=== PATIENT | female | born 1955 | race Caucasian/White ===

== ENCOUNTER → 2016-06-20 | Outpatient (CLI) | payer BC ==
--- NOTE | 2016-06-22 08:36 | MM ---
Reason for exam: screening (asymptomatic). Last mammogram was performed 1 year ago. History: Patient is postmenopausal. Family history of breast cancer in cousin at age 30. Took estrogen for 2 years. Took progesterone for 2 years. Physical Findings: A clinical breast exam by your physician is recommended on an annual basis and results should be correlated with mammographic findings. MG Screening Mammo w CAD Bilateral CC and MLO view(s) were taken. Prior study comparison: June 15, 2015, bilateral MG screening mammo w CAD. June 13, 2014, bilateral MG screening mammo w CAD. April 25, 2013, bilateral digital screening mammo w/CAD. The breast tissue is heterogeneously dense. This may lower the sensitivity of mammography. Nodularity on the right CC view appear more defined from priors. ASSESSMENT: Incomplete: need additional imaging evaluation, BI-RAD 0 RECOMMENDATION: Special view mammogram of the right breast. If lesion persists on supplemental views, image directed ultrasound is recommended. [facility] will attempt to contact patient to return for supplemental views and ultrasound if indicated.
== END | disposition home or self-care (01) ==
LOC: RADMAMWWP 14:25
PROVIDERS: ATTEND Family Medicine
DX: Z12.31 Encounter for screening mammogram for malignant neoplasm of breast (principal); R92.2 Inconclusive mammogram

== ENCOUNTER → 2016-06-23 | Outpatient (CLI) | payer BC ==
--- NOTE | 2016-06-23 14:45 | MM ---
Reason for exam: additional evaluation requested from abnormal screening. Last mammogram was performed less than 1 month ago. History: Patient is postmenopausal. Family history of breast cancer in cousin at age 30. Took estrogen for 2 years. Took progesterone for 2 years. Physical Findings: Nurse did not find any significant physical abnormalities on exam. MG Work Up Mamm w CAD RT LM and spot compression CC view(s) were taken of the right breast. Prior study comparison: June 20, 2016, bilateral MG screening mammo w CAD. June 15, 2015, bilateral MG screening mammo w CAD. Nodular areas appear improved. A 6 months follow up recommended. These results were verbally communicated with the patient and result sheet given to the patient on 06/23/16. ASSESSMENT: Probably benign, BI-RAD 3 RECOMMENDATION: Follow-up diagnostic mammogram of the right breast in 6 months.
== END ==
LOC: RADMAMWWP 13:35
PROVIDERS: ATTEND Family Medicine
DX: R92.8 Other abnormal and inconclusive findings on diagnostic imaging of breast (principal)

== ENCOUNTER → 2016-11-01 | Outpatient (CLI) | payer BC ==
[2016-11-01 08:12] LABS: INR 1.1 (<1.1); Partial Thromboplastin Time 25.8 sec (22.0-30.0); Prothrombin Time 11.5 sec (9.0-12.0)
[2016-11-01 08:23] LABS: ALT 399 U/L (9-52); AST 289 U/L (14-36); Alkaline Phosphatase 83 U/L (38-126); Amylase 58 U/L (30-110); GGT 252 U/L (12-43)
== END | disposition home or self-care (01) ==
LOC: LABWHC1 07:23
PROVIDERS: ATTEND Family Medicine
DX: R74.0 Nonspecific elevation of levels of transaminase and lactic acid dehydrogenase [LDH] (principal)
CPT/HCPCS: 36415; 82103; 82150; 82390; 82525; 82977; 83516; 83690; 84075; 84450; 84460; 85610; 85730

== ENCOUNTER → 2016-11-22 | Outpatient (CLI) | payer BC ==
[2016-11-22 08:11] LABS: Total Bilirubin 1.2 mg/dL (0.2-1.3)
== END | disposition home or self-care (01) ==
LOC: LABWHC1 07:25
PROVIDERS: ATTEND Physician Assistant Medical
DX: R79.89 Other specified abnormal findings of blood chemistry (principal)
CPT/HCPCS: 36415; 82150; 82247; 82977; 83690; 84075; 84450; 84460

== ENCOUNTER → 2016-12-28 | Outpatient (CLI) | payer BC ==
--- NOTE | 2016-12-28 08:01 | MM ---
Reason for exam: follow-up at short interval from prior study. Last mammogram was performed 6 months ago. History: Patient is postmenopausal. Family history of breast cancer in cousin at age 30. Took estrogen for 2 years. Took progesterone for 2 years. Physical Findings: Nurse did not find any significant physical abnormalities on exam. MG Diagnostic Mammo RT w CAD CC and MLO view(s) were taken of the right breast. Prior study comparison: June 23, 2016, right breast MG work up mamm w CAD RT. June 20, 2016, bilateral MG screening mammo w CAD. The breast tissue is heterogeneously dense. This may lower the sensitivity of mammography. No significant new findings when compared with previous films. These results were verbally communicated with the patient and result sheet given to the patient on 12/28/16. ASSESSMENT: Benign, BI-RAD 2 RECOMMENDATION: Return to routine screening mammogram schedule for both breasts. Back on schedule.
== END | disposition home or self-care (01) ==
LOC: RADMAMWWP 07:19
PROVIDERS: ATTEND Family Medicine
DX: R92.8 Other abnormal and inconclusive findings on diagnostic imaging of breast (principal)

== ENCOUNTER 2017-02-28 20:09 | Inpatient (IN) | payer BC ==
[2017-02-28] MEDS ORDERED: FAMOTIDINE 20 MG/2 ML VIAL IV STA (20:25)
[2017-02-28] MEDS ORDERED: diphenhydrAMINE 50 MG/ML 1 ML VIAL IVP STA ×2 (20:25→21:14)
[2017-02-28] MEDS ORDERED: SODIUM CHLORIDE 0.9% 1,000 ML IV STA ×2 (20:27)
[2017-02-28] MEDS ORDERED: SODIUM CHLORIDE 0.9% 500 ML IV STA ×2 (20:27→21:55)
--- NOTE | 2017-02-28 20:29 | ED ---
Arrhythmia/Palpitations HPI - General Chief Complaint: Arrhythmia/Palpitations Stated Complaint: Racing Heartbeat Time Seen by Provider: 02/28/17 20:18 Source: patient, RN notes reviewed Mode of arrival: wheelchair Limitations: no limitations - History of Present Illness Initial Comments: This is a 60-year-old female who came in for evaluation because of an elevated heart rate. She felt like her heart was racing she feels anxious lightheaded he states this started this morning. She also had a CAT scan of her abdomen and liver this morning. She is being worked up for some apparent liver disease. She denies any fevers chills nausea vomiting she does states she is itchy rash on her chest and abdomen. This occurred after the IV contrast. She has no other complaints she denies any drugs or alcohol. MD Complaint: rapid heart beat, "heart racing" - Related Data Home Medications Medication Instructions Recorded Confirmed Cyanocobalamin [Vitamin B-12] 500 mcg PO DAILY 02/28/17 02/28/17 Ergocalciferol [Vitamin D2] 50,000 unit PO Q14D 02/28/17 02/28/17 Escitalopram Oxalate [Lexapro] 15 mg PO DAILY 02/28/17 02/28/17 Levothyroxine Sodium [Synthroid] 100 mcg PO DAILY 02/28/17 02/28/17 amLODIPine BESYLATE [Norvasc] 5 mg PO DAILY 02/28/17 02/28/17 Allergies Allergy/AdvReac Type Severity Reaction Status Date / Time No Known Allergies Allergy Verified 02/28/17 20:53 Review of Systems ROS Statement: Those systems with pertinent positive or pertinent negative responses have been documented in the HPI. ROS Other: All systems not noted in ROS Statement are negative. Past Medical History Past Medical History: Hypertension, Thyroid Disorder History of Any Multi-Drug Resistant Organisms: None Reported Past Surgical History: No Surgical Hx Reported Past Psychological History: Anxiety, Depression Smoking Status: Never smoker Past Alcohol Use History: Occasional Past Drug Use History: None Reported General Exam - General Exam Comments Initial Comments: This is a well-developed well-nourished awake alert oriented 3 female she does appear anxious and does seem to be the smell of alcohol conjoiners on her breath Limitations: no limitations General appearance: alert, anxious Head exam: Present: atraumatic, normocephalic, normal inspection Eye exam: Present: normal appearance, PERRL, EOMI. Absent: scleral icterus, conjunctival injection, periorbital swelling ENT exam: Present: mucous membranes dry Neck exam: Present: normal inspection. Absent: tenderness, meningismus, lymphadenopathy Respiratory exam: Present: normal lung sounds bilaterally. Absent: respiratory distress, wheezes, rales, rhonchi, stridor Cardiovascular Exam: Present: normal rhythm, tachycardia, normal heart sounds. Absent: systolic murmur, diastolic murmur, rubs, gallop, clicks GI/Abdominal exam: Present: soft, normal bowel sounds. Absent: distended, tenderness, guarding, rebound, rigid Extremities exam: Present: normal inspection, full ROM, normal capillary refill. Absent: tenderness, pedal edema, joint swelling, calf tenderness Back exam: Present: normal inspection Neurological exam: Present: alert, oriented X3, CN II-XII intact Psychiatric exam: Present: normal affect, normal mood Skin exam: Present: warm, dry, intact, normal color. Absent: rash Course Vital Signs 02/28/17 02/28/17 02/28/17 20:14 20:38 21:10 Temperature 100 F H Pulse Rate 132 H 120 H 114 H Respiratory 20 18 Rate Blood Pressure 170/100 163/92 O2 Sat by Pulse 97 98 99 Oximetry 02/28/17 02/28/17 22:03 22:42 Temperature 99.5 F 99.5 F Pulse Rate 118 H 136 H Respiratory 18 18 Rate Blood Pressure 150/84 155/86 O2 Sat by Pulse 98 96 Oximetry - Reevaluation(s) Reevaluation #1: 02/28/17 23:14 Patient did get some relief from her itching and rash after the medication was given she still felt very anxious and jittery. EKG Findings - EKG Results: EKG: interpreted by ERMD, sinus rhythm EKG shows: tachycardia (Sinus tachycardia rate 132 ND interval 146 QRS duration 72 daily since QTC at 280/426 right atrial enlargement no acute ST-T wave changes) Medical Decision Making - Medical Decision Making I did reevaluate patient several occasions with female nursing staff present. Patient still feels very anxious she still is tachycardic. She did have alcohol level of 59 mg/dL on board she's denies drinking though she does admit to using mouthwash earlier she denies ingesting at however patient does demonstrate elevation of pancreatic enzymes as well as lipase level. Patient will be admitted I did discuss case Dr. Liang. GI will be consulted. Alcohol withdrawal cannot be ruled out - Lab Data Result diagrams: 02/28/17 20:26 02/28/17 20:26 Lab Results 02/28/17 02/28/17 02/28/17 Range/Units 20:26 20:26 20:26 WBC 5.7 (3.8-10.6) k/uL RBC 5.05 (3.80-5.40) m/uL Hgb 16.0 (11.4-16.0) gm/dL Hct 48.8 H (34.0-46.0) % MCV 96.6 (80.0-100.0) fL MCH 31.8 (25.0-35.0) pg MCHC 32.9 (31.0-37.0) g/dL RDW 14.5 (11.5-15.5) % Plt Count 141 L (150-450) k/uL Neutrophils % 57 % Lymphocytes % 31 % Monocytes % 7 % Eosinophils % 1 % Basophils % 1 % Neutrophils # 3.3 (1.3-7.7) k/uL Lymphocytes # 1.8 (1.0-4.8) k/uL Monocytes # 0.4 (0-1.0) k/uL Eosinophils # 0.1 (0-0.7) k/uL Basophils # 0.0 (0-0.2) k/uL PT (9.0-12.0) sec INR (<1.2) APTT (22.0-30.0) sec Sodium 145 (137-145) mmol/L Potassium 3.9 (3.5-5.1) mmol/L Chloride 110 H (98-107) mmol/L Carbon Dioxide 23 (22-30) mmol/L Anion Gap 12 mmol/L BUN 11 (7-17) mg/dL Creatinine 0.50 L (0.52-1.04) mg/dL Est GFR (MDRD) Af Amer >60 (>60 ml/min/1.73 sqM) Est GFR (MDRD) Non-Af >60 (>60 ml/min/1.73 sqM) Glucose 168 H (74-99) mg/dL Calcium 9.2 (8.4-10.2) mg/dL Magnesium 1.7 (1.6-2.3) mg/dL Total Bilirubin 1.1 (0.2-1.3) mg/dL AST 407 H (14-36) U/L ALT 267 H (9-52) U/L Alkaline Phosphatase 138 H (38-126) U/L Total Creatine Kinase 59 (30-135) U/L CK-MB (CK-2) 0.4 (0.0-2.4) ng/mL CK-MB (CK-2) Rel Index 0.7 Troponin I <0.012 (0.000-0.034) ng/mL Total Protein 6.8 (6.3-8.2) g/dL Albumin 3.7 (3.5-5.0) g/dL Amylase (30-110) U/L Lipase (23-300) U/L TSH 0.016 L (0.465-4.680) mIU/L Free T4 1.61 (0.78-2.19) ng/dL Serum Alcohol 59 mg/dL 02/28/17 02/28/17 Range/Units 20:26 20:26 WBC (3.8-10.6) k/uL RBC (3.80-5.40) m/uL Hgb (11.4-16.0) gm/dL Hct (34.0-46.0) % MCV (80.0-100.0) fL MCH (25.0-35.0) pg MCHC (31.0-37.0) g/dL RDW (11.5-15.5) % Plt Count (150-450) k/uL Neutrophils % % Lymphocytes % % Monocytes % % Eosinophils % % Basophils % % Neutrophils # (1.3-7.7) k/uL Lymphocytes # (1.0-4.8) k/uL Monocytes # (0-1.0) k/uL Eosinophils # (0-0.7) k/uL Basophils # (0-0.2) k/uL PT 13.1 H (9.0-12.0) sec INR 1.3 H (<1.2) APTT 26.9 (22.0-30.0) sec Sodium (137-145) mmol/L Potassium (3.5-5.1) mmol/L Chloride (98-107) mmol/L Carbon Dioxide (22-30) mmol/L Anion Gap mmol/L BUN (7-17) mg/dL Creatinine (0.52-1.04) mg/dL Est GFR (MDRD) Af Amer (>60 ml/min/1.73 sqM) Est GFR (MDRD) Non-Af (>60 ml/min/1.73 sqM) Glucose (74-99) mg/dL Calcium (8.4-10.2) mg/dL Magnesium (1.6-2.3) mg/dL Total Bilirubin (0.2-1.3) mg/dL AST (14-36) U/L ALT (9-52) U/L Alkaline Phosphatase (38-126) U/L Total Creatine Kinase (30-135) U/L CK-MB (CK-2) (0.0-2.4) ng/mL CK-MB (CK-2) Rel Index Troponin I (0.000-0.034) ng/mL Total Protein (6.3-8.2) g/dL Albumin (3.5-5.0) g/dL Amylase 99 (30-110) U/L Lipase 443 H (23-300) U/L TSH (0.465-4.680) mIU/L Free T4 (0.78-2.19) ng/dL Serum Alcohol mg/dL - Radiology Data Radiology results: report reviewed (I did review the CAT scan imaging and reports there is evidence of possible liver lesions which was recommended the patient get further evaluation of using MRI.), image reviewed Disposition Clinical Impression: Pancreatitis, Hepatitis, Tachycardia, Alcohol use, Acute anxiety Disposition: ADMITTED IP TO THIS [facility] Condition: Stable Referrals: Verena Syed DO [Primary Care Provider] - 1-2 days
[2017-02-28 20:40] LABS: Basophils % (A) 1 %; CH 31.3; CHCM 32.6; Eosinophils # (A) 0.1 k/uL (0-0.7); Eosinophils % (A) 1 %; HCT 48.8 % (34.0-46.0); HDW 2.36; Luc # (Auto) 0.19; Luc % (Auto) 3; Lymphocytes # (A) 1.8 k/uL (1.0-4.8); Lymphocytes % (A) 31 %; MCH 31.8 pg (25.0-35.0); MCHC 32.9 g/dL (31.0-37.0); MCV 96.6 fL (80.0-100.0); Mean Platelet Volume 7.7; Monocytes # (A) 0.4 k/uL (0-1.0); Monocytes % (A) 7 %; Neutrophils # (A) 3.3 k/uL (1.3-7.7); Neutrophils % (A) 57 %; RBC 5.05 m/uL (3.80-5.40); RDW 14.5 % (11.5-15.5); WBC 5.7 k/uL (3.8-10.6)
[2017-02-28 20:49] LABS: INR 1.3 (<1.2); Partial Thromboplastin Time 26.9 sec (22.0-30.0); Prothrombin Time 13.1 sec (9.0-12.0)
[2017-02-28 20:51] LABS: ALT 267 U/L (9-52); AST 407 U/L (14-36); Alcohol 59 mg/dL; Alkaline Phosphatase 138 U/L (38-126); Anion Gap 12 mmol/L; Blood Urea Nitrogen 11 mg/dL (7-17); Calcium 9.2 mg/dL (8.4-10.2); Carbon Dioxide 23 mmol/L (22-30); Chloride 110 mmol/L (98-107); Glucose 168 mg/dL (74-99); Magnesium 1.7 mg/dL (1.6-2.3); Non-African American GFR(MDRD) >60 (>60 ml/min/1.73 sqM); Potassium 3.9 mmol/L (3.5-5.1); Sodium 145 mmol/L (137-145); Total Bilirubin 1.1 mg/dL (0.2-1.3); Total Protein 6.8 g/dL (6.3-8.2)
[2017-02-28 20:52] LABS: Creatine Kinase 59 U/L (30-135)
--- NOTE | 2017-02-28 20:59 | XR ---
EXAMINATION TYPE: XR chest 2V DATE OF EXAM: 02/28/2017 COMPARISON: NONE HISTORY: Shortness of breath TECHNIQUE: Frontal and lateral views of the chest are obtained. FINDINGS: Scattered senescent parenchymal changes noted. Hyperinflation compatible with COPD. No evidence for infiltrate. No evidence for atelectasis. Heart size is stable. Mediastinal structures are stable and grossly unremarkable. No evidence for hilar prominence. Degenerative changes dorsal spine. IMPRESSION: 1. No evidence for acute pulmonary disease.
[2017-02-28 21:06] LABS: Creatine Kinase MB 0.4 ng/mL (0.0-2.4); Troponin I <0.012 ng/mL (0.000-0.034)
[2017-02-28 22:05] LABS: Amylase 99 U/L (30-110)
[2017-02-28] MEDS ORDERED: NALOXONE 0.4 MG/ML 1 ML VIAL IV PRN (23:18)
[2017-02-28] MEDS ORDERED: LORazepam 2 MG/ML INJ IV PRN ×3 (23:21)
[2017-02-28] MEDS ORDERED: THIAMINE 100 MG/ML 2 ML VIAL IM STA (23:21)
[2017-02-28] MEDS ORDERED: LORazepam 2 MG/ML INJ IV STA (23:30)
[2017-02-28] MEDS: THIAMINE 100 MG TAB PO SCH (23:37)
[2017-03-01 00:39] LABS: Glucose,Whole Blood 108 mg/dL (75-99)
[2017-03-01] MEDS ORDERED: HYDROmorphone 0.5 MG/0.5 ML SYRINGE IVP PRN (02:30)
[2017-03-01] MEDS ORDERED: HYDROmorphone 1 MG/ML 1 ML SYRINGE IVP PRN (03:15)
[2017-03-01 04:54] LABS: Basophils % (A) 0 %; CH 31.1; CHCM 32.1; Eosinophils # (A) 0.1 k/uL (0-0.7); Eosinophils % (A) 1 %; HCT 42.8 % (34.0-46.0); HDW 2.33; Luc # (Auto) 0.12; Luc % (Auto) 3; Lymphocytes # (A) 1.1 k/uL (1.0-4.8); Lymphocytes % (A) 27 %; MCH 31.9 pg (25.0-35.0); MCHC 32.7 g/dL (31.0-37.0); MCV 97.4 fL (80.0-100.0); Mean Platelet Volume 8.1; Monocytes # (A) 0.3 k/uL (0-1.0); Monocytes % (A) 6 %; Neutrophils # (A) 2.6 k/uL (1.3-7.7); Neutrophils % (A) 62 %; RBC 4.39 m/uL (3.80-5.40); RDW 14.3 % (11.5-15.5); WBC 4.1 k/uL (3.8-10.6)
[2017-03-01 05:06] LABS: Anion Gap 4 mmol/L; Blood Urea Nitrogen 6 mg/dL (7-17); Calcium 8.3 mg/dL (8.4-10.2); Carbon Dioxide 25 mmol/L (22-30); Chloride 112 mmol/L (98-107); Glucose 97 mg/dL (74-99); Non-African American GFR(MDRD) >60 (>60 ml/min/1.73 sqM); Potassium 3.7 mmol/L (3.5-5.1); Sodium 141 mmol/L (137-145)
[2017-03-01] MEDS: ESCITALOPRAM 10 MG TAB PO SCH (09:41)
[2017-03-01] MEDS: LEVOTHYROXINE 100 MCG TAB PO SCH (09:42)
[2017-03-01] MEDS: CYANOCOBALAMIN 500 MCG TAB PO SCH (09:42)
[2017-03-01] MEDS ORDERED: ONDANSETRON 4 MG/2 ML VIAL IVP PRN (09:47)
--- NOTE | 2017-03-01 09:51 | P.CONS ---
History of Present Illness - Reason for Consult Consult date: 03/01/17 pancreatitis Requesting physician: Whitney Liang - History of Present Illness 61 y/o history of anxiety, depression, hypertension and ETOH usage last 4 years admitted with heart palpitations and elevated heart rate. Consult requested for pancreatitis. Lipase 443. Amylase 99. Total bilirubin 1.1 AST 407. ALT 267. AP 138. Previous liver enzymes in November total bilirubin 1.2. AST 140. ALT 377. AP 422. GGT 140. Recently evaluated in the outpatient setting by cyber transport systems specialist Dr. Bauer ( [place], [place]) for possible chronic liver disease; serologic workup so far unremarkable. LFTs have been elevated since August of this year. Outpatient MRI was discusssed in GI office but not performed yet. CT abd 02/24/17 reported extensive heterogeneous enhancement along the anterior aspect of both the right and left hepatic lobes. Suggestion of some rounded areas as well measuring up to 2.8 cm. Possibility of heterogeneous enhancement from hepatitis. Correlate for hepatoma and cholangiocarcinoma. Or any known underlying primary neoplasm. Exact etiology is unclear at this time. Nonspecific borderline to mildly enlarged upper abdominal and left para-aortic lymph nodes measuring up to 1.1 cm. 7 mm cystic lesion in the anterior pancreatic neck can also be further assessed with MRI. She has been drinking alcohol mostly wine for the last 4 years more so since the passing of her . She had a beer on Monday at dinner with her family. No alcohol over the weekend. Most reporting nausea and abdominal discomfort generalized malaise. Denies hematemesis hematochezia melena fever or chills. No precipitous weight loss. Drinks alcohol. serum alcohol 59. Hemoglobin 16. WBC 5.7. INR 1.3. MCV 96. No history of pancreatitis. Additionally patient reports a rash on her hand and wonders if her symptomology of heart racing had anything to do with a reaction from the CAT scan she received on Monday with IV contrast. No known history of shellfish or iodine ALLERGY. Review of Systems Constitutional: Denies fever, chills, sweats, weight gain, or loss. HEENT: Negative for migraines, blurred vision or loss, earaches, drainage, tinnitus, oral mucosal lesions, dysphagia, or odynophagia. CARDIAC: Hypertension. Admitted with palpitations "heart racing". RESPIRATORY: Negative for shortness of breath, hemoptysis, cough, or sputum production. GI: See HPI for pertinent findings. : Negative for hematuria, urgency, frequency, polyuria, or dysuria. GYNc: Denies possibility of . Negative vaginal discharge. MUSCULOSKELETAL: Negative for muscle aches, swelling, arthritis, and arthralgias. NEUROLOGIC: Negative for stroke or TIA. ENDOCRINE: Hypothyroidism. SKIN: Negative for rash or itching. PSYCHIATRIC: Negative history for depression and anxiety All systems: negative (See HPI) Past Medical History Past Medical History: Hypertension, Thyroid Disorder History of Any Multi-Drug Resistant Organisms: None Reported Past Surgical History: No Surgical Hx Reported Past Psychological History: Anxiety, Depression Smoking Status: Never smoker Past Alcohol Use History: Occasional Past Drug Use History: None Reported - Past Family History Mother Family Medical History: No Reported History Additional Family Medical History / Comment(s): Mother is healthy and is 75yrs old. Father Family Medical History: Cancer Additional Family Medical History / Comment(s): Father is from colon cancer. He at the age of 59 or 60yrs. Medications and Allergies Home Medications Medication Instructions Recorded Confirmed Type Cyanocobalamin [Vitamin B-12] 500 mcg PO DAILY 02/28/17 02/28/17 History Ergocalciferol [Vitamin D2 50,000 unit PO Q14D 02/28/17 02/28/17 History (SHARON)] Escitalopram Oxalate [Lexapro] 15 mg PO DAILY 02/28/17 02/28/17 History Levothyroxine Sodium [Synthroid] 100 mcg PO DAILY 02/28/17 02/28/17 History amLODIPine BESYLATE [Norvasc] 5 mg PO DAILY 02/28/17 02/28/17 History Folic Acid 1 mg PO DAILY #30 tablet 03/02/17 Rx Metoprolol Tartrate [Lopressor] 12.5 mg PO BID #60 tab 03/02/17 Rx Multivitamins, Thera [Multivitamin 1 tab PO DAILY #30 tablet 03/02/17 Rx (formulary)] Thiamine [Vitamin B-1] 100 mg PO DAILY #30 tab 03/02/17 Rx Allergies Allergy/AdvReac Type Severity Reaction Status Date / Time No Known Allergies Allergy Verified 02/28/17 20:53 Physical Exam Vitals: Vital Signs Temp Pulse Resp BP Pulse Ox 03/01/17 04:00 98.7 F 104 H 14 150/78 96 03/01/17 00:40 98.7 F 114 H 16 150/87 96 02/28/17 23:37 119 H 18 153/80 97 02/28/17 22:42 99.5 F 136 H 18 155/86 96 02/28/17 22:03 99.5 F 118 H 18 150/84 98 02/28/17 21:10 114 H 18 163/92 99 02/28/17 20:38 120 H 98 02/28/17 20:14 100 F H 132 H 20 170/100 97 Intake and Output 02/28/17 02/28/17 03/01/17 14:59 22:59 06:59 Other: Weight 58.967 kg Patient Weight 03/01/17 06:59 Weight 58.967 kg - Constitutional General appearance: no acute distress - EENT Eyes: normal appearance Ears: bilateral: normal - Neck Neck: normal ROM Thyroid: bilateral: normal size - Respiratory Respiratory: bilateral: CTA - Cardiovascular Rhythm: regular Heart sounds: normal: S1, S2 - Gastrointestinal Mildly bloated. Mild midepigastric tenderness. General gastrointestinal: soft - Integumentary Integumentary: normal turgor - Neurologic Neurologic: CNII-XII intact - Psychiatric Psychiatric: A&O x's 3, appropriate affect Results CBC & Chem 7: 03/01/17 04:27 03/01/17 04:27 Labs: Abnormal Lab Results - Last 24 Hours (Table) 02/28/17 02/28/17 02/28/17 Range/Units 20:26 20:26 20:26 Hct 48.8 H (34.0-46.0) % Plt Count 141 L (150-450) k/uL PT 13.1 H (9.0-12.0) sec INR 1.3 H (<1.2) Chloride 110 H (98-107) mmol/L BUN (7-17) mg/dL Creatinine 0.50 L (0.52-1.04) mg/dL Glucose 168 H (74-99) mg/dL POC Glucose (mg/dL) (75-99) mg/dL Calcium (8.4-10.2) mg/dL AST 407 H (14-36) U/L ALT 267 H (9-52) U/L Alkaline Phosphatase 138 H (38-126) U/L Lipase (23-300) U/L TSH 0.016 L (0.465-4.680) mIU/L 02/28/17 03/01/17 03/01/17 Range/Units 20:26 00:37 04:27 Hct (34.0-46.0) % Plt Count 104 L (150-450) k/uL PT (9.0-12.0) sec INR (<1.2) Chloride (98-107) mmol/L BUN (7-17) mg/dL Creatinine (0.52-1.04) mg/dL Glucose (74-99) mg/dL POC Glucose (mg/dL) 108 H (75-99) mg/dL Calcium (8.4-10.2) mg/dL AST (14-36) U/L ALT (9-52) U/L Alkaline Phosphatase (38-126) U/L Lipase 443 H (23-300) U/L TSH (0.465-4.680) mIU/L 03/01/17 Range/Units 04:27 Hct (34.0-46.0) % Plt Count (150-450) k/uL PT (9.0-12.0) sec INR (<1.2) Chloride 112 H (98-107) mmol/L BUN 6 L (7-17) mg/dL Creatinine 0.40 L (0.52-1.04) mg/dL Glucose (74-99) mg/dL POC Glucose (mg/dL) (75-99) mg/dL Calcium 8.3 L (8.4-10.2) mg/dL AST (14-36) U/L ALT (9-52) U/L Alkaline Phosphatase (38-126) U/L Lipase (23-300) U/L TSH (0.465-4.680) mIU/L CT scan - abdomen: report reviewed (02/[address] Chaudhari) Assessment and Plan Assessment: Impression: 1. Elevated heart rate with palpitations and nonspecific elevation of lipase with normal amylase and history of ETOH usage possible early pancreatitis. 2. Elevated liver enzymes possible alcohol hepatitis possible alcohol liver disease possible steatohepatitis. Serologic workup for chronic liver disease so far unremarkable. 3. Pancreatic neck cystic lesion. CT abdomen reported extensive heterogeneous enhancement of both right and left hepatic lobes with rounded areas up to 2.8 cm possible hepatitis possible hepatoma neoplasm cannot be excluded. 4. Mild coagulopathy. Plan: 1. Protonix 40 mg IV daily. MRI liver/MRCP. Will provide premed for possible iodine reaction. 2. IV hydration. 3. Reevaluate pancreatic enzymes. 4. US abdomen pending. 5. Hepatitis screen. AFP. CEA. CA-19-9. Supportive measures. Thank you for this kind referral and the opportunity to participate in the care of your patient. This consultation was discussed with Dr. Chaudhari. The impression and plan of care have been directed as dictated.
[2017-03-01] MEDS: PANTOPRAZOLE 40 MG/10 ML VIAL IVP SCH (09:57)
[2017-03-01] MEDS: amLODIPine 5 MG TAB PO SCH (09:58)
--- NOTE | 2017-03-01 10:27 | P.HPIM ---
History of Present Illness H&P Date: 03/01/17 Chief Complaint: Dictation and generalized malaise Elaine Collins is a 61-year-old female patient of Dr. Verena Syed who presented to [facility] with a chief complaint of heart palpitations generalized malaise skin itching and feeling weak. Patient states that 2 days prior to admission she had a computed tomography scan of the abdomen with contrast, to evaluate elevated liver enzymes, subsequently she started not feeling well and having weakness and feeling sick she started having palpitation of her heart and she decided to come to emergency room. Patient has a known history of excessive alcohol use however she states that she quit couple of months ago. She was evaluated in the emergency room, she had elevated liver enzymes with AST at 407 and a LT at 276, elevated alkaline phosphatase at 138, elevated lipase at 443, and elevated serum alcohol level at 59. Patient was admitted to telemetry floor repeat labs were ordered abdomen ultrasound was ordered and a gastroenterology consultation was requested. Past Medical History Past Medical History: Hypertension, Thyroid Disorder Additional Past Medical History / Comment(s): Pt is currently being worked up for liver disease, hypothyroid. History of Any Multi-Drug Resistant Organisms: None Reported Past Surgical History: No Surgical Hx Reported Additional Past Surgical History / Comment(s): colonoscopy Past Anesthesia/Blood Transfusion Reactions: No Reported Reaction Past Psychological History: Anxiety, Depression Smoking Status: Never smoker Past Alcohol Use History: Occasional Past Drug Use History: None Reported - Past Family History Mother Family Medical History: No Reported History Additional Family Medical History / Comment(s): Mother is healthy and is 75yrs old. Father Family Medical History: Cancer Additional Family Medical History / Comment(s): Father is from colon cancer. He at the age of 59 or 60yrs. Medications and Allergies Home Medications Medication Instructions Recorded Confirmed Type Cyanocobalamin [Vitamin B-12] 500 mcg PO DAILY 02/28/17 02/28/17 History Ergocalciferol [Vitamin D2] 50,000 unit PO Q14D 02/28/17 02/28/17 History Escitalopram Oxalate [Lexapro] 15 mg PO DAILY 02/28/17 02/28/17 History Levothyroxine Sodium [Synthroid] 100 mcg PO DAILY 02/28/17 02/28/17 History amLODIPine BESYLATE [Norvasc] 5 mg PO DAILY 02/28/17 02/28/17 History Allergies Allergy/AdvReac Type Severity Reaction Status Date / Time No Known Allergies Allergy Verified 02/28/17 20:53 Physical Exam Vitals: Vital Signs Temp Pulse Resp BP Pulse Ox 03/01/17 09:00 107 H 163/89 03/01/17 08:00 112 H 161/79 03/01/17 07:51 95 03/01/17 07:00 113 H 161/79 03/01/17 06:00 102 H 146/81 03/01/17 04:00 98.7 F 104 H 14 150/78 96 03/01/17 00:40 98.7 F 114 H 14 150/87 96 02/28/17 23:37 119 H 18 153/80 97 02/28/17 22:42 99.5 F 136 H 18 155/86 96 02/28/17 22:03 99.5 F 118 H 18 150/84 98 02/28/17 21:10 114 H 18 163/92 99 02/28/17 20:38 120 H 98 02/28/17 20:14 100 F H 132 H 20 170/100 97 Intake and Output 02/28/17 03/01/17 03/01/17 22:59 06:59 14:59 Output Total 800 400 Balance -800 -400 Output: Urine 800 400 Other: Voiding Method Toilet Toilet Weight 58.967 kg 66.3 kg In general patient is alert and oriented 3 in no apparent distress HEENT head normocephalic and atraumatic Neck is supple no JVD no goiter no lymphadenopathy Chest exam reveals a clear respiratory sounds no crackles no wheezing Cardiac exam reveals regular heart sounds S1 and S2 no gallops no murmurs Abdomen is soft with mild tenderness in the epigastric area no organomegaly no rigidity or rebound no palpable masses, normal bowel sounds Extremity exam reveals no edema no cyanosis or clubbing Neurological examination reveals no gross deficit Results CBC & Chem 7: 03/01/17 04:27 03/01/17 04:27 Labs: Abnormal Lab Results - Last 24 Hours (Table) 02/28/17 02/28/17 02/28/17 Range/Units 20:26 20:26 20:26 Hct 48.8 H (34.0-46.0) % Plt Count 141 L (150-450) k/uL PT 13.1 H (9.0-12.0) sec INR 1.3 H (<1.2) Chloride 110 H (98-107) mmol/L BUN (7-17) mg/dL Creatinine 0.50 L (0.52-1.04) mg/dL Glucose 168 H (74-99) mg/dL POC Glucose (mg/dL) (75-99) mg/dL Calcium (8.4-10.2) mg/dL AST 407 H (14-36) U/L ALT 267 H (9-52) U/L Alkaline Phosphatase 138 H (38-126) U/L Lipase (23-300) U/L TSH 0.016 L (0.465-4.680) mIU/L 02/28/17 03/01/17 03/01/17 Range/Units 20:26 00:37 04:27 Hct (34.0-46.0) % Plt Count 104 L (150-450) k/uL PT (9.0-12.0) sec INR (<1.2) Chloride (98-107) mmol/L BUN (7-17) mg/dL Creatinine (0.52-1.04) mg/dL Glucose (74-99) mg/dL POC Glucose (mg/dL) 108 H (75-99) mg/dL Calcium (8.4-10.2) mg/dL AST (14-36) U/L ALT (9-52) U/L Alkaline Phosphatase (38-126) U/L Lipase 443 H (23-300) U/L TSH (0.465-4.680) mIU/L 03/01/17 Range/Units 04:27 Hct (34.0-46.0) % Plt Count (150-450) k/uL PT (9.0-12.0) sec INR (<1.2) Chloride 112 H (98-107) mmol/L BUN 6 L (7-17) mg/dL Creatinine 0.40 L (0.52-1.04) mg/dL Glucose (74-99) mg/dL POC Glucose (mg/dL) (75-99) mg/dL Calcium 8.3 L (8.4-10.2) mg/dL AST (14-36) U/L ALT (9-52) U/L Alkaline Phosphatase (38-126) U/L Lipase (23-300) U/L TSH (0.465-4.680) mIU/L Thrombosis Risk Factor Assmnt - Choose All That Apply Any of the Below Risk Factors Present?: Yes Each Factor Represents 1 point: Age 41-60 years Other Risk Factors: No Other congenital or acquired thrombophilia - If yes, enter type in comment: No Thrombosis Risk Factor Assessment Total Risk Factor Score: 1 Thrombosis Risk Factor Assessment Level: Low Risk Assessment and Plan Plan: #1 palpitation with sinus tachycardia on presentation #2 elevated liver enzymes, possible acute hepatitis on top point chronic alcoholic liver disease #3 elevated lipase possible acute pancreatitis #4 abnormal computed tomography scan of the abdomen done 2 days prior to admission revealing extensive heterogeneous enhancement of both hepatic lobes with rounded area of 2.8 cm representing possible hepatoma, versus malignancy. And abnormal enhancement of the pancreas #5 at this time continue was IV hydration and IV Protonix, elevated alcohol level on presentation reveals ongoing alcohol use, patient will be counseled extensively during this admission, will place on CIMT protocol. Gastroenterology consult was requested, For DVT prophylaxis, we will use SCD stockings will avoid anticoagulation due to elevated liver enzymes and an underlying coagulopathy on presentation
[2017-03-01 10:34] LABS: ALT 220 U/L (9-52); AST 287 U/L (14-36); Alkaline Phosphatase 108 U/L (38-126); Total Bilirubin 1.5 mg/dL (0.2-1.3)
[2017-03-01] MEDS ORDERED: diphenhydrAMINE 50 MG/ML 1 ML VIAL IVP ONE (11:30)
[2017-03-01] MEDS ORDERED: methylPREDNISolone SOD SUCCI 125 MG/2 ML VIAL IV ONE (11:30)
[2017-03-01] MEDS ORDERED: FAMOTIDINE 20 MG/2 ML VIAL IV ONE (11:30)
[2017-03-01] MEDS: THIAMINE 100 MG TAB PO SCH ×2 (13:34→17:52)
[2017-03-01] MEDS ORDERED: LORazepam 2 MG/ML INJ IV STA (14:30)
--- NOTE | 2017-03-01 16:50 | MR ---
EXAMINATION TYPE: MR liver wo/w con and MRCP DATE OF EXAM: 03/01/2017 COMPARISON: CT 02/24/2017 HISTORY: 61-year-old female with abnormal CT, Hepatitis Technique: Multiplanar, multisequence images of the abdomen were obtained before and after administra tion of 7 mL intravenous Gadavist gadolinium contrast. Additional highly T2 weighted images of the b iliary system were acquired for MRCP. 3-D reconstructions [facility] FINDINGS: The heart is upper limits of normal in size without pericardial effusion. No pleural effusion. Scattered small cysts are present within the liver measuring up to 8 mm. However, more significantly, there is extensive heterogeneous T2-weighted signal abnormality that shows corresponding low T1 weig hted signal. All of this shows extensive postcontrast enhancement that progressively increases on the later postcontrast sequences. The extensive heterogeneity makes it difficult to assess for discrete underlying masses, for example, series 1101 image 371 measuring 2.8 cm. On later postcontrast series, the portal venous system appears to be grossly patent. Biliary ductal dilatation is not a predominant finding in this case. MRCP images are degraded by patient motion. Despite this limitation, the bile duct is normal caliber at 3.8 mm. Tiny T2 hyperintense lesions within the pancreas measuring approximately 3 mm anterior pancreatic bod y and anterior pancreatic tail with a dominant nonenhancing T2 hyperintense lesion anterior pancreati c neck measuring 7 mm. This may be communicating with the main pancreatic duct. No suspicious nodular or masslike enhancement is seen. Anterior splenule. Subcentimeter focus of nonenhancement lateral left kidney suggestive of a cyst. Gallbladder and adrenal glands show no gross abnormality. There is a mildly enlarged 1 cm portal hepatic lymph node. No ascites fluid or gross bowel abnormality. IMPRESSION: 1. Extensive heterogeneous signal intensity of the liver showing postcontrast enhancement with progre ssive enhancement on later phases. This could be from inflammatory hyperemia secondary to hepatitis o r from scar tissue secondary to confluent hepatic fibrosis. As cholangiocarcinoma also shows progress jeff delayed enhancement, correlate with CA-19-9 levels. The lack of biliary ductal dilatation makes t his a less likely possibility. Liver biopsy may be of value in this case. 2. The hepatic vasculature appears grossly patent. 3. A few cystic lesions in the pancreas, largest measuring 7 mm in the pancreatic neck may communicat e with the pancreatic duct. Dilated side branch radical, sequela of prior pancreatitis, and sidebranc h IPMN are in the differential. This can be reassessed at a one-year follow-up MRI.
[2017-03-01] MEDS: METOPROLOL TARTRATE 12.5 MG TAB PO SCH (21:58)
[2017-03-01 23:42] VITALS: RESP 17
[2017-03-02 04:04] VITALS: TEMP 98.1
[2017-03-02] MEDS: PANTOPRAZOLE 40 MG/10 ML VIAL IVP SCH (09:21)
[2017-03-02] MEDS: METOPROLOL TARTRATE 12.5 MG TAB PO SCH (09:22)
[2017-03-02] MEDS: amLODIPine 5 MG TAB PO SCH (09:22)
[2017-03-02] MEDS: THIAMINE 100 MG TAB PO SCH (09:22)
[2017-03-02] MEDS: ESCITALOPRAM 10 MG TAB PO SCH (09:22)
[2017-03-02] MEDS: LEVOTHYROXINE 100 MCG TAB PO SCH (09:23)
[2017-03-02] MEDS: CYANOCOBALAMIN 500 MCG TAB PO SCH (09:23)
--- NOTE | 2017-03-02 09:40 | P.PN ---
Subjective Progress Note Date: 03/02/17 Principal diagnosis: Hepatitis pancreatitis 61-year-old female with a history of alcohol abuse with elevated liver enzymes greater than 6 months presents to the hospital with abdominal discomfort elevated liver enzymes and heart palpitations. Liver MRI/MRCP performed yesterday as part of follow-up from abnormalities seen on CT 02/24/2017 reported extensive heterogeneous signal intensity liver showing postcontrast enhancement possible inflammatory hyperemia secondary to hepatitis or from scar tissue secondary to confluent hepatic fibrosis. Few cystic lesions in the pancreas largest measuring 7 mm in the neck make mutate with the pancreatic duct. Side branch IPMN are in the differential. She feels well. No palpitations. Total bilirubin 1.5. AST 287. ALT 220. Alkaline phosphatase 108. CA-19-9 36. AFP 9.9. CEA 1.4. Objective - Vital Signs Vital signs: Vital Signs Temp 98.1 F 03/02/17 04:00 Pulse 71 03/02/17 04:00 Resp 17 03/02/17 04:00 BP 125/86 03/02/17 04:00 Pulse Ox 97 03/02/17 04:00 Intake & Output 03/01/17 03/02/17 03/02/17 18:59 06:59 18:59 Intake Total 0 550 480 Output Total 400 400 Balance -400 150 480 Weight 58.8 kg Intake: Intake, IV Titration 0 Amount Sodium Chloride 0.9% 500 0 ml @ 999 mls/hr IV .Q31M STA Rx#:[id number] Oral 550 480 Output: Urine 400 400 Other: Voiding Method Toilet Toilet # Voids 1 - Exam General appearance: The patient is alert, oriented, in no acute distress. HET: Head is normocephalic and atraumatic. Pupils are equal and reactive. Oropharynx is clear without lesions. Neck: Supple without lymphadenopathy. Trachea midline. Heart: S1 S2. Regular rate and rhythm. Lungs: No crackles or wheezes are heard. Abdomen: Soft, nontender, nondistended with bowel sounds. No peritoneal signs. No palpable organomegaly or masses. Extremities: Normal skin color and turgor. No cyanosis, rash, ulceration, clubbing, or edema. Radial and pedal pulses are 2/4 bilaterally. Neurological: No focal deficits. Strength and sensation are grossly intact. - Labs CBC & Chem 7: 03/01/17 04:27 03/01/17 04:27 Labs: Abnormal Lab Results - Last 24 Hours (Table) 03/01/17 03/01/17 Range/Units 04:27 04:27 Chloride 112 H (98-107) mmol/L BUN 6 L (7-17) mg/dL Creatinine 0.40 L (0.52-1.04) mg/dL Calcium 8.3 L (8.4-10.2) mg/dL Total Bilirubin 1.5 H (0.2-1.3) mg/dL AST 287 H (14-36) U/L ALT 220 H (9-52) U/L Total Protein 6.0 L (6.3-8.2) g/dL Albumin 3.0 L (3.5-5.0) g/dL Tumor Marker AFP 9.9 H (0.0-7.9) ng/mL CA 19-9 Antigen 36.0 H (0.0-34.9) U/mL Assessment and Plan Assessment: Impression: 1. Elevated heart rate with palpitations and nonspecific elevation of lipase with normal amylase and history of ETOH usage possible early pancreatitis. 2. Elevated liver enzymes possible alcohol hepatitis possible alcohol liver disease. Serologic workup for chronic liver disease so far unremarkable. 3. Pancreatic neck cystic lesion. CT abdomen reported extensive heterogeneous enhancement of both right and left hepatic lobes with rounded areas up to 2.8 cm possible hepatitis possible hepatoma neoplasm cannot be excluded. Follow-up MRI MRCP redemonstrated pancreatic cysts possible side branch IPM and possible scar tissue secondary to hepatic fibrosis, hepatitis. 4. Mild coagulopathy. Plan: 1. Recommend liver biopsy this can be pursued as an outpatient. Patient is agreeable with this plan a care. We'll assist with scheduling of this procedure. Follow up in GI office after liver biopsies performed for further evaluation. Discharge per medicine. Alcohol abstinence strongly advised. Assessment and plan a care discussed with Dr. Chaudhari
--- NOTE | 2017-03-02 10:34 | P.DS ---
Providers Date of admission: 02/28/17 23:17 Expected date of discharge: 03/02/17 Attending physician: Whitney Liang Consults: 02/28/17 23:20 Consult Physician Routine Consulting Provider: Celina Castañeda Consult Reason/Comments: Pancreatitis, hepatitis Do you want consulting provider notified?: Yes, Notify in am Primary care physician: Verena Syed [facility] Course: Discharge diagnosis 1. Sinus tachycardia with palpitations: Patient started on metoprolol 12.5 mg twice a day. Symptoms resolved. Heart rate has normalized. 2. Possible early pancreatitis with known alcohol usage. Lipase elevated on admission. Now normalized. Abdominal discomfort resolved. 3. Possible alcoholic hepatitis with elevated liver enzymes. Serologic workup for chronic liver disease unremarkable per GI service and acute hepatitis panel negative 4. Pancreatic neck cystic lesion. CT abdomen reported extensive heterogeneous enhancement of both right and left hepatic lobes with rounded areas up to 2.8 cm possible hepatitis possible hepatoma neoplasm cannot be excluded. Follow-up MRI MRCP redemonstrated pancreatic cysts possible side branch IPM and possible scar tissue secondary to hepatic fibrosis, hepatitis. Patient evaluated by GI service. They are recommending liver biopsy outpatient and she'll follow-up with Dr. Zuniga outpatient after biopsies 5. Mild coagulopathy secondary to liver disease 6. Alcohol dependence: Patient educated to abstain from alcohol use. She will be given thiamine, folic acid and multivitamin for discharge Hospital course Elaine Collins is a 61-year-old female patient of Dr. Verena Syed who presented to [facility] with a chief complaint of heart palpitations generalized malaise skin itching and feeling weak. Patient states that 2 days prior to admission she had a computed tomography scan of the abdomen with contrast, to evaluate elevated liver enzymes, subsequently she started not feeling well and having weakness and feeling sick she started having palpitation of her heart and she decided to come to emergency room. Patient has a known history of excessive alcohol use however she states that she quit couple of months ago. She was evaluated in the emergency room, she had elevated liver enzymes with AST at 407 and a LT at 276, elevated alkaline phosphatase at 138, elevated lipase at 443, and elevated serum alcohol level at 59. Patient was admitted to telemetry floor and GI service consulted Patient underwent a liver MRI results as stated above. GI service has cleared her for discharge. They're recommending a liver biopsy and patient follow-up with GI service after liver biopsy. Patient is agreeable to this. Heart rate has also improved with the addition of the metoprolol. Patient is medically stable for discharge. Please refer to chart for any further details. I performed an examination of the patient and discussed their management with the physician Drosophere Operator. I have reviewed the Physician Drosophere Operator's notes and agree with the documented findings and plan of care Patient Condition at Discharge: Stable Plan - Discharge Summary Discharge Rx Participant: No New Discharge Prescriptions: New Folic Acid 1 mg PO DAILY #30 tablet Metoprolol Tartrate [Lopressor] 12.5 mg PO BID #60 tab Thiamine [Vitamin B-1] 100 mg PO DAILY #30 tab Continue amLODIPine BESYLATE [Norvasc] 5 mg PO DAILY Levothyroxine Sodium [Synthroid] 100 mcg PO DAILY Escitalopram Oxalate [Lexapro] 15 mg PO DAILY Ergocalciferol [Vitamin D2 (DRISDOL)] 50,000 unit PO Q14D Cyanocobalamin [Vitamin B-12] 500 mcg PO DAILY Discharge Medication List Cyanocobalamin [Vitamin B-12] 500 mcg PO DAILY 02/28/17 [History] Ergocalciferol [Vitamin D2 (DRISDOL)] 50,000 unit PO Q14D 02/28/17 [History] Escitalopram Oxalate [Lexapro] 15 mg PO DAILY 02/28/17 [History] Levothyroxine Sodium [Synthroid] 100 mcg PO DAILY 02/28/17 [History] amLODIPine BESYLATE [Norvasc] 5 mg PO DAILY 02/28/17 [History] Folic Acid 1 mg PO DAILY #30 tablet 03/02/17 [Rx] Metoprolol Tartrate [Lopressor] 12.5 mg PO BID #60 tab 03/02/17 [Rx] Thiamine [Vitamin B-1] 100 mg PO DAILY #30 tab 03/02/17 [Rx] Follow up Appointment(s)/Referral(s): Noah Chaudhari MD [STAFF PHYSICIAN] - 1 Week Verena Syed DO [Primary Care Provider] - 1 Week Activity/Diet/Wound Care/Special Instructions: Diet: cardiac Activity: as tolerated NO ETOH Discharge Disposition: HOME SELF-CARE
[2017-03-02 10:59] VITALS: BP 127/61; PULSE 86
[2017-03-05] MEDS ORDERED: ERGOCALCIFEROL 50,000 UNIT CAP PO SCH (09:00)
== END 2017-03-02 11:25 | disposition home or self-care (01) | DRG 432 ==
LOC: EC 20:09 → 6ICU 23:17 → 6SEL 03-01 21:12
PROVIDERS: ADMIT Internal Medicine; ATTEND Internal Medicine
DX: K70.10 Alcoholic hepatitis without ascites (principal); K85.90 Acute pancreatitis without necrosis or infection, unspecified; K86.2 Cyst of pancreas; D68.4 Acquired coagulation factor deficiency; K75.9 Inflammatory liver disease, unspecified; R00.0 Tachycardia, unspecified; R21 Rash and other nonspecific skin eruption; F32.9 Major depressive disorder, single episode, unspecified; F41.9 Anxiety disorder, unspecified; I10 Essential (primary) hypertension; E07.9 Disorder of thyroid, unspecified; F10.20 Alcohol dependence, uncomplicated; Z79.899 Other long term (current) drug therapy; Y90.2 Blood alcohol level of 40-59 mg/100 ml
CPT/HCPCS: 36415; 71020; 74183; 80053; 80074; 80320; 82105; 82150; 82378; 82550; 82553; 83690; 83735; 84439; 84443; 84484; 85025; 85610; 85730; 86301; 93005; 96361; 96372; 96374; 96375; 96376; 99285

== ENCOUNTER → 2017-03-15 | Outpatient (CLI) | payer BC ==
[2017-03-15 08:09] LABS: INR 1.3 (<1.2); Prothrombin Time 12.5 sec (9.0-12.0)
[2017-03-15 08:15] LABS: Bilirubin, Delta 0.3 mg/dL (0.0-0.2); Total Bilirubin 0.9 mg/dL (0.2-1.3)
== END | disposition home or self-care (01) ==
LOC: LABWHC1 07:38
PROVIDERS: ATTEND Internal Medicine Gastroenterology
DX: R79.89 Other specified abnormal findings of blood chemistry (principal)
CPT/HCPCS: 36415; 82248; 84075; 84450; 84460; 85610

== ENCOUNTER 2017-05-25 08:39 | Day surgery (SDC) | payer BC ==
[~2017-05-25 08:39] MED LIST: ALPRAZolam 0.5 MG TAB PO ONE; HYDROmorphone 4 MG/ML 1 ML SYRINGE IVP PRN
[2017-05-25 08:51] VITALS: TEMP 98.3
[2017-05-25 09:09] LABS: Mean Platelet Volume 7.1; Platelet Count 174 k/uL (150-450)
[2017-05-25 09:19] LABS: INR 1.2 (<1.2)
[2017-05-25 09:20] LABS: Partial Thromboplastin Time 25.2 sec (22.0-30.0); Prothrombin Time 11.2 sec (9.0-12.0)
[2017-05-25] MEDS ORDERED: HYDROmorphone 2 MG/ML 1 ML SYRINGE IM PRN (10:21)
[2017-05-25] MEDS ORDERED: HYDROmorphone 2 MG/ML 1 ML SYRINGE IV PRN (11:10)
--- NOTE | 2017-05-25 12:15 | US ---
EXAMINATION TYPE: US biopsy liver DATE OF EXAM: 05/25/2017 HISTORY: Elevated liver function tests. PROCEDURE: Maximal barrier technique was utilized. After informed consent, the skin overlying a suit able path to the left lobe of liver was localized using ultrasound, the skin was prepped and draped. Ultrasound was utilized with sterile technique. Lidocaine was used for local anesthesia. A skin carmela k made with a scalpel. Under direct ultrasound guidance, an 18-gauge needle was advanced into the le ft lobe of the liver and core biopsy obtained. Hemostasis was achieved. There was no immediate comp lication and patient remained in stable condition. Specimen submitted in formalin to Pathology. IMPRESSION: STATUS POST ULTRASOUND GUIDED CORE BIOPSY OF THE LEFT LOBE OF THE LIVER, PATHOLOGY NATHAN Moore PERFORMED BY THE UNDERSIGNED.
[2017-05-25 13:39] VITALS: PULSE 64
[2017-05-25 13:40] VITALS: BP 101/55; RESP 16
== END 2017-05-25 13:47 | disposition home or self-care (01) ==
LOC: RADPROMAIN 08:39
DX: K74.0 Hepatic fibrosis (principal)
CPT/HCPCS: 85049; 85610; 85730; 88313; 88307; 96375; 36415; 47000; 76942; J1170

== ENCOUNTER 2017-07-11 10:28 | Day surgery (SDC) | payer BC ==
[2017-07-05 15:53] VITALS: BMI 21.6
[~2017-07-11 10:28] MED LIST changes: -ALPRAZolam 0.5 MG TAB PO ONE; -HYDROmorphone 4 MG/ML 1 ML SYRINGE IVP PRN; +LIDOCAINE 1% 20 ML VIAL (10MG/ML) FOR IV START INTRADERMA PRN; +ONDANSETRON 4 MG/2 ML VIAL IVP ONE
[2017-07-11] MEDS: PHENYLEPHRINE 10% OPHTH DROPS 5 ML BTL OP ONE ×3 (12:19→12:25)
[2017-07-11 12:24] VITALS: RESP 16; TEMP 98.9
[2017-07-11] MEDS: CYCLOPENTOLATE 1% OPHTH SOLN 2 ML BTL OP ONE ×3 (12:28→12:34)
[2017-07-11] MEDS: FLURBIPROFEN 0.03% OPHTH DROPS 2.5 ML BTL OP ONE ×3 (12:37→12:43)
[2017-07-11] MEDS: LACTATED RINGERS 1,000 ML IV SCH ×2 (12:43→13:11)
[2017-07-11] MEDS ORDERED: PROPOFOL 10 MG/ML 20 ML VIAL IV ONE (13:10)
[2017-07-11] MEDS ORDERED: BALANCED SALT IRRIG SOLN COMB2 15 ML IRRIG.SOLN INTRAOCULA ONE (13:27)
[2017-07-11] MEDS ORDERED: HYALURONATE SODIUM INTRAOCULAR 1 EACH SYRINGE (10MG/ML) INTRAOCULA ONE (13:28)
[2017-07-11] MEDS ORDERED: EPINEPHrine (PF) 0.5 ML in BALANCED SALT IRRIG SOLN COMB2 500 ML IRRIGATION ONE (13:31)
--- NOTE | 2017-07-11 13:35 | P.OP ---
Date of Procedure: 07/11/17 Procedure(s) Performed: PREOPERATIVE DIAGNOSIS: Cataract, right eye. POSTOPERATIVE DIAGNOSIS: Cataract, right eye. OPERATION: Phacoemulsification cataract, right eye. DESCRIPTION OF PROCEDURE: The patient was taken to the preoperative holding area. Intravenous Propofol was given so as to bring about adequate sedation. The following mixture was given for local anesthesia: 5 mL of 2% lidocaine, 5 mL of 0.75% Marcaine, and 1 mL of Wydase. Approximately 4 mL was injected in the retrobulbar space of the surgical eye. Additional 1 mL was then directed to the temporal area of the surgical eye. This was performed to allow adequate neurological block of the facial muscles. The patient was revived and then taken into the operative room. The patient was prepped and draped in the usual sterile manner for the operative eye. A lid speculum was put into position. The conjunctiva was resected back from the limbus in the 12 o'clock position. Bleeding was controlled with electrocautery. A #69 blade was then used and a half-thickness scleral incision approximately 1-mm posterior to the limbus was made on bare sclera. This was shelved in the clear cornea using a crescent knife. Next a 15-degree blade was used to make a stab incision at the 3 o' clock position at the corneolimbal interface. Keratome blade was then used and the superior wound was extended into the anterior chamber. Viscoelastic was injected into the anterior chamber and to maintain its form. Next, a cystotome was used and a continuous anterior capsulotomy was made without difficulty. Hydrodissection using a blunt cannula and BSS was performed. Phaco probe was then employed and a groove extending from 12 to 6 o'clock in the lens was created. A Manpreet wand was used through the stab incision so as to perform a divide and conquer technique. Next an irrigation aspiration probe was utilized and any residual cortex was removed from the eye. Again, viscoelastic was injected into the anterior chamber. An Jasbir posterior chamber lens implant was placed in the cartridge and injected into the anterior chamber without difficulty. The SinYo-Fi Wellnessey hook was utilized to spin the lens into position and this was again performed without any difficulty. The irrigation and aspiration probe was again employed and any residual viscoelastic was removed from the eye. Then BSS was injected into the limbal stab incision and the anterior chamber re-inflated. The conjunctiva was reapproximated using electrocautery. One drop of 0.25% Timoptic was placed over the corneal along with TobraDex ophthalmic ointment. Two sterile patches and a Gilbert eye shield were taped into position. The patient was transported to the recovery room in stable condition. Pathology: none sent Condition: stable Disposition: same day
[2017-07-11 13:55] VITALS: BP 132/78; PULSE 64
[2017-07-11] MEDS ORDERED: BUPIVACAINE (PF) 0.75% 5 ML, HYALURONIDASE, HUMAN RECOMB 150 UNIT, LIDOCAINE 2% (PF) 10... MISCELLANE ONE ×3 (23:00)
[2017-07-11] MEDS ORDERED: GENTAMICIN/PREDNISOL AC OPHTH OINT 3.5GM OPHTHALMIC ONE (23:00)
[2017-07-11] MEDS ORDERED: TIMOLOL 0.5% OPHTH DROPS 5 ML BTL OP ONE (23:00)
== END 2017-07-11 14:12 | disposition home or self-care (01) ==
LOC: OR 10:28
PROVIDERS: ATTEND Ophthalmology
DX: H25.041 Posterior subcapsular polar age-related cataract, right eye (principal); I10 Essential (primary) hypertension; E07.9 Disorder of thyroid, unspecified; F41.9 Anxiety disorder, unspecified; F32.9 Major depressive disorder, single episode, unspecified; Z79.890 Hormone replacement therapy; Z79.899 Other long term (current) drug therapy; Z91.09 Other allergy status, other than to drugs and biological substances
CPT/HCPCS: 66984; V2632; J3470; J2001; J0171; J2704

== ENCOUNTER 2017-09-05 06:01 | Day surgery (SDC) | payer BC ==
[2017-08-31 14:21] VITALS: BMI 21.6
[~2017-09-05 06:01] MED LIST changes: +LACTATED RINGERS 1,000 ML IV SCH; -ONDANSETRON 4 MG/2 ML VIAL IVP ONE
[2017-09-05] MEDS: CYCLOPENTOLATE 1% OPHTH SOLN 2 ML BTL OP ONE ×3 (06:12→06:30)
[2017-09-05] MEDS: FLURBIPROFEN 0.03% OPHTH DROPS 2.5 ML BTL OP ONE ×3 (06:15→06:34)
[2017-09-05] MEDS: PHENYLEPHRINE 10% OPHTH DROPS 5 ML BTL OP ONE ×3 (06:18→06:39)
[2017-09-05 06:29] VITALS: RESP 16; TEMP 98.5
[2017-09-05] MEDS ORDERED: PROPOFOL 10 MG/ML 20 ML VIAL IV ONE (07:44)
[2017-09-05] MEDS ORDERED: EPINEPHrine (PF) 0.5 ML in BALANCED SALT IRRIG SOLN COMB2 500 ML IRRIGATION ONE (07:54)
[2017-09-05] MEDS ORDERED: BALANCED SALT IRRIG SOLN COMB2 15 ML IRRIG.SOLN INTRAOCULA ONE (07:56)
[2017-09-05] MEDS ORDERED: NEOMYCIN-POLYMYXIN-DEXAMETH OINT 3.5 GM TUBE LEFT EYE ONE (07:57)
[2017-09-05] MEDS ORDERED: HYALURONATE SODIUM INTRAOCULAR 1 EACH SYRINGE (10MG/ML) INTRAOCULA ONE (07:57)
[2017-09-05] MEDS ORDERED: TIMOLOL 0.5% OPHTH SOLN (PF) 0.2 ML DROPERETTE LEFT EYE ONE (07:58)
--- NOTE | 2017-09-05 08:14 | P.OP ---
Date of Procedure: 09/05/17 Procedure(s) Performed: PREOPERATIVE DIAGNOSIS: Cataract, left eye. POSTOPERATIVE DIAGNOSIS: Cataract, left eye. OPERATION: Phacoemulsification cataract, left eye. DESCRIPTION OF PROCEDURE: The patient was taken to the preoperative holding area. Intravenous Propofol was given so as to bring about adequate sedation. The following mixture was given for local anesthesia: 5 mL of 2% lidocaine, 5 mL of 0.75% Marcaine, and 1 mL of Wydase. Approximately 4 mL was injected in the retrobulbar space of the surgical eye. Additional 1 mL was then directed to the temporal area of the surgical eye. This was performed to allow adequate neurological block of the facial muscles. The patient was revived and then taken into the operative room. The patient was prepped and draped in the usual sterile manner for the operative eye. A lid speculum was put into position. The conjunctiva was resected back from the limbus in the 12 o'clock position. Bleeding was controlled with electrocautery. A #69 blade was then used and a half-thickness scleral incision approximately 1-mm posterior to the limbus was made on bare sclera. This was shelved in the clear cornea using a crescent knife. Next a 15-degree blade was used to make a stab incision at the 3 o' clock position at the corneolimbal interface. Keratome blade was then used and the superior wound was extended into the anterior chamber. Viscoelastic was injected into the anterior chamber and to maintain its form. Next, a cystotome was used and a continuous anterior capsulotomy was made without difficulty. Hydrodissection using a blunt cannula and BSS was performed. Phaco probe was then employed and a groove extending from 12 to 6 o'clock in the lens was created. A Manpreet wand was used through the stab incision so as to perform a divide and conquer technique. Next an irrigation aspiration probe was utilized and any residual cortex was removed from the eye. Again, viscoelastic was injected into the anterior chamber. An Jasbir posterior chamber lens implant was placed in the cartridge and injected into the anterior chamber without difficulty. The SinConcepta Diagnosticsey hook was utilized to spin the lens into position and this was again performed without any difficulty. The irrigation and aspiration probe was again employed and any residual viscoelastic was removed from the eye. Then BSS was injected into the limbal stab incision and the anterior chamber re-inflated. The conjunctiva was reapproximated using electrocautery. One drop of 0.25% Timoptic was placed over the corneal along with TobraDex ophthalmic ointment. Two sterile patches and a Gilbert eye shield were taped into position. The patient was transported to the recovery room in stable condition. Pathology: none sent Condition: stable Disposition: same day
[2017-09-05 08:29] VITALS: BP 142/83; PULSE 76
[2017-09-05] MEDS ORDERED: GENTAMICIN/PREDNISOL AC OPHTH OINT 3.5GM OPHTHALMIC ONE (23:00)
[2017-09-05] MEDS ORDERED: TIMOLOL 0.5% OPHTH DROPS 5 ML BTL OP ONE (23:00)
[2017-09-05] MEDS ORDERED: BUPIVACAINE (PF) 0.75% 5 ML, HYALURONIDASE, HUMAN RECOMB 150 UNIT, LIDOCAINE 2% (PF) 10... MISCELLANE ONE ×3 (23:00)
== END 2017-09-05 08:44 | disposition home or self-care (01) ==
LOC: OR 06:01
PROVIDERS: ATTEND Ophthalmology
DX: H25.12 Age-related nuclear cataract, left eye (principal); Z79.890 Hormone replacement therapy; Z79.899 Other long term (current) drug therapy; I10 Essential (primary) hypertension; E07.9 Disorder of thyroid, unspecified; Z91.041 Radiographic dye allergy status
CPT/HCPCS: 66984; V2632; J3470; J2001; J0171; J2704

== ENCOUNTER → 2018-10-05 | Outpatient (CLI) | payer BC ==
--- NOTE | 2018-10-05 16:57 | CT ---
EXAMINATION TYPE: CT brain w con DATE OF EXAM: 10/05/2018 COMPARISON: None HISTORY: 62-year-old female Left side facial numbness. TECHNIQUE: Contiguous axial scanning of the brain performed with IV Contrast, patient injected with 1 00ml mL of Isovue 300. Coronal/sagittal reconstructions performed. CT DLP: 1144 mGycm Automated exposure control for dose reduction was used. FINDINGS: There is no abnormal enhancing mass or midline shift identified. Dural venous sinuses are patent. Th e ventricles and sulci are within normal limits in size. The globes are intact and the visualized sinuses are clear. Mastoid air cells well pneumatized. IMPRESSION: NO ABNORMAL INTRACRANIAL ENHANCING LESIONS. NO MIDLINE SHIFT OR HYDROCEPHALUS.
== END | disposition home or self-care (01) ==
LOC: RADCTMAIN 14:37
PROVIDERS: ATTEND Physician Assistant Medical
DX: R20.2 Paresthesia of skin (principal)
CPT/HCPCS: 70460; Q9967

== ENCOUNTER → 2019-01-10 | Outpatient (CLI) | payer BC ==
--- NOTE | 2019-01-11 11:38 | MM ---
Reason for exam: screening (asymptomatic). Last mammogram was performed 2 years ago. History: Patient is postmenopausal. Family history of breast cancer in cousin at age 30. Took estrogen for 2 years. Took progesterone for 2 years. Physical Findings: A clinical breast exam by your physician is recommended on an annual basis and results should be correlated with mammographic findings. MG Screening Mammo w CAD Bilateral CC and MLO view(s) were taken. Prior study comparison: December 28, 2016, right breast MG diagnostic mammo RT w CAD. June 23, 2016, right breast MG work up mamm w CAD RT. The breast tissue is heterogeneously dense. This may lower the sensitivity of mammography. There is no discrete abnormality. No significant changes when compared with prior studies. ASSESSMENT: Negative, BI-RAD 1 RECOMMENDATION: Routine screening mammogram of both breasts in 1 year.
== END | disposition home or self-care (01) ==
LOC: RADMAMWWP 08:03
PROVIDERS: ATTEND Family Medicine
DX: Z12.31 Encounter for screening mammogram for malignant neoplasm of breast (principal); Z80.3 Family history of malignant neoplasm of breast
CPT/HCPCS: 77067

== ENCOUNTER 2019-05-10 08:11 | Day surgery (SDC) | payer BC ==
[2019-05-08 14:45] VITALS: BMI 23.3
[2019-05-10 09:13] VITALS: RESP 16; TEMP 98
[2019-05-10] MEDS ORDERED: ONDANSETRON 4 MG/2 ML VIAL IVP ONE (09:26)
[2019-05-10] MEDS ORDERED: DEXAMETHASONE SOD PHOSPHATE 10 MG/ML 1 ML VIAL IV ONE (09:26)
[2019-05-10] MEDS ORDERED: PROPOFOL 10 MG/ML 20 ML VIAL IV ONE (09:39)
--- NOTE | 2019-05-10 10:00 | P.PCN ---
Date of Procedure: 05/10/19 Procedure(s) Performed: BRIEF HISTORY: Patient is a 63-year-old pleasant female scheduled for an elective colonoscopy as a part of evaluation of prior history of colon polyps. Last endoscopy was done 5 years ago in [facility]. PROCEDURE PERFORMED: Colonoscopy with biopsy. PREOPERATIVE DIAGNOSIS: History of colon polyps. IV sedation per Anesthesia. PROCEDURE: After informed consent was obtained, the patient, was brought into the endoscopy unit. IV sedation was administered by Anesthesia under continuous monitoring. Digital rectal examination was normal. Initially the Olympus CF-160 flexible video colonoscope was then inserted in the rectum, gradually advanced into the cecum without any difficulty. Careful examination was performed as the scope was gradually being withdrawn. Ileocecal valve and the appendiceal orifice were visualized and appeared normal. Prep was excellent. Mucosa of the cecum, appeared normal. In the ascending colon there was a 3 mm sessile polyp removed by cold biopsy. Rest of the ascending colon, transverse colon, descending colon, sigmoid colon, and rectum appeared normal. Retroflexion was performed in the rectum and no lesions were seen. The patient tolerated the procedure well. IMPRESSION: 3 mm sessile ascending colon polyp status post removal by cold biopsy Rest of the colon appeared normal RECOMMENDATIONS: Findings of this examination were discussed with the patient as well as a family. She was advised to follow with the biopsy results. If the biopsy shows an adenoma she can have a repeat colonoscopy in 5 years.
[2019-05-10 10:20] VITALS: BP 142/84; PULSE 86
== END 2019-05-10 10:58 | disposition home or self-care (01) ==
LOC: ORWHC2ENDO 08:11
PROVIDERS: ATTEND Internal Medicine Gastroenterology
DX: Z12.11 Encounter for screening for malignant neoplasm of colon (principal); K63.5 Polyp of colon; I10 Essential (primary) hypertension; E07.9 Disorder of thyroid, unspecified; F32.9 Major depressive disorder, single episode, unspecified; F41.9 Anxiety disorder, unspecified; Z91.041 Radiographic dye allergy status; Z86.010 Personal history of colon polyps; Z79.890 Hormone replacement therapy; Z79.899 Other long term (current) drug therapy; Z98.41 Cataract extraction status, right eye; Z98.42 Cataract extraction status, left eye; Z87.891 Personal history of nicotine dependence
CPT/HCPCS: 88305; 45380; J1100; J2405; J2704

== ENCOUNTER 2019-08-05 04:10 | Emergency (ER) | payer BC ==
[2019-08-05] MEDS ORDERED: LORazepam 2 MG/ML INJ IV STA (04:37)
[2019-08-05] MEDS ORDERED: SODIUM CHLORIDE 0.9% 1,000 ML IV STA ×2 (04:37)
[2019-08-05] MEDS ORDERED: PANTOPRAZOLE 40 MG/10 ML VIAL IVP STA (04:38)
[2019-08-05] MEDS ORDERED: ONDANSETRON 4 MG/2 ML VIAL IVP STA (04:38)
--- NOTE | 2019-08-05 04:39 | ED ---
SOB HPI - General Source: patient, RN notes reviewed, old records reviewed Mode of arrival: ambulatory Limitations: no limitations - History of Present Illness MD Complaint: shortness of breath, cough, "asthma attack" -: days(s) Severity: moderate Severity scale (1-10): 5 Quality: aching Consistency: intermittent Improves With: nothing Worsens With: medication, coughing Context: recent URI, anxiety Associated Symptoms: fever, cough, nausea/vomiting <Patrick Luna - Last Filed: 08/05/19 05:27> <Alan Plaza - Last Filed: 08/05/19 07:28> - General Chief Complaint: Upper Respiratory Infection Stated Complaint: SOB,cough,headache Time Seen by Provider: 08/05/19 04:28 - Related Data Home Medications Medication Instructions Recorded Confirmed Ergocalciferol [Vitamin D2 50,000 unit PO Q14D 02/28/17 05/10/19 (DRISDOL)] Escitalopram Oxalate [Lexapro] 15 mg PO DAILY 02/28/17 05/10/19 Levothyroxine Sodium [Synthroid] 100 mcg PO DAILY 02/28/17 05/10/19 amLODIPine BESYLATE [Norvasc] 5 mg PO DAILY 02/28/17 05/10/19 Gabapentin [Neurontin] 100 mg PO DAILY 05/10/17 05/10/19 Previous Rx's Medication Instructions Recorded Folic Acid 1 mg PO DAILY #30 tablet 03/02/17 Metoprolol Tartrate [Lopressor] 12.5 mg PO BID #60 tab 03/02/17 Multivitamins, Thera [Multivitamin 1 tab PO DAILY #30 tablet 03/02/17 (formulary)] Allergies Allergy/AdvReac Type Severity Reaction Status Date / Time Iodinated Contrast Media Allergy Rash/Hives Verified 08/05/19 04:19 [Iodinated Contrast- Oral and IV Dye] Review of Systems ROS Other: All systems not noted in ROS Statement are negative. <Patrick Luna - Last Filed: 08/05/19 05:27> ROS Other: All systems not noted in ROS Statement are negative. <Alan Plaza - Last Filed: 08/05/19 07:28> ROS Statement: Those systems with pertinent positive or pertinent negative responses have been documented in the HPI. Past Medical History Past Medical History: Hypertension, Thyroid Disorder Additional Past Medical History / Comment(s): hypothyroid. BILAT CATARACTS History of Any Multi-Drug Resistant Organisms: None Reported Past Surgical History: No Surgical Hx Reported Additional Past Surgical History / Comment(s): colonoscopy. BILAT CATARACTS REMOVED Past Anesthesia/Blood Transfusion Reactions: No Reported Reaction Past Psychological History: Anxiety, Depression Smoking Status: Former smoker Past Alcohol Use History: Daily Past Drug Use History: None Reported - Past Family History Mother Family Medical History: No Reported History Additional Family Medical History / Comment(s): Mother is healthy and is 75yrs old. Father Family Medical History: Cancer Additional Family Medical History / Comment(s): Father is from colon cancer. He at the age of 59 or 60yrs. <Patrick Luna - Last Filed: 08/05/19 05:27> General Exam Limitations: no limitations General appearance: alert, in no apparent distress Head exam: Present: atraumatic, normocephalic, normal inspection Eye exam: Present: normal appearance, PERRL, EOMI. Absent: scleral icterus, conjunctival injection, periorbital swelling ENT exam: Present: normal exam, mucous membranes moist Neck exam: Present: normal inspection. Absent: tenderness, meningismus, lymphadenopathy Respiratory exam: Present: normal lung sounds bilaterally. Absent: respiratory distress, wheezes, rales, rhonchi, stridor Cardiovascular Exam: Present: normal rhythm, tachycardia, normal heart sounds. Absent: systolic murmur, diastolic murmur, rubs, gallop, clicks GI/Abdominal exam: Present: soft, normal bowel sounds. Absent: distended, tenderness, guarding, rebound, rigid Extremities exam: Present: normal inspection, full ROM, normal capillary refill. Absent: tenderness, pedal edema, joint swelling, calf tenderness Back exam: Present: normal inspection Neurological exam: Present: alert, oriented X3, CN II-XII intact Psychiatric exam: Present: normal affect, normal mood Skin exam: Present: warm, dry, intact, normal color. Absent: rash <Patrick Luna - Last Filed: 08/05/19 05:27> Course Vital Signs 08/05/19 08/05/19 04:14 06:47 Temperature 98.9 F 99 F Pulse Rate 112 H 79 Respiratory 20 16 Rate Blood Pressure 148/94 148/83 O2 Sat by Pulse 96 94 L Oximetry Medical Decision Making - Lab Data Result diagrams: 08/05/19 04:46 08/05/19 04:46 - EKG Data -: EKG Interpreted by Me (EKG shows sinus rhythm with 77, NE 134, QRS 74, QTc 493) <Patrick Luna - Last Filed: 08/05/19 05:27> - Lab Data Result diagrams: 08/05/19 04:46 08/05/19 04:46 <Alan Plaza - Last Filed: 08/05/19 07:28> - Medical Decision Making Patient care was signed out to me by previous shift physician Dr. Isaacs. Patient is a 63-year-old female came in for chief complaint of cough, nausea vomiting shortness of breath headache and sore throat. Laboratory evaluation was ordered by previous shift physician. Labs were reviewed by myself. Laboratory evaluation shows no significant processes. However there is a mild degree of hepatitis and macrocytic anemia. Laboratory evaluation consistent with alcoholism. Plan at sign out was to follow up with CT imaging of the abdomen and pelvis. Imaging CT is unremarkable. No acute processes identified. Patient reevaluated bedside with stable medical condition. Patient feels well and like to be discharged. She is advised follow-up with her primary care physician. She is notified that her liver enzymes are slightly elevated likely secondary to alcoholism. Patient admits to daily drinking. Return parameters discussed. Patient clear for discharge. (Alan Plaza) - Lab Data Lab Results 08/05/19 08/05/19 08/05/19 Range/Units 04:46 04:46 04:46 WBC 3.8 (3.8-10.6) k/uL RBC 4.71 (3.80-5.40) m/uL Hgb 15.9 (11.4-16.0) gm/dL Hct 47.3 H (34.0-46.0) % MCV 100.5 H (80.0-100.0) fL MCH 33.8 (25.0-35.0) pg MCHC 33.6 (31.0-37.0) g/dL RDW 12.5 (11.5-15.5) % Plt Count 98 L (150-450) k/uL Neutrophils % 76 % Lymphocytes % 15 % Monocytes % 7 % Eosinophils % 2 % Basophils % 0 % Neutrophils # 2.9 (1.3-7.7) k/uL Lymphocytes # 0.6 L (1.0-4.8) k/uL Monocytes # 0.3 (0-1.0) k/uL Eosinophils # 0.1 (0-0.7) k/uL Basophils # 0.0 (0-0.2) k/uL Manual Slide Review Performed PT 11.5 (9.0-12.0) sec INR 1.1 (<1.2) APTT 25.0 (22.0-30.0) sec Sodium 138 (137-145) mmol/L Potassium 3.5 (3.5-5.1) mmol/L Chloride 100 (98-107) mmol/L Carbon Dioxide 25 (22-30) mmol/L Anion Gap 13 mmol/L BUN 14 (7-17) mg/dL Creatinine 0.52 (0.52-1.04) mg/dL Est GFR (CKD-EPI)AfAm >90 (>60 ml/min/1.73 sqM) Est GFR (CKD-EPI)NonAf >90 (>60 ml/min/1.73 sqM) Glucose 152 H (74-99) mg/dL Calcium 10.1 (8.4-10.2) mg/dL Magnesium 2.0 (1.6-2.3) mg/dL Total Bilirubin 3.2 H (0.2-1.3) mg/dL AST 218 H (14-36) U/L ALT 99 H (4-34) U/L Alkaline Phosphatase 99 (38-126) U/L Creatine Kinase 114 (30-135) U/L CK-MB (CK-2) (0.0-2.4) ng/mL Troponin I (0.000-0.034) ng/mL NT-Pro-B Natriuret Pep pg/mL Total Protein 9.1 H (6.3-8.2) g/dL Albumin 5.7 H (3.5-5.0) g/dL Lipase (23-300) U/L Acetaminophen ug/mL 08/05/19 08/05/19 08/05/19 Range/Units 04:46 04:46 04:46 WBC (3.8-10.6) k/uL RBC (3.80-5.40) m/uL Hgb (11.4-16.0) gm/dL Hct (34.0-46.0) % MCV (80.0-100.0) fL MCH (25.0-35.0) pg MCHC (31.0-37.0) g/dL RDW (11.5-15.5) % Plt Count (150-450) k/uL Neutrophils % % Lymphocytes % % Monocytes % % Eosinophils % % Basophils % % Neutrophils # (1.3-7.7) k/uL Lymphocytes # (1.0-4.8) k/uL Monocytes # (0-1.0) k/uL Eosinophils # (0-0.7) k/uL Basophils # (0-0.2) k/uL Manual Slide Review PT (9.0-12.0) sec INR (<1.2) APTT (22.0-30.0) sec Sodium (137-145) mmol/L Potassium (3.5-5.1) mmol/L Chloride (98-107) mmol/L Carbon Dioxide (22-30) mmol/L Anion Gap mmol/L BUN (7-17) mg/dL Creatinine (0.52-1.04) mg/dL Est GFR (CKD-EPI)AfAm (>60 ml/min/1.73 sqM) Est GFR (CKD-EPI)NonAf (>60 ml/min/1.73 sqM) Glucose (74-99) mg/dL Calcium (8.4-10.2) mg/dL Magnesium (1.6-2.3) mg/dL Total Bilirubin (0.2-1.3) mg/dL AST (14-36) U/L ALT (4-34) U/L Alkaline Phosphatase (38-126) U/L Creatine Kinase (30-135) U/L CK-MB (CK-2) <0.2 (0.0-2.4) ng/mL Troponin I <0.012 (0.000-0.034) ng/mL NT-Pro-B Natriuret Pep 287 pg/mL Total Protein (6.3-8.2) g/dL Albumin (3.5-5.0) g/dL Lipase 305 H (23-300) U/L Acetaminophen <10.0 ug/mL Disposition <Patrick Luna - Last Filed: 08/05/19 05:27> Is patient prescribed a controlled substance at d/c from ED?: No Time of Disposition: 07:28 <Alan Plaza - Last Filed: 08/05/19 07:28> Clinical Impression: Cough Disposition: HOME SELF-CARE Condition: Good Instructions (If sedation given, give patient instructions): Upper Respiratory Infection (ED) Referrals: Verena Syed DO [Primary Care Provider] - 1-2 days
[2019-08-05 05:01] LABS: Basophils % (A) 0 %; Eosinophils # (A) 0.1 k/uL (0-0.7); Eosinophils % (A) 2 %; HCT 47.3 % (34.0-46.0); HGB 15.9 gm/dL (11.4-16.0); Lymphocytes # (A) 0.6 k/uL (1.0-4.8); Lymphocytes % (A) 15 %; MCH 33.8 pg (25.0-35.0); MCHC 33.6 g/dL (31.0-37.0); MCV 100.5 fL (80.0-100.0); Mean Platelet Volume 8.1; Monocytes # (A) 0.3 k/uL (0-1.0); Monocytes % (A) 7 %; Neutrophils # (A) 2.9 k/uL (1.3-7.7); Neutrophils % (A) 76 %; RBC 4.71 m/uL (3.80-5.40); RDW 12.5 % (11.5-15.5); WBC 3.8 k/uL (3.8-10.6)
[2019-08-05 05:11] LABS: INR 1.1 (<1.2); Prothrombin Time 11.5 sec (9.0-12.0)
[2019-08-05 05:16] LABS: Platelet Count 98 k/uL (150-450)
[2019-08-05 05:22] LABS: ALT 99 U/L (4-34); AST 218 U/L (14-36); African American GFR (CKD) >90 (>60 ml/min/1.73 sqM); Albumin 5.7 g/dL (3.5-5.0); Alkaline Phosphatase 99 U/L (38-126); Anion Gap 13 mmol/L; Blood Urea Nitrogen 14 mg/dL (7-17); Calcium 10.1 mg/dL (8.4-10.2); Carbon Dioxide 25 mmol/L (22-30); Chloride 100 mmol/L (98-107); Creatine Kinase 114 U/L (30-135); Glucose 152 mg/dL (74-99); Non-African American GFR(CKD) >90 (>60 ml/min/1.73 sqM); Potassium 3.5 mmol/L (3.5-5.1); Sodium 138 mmol/L (137-145); Total Bilirubin 3.2 mg/dL (0.2-1.3); Total Protein 9.1 g/dL (6.3-8.2)
--- NOTE | 2019-08-05 05:25 | XR ---
EXAMINATION TYPE: XR chest 1V portable DATE OF EXAM: 08/05/2019 COMPARISON: 02/28/2017 HISTORY: Short of breath TECHNIQUE: FINDINGS: Heart and mediastinum are normal. Lungs are clear of infiltrate. There is no pleural effusi on. There are chest leads. Bony thorax is intact. IMPRESSION: No active cardiopulmonary disease. No change.
[2019-08-05 05:34] LABS: Creatine Kinase MB <0.2 ng/mL (0.0-2.4); Troponin I <0.012 ng/mL (0.000-0.034)
[2019-08-05] MEDS ORDERED: diphenhydrAMINE 50 MG/ML 1 ML VIAL IVP STA (05:47)
[2019-08-05] MEDS ORDERED: methylPREDNISolone SOD SUCCI 125 MG/2 ML VIAL IV STA (05:47)
[2019-08-05] MEDS ORDERED: FAMOTIDINE 20 MG/2 ML VIAL IV STA (05:47)
[2019-08-05 05:51] LABS: Acetaminophen <10.0 ug/mL
[2019-08-05 06:50] VITALS: BP 148/83; PULSE 79; RESP 16; TEMP 99
--- NOTE | 2019-08-05 07:09 | CT ---
EXAMINATION TYPE: CT angio chest DATE OF EXAM: 08/05/2019 COMPARISON: None HISTORY: Pain CT DLP: 978.4 mGycm CONTRAST: CT chest with contrast and 3D reconstruction with MIP imaging is performed without and with IV Contra st, patient injected with 100 ml mL of Isovue 370. Contrast-enhanced CT of the chest was performed through the course of the pulmonary arteries with wilfredo g and mediastinal window settings submitted. 3D reconstruction with MIP imaging was also performed. PULMONARY ARTERIES: The pulmonary arteries and their major tributaries are patent. I do not see vasquez dence for sizable filling defect to suggest pulmonary embolic process. LUNGS: The lungs are clear and free of infiltrate. No evidence for atelectasis. No pulmonary nodule or mass is detected. No pleural effusion. MEDIASTINUM: Thoracic aorta is of normal caliber,however, evaluation is limited given timing of the contrast bolus. If there is concern for thoracic aortic pathology consider NERI. Correlate clinicall y . The heart is not enlarged. No evidence for mediastinal mass. No mediastinal lymph nodes greater than 1cm. HILAR STRUCTURES: No evidence for mass. No hilar lymph nodes greater than 1 cm. UPPER ABDOMEN: No significant abnormality is seen. IMPRESSION: 1. No evidence for Pulmonary embolism at this time.
--- NOTE | 2019-08-05 07:17 | CT ---
EXAMINATION TYPE: CT abdomen pelvis w con DATE OF EXAM: 08/05/2019 COMPARISON: 02/24/2017 HISTORY: Pain CT DLP: 978.4 mGycm CONTRAST: CT scan of the abdomen and pelvis is performed without Oral Contrast and with IV Contrast, patient in jected with 100 ml mL of Isovue 370. FINDINGS: LUNG BASES-: No visible nodule. No infiltrate. LIVER/GB: No calcified gallstones. No change in heterogenous enhancement throughout the liver with underlying hepatic steatosis. Chronic hepatitis difficult to exclude. Cystic lesion noted anterior se gment right hepatic lobe is unchanged. Overall appearance is stable from 2017. Biliary tree is of nor mal caliber. PANCREAS: No inflammation. 6.2 mm pancreatic neck cyst noted and is unchanged from prior study. No a dditional pancreatic lesions seen. SPLEEN: No splenic enlargement. No lesion seen. No perisplenic varices noted. ADRENALS: No nodule. No thickening. KIDNEYS/BLADDER: No hydronephrosis. No nephrolithiasis. No distinct renal mass. Urinary bladder g rossly unremarkable. BOWEL: Visualization of the appendix. Mild small bowel wall thickening may reflect enteritis. Large B owel is of normal caliber. GENITAL ORGANS: No gross abnormality. LYMPH NODES: No greater than 1cm abdominal or pelvic lymph nodes are appreciated. AORTA: No significant abnormality. OSSEOUS STRUCTURES: No significant abnormality is seen. OTHER: No significant additional abnormality is seen. IMPRESSION: 1. Mild small bowel wall thickening may reflect enteritis. 2. Stable heterogenous enhancement throughout the liver may reflect hepatitis superimposed hepatic st eatosis.
== END 2019-08-05 07:43 | disposition home or self-care (01) ==
LOC: EC 04:10
DX: R05 Cough (principal); R06.02 Shortness of breath; R50.9 Fever, unspecified; R51 Headache; K70.10 Alcoholic hepatitis without ascites; D53.9 Nutritional anemia, unspecified; I10 Essential (primary) hypertension; E03.9 Hypothyroidism, unspecified; F41.9 Anxiety disorder, unspecified; F32.9 Major depressive disorder, single episode, unspecified; Z87.891 Personal history of nicotine dependence; Z79.890 Hormone replacement therapy; Z79.899 Other long term (current) drug therapy; Z91.041 Radiographic dye allergy status
CPT/HCPCS: 36415; 93005; 83880; 80053; 82550; 82553; 83690; 83735; 84484; 85025; 85610; 85730; 80329; 71045; 71275; 74177; 99285; 96374; 96375 ×5; 96361 ×3; J2060; J1200; J2930; J2405; C9113; Q9967

== ENCOUNTER 2020-03-26 14:42 | Inpatient (IN) | payer BC ==
[2020-03-26] MEDS ORDERED: THIAMINE 100 MG/ML 2 ML VIAL IM STA (15:23)
[2020-03-26] MEDS ORDERED: LORazepam 2 MG/ML INJ IV PRN ×2 (15:23)
--- NOTE | 2020-03-26 15:26 | ED ---
General Adult HPI - General Chief complaint: Psychiatric Symptoms Stated complaint: Mental Health Time Seen by Provider: 03/26/20 15:14 Source: patient, family, RN notes reviewed, old records reviewed Mode of arrival: ambulatory Limitations: no limitations - History of Present Illness Initial comments: 64-year-old female presenting for evaluation of hallucination, alcohol withdrawal symptoms. Patient states her last drink was on Monday which was 5 days prior to arrival. She has been hallucinating, she has been shaking. She was seen at outside hospital and was discharged home. Apparently the patient had been seen by her primary care today and was sent to the emergency department for evaluation and concern of alcohol withdrawal. - Related Data Home Medications Medication Instructions Recorded Confirmed Escitalopram Oxalate [Lexapro] 15 mg PO DAILY 02/28/17 03/26/20 Levothyroxine Sodium [Synthroid] 100 mcg PO DAILY 02/28/17 03/26/20 amLODIPine BESYLATE [Norvasc] 5 mg PO DAILY 02/28/17 03/26/20 Famotidine 40 mg PO DAILY 03/26/20 03/26/20 Metoprolol Tartrate [Lopressor] 25 mg PO BID 03/26/20 03/26/20 QUEtiapine [SEROquel] 50 mg PO HS 03/26/20 03/26/20 Previous Rx's Medication Instructions Recorded Multivitamins, Thera [Multivitamin 1 tab PO DAILY #30 tablet 03/02/17 (formulary)] Allergies Allergy/AdvReac Type Severity Reaction Status Date / Time Iodinated Contrast Media Allergy Rash/Hives Verified 03/26/20 16:11 [Iodinated Contrast- Oral and IV Dye] Review of Systems ROS Statement: Those systems with pertinent positive or pertinent negative responses have been documented in the HPI. ROS Other: All systems not noted in ROS Statement are negative. Past Medical History Past Medical History: Hypertension, Thyroid Disorder Additional Past Medical History / Comment(s): hypothyroid. BILAT CATARACTS History of Any Multi-Drug Resistant Organisms: None Reported Past Surgical History: No Surgical Hx Reported Additional Past Surgical History / Comment(s): colonoscopy. BILAT CATARACTS REMOVED Past Anesthesia/Blood Transfusion Reactions: No Reported Reaction Past Psychological History: Anxiety, Depression Smoking Status: Former smoker Past Alcohol Use History: Abuse, Daily, Heavy Past Drug Use History: None Reported - Past Family History Mother Family Medical History: No Reported History Additional Family Medical History / Comment(s): Mother is healthy and is 75yrs old. Father Family Medical History: Cancer Additional Family Medical History / Comment(s): Father is from colon cancer. He at the age of 59 or 60yrs. General Exam Limitations: no limitations General appearance: alert, anxious Head exam: Present: atraumatic, normocephalic Eye exam: Present: normal appearance, PERRL Neck exam: Present: normal inspection. Absent: tenderness, meningismus Respiratory exam: Present: normal lung sounds bilaterally. Absent: respiratory distress, wheezes Cardiovascular Exam: Present: regular rate, normal rhythm GI/Abdominal exam: Absent: distended Neurological exam: Present: alert, oriented X3, CN II-XII intact. Absent: motor sensory deficit Psychiatric exam: Present: anxious Skin exam: Present: warm, dry, intact. Absent: cyanosis, diaphoretic Course Vital Signs 03/26/20 14:47 Temperature 98.1 F Pulse Rate 105 H Respiratory 18 Rate Blood Pressure 145/90 O2 Sat by Pulse 98 Oximetry Medical Decision Making - Medical Decision Making 64-year-old male presenting for alcohol withdrawal, hallucination. Patient is tremulous, tachycardic. She's having hallucinations. There is concern for impending DTs. She's given IV fluid, Ativan with improvement in symptoms. She has several lab abnormalities consistent with alcohol abuse. She is from cytopenia, she is hemoconcentration with elevated hemoglobin. She has a mild transaminitis and she is hypokalemic at 3.3. She will be admitted to internal medicine with psychiatry on consult at the patient's request. She is not suicidal. Initial CIWA is 15 - Lab Data Result diagrams: 03/26/20 15:29 03/26/20 15:29 Lab Results 03/26/20 03/26/20 Range/Units 15:29 15:29 WBC 5.6 (3.8-10.6) k/uL RBC 5.06 (3.80-5.40) m/uL Hgb 17.1 H (11.4-16.0) gm/dL Hct 49.4 H (34.0-46.0) % MCV 97.6 (80.0-100.0) fL MCH 33.7 (25.0-35.0) pg MCHC 34.6 (31.0-37.0) g/dL RDW 11.9 (11.5-15.5) % Plt Count 110 L (150-450) k/uL MPV 7.8 Neutrophils % 68 % Lymphocytes % 23 % Monocytes % 4 % Eosinophils % 2 % Basophils % 1 % Neutrophils # 3.8 (1.3-7.7) k/uL Lymphocytes # 1.3 (1.0-4.8) k/uL Monocytes # 0.3 (0-1.0) k/uL Eosinophils # 0.1 (0-0.7) k/uL Basophils # 0.0 (0-0.2) k/uL Sodium 136 L (137-145) mmol/L Potassium 3.3 L (3.5-5.1) mmol/L Chloride 99 (98-107) mmol/L Carbon Dioxide 26 (22-30) mmol/L Anion Gap 11 mmol/L BUN 15 (7-17) mg/dL Creatinine 0.78 (0.52-1.04) mg/dL Est GFR (CKD-EPI)AfAm >90 (>60 ml/min/1.73 sqM) Est GFR (CKD-EPI)NonAf 82 (>60 ml/min/1.73 sqM) Glucose 100 H (74-99) mg/dL Calcium 11.1 H (8.4-10.2) mg/dL Magnesium 1.7 (1.6-2.3) mg/dL AST 68 H (14-36) U/L ALT 40 H (4-34) U/L Serum Alcohol <10 mg/dL Disposition Clinical Impression: Alcohol abuse with withdrawal Disposition: ADMITTED IP TO THIS HOSP Condition: Stable Is patient prescribed a controlled substance at d/c from ED?: No Referrals: Verena Syed DO [Primary Care Provider] - 1-2 days Decision to Admit Reason: Admit from EC Decision Date: 03/26/20 Decision Time: 16:25
[2020-03-26 15:46] LABS: Basophils % (A) 1 %; Eosinophils # (A) 0.1 k/uL (0-0.7); Eosinophils % (A) 2 %; HCT 49.4 % (34.0-46.0); HGB 17.1 gm/dL (11.4-16.0); Lymphocytes # (A) 1.3 k/uL (1.0-4.8); Lymphocytes % (A) 23 %; MCH 33.7 pg (25.0-35.0); MCHC 34.6 g/dL (31.0-37.0); MCV 97.6 fL (80.0-100.0); Mean Platelet Volume 7.8; Monocytes # (A) 0.3 k/uL (0-1.0); Monocytes % (A) 4 %; Neutrophils # (A) 3.8 k/uL (1.3-7.7); Neutrophils % (A) 68 %; Platelet Count 110 k/uL (150-450); RBC 5.06 m/uL (3.80-5.40); RDW 11.9 % (11.5-15.5); WBC 5.6 k/uL (3.8-10.6)
[2020-03-26 15:56] LABS: ALT 40 U/L (4-34); AST 68 U/L (14-36); African American GFR (CKD) >90 (>60 ml/min/1.73 sqM); Alcohol <10 mg/dL; Anion Gap 11 mmol/L; Blood Urea Nitrogen 15 mg/dL (7-17); Calcium 11.1 mg/dL (8.4-10.2); Carbon Dioxide 26 mmol/L (22-30); Chloride 99 mmol/L (98-107); Glucose 100 mg/dL (74-99); Magnesium 1.7 mg/dL (1.6-2.3); Non-African American GFR(CKD) 82 (>60 ml/min/1.73 sqM); Potassium 3.3 mmol/L (3.5-5.1); Sodium 136 mmol/L (137-145)
[2020-03-26] MEDS ORDERED: NALOXONE 0.4 MG/ML 1 ML VIAL IV PRN (16:17)
[2020-03-26] MEDS: THIAMINE 100 MG TAB PO SCH (16:36)
[2020-03-26] MEDS: SODIUM CHLORIDE 0.9% 1,000 ML IV SCH (16:37)
[2020-03-26] MEDS: LORazepam 2 MG/ML INJ IV PRN (18:20)
[2020-03-26] MEDS: METOPROLOL TARTRATE 25 MG TAB PO SCH (21:12)
[2020-03-27] MEDS: LORazepam 2 MG/ML INJ IV PRN (03:06)
[2020-03-27] MEDS: LEVOTHYROXINE 100 MCG TAB PO SCH (06:10)
[2020-03-27] MEDS: THIAMINE 100 MG TAB PO SCH (06:10)
[2020-03-27] MEDS: SODIUM CHLORIDE 0.9% 1,000 ML IV SCH (06:13)
[2020-03-27] MEDS: METOPROLOL TARTRATE 25 MG TAB PO SCH ×2 (08:22→20:29)
[2020-03-27] MEDS: ESCITALOPRAM 5 MG TAB PO SCH (08:22)
[2020-03-27] MEDS: amLODIPine 5 MG TAB PO SCH (08:22)
[2020-03-27] MEDS: ACETAMINOPHEN TAB 325 MG TAB PO PRN ×2 (08:35→16:07)
--- NOTE | 2020-03-27 11:20 | P.CN ---
Psychiatric Consult - . Consult date: 03/27/20 Consult:: IDENTIFYING DATA: This patient is a , employed, 64-year-old female admitted for delirium tremens. HISTORY OF PRESENT ILLNESS: The patient presented to the hospital on 03/26/2022 after experiencing hallucinations and alcohol withdrawal symptoms. The patient reports that her last drink was either on Monday or Monday. She states that since then, she has been expressing significant withdrawal symptoms including tremors, nausea/vomiting, as well as visual hallucinations. The patient requested to see psychiatry so as to initiate treatment and be direct to the appropriate services to address her alcohol use disorder. The patient reports that she has been drinking approximately 4-5 glasses of wine per night, almost every night and on occasion she would also drink 1-1-1/2 bottles of wine a night on weekends. She reports that she has been drinking this heavily for the past 15 years. She states the longest she has ever been sober from alcohol was 3 days. In regards to mood symptoms, the patient does express elevated anxiety as well as low mood and depressive symptoms. She attributes this to the loss of her 7 years ago which she continues to grieve. She denies any suicidal or homicidal ideation, intention, and/or plan. She reports no prior attempts at suicide. She denies any significant history of manic symptoms. She denies any periods of excessive energy, grandiosity, or increased goal-directed behavior. Prior to experiencing these current visual hallucinations, the patient reports that she has been expressing some auditory hallucinations over the past 3 weeks. She reports that she would hear music when there is no music present. She is also currently endorsing some paranoia. She denies any psychotic symptoms prior to the last 3 weeks. The patient denies any significant history of trauma. She reports no prior history of physical or sexual abuse. Aside from her alcohol use, the patient denies any tobacco, marijuana, or illicit drug use. PAST PSYCHIATRIC HISTORY: Patient has a a history of depression and anxiety. She is currently prescribed Lexapro and Seroquel from her primary care provider. Patient denies any previous psychiatric hospitalizations. Patient denies any psychiatric or psychotherapeutic outpatient follow-up. Patient denies any history of suicide attempts in the past. PAST MEDICAL HISTORY: Hypertension, thyroid disorder, bilateral cataract rem oval. ALLERGIES: Iodinated contrast media CHEMICAL DEPENDENCY HISTORY: as per HPI. FAMILY PSYCHIATRIC/SUBSTANCE USE HISTORY: She reports significant family history of alcohol use disorder. She reports her sister and brother are alcoholics as well. SOCIAL HISTORY: Patient was born and raised in [place]. She is the sixth of 7 children. She lives in a home by herself. She has 3 children, 2 in [place], and one in [place]. Her 7 years ago, and they were for 40 years. 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 Highest level of education is graduating high school. She attended Alcoholics Anonymous one year ago but did not find it beneficial. She reports no legal or history. MENTAL STATUS EXAM: General Appearance: Patient appears to be stated age is alert, pleasant, and cooperative. Patient appears to have fair hygiene and grooming wearing hospital gown with fair eye contact. Patient is wearing a mask. Behavior: Patient is calmly lying in bed without any agitated behavior. Speech: Patient's speech is fluent and nonpressured. Mood/Affect: Patient reports their mood is "nervous", affect is congruent, anxious. Suicidality/Homicidality: Patient denies having any suicidal or homicidal ideation, intention, and/or plan. Perceptions: Patient is not currently endorsing any visual or auditory hallucinations. Though content/process: There is no evidence of any delusional thought content and thought process is linear and goal-directed. Memory and concentration: AOX3, grossly intact for the purposes of this session. Can spell "WORLD" backwards Judgment and insight: Fair IMPRESSIONS: Alcohol use disorder, severe Delirium tremens Major depressive disorder, with anxious features PLAN: -At this time patient DOES NOT meet criteria for inpatient psychiatric admission. -Continue medical management for Alcohol Withdrawal. -Social work consult to provide patient with appropriate outpatient therapy resources and numbers for alcohol rehabilitation. -Would recommend the following medication changes/additions: Discontinue Seroquel. We will start Risperdal 0.5 mg by mouth twice daily for psychosis as it is less offensive to the liver. Patient is requesting a medication to curb hallucinations and her paranoia from the hallucinations at this time. -Continue Lexapro 15 mg by mouth daily for depression/anxiety -Psychiatry will sign off at this point, please contact with any questions. 03/27/20 10:59 03/27/20 11:38
[2020-03-27] MEDS ORDERED: LORazepam 0.5 MG TAB PO PRN (16:04)
[2020-03-27 17:54] VITALS: RESP 16
[2020-03-27] MEDS: risperiDONE 0.5 MG TAB PO SCH (20:30)
--- NOTE | 2020-03-27 23:46 | P.HPIM ---
History of Present Illness H&P Date: 03/27/20 Chief Complaint: hallucinations Elaine Collins is a 64 yo F with PMH of major depression, alcohol abuse, HTN who presented to the ED complaining of worsening anxiety and alcohol abuse as well as new visual hallucinations. She states that she has been drinking regularly for years but over the past few months especially has increased her consumption to drinking at least 4-5 glasses of wine each night. She notes that she recently called police to her home concerned about an intruder but it turned out to be a hallucination and realized she needed to seek treatment. Pt does endorse depression and anxiety which she attributes to grieving her late . She currently denies an active hallucination but last experienced this a few days ago. She denies auditory hallucinations. On presentation her vitals were stable, labs significant for mild elevation of LFTs. Review of Systems All systems: negative Constitutional: Denies chills, Denies fever Eyes: denies blurred vision, denies pain Ears, nose, mouth and throat: Denies headache, Denies sore throat Cardiovascular: Denies chest pain, Denies shortness of breath Respiratory: Denies cough Gastrointestinal: Denies abdominal pain, Denies diarrhea, Denies nausea, Denies vomiting Genitourinary: Denies dysuria, Denies hematuria Musculoskeletal: Denies myalgias Integumentary: Denies pruritus, Denies rash Neurological: Denies numbness, Denies weakness Psychiatric: Reports as per HPI, Reports anxiety, Reports depression, Reports insomnia, Reports paranoia Endocrine: Denies fatigue, Denies weight change Past Medical History Past Medical History: Hypertension, Thyroid Disorder Additional Past Medical History / Comment(s): hypothyroid. BILAT CATARACTS History of Any Multi-Drug Resistant Organisms: None Reported Past Surgical History: No Surgical Hx Reported Additional Past Surgical History / Comment(s): colonoscopy. BILAT CATARACTS REM KEILA Past Anesthesia/Blood Transfusion Reactions: No Reported Reaction Past Psychological History: Anxiety, Depression Additional Psychological History / Comment(s): Pt states she is on a RX for depression and that it works well for her. She lives alone and is independent. Smoking Status: Former smoker Past Alcohol Use History: Abuse, Daily, Heavy Additional Past Alcohol Use History / Comment(s): Pt states she drinks 4 glasses of wine a day. last drink was monday. QUIT SMOKING 20 YEARS AGO Past Drug Use History: None Reported - Past Family History Mother Family Medical History: No Reported History Additional Family Medical History / Comment(s): Mother is healthy and is 75yrs old. Father Family Medical History: Cancer Additional Family Medical History / Comment(s): Father is from colon cancer. He at the age of 59 or 60yrs. Medications and Allergies Home Medications Medication Instructions Recorded Confirmed Type Escitalopram Oxalate [Lexapro] 15 mg PO DAILY 02/28/17 03/26/20 History Levothyroxine Sodium [Synthroid] 100 mcg PO DAILY 02/28/17 03/26/20 History amLODIPine BESYLATE [Norvasc] 5 mg PO DAILY 02/28/17 03/26/20 History Multivitamins, Thera [Multivitamin 1 tab PO DAILY #30 tablet 03/02/17 03/26/20 Rx (formulary)] Famotidine 40 mg PO DAILY 03/26/20 03/26/20 History Metoprolol Tartrate [Lopressor] 25 mg PO BID 03/26/20 03/26/20 History QUEtiapine [SEROquel] 50 mg PO HS 03/26/20 03/26/20 History Allergies Allergy/AdvReac Type Severity Reaction Status Date / Time Iodinated Contrast Media Allergy Rash/Hives Verified 03/26/20 16:11 [Iodinated Contrast- Oral and IV Dye] Physical Exam Vitals: Vital Signs Temp Pulse Pulse Resp BP BP Pulse Ox 03/27/20 16:00 99 F 72 16 131/83 94 L 03/27/20 14:00 18 03/27/20 11:58 74 18 124/75 95 03/27/20 11:07 99.4 F 68 18 123/77 95 03/27/20 08:20 97.8 F 79 16 126/83 95 03/27/20 03:25 97.9 F 75 19 127/88 96 Intake and Output 03/27/20 03/27/20 03/28/20 14:59 22:59 06:59 Intake Total 240 780 Balance 240 780 Intake: Oral 240 780 Other: # Voids 2 General: well nourished, well developed, NAD. Vitals reviewed Eyes: PERRL, EOMI, conjunctiva normal HENT: normocephalic, mucus membranes moist Neck: supple, no JVD Lungs: normal respiratory effort, no wheezes or rales CV: Regular rate and rhythm, no murmur. Peripheral pulses 2+ Abdomen: soft, nondistended, no organomegaly Lymph: no cervical or axillary LAD Skin: warm and dry. Neuro: A&Ox3, anxious mood and depressed affect. no tremor Results CBC & Chem 7: 03/26/20 15:29 03/26/20 15:29 Thrombosis Risk Factor Assmnt - Choose All That Apply Each Risk Factor Represents 2 Points: Age 61-74 years Thrombosis Risk Factor Assessment Total Risk Factor Score: 2 Thrombosis Risk Factor Assessment Level: Low Risk Assessment and Plan (1) Essential hypertension Current Visit: Yes Status: Acute Code(s): I10 - ESSENTIAL (PRIMARY) HYPERTENSION SNOMED Code(s): 03468155 (2) Visual hallucination Current Visit: Yes Status: Acute Code(s): R44.1 - VISUAL HALLUCINATIONS SNOMED Code(s): 66150138 (3) Major depression with psychotic features Current Visit: Yes Status: Acute Code(s): F32.3 - MAJOR DEPRESSV DISORD, SINGLE EPSD, SEVERE W PSYCH FEATURES SNOMED Code(s): 926088128 (4) Alcohol abuse with withdrawal Current Visit: Yes Status: Acute Code(s): F10.139 - ALCOHOL ABUSE WITH WITHDRAWAL, UNSPECIFIED SNOMED Code(s): 906204138 (5) Acute anxiety Current Visit: No Status: Acute Code(s): F41.9 - ANXIETY DISORDER, UNSPECIFIED SNOMED Code(s): 77387509 Plan: 1. Acute alcohol withdrawal. Admit with [place] protocol. Replete thiamine 2. Major depression with psychotic features. Psychiatry consulted. Continue lexapro and start risperdal per psych 3. Essential hypertension. Continue norvasc and metoprolol 4. Hypothyroidism. Continue synthroid
[2020-03-28] MEDS: SODIUM CHLORIDE 0.9% 1,000 ML IV SCH ×2 (02:39→08:40)
[2020-03-28] MEDS: LEVOTHYROXINE 100 MCG TAB PO SCH (06:23)
[2020-03-28 08:37] LABS: HCT 45.4 % (34.0-46.0); HGB 15.8 gm/dL (11.4-16.0); MCH 34.4 pg (25.0-35.0); MCHC 34.8 g/dL (31.0-37.0); MCV 98.7 fL (80.0-100.0); Mean Platelet Volume 9.2; Platelet Count 98 k/uL (150-450); WBC 4.1 k/uL (3.8-10.6)
[2020-03-28] MEDS: amLODIPine 5 MG TAB PO SCH (08:39)
[2020-03-28] MEDS: risperiDONE 0.5 MG TAB PO SCH (08:39)
[2020-03-28] MEDS: ESCITALOPRAM 5 MG TAB PO SCH (08:39)
[2020-03-28] MEDS: METOPROLOL TARTRATE 25 MG TAB PO SCH (08:39)
[2020-03-28 08:43] LABS: African American GFR (CKD) >90 (>60 ml/min/1.73 sqM); Anion Gap 6 mmol/L; Blood Urea Nitrogen 18 mg/dL (7-17); Calcium 9.5 mg/dL (8.4-10.2); Carbon Dioxide 29 mmol/L (22-30); Chloride 104 mmol/L (98-107); Glucose 183 mg/dL (74-99); Non-African American GFR(CKD) >90 (>60 ml/min/1.73 sqM); Potassium 3.4 mmol/L (3.5-5.1); Sodium 139 mmol/L (137-145)
[2020-03-28 14:00] VITALS: BP 116/69; PULSE 62; TEMP 98.3
--- NOTE | 2020-03-28 15:31 | P.DS ---
Providers Date of admission: 03/26/20 16:22 Expected date of discharge: 03/28/20 Attending physician: Jorge Alberto Syed MD Consults: 03/26/20 16:21 Consult Physician Routine Consulting Provider: Ozzy Gan Consult Reason/Comments: Alcohol withdrawal, hallucination Do you want consulting provider notified?: Already Contacted Primary care physician: [facility] Course: Ms. Collins is a 64-year-old female with a past medical history of hypertension, thyroid disorder, anxiety and depression and alcohol abuse coming in the hospital with a chief complaint of alcohol withdrawal symptoms and that she is experiencing hallucinations. Patient states that she has been drinking approximately 4-5 glasses of wine every night. She stopped drinking for the past 3 days and started to have symptoms of anxiety and also experiencing visual/auditory hallucinations. So the patient is self-referred for alcohol withdrawal. Patient was evaluated by psychiatric services, they recommended that she has to stop taking Seroquel and started her on risperidone during her hospital stay. Today the patient states that she does not have tremors, denies having any visual/auditory hallucinations. She states that she is back to normal and wants to go home. Patient did not require Ativan in the past 18 hours. Patient states that she would sign up for rehabilitation upon discharge. So the patient is being discharged home on thiamine and folic acid supplements. And also discussed with her that she has to stop taking Seroquel and started taking risperidone. Vital Signs - 8 hr 03/28/20 03/28/20 08:18 13:59 Temperature 98.2 F 98.3 F Pulse Rate [ 81 62 Pulse Oximetery ] Respiratory 16 16 Rate Blood Pressure 112/67 116/69 [Right Arm] O2 Sat by Pulse 95 96 Oximetry PHYSICAL EXAM General: well nourished, well developed, NAD. Eyes: PERRL, EOMI, conjunctiva normal HENT: normocephalic, mucus membranes moist Neck: supple, no JVD Lungs: normal respiratory effort, no wheezes or rales CV: Regular rate and rhythm, no murmur. Peripheral pulses 2+ Abdomen: soft, nondistended, no organomegaly Lymph: no cervical or axillary LAD Skin: warm and dry. Neuro: A&Ox3, anxious mood and depressed affect. no tremor DISCHARGE DIAGNOSIS Acute alcohol withdrawal Major depression with psychotic features Essential hypertension Hypothyroidism Acute anxiety FOLLOW-up: Patient is advised to follow up with her PCP in 2-3 days. Also discussed at length about signing into to rehabilitation. Patient stated that she wouldn't be drinking anymore. More than 35 minutes spent towards the discharge of the patient. Patient Condition at Discharge: Stable Plan - Discharge Summary Discharge Rx Participant: No New Discharge Prescriptions: New Folic Acid 1 mg PO DAILY 30 Days #30 tablet risperiDONE [RisperDAL] 0.5 mg PO BID 30 Days #60 tab Thiamine [Vitamin B-1] 100 mg PO DAILY 30 Days #30 tablet Continue amLODIPine BESYLATE [Norvasc] 5 mg PO DAILY Levothyroxine Sodium [Synthroid] 100 mcg PO DAILY Escitalopram Oxalate [Lexapro] 15 mg PO DAILY Multivitamins, Thera [Multivitamin (formulary)] 1 tab PO DAILY #30 tablet Metoprolol Tartrate [Lopressor] 25 mg PO BID Famotidine 40 mg PO DAILY Discontinued QUEtiapine [SEROquel] 50 mg PO HS Discharge Medication List Escitalopram Oxalate [Lexapro] 15 mg PO DAILY 02/28/17 [History] Levothyroxine Sodium [Synthroid] 100 mcg PO DAILY 02/28/17 [History] amLODIPine BESYLATE [Norvasc] 5 mg PO DAILY 02/28/17 [History] Multivitamins, Thera [Multivitamin (formulary)] 1 tab PO DAILY #30 tablet 03/02/17 [Rx] Famotidine 40 mg PO DAILY 03/26/20 [History] Metoprolol Tartrate [Lopressor] 25 mg PO BID 03/26/20 [History] Folic Acid 1 mg PO DAILY 30 Days #30 tablet 03/28/20 [Rx] Thiamine [Vitamin B-1] 100 mg PO DAILY 30 Days #30 tablet 03/28/20 [Rx] risperiDONE [RisperDAL] 0.5 mg PO BID 30 Days #60 tab 03/28/20 [Rx] Follow up Appointment(s)/Referral(s): Verena Syed DO [Primary Care Provider] - 1-2 days Discharge Disposition: HOME SELF-CARE
== END 2020-03-28 17:17 | disposition home or self-care (01) | DRG 897 ==
LOC: EC 14:42 → 3SCARD 16:22
PROVIDERS: ADMIT Family Medicine; ATTEND Family Medicine
DX: F10.230 Alcohol dependence with withdrawal, uncomplicated (principal); F32.3 Major depressive disorder, single episode, severe with psychotic features; D69.6 Thrombocytopenia, unspecified; I10 Essential (primary) hypertension; E03.9 Hypothyroidism, unspecified; F41.9 Anxiety disorder, unspecified; E87.6 Hypokalemia; R74.01 Elevation of levels of liver transaminase levels; Y90.0 Blood alcohol level of less than 20 mg/100 ml; Z79.899 Other long term (current) drug therapy; Z79.890 Hormone replacement therapy; Z98.42 Cataract extraction status, left eye; Z98.41 Cataract extraction status, right eye; Z87.891 Personal history of nicotine dependence; Z91.041 Radiographic dye allergy status; Z80.0 Family history of malignant neoplasm of digestive organs
CPT/HCPCS: 36415; 80048; 80320; 82075; 83735; 84450; 84460; 85025; 85027; 96361; 96374; 96376; 99285

== ENCOUNTER 2020-11-15 07:55 | Emergency (ER) | payer BC ==
[2020-11-15 07:59] VITALS: TEMP 98.6
[2020-11-15] MEDS ORDERED: ONDANSETRON ODT 4 MG TAB PO STA (08:11)
--- NOTE | 2020-11-15 08:43 | ED ---
General Adult HPI - General Chief complaint: Nausea/Vomiting/Diarrhea Stated complaint: Bloody nose, vomiting, nausea Time Seen by Provider: 11/15/20 08:11 Source: patient Mode of arrival: ambulatory Limitations: no limitations - History of Present Illness Initial comments: Patient is a 64-year-old female presenting to the emergency Department with comp laints of a bloody nose that started this morning. She states that when it started this morning she applied pressure and the entire head backwards. She states after it stopped, she did have some nausea and was coughing up some blood. She got concerned that she came in the ER for evaluation. She is not on blood thinners. She states she does have a mild headache but gets these occasionally, she took Tylenol which does help. She denies any abdominal pain, no further vomiting. She has no further complaints at this time. Upon arrival to the ER her vitals are stable. - Related Data Home Medications Medication Instructions Recorded Confirmed Escitalopram Oxalate [Lexapro] 15 mg PO DAILY 02/28/17 03/26/20 Levothyroxine Sodium [Synthroid] 100 mcg PO DAILY 02/28/17 03/26/20 amLODIPine BESYLATE [Norvasc] 5 mg PO DAILY 02/28/17 03/26/20 Famotidine 40 mg PO DAILY 03/26/20 03/26/20 Metoprolol Tartrate [Lopressor] 25 mg PO BID 03/26/20 03/26/20 Previous Rx's Medication Instructions Recorded Multivitamins, Thera [Multivitamin 1 tab PO DAILY #30 tablet 03/02/17 (formulary)] Folic Acid 1 mg PO DAILY 30 Days #30 tablet 03/28/20 Thiamine [Vitamin B-1] 100 mg PO DAILY 30 Days #30 tablet 03/28/20 risperiDONE [RisperDAL] 0.5 mg PO BID 30 Days #60 tab 03/28/20 Ondansetron Odt [Zofran Odt] 4 mg PO Q8HR PRN #10 tab 11/15/20 Allergies Allergy/AdvReac Type Severity Reaction Status Date / Time Iodinated Contrast Media Allergy Rash/Hives Verified 11/15/20 07:56 [Iodinated Contrast- Oral and IV Dye] Review of Systems ROS Statement: Those systems with pertinent positive or pertinent negative responses have been documented in the HPI. ROS Other: All systems not noted in ROS Statement are negative. Past Medical History Past Medical History: Hypertension, Thyroid Disorder Additional Past Medical History / Comment(s): hypothyroid. BILAT CATARACTS History of Any Multi-Drug Resistant Organisms: None Reported Past Surgical History: No Surgical Hx Reported Additional Past Surgical History / Comment(s): colonoscopy. BILAT CATARACTS REMOVED Past Anesthesia/Blood Transfusion Reactions: No Reported Reaction Past Psychological History: Anxiety, Depression Smoking Status: Former smoker Past Alcohol Use History: Occasional Past Drug Use History: None Reported - Past Family History Mother Family Medical History: No Reported History Additional Family Medical History / Comment(s): Mother is healthy and is 75yrs old. Father Family Medical History: Cancer Additional Family Medical History / Comment(s): Father is from colon cancer. He at the age of 59 or 60yrs. General Exam - General Exam Comments Initial Comments: GENERAL: Patient is well-developed and well-nourished. Patient is nontoxic and in no acute distress. HEAD: Atraumatic, normocephalic. EYES: Pupils equal round and reactive to light, extraocular movements intact, sclera anicteric, conjunctiva are normal. Eyelids were unremarkable. ENT: TMs normal, nares patent, oropharynx clear without exudates. Moist mucous membranes. No active bleeding at this time. NECK: Normal range of motion, supple without lymphadenopathy or JVD. LUNGS: Unlabored respirations. Breath sounds clear to auscultation bilaterally and equal. No wheezes rales or rhonchi. HEART: Regular rate and rhythm without murmurs, rubs or gallops. ABDOMEN: Soft, nontender, normoactive bowel sounds. No guarding, no rebound. No masses appreciated. : Deferred MUSCULOSKELETAL: Normal extremities with adequate strength and normal range of motion, no pitting or edema. No clubbing or cyanosis. NEUROLOGICAL: Patient is alert and oriented x 3. SKIN: Warm, Dry, normal turgor, no rashes or lesions noted. Limitations: no limitations Course Vital Signs 11/15/20 11/15/20 11/15/20 07:56 08:46 09:43 Temperature 98.6 F Pulse Rate 105 H 102 H 104 H Respiratory 16 18 18 Rate Blood Pressure 135/86 95/62 115/82 O2 Sat by Pulse 99 97 94 L Oximetry Medical Decision Making - Medical Decision Making Patient is a 64-year-old female here with complaints of a nosebleed as well as some nausea. Patient has no active bleeding at this time, she is not on blood thinners. There is no trauma or injury. Patient states that when she had a nosebleed this morning, she did lean her head backwards for it to stop. Shortly after she developed the nausea and had a few episodes of vomiting with blood in it. She has no further complaints at this time. Patient was given a tablet of Zofran. Upon waiting for a reevaluation, her nosebleed did restart, and she has a few episodes of hematemesis. I applied a nose clamp, we did checked basic labs which are within normal limits except for transaminitis which she is aware of. She was observed for another 30-40 minutes in the ER, there is no restart of her nosebleed. She continues to feel a little nauseous. She is stable for discharge at this time. Send her home with some Zofran as well as Afrin spray, and a nose clamp. He discussed the steps to stop a nosebleed if it restarts. She can follow-up with her primary care for any further investigation of these nosebleeds. She is agreeable to this plan of care and she is stable for discharge. Return parameters were discussed with her and she verbalized understanding. Case discussed with Dr. Preciado. - Lab Data Result diagrams: 11/15/20 09:03 11/15/20 09:03 Lab Results 11/15/20 11/15/20 11/15/20 Range/Units 09:03 09:03 09:03 WBC 5.3 (3.8-10.6) k/uL RBC 4.19 (3.80-5.40) m/uL Hgb 15.3 (11.4-16.0) gm/dL Hct 46.2 H (34.0-46.0) % MCV 110.3 H (80.0-100.0) fL MCH 36.6 H (25.0-35.0) pg MCHC 33.2 (31.0-37.0) g/dL RDW 14.0 (11.5-15.5) % Plt Count 142 L (150-450) k/uL MPV 7.5 Neutrophils % 73 % Lymphocytes % 17 % Monocytes % 5 % Eosinophils % 1 % Basophils % 1 % Neutrophils # 3.9 (1.3-7.7) k/uL Lymphocytes # 0.9 L (1.0-4.8) k/uL Monocytes # 0.3 (0-1.0) k/uL Eosinophils # 0.0 (0-0.7) k/uL Basophils # 0.1 (0-0.2) k/uL Manual Slide Review Performed Macrocytosis Marked A PT 11.2 (9.0-12.0) sec INR 1.1 (<1.2) APTT 23.7 (22.0-30.0) sec Sodium 142 (137-145) mmol/L Potassium 4.2 (3.5-5.1) mmol/L Chloride 105 (98-107) mmol/L Carbon Dioxide 18 L (22-30) mmol/L Anion Gap 19 mmol/L BUN 8 (7-17) mg/dL Creatinine 0.54 (0.52-1.04) mg/dL Est GFR (CKD-EPI)AfAm >90 (>60 ml/min/1.73 sqM) Est GFR (CKD-EPI)NonAf >90 (>60 ml/min/1.73 sqM) Glucose 163 H (74-99) mg/dL Calcium 9.9 (8.4-10.2) mg/dL Total Bilirubin 2.1 H (0.2-1.3) mg/dL AST 228 H (14-36) U/L ALT 124 H (4-34) U/L Alkaline Phosphatase 125 (38-126) U/L Total Protein 7.6 (6.3-8.2) g/dL Albumin 4.8 (3.5-5.0) g/dL Disposition Clinical Impression: Epistaxis, Nausea and vomiting Disposition: HOME SELF-CARE Condition: Stable Instructions (If sedation given, give patient instructions): Nosebleed (ED) Additional Instructions: Please return to the Emergency Department if symptoms worsen or any other concerns. If nose bleed restarts, repeat steps discussed the ER, nose clamp for 15-20 minutes, blow out the clots, trial of Afrin as well. May use Zofran for any additional nausea. Follow-up with your primary care physician. Prescriptions: Ondansetron Odt [Zofran Odt] 4 mg PO Q8HR PRN #10 tab PRN Reason: Nausea Is patient prescribed a controlled substance at d/c from ED?: No Referrals: Verena Syed DO [Primary Care Provider] - 1-2 days Time of Disposition: 10:07
[2020-11-15 08:49] VITALS: RESP 18
[2020-11-15 09:10] LABS: Basophils # (A) 0.1 k/uL (0-0.2); Basophils % (A) 1 %; Eosinophils % (A) 1 %; HCT 46.2 % (34.0-46.0); HGB 15.3 gm/dL (11.4-16.0); Lymphocytes # (A) 0.9 k/uL (1.0-4.8); Lymphocytes % (A) 17 %; MCH 36.6 pg (25.0-35.0); MCHC 33.2 g/dL (31.0-37.0); MCV 110.3 fL (80.0-100.0); Macrocytosis Marked; Mean Platelet Volume 7.5; Monocytes # (A) 0.3 k/uL (0-1.0); Monocytes % (A) 5 %; Neutrophils # (A) 3.9 k/uL (1.3-7.7); Neutrophils % (A) 73 %; Platelet Count 142 k/uL (150-450); RBC 4.19 m/uL (3.80-5.40); WBC 5.3 k/uL (3.8-10.6)
[2020-11-15 09:17] LABS: ALT 124 U/L (4-34); AST 228 U/L (14-36); African American GFR (CKD) >90 (>60 ml/min/1.73 sqM); Albumin 4.8 g/dL (3.5-5.0); Alkaline Phosphatase 125 U/L (38-126); Anion Gap 19 mmol/L; Blood Urea Nitrogen 8 mg/dL (7-17); Calcium 9.9 mg/dL (8.4-10.2); Carbon Dioxide 18 mmol/L (22-30); Chloride 105 mmol/L (98-107); Glucose 163 mg/dL (74-99); Non-African American GFR(CKD) >90 (>60 ml/min/1.73 sqM); Potassium 4.2 mmol/L (3.5-5.1); Sodium 142 mmol/L (137-145); Total Bilirubin 2.1 mg/dL (0.2-1.3); Total Protein 7.6 g/dL (6.3-8.2)
[2020-11-15 09:18] LABS: INR 1.1 (<1.2); Partial Thromboplastin Time 23.7 sec (22.0-30.0); Prothrombin Time 11.2 sec (9.0-12.0)
[2020-11-15] MEDS ORDERED: ONDANSETRON 4 MG/2 ML VIAL IVP STA (09:35)
[2020-11-15 09:44] VITALS: BP 115/82; PULSE 104
[2020-11-15] MEDS ORDERED: OXYMETAZOLINE 0.05% NASL SPRAY 1 SPRAY BOTTLE NASAL STA (10:07)
== END 2020-11-15 10:24 | disposition home or self-care (01) ==
LOC: EC 07:55
DX: R04.0 Epistaxis (principal); R11.2 Nausea with vomiting, unspecified; R19.7 Diarrhea, unspecified; R51.9 Headache, unspecified; E03.9 Hypothyroidism, unspecified; I10 Essential (primary) hypertension; Z87.891 Personal history of nicotine dependence; Z79.890 Hormone replacement therapy; Z79.899 Other long term (current) drug therapy; Z88.8 Allergy status to other drugs, medicaments and biological substances
CPT/HCPCS: 36415; 80053; 85025; 85610; 85730; 99284; 96374; J2405

== ENCOUNTER → 2021-07-08 | Outpatient (CLI) | payer BC ==
--- NOTE | 2021-07-13 12:47 | MM ---
Reason for exam: screening (asymptomatic). Last mammogram was performed 2 years and 6 months ago. History: Patient is postmenopausal. Family history of breast cancer in cousin at age 30. Took estrogen for 2 years. Took progesterone for 2 years. Physical Findings: A clinical breast exam by your physician is recommended on an annual basis and results should be correlated with mammographic findings. MG Screening Mammo w CAD Bilateral CC and MLO view(s) were taken. Prior study comparison: January 10, 2019, bilateral MG screening mammo w CAD. December 28, 2016, right breast MG diagnostic mammo RT w CAD. The breast tissue is heterogeneously dense. This may lower the sensitivity of mammography. There are benign appearing vascular calcifications bilaterally. There is no discrete abnormality. ASSESSMENT: Benign, BI-RAD 2 RECOMMENDATION: Routine screening mammogram of both breasts in 1 year.
== END | disposition home or self-care (01) ==
LOC: RADMAMWWP 10:50
PROVIDERS: ATTEND Family Medicine
DX: Z12.31 Encounter for screening mammogram for malignant neoplasm of breast (principal); Z80.3 Family history of malignant neoplasm of breast; Z78.0 Asymptomatic menopausal state
CPT/HCPCS: 77067

== ENCOUNTER → 2023-06-22 | Outpatient (CLI) | payer MEDICARE ==
--- NOTE | 2023-06-22 13:57 | FL ---
Exam Date: 06/22/2023 11:23 AM. Modified barium swallow for dysphagia. Consistencies administered: Various consistency of barium. Fluoro time: 47 seconds No images were sent to PACS. Please see speech pathology report. DAP: Not reported mGym2 Gycm2
== END | disposition home or self-care (01) ==
LOC: RADFLMAIN 10:58
PROVIDERS: ATTEND Otolaryngology
DX: R13.13 Dysphagia, pharyngeal phase (principal)
CPT/HCPCS: 74230

== ENCOUNTER → 2023-07-13 | Outpatient (CLI) | payer MEDICARE ==
--- NOTE | 2023-07-13 18:30 | US ---
EXAMINATION TYPE: US thyroid st tissue head/neck DATE OF EXAM: 07/13/2023 COMPARISON: NONE CLINICAL INDICATION: Female, 67 years old with history of E03.9 hypothyroidism; Hypothyroidism, Patie nt takes thyroid medication. GLAND SIZE: Thyroid gland is small, difficult to measure, borders are unclear. Right Lobe: 3.6 x 1.0 x 0.7 cm, limited Overall Parenchyma: heterogeneous Left Lobe: 3.4 x 0.7 x 0.8 cm, limited Overall Parenchyma: heterogeneous Isthmus Thickness: 0.14 cm NODULES RIGHT: # of nodules measured on right: 0 LEFT: # of nodules measured on left: 0 ISTHMUS: # of nodules measured in the isthmus: 0 Bilateral neck scanned, no evidence of lymphadenopathy. IMPRESSION: No thyroid nodules. Heterogenous thyroid gland correlate for thyroiditis.
== END | disposition home or self-care (01) ==
LOC: RADUSWWP 16:19
PROVIDERS: ATTEND Otolaryngology
DX: E03.9 Hypothyroidism, unspecified (principal)
CPT/HCPCS: 76536

== ENCOUNTER 2023-08-12 06:02 | Emergency (ER) | payer MEDICARE ==
[2023-08-12 06:24] VITALS: RESP 18
--- NOTE | 2023-08-12 06:26 | ED ---
Nausea/Vomiting/Diarrhea HPI - General Chief complaint: Nausea/Vomiting/Diarrhea Stated complaint: Vomiting Time Seen by Provider: 08/12/23 06:08 Source: patient, RN notes reviewed Mode of arrival: ambulatory Limitations: no limitations - History of Present Illness Initial comments: This is a 67-year-old female who presents to the emergency department for nausea and vomiting. Symptoms started 2 days ago. Denies any sick contacts. Also denies any fever/chills or diarrhea/constipation. She has not been able to keep down any fluids since the symptoms started. She has generalized abdominal burning and discomfort from all of the vomiting, but denies any localized pain. She does also note a cough and congestion for the last couple of days as well. Denies any chest pain or shortness of breath. MD complaint: nausea, vomiting - Related Data Home Medications Medication Instructions Recorded Confirmed Escitalopram Oxalate [Lexapro] 15 mg PO DAILY 02/28/17 03/26/20 Levothyroxine Sodium [Synthroid] 100 mcg PO DAILY 02/28/17 03/26/20 amLODIPine BESYLATE [Norvasc] 5 mg PO DAILY 02/28/17 03/26/20 Famotidine 40 mg PO DAILY 03/26/20 03/26/20 Metoprolol Tartrate [Lopressor] 25 mg PO BID 03/26/20 03/26/20 Previous Rx's Medication Instructions Recorded Multivitamins, Thera [Multivitamin 1 tab PO DAILY #30 tablet 03/02/17 (formulary)] Folic Acid 1 mg PO DAILY 30 Days #30 tablet 03/28/20 Thiamine [Vitamin B-1] 100 mg PO DAILY 30 Days #30 tablet 03/28/20 risperiDONE [RisperDAL] 0.5 mg PO BID 30 Days #60 tab 03/28/20 Ondansetron Odt [Zofran Odt] 4 mg PO Q8HR PRN #10 tab 11/15/20 Ondansetron Odt [Zofran Odt] 4 mg PO Q8HR PRN #10 tab 11/15/20 Mag Hydrox/Al Hydrox/Simeth 10 - 20 ml PO QID PRN #355 ml 08/12/23 [Maalox] Metoclopramide [Reglan] 10 mg PO Q6H PRN #30 tab 08/12/23 Ondansetron Odt [Zofran Odt] 4 mg PO Q8HR PRN #30 tab 08/12/23 cefUROXime axetiL [Ceftin] 500 mg PO BID 7 Days #14 tab 08/12/23 Allergies Allergy/AdvReac Type Severity Reaction Status Date / Time Iodinated Contrast Media Allergy Rash/Hives Verified 08/12/23 06:06 [Iodinated Contrast- Oral and IV Dye] Review of Systems ROS Statement: Those systems with pertinent positive or pertinent negative responses have been documented in the HPI. ROS Other: All systems not noted in ROS Statement are negative. Past Medical History Past Medical History: Hypertension, Thyroid Disorder Additional Past Medical History / Comment(s): hypothyroid. BILAT CATARACTS History of Any Multi-Drug Resistant Organisms: None Reported Past Surgical History: No Surgical Hx Reported Additional Past Surgical History / Comment(s): colonoscopy. BILAT CATARACTS REMOVED Past Anesthesia/Blood Transfusion Reactions: No Reported Reaction Past Psychological History: Anxiety, Depression Smoking Status: Former smoker Past Alcohol Use History: Occasional Past Drug Use History: None Reported - Past Family History Mother Family Medical History: No Reported History Additional Family Medical History / Comment(s): Mother is healthy and is 75yrs old. Father Family Medical History: Cancer Additional Family Medical History / Comment(s): Father is from colon cancer. He at the age of 59 or 60yrs. General Exam Limitations: no limitations General appearance: alert, in no apparent distress Head exam: Present: atraumatic, normocephalic, normal inspection Respiratory exam: Present: normal lung sounds bilaterally. Absent: respiratory distress, wheezes, rales, rhonchi, stridor Cardiovascular Exam: Present: regular rate, normal rhythm, normal heart sounds. Absent: systolic murmur, diastolic murmur, rubs, gallop, clicks GI/Abdominal exam: Present: soft, normal bowel sounds. Absent: distended, tenderness, guarding, rebound, rigid Neurological exam: Present: alert, oriented X3, CN II-XII intact Psychiatric exam: Present: normal affect, normal mood Skin exam: Present: warm, dry, intact, normal color. Absent: rash Course Vital Signs 08/12/23 08/12/23 08/12/23 06:04 07:41 08:28 Temperature 99.2 F Pulse Rate 85 86 80 Respiratory 18 18 18 Rate Blood Pressure 131/86 144/98 133/75 O2 Sat by Pulse 94 L 98 96 Oximetry 08/12/23 08/12/23 11:20 12:38 Temperature 97.8 F Pulse Rate 72 90 Respiratory 18 18 Rate Blood Pressure 109/57 106/69 O2 Sat by Pulse 97 Oximetry Medical Decision Making - Medical Decision Making This is a 67 year old female who presents to the emergency department for nausea and vomiting. Was pt. sent in by a medical professional or institution? @ -No Did you speak to anyone other than the patient for history? @ -No Did you review nursing and triage notes? @ -Yes, and I agree, it is accurate with regards to the patient's symptoms. Were old charts reviewed? @ -No Differential Diagnosis? @ -Differential Nausea and Vomiting: Gastroenteritis, cholecystitis, appendicitis, pancreatitis, migraine, benign positional vertigo, food borne illness, pyelonephritis, irritable bowel sy ndrome, influenza, Covid, GERD, incarcerated hernia, intestinal obstruction, this is not meant to be an all-inclusive list. EKG interpreted by me (3pts min.)? @ -EKG interpreted by me demonstrating the following: Sinus tachycardia. Ventricular rate 100 bpm, HI interval 185 ms, QRS duration 80 ms, QTc 397 ms. X-rays interpreted by me (1pt min.)? @ -Chest x-ray obtained. My interpretation identifies patchy bibasilar densities. KUB x-ray obtained. My interpretation identifies no dilation of the bowel loops. CT interpreted by me (1pt min.)? @ -Not obtained U/S interpreted by me (1pt. min.)? @ -Gallbladder ultrasound obtained. My interpretation identifies no evidence of cholelithiasis. What testing was considered but not performed? (CT, X-rays, U/S, labs)? Why? @ -None What meds were considered but not given? Why? @ -None Did you discuss the management of the patient with other professionals? @ -No Did you reconcile home meds? @ -No Was smoking cessation discussed for >3mins.? @ -No Was critical care preformed (if so, how long)? @ -No Were there social determinants of health that impacted care today? How? (Letha elessness, low income, unemployed, alcoholism, drug addiction, transportation, low edu. Level, literacy, decrease access to med. care, long-term, rehab)? @ -No Was there de-escalation of care discussed even if they declined? (Discuss DNR or withdrawal of care, Hospice)? @ -No What co-morbidities impacted this encounter? (DM, HTN, Smoking, COPD, CAD, C ancer, CVA, Hep., AIDS, mental health diagnosis, sleep apnea, morbid obesity)? @ -HTN Was patient admitted / discharged? @ -Lab work demonstrates mild hypokalemia with a potassium of 3.2. Lactic acid elevated at 4.8. Total bilirubin 5.8, AST 506, and ALT 188. She has a history of elevated liver enzymes, however the bilirubin and AST are higher than they pulliam ve been in the past. Fractionated bilirubin demonstrates a conjugated bilirubin of 0.9, unconjugated of 3.2, and delta bilirubin of 1.7. It is not clear if she has an acute elevation in her liver enzymes or if these have been trending upwards for quite some time given the history of elevated LFTs. COVID, influenza, and RSV testing were negative. Urinalysis consistent with infection and sent for culture. KUB x-ray demonstrates no acute process. Chest x-ray demonstrates mild increasing patchy bibasilar atelectasis versus early developing infiltrate. Given the elevated liver enzymes, gallbladder ultrasound obtained demonstrating mild hepatomegaly with a very heterogeneous appearance to the liver. They advised correlation for underlying hepatocellular disease. She has no gallstones or ductal dilation. She was initially treated with IV fluids, Zofran, and famotidine. She did have improvement in symptoms, but when she tried to drink water, started to feel nauseous again. She was subsequently given Reglan as well as Protonix. Nausea again improved, however she was still experiencing acid reflux. GI cocktail was subsequently administered. She had significant relief after the GI cocktail, and nausea was also well-controlled with the Reglan. She was tolerating oral intake without difficulty. Repeat lactic acid down to 2.1 after 2 L of IV fluids. We discussed admission given the elevated liver enzymes with the possible developing pneumonia and UTI, however we do not currently have GI available at our facility and the patient would need to be transferred out. States that she currently feels improved and symptoms are well-controlled, and she would rather go home. Acute hepatitis panel was ordered and followed up on the following day, which returned negative. Rx for Cefuroxime provided to cover for both the pneumonia and UTI and Zofran, Reglan, and Maalox were prescribed for the nausea/vomiting and reflux. 2g of Ceftriaxone and 500mg of Azithromycin were administered prior to discharge. Patient discharged home in stable condition with strict return parameters. Undiagnosed new problem with uncertain prognosis? @ -None Drug Therapy requiring intensive monitoring for toxicity (Heparin, Nitro, Insulin, Cardizem)? @ -None Were any procedures done? @ -None Diagnosis/symptom? @ -Nausea/vomiting, UTI, pneumonia, transaminitis Acute, or Chronic, or Acute on Chronic? @ -Acute Uncomplicated (without systemic symptoms) or Complicated (systemic symptoms)? @ -Complicated Side effects of treatment? @ -None Exacerbation, Progression, or Severe Exacerbation] @ -Not applicable Poses a threat to life or bodily function? @ -This will depend on how she progresses. Return precautions reviewed in depth, the patient is instructed to return to the emergency department with any new, worsening, or concerning symptoms. Patient verbalized understanding. This case was discussed in detail with the attending ED physician, Dr. Christiansen. Presentation, findings, and treatment plan discussed in detail as well. - Lab Data Result diagrams: 08/12/23 06:44 08/12/23 06:44 Lab Results 08/12/23 08/12/23 08/12/23 Range/Units 06:44 06:44 06:44 WBC 4.5 (3.8-10.6) k/uL RBC 4.45 (3.80-5.40) m/uL Hgb 16.1 H (11.4-16.0) gm/dL Hct 46.2 H (34.0-46.0) % MCV 103.9 H (80.0-100.0) fL MCH 36.2 H (25.0-35.0) pg MCHC 34.8 (31.0-37.0) g/dL RDW 16.4 H (11.5-15.5) % Plt Count 138 L (150-450) k/uL MPV 9.0 Neutrophils % 71 % Lymphocytes % 19 % Monocytes % 8 % Eosinophils % 0 % Basophils % 1 % Neutrophils # 3.2 (1.3-7.7) k/uL Lymphocytes # 0.9 L (1.0-4.8) k/uL Monocytes # 0.3 (0-1.0) k/uL Eosinophils # 0.0 (0-0.7) k/uL Basophils # 0.0 (0-0.2) k/uL Anisocytosis Slight Macrocytosis Moderate PT (10.0-12.5) sec INR (<1.2) APTT (22.0-30.0) sec Sodium 140 (137-145) mmol/L Potassium 3.2 L (3.5-5.1) mmol/L Chloride 98 (98-107) mmol/L Carbon Dioxide 19 L (22-30) mmol/L Anion Gap 23 mmol/L BUN 16 (7-17) mg/dL Creatinine 0.67 (0.52-1.04) mg/dL Est GFR (CKD-EPI)AfAm >90 (>60 ml/min/1.73 sqM) Est GFR (CKD-EPI)NonAf >90 (>60 ml/min/1.73 sqM) Glucose 144 H (74-99) mg/dL Lactic Ac Sepsis Rflx Plasma Lactic Acid [place] 4.8 H* (0.7-2.0) mmol/L Calcium 9.8 (8.4-10.2) mg/dL Magnesium 1.9 (1.6-2.3) mg/dL Total Bilirubin 5.8 H (0.2-1.3) mg/dL Conjugated Bilirubin 0.9 H (0.0-0.3) mg/dL Unconjugated Bilirubin 3.2 H (0.0-1.1) mg/dL Delta Bilirubin 1.7 H (0.0-0.2) mg/dL AST 506 H (14-36) U/L ALT 188 H (4-34) U/L Alkaline Phosphatase 112 (38-126) U/L Total Protein 8.2 (6.3-8.2) g/dL Albumin 5.2 H (3.5-5.0) g/dL Amylase 80 (30-110) U/L Lipase 247 (23-300) U/L Urine Color Urine Appearance (Clear) Urine pH (5.0-8.0) Ur Specific [place] (1.001-1.035) Urine Protein (Negative) Urine Glucose (UA) (Negative) Urine Ketones (Negative) Urine Blood (Negative) Urine Nitrite (Negative) Urine Bilirubin (Negative) Urine Urobilinogen (<2.0) mg/dL Ur Leukocyte Esterase (Negative) Urine RBC (0-5) /hpf Urine WBC (0-5) /hpf Urine WBC Clumps (None) /hpf Ur Squamous Epith Cells (0-4) /hpf Urine Bacteria (None) /hpf Urine Mucus (None) /hpf Hepatitis A IgM Ab (Nonreactive) Hep Bs Antigen (Nonreactive) Hep B Core IgM Ab (Nonreactive) Hep C IgG Ab (Nonreactive) Heterophile Antibody (Negative) Influenza Type A (PCR) (Not Detectd) Influenza Type B (PCR) (Not Detectd) RSV (PCR) (Not Detectd) SARS-CoV-2 (PCR) (Not Detectd) 08/12/23 08/12/23 08/12/23 Range/Units 06:44 07:39 07:41 WBC (3.8-10.6) k/uL RBC (3.80-5.40) m/uL Hgb (11.4-16.0) gm/dL Hct (34.0-46.0) % MCV (80.0-100.0) fL MCH (25.0-35.0) pg MCHC (31.0-37.0) g/dL RDW (11.5-15.5) % Plt Count (150-450) k/uL MPV Neutrophils % % Lymphocytes % % Monocytes % % Eosinophils % % Basophils % % Neutrophils # (1.3-7.7) k/uL Lymphocytes # (1.0-4.8) k/uL Monocytes # (0-1.0) k/uL Eosinophils # (0-0.7) k/uL Basophils # (0-0.2) k/uL Anisocytosis Macrocytosis PT (10.0-12.5) sec INR (<1.2) APTT (22.0-30.0) sec Sodium (137-145) mmol/L Potassium (3.5-5.1) mmol/L Chloride (98-107) mmol/L Carbon Dioxide (22-30) mmol/L Anion Gap mmol/L BUN (7-17) mg/dL Creatinine (0.52-1.04) mg/dL Est GFR (CKD-EPI)AfAm (>60 ml/min/1.73 sqM) Est GFR (CKD-EPI)NonAf (>60 ml/min/1.73 sqM) Glucose (74-99) mg/dL Lactic Ac Sepsis Rflx Y Plasma Lactic Acid [place] (0.7-2.0) mmol/L Calcium (8.4-10.2) mg/dL Magnesium (1.6-2.3) mg/dL Total Bilirubin (0.2-1.3) mg/dL Conjugated Bilirubin (0.0-0.3) mg/dL Unconjugated Bilirubin (0.0-1.1) mg/dL Delta Bilirubin (0.0-0.2) mg/dL AST (14-36) U/L ALT (4-34) U/L Alkaline Phosphatase (38-126) U/L Total Protein (6.3-8.2) g/dL Albumin (3.5-5.0) g/dL Amylase (30-110) U/L Lipase (23-300) U/L Urine Color Light Brown Urine Appearance Turbid H (Clear) Urine pH 7.0 (5.0-8.0) Ur Specific [place] 1.023 (1.001-1.035) Urine Protein 2+ H (Negative) Urine Glucose (UA) Negative (Negative) Urine Ketones 2+ H (Negative) Urine Blood Small H (Negative) Urine Nitrite Negative (Negative) Urine Bilirubin 1+ H (Negative) Urine Urobilinogen >12.0 (<2.0) mg/dL Ur Leukocyte Esterase Large H (Negative) Urine RBC 9 H (0-5) /hpf Urine WBC >182 H (0-5) /hpf Urine WBC Clumps Occasional H (None) /hpf Ur Squamous Epith Cells 10 H (0-4) /hpf Urine Bacteria Many H (None) /hpf Urine Mucus Many H (None) /hpf Hepatitis A IgM Ab (Nonreactive) Hep Bs Antigen (Nonreactive) Hep B Core IgM Ab (Nonreactive) Hep C IgG Ab (Nonreactive) Heterophile Antibody (Negative) Influenza Type A (PCR) Not Detected (Not Detectd) Influenza Type B (PCR) Not Detected (Not Detectd) RSV (PCR) Not Detected (Not Detectd) SARS-CoV-2 (PCR) Not Detected (Not Detectd) 08/12/23 08/12/23 08/12/23 Range/Units 10:06 10:06 10:06 WBC (3.8-10.6) k/uL RBC (3.80-5.40) m/uL Hgb (11.4-16.0) gm/dL Hct (34.0-46.0) % MCV (80.0-100.0) fL MCH (25.0-35.0) pg MCHC (31.0-37.0) g/dL RDW (11.5-15.5) % Plt Count (150-450) k/uL MPV Neutrophils % % Lymphocytes % % Monocytes % % Eosinophils % % Basophils % % Neutrophils # (1.3-7.7) k/uL Lymphocytes # (1.0-4.8) k/uL Monocytes # (0-1.0) k/uL Eosinophils # (0-0.7) k/uL Basophils # (0-0.2) k/uL Anisocytosis Macrocytosis PT (10.0-12.5) sec INR (<1.2) APTT (22.0-30.0) sec Sodium (137-145) mmol/L Potassium (3.5-5.1) mmol/L Chloride (98-107) mmol/L Carbon Dioxide (22-30) mmol/L Anion Gap mmol/L BUN (7-17) mg/dL Creatinine (0.52-1.04) mg/dL Est GFR (CKD-EPI)AfAm (>60 ml/min/1.73 sqM) Est GFR (CKD-EPI)NonAf (>60 ml/min/1.73 sqM) Glucose (74-99) mg/dL Lactic Ac Sepsis Rflx Plasma Lactic Acid [place] 2.1 H* (0.7-2.0) mmol/L Calcium (8.4-10.2) mg/dL Magnesium (1.6-2.3) mg/dL Total Bilirubin (0.2-1.3) mg/dL Conjugated Bilirubin (0.0-0.3) mg/dL Unconjugated Bilirubin (0.0-1.1) mg/dL Delta Bilirubin (0.0-0.2) mg/dL AST (14-36) U/L ALT (4-34) U/L Alkaline Phosphatase (38-126) U/L Total Protein (6.3-8.2) g/dL Albumin (3.5-5.0) g/dL Amylase (30-110) U/L Lipase (23-300) U/L Urine Color Urine Appearance (Clear) Urine pH (5.0-8.0) Ur Specific [place] (1.001-1.035) Urine Protein (Negative) Urine Glucose (UA) (Negative) Urine Ketones (Negative) Urine Blood (Negative) Urine Nitrite (Negative) Urine Bilirubin (Negative) Urine Urobilinogen (<2.0) mg/dL Ur Leukocyte Esterase (Negative) Urine RBC (0-5) /hpf Urine WBC (0-5) /hpf Urine WBC Clumps (None) /hpf Ur Squamous Epith Cells (0-4) /hpf Urine Bacteria (None) /hpf Urine Mucus (None) /hpf Hepatitis A IgM Ab Nonreactive (Nonreactive) Hep Bs Antigen Nonreactive (Nonreactive) Hep B Core IgM Ab Nonreactive (Nonreactive) Hep C IgG Ab Nonreactive (Nonreactive) Heterophile Antibody Negative (Negative) Influenza Type A (PCR) (Not Detectd) Influenza Type B (PCR) (Not Detectd) RSV (PCR) (Not Detectd) SARS-CoV-2 (PCR) (Not Detectd) 08/12/23 08/12/23 Range/Units 10:35 11:14 WBC (3.8-10.6) k/uL RBC (3.80-5.40) m/uL Hgb (11.4-16.0) gm/dL Hct (34.0-46.0) % MCV (80.0-100.0) fL MCH (25.0-35.0) pg MCHC (31.0-37.0) g/dL RDW (11.5-15.5) % Plt Count (150-450) k/uL MPV Neutrophils % % Lymphocytes % % Monocytes % % Eosinophils % % Basophils % % Neutrophils # (1.3-7.7) k/uL Lymphocytes # (1.0-4.8) k/uL Monocytes # (0-1.0) k/uL Eosinophils # (0-0.7) k/uL Basophils # (0-0.2) k/uL Anisocytosis Macrocytosis PT 13.3 H (10.0-12.5) sec INR 1.3 H (<1.2) APTT 26.3 (22.0-30.0) sec Sodium (137-145) mmol/L Potassium (3.5-5.1) mmol/L Chloride (98-107) mmol/L Carbon Dioxide (22-30) mmol/L Anion Gap mmol/L BUN (7-17) mg/dL Creatinine (0.52-1.04) mg/dL Est GFR (CKD-EPI)AfAm (>60 ml/min/1.73 sqM) Est GFR (CKD-EPI)NonAf (>60 ml/min/1.73 sqM) Glucose (74-99) mg/dL Lactic Ac Sepsis Rflx Y Plasma Lactic Acid [place] (0.7-2.0) mmol/L Calcium (8.4-10.2) mg/dL Magnesium (1.6-2.3) mg/dL Total Bilirubin (0.2-1.3) mg/dL Conjugated Bilirubin (0.0-0.3) mg/dL Unconjugated Bilirubin (0.0-1.1) mg/dL Delta Bilirubin (0.0-0.2) mg/dL AST (14-36) U/L ALT (4-34) U/L Alkaline Phosphatase (38-126) U/L Total Protein (6.3-8.2) g/dL Albumin (3.5-5.0) g/dL Amylase (30-110) U/L Lipase (23-300) U/L Urine Color Urine Appearance (Clear) Urine pH (5.0-8.0) Ur Specific [place] (1.001-1.035) Urine Protein (Negative) Urine Glucose (UA) (Negative) Urine Ketones (Negative) Urine Blood (Negative) Urine Nitrite (Negative) Urine Bilirubin (Negative) Urine Urobilinogen (<2.0) mg/dL Ur Leukocyte Esterase (Negative) Urine RBC (0-5) /hpf Urine WBC (0-5) /hpf Urine WBC Clumps (None) /hpf Ur Squamous Epith Cells (0-4) /hpf Urine Bacteria (None) /hpf Urine Mucus (None) /hpf Hepatitis A IgM Ab (Nonreactive) Hep Bs Antigen (Nonreactive) Hep B Core IgM Ab (Nonreactive) Hep C IgG Ab (Nonreactive) Heterophile Antibody (Negative) Influenza Type A (PCR) (Not Detectd) Influenza Type B (PCR) (Not Detectd) RSV (PCR) (Not Detectd) SARS-CoV-2 (PCR) (Not Detectd) - Radiology Data Radiology results: report reviewed, image reviewed Disposition Clinical Impression: Nausea and vomiting, UTI (urinary tract infection), Pneumonia, Transaminitis Disposition: HOME SELF-CARE Instructions (If sedation given, give patient instructions): Urinary Tract Infection in Women (ED), Acute Nausea and Vomiting (ED), Pneumonia (ED) Additional Instructions: Return to the emergency department with any new, worsening, or concerning symptoms. Take the antibiotic as prescribed for 7 days. You can take the Zofran up to every 8 hours and the Reglan up to every 6 hours as needed for nausea and vomiting. You can take the Maalox up to 4 times daily as needed for feelings of reflux. You could also consider trying [id number] Nexium or Esomeprazole for the acid reflux. Slowly advance your diet as tolerated and remain well hydrated. Follow up with your primary care provider in 1-2 days. You will need your blood work rechecked to trend the liver enzymes. Prescriptions: cefUROXime axetiL [Ceftin] 500 mg PO BID 7 Days #14 tab Mag Hydrox/Al Hydrox/Simeth [Maalox] 10 - 20 ml PO QID PRN #355 ml PRN Reason: Heartburn Metoclopramide [Reglan] 10 mg PO Q6H PRN #30 tab PRN Reason: Nausea And Vomiting Ondansetron Odt [Zofran Odt] 4 mg PO Q8HR PRN #30 tab PRN Reason: Nausea And Vomiting Is patient prescribed a controlled substance at d/c from ED?: No Referrals: Verena Syed DO [Primary Care Provider] - 1-2 days Time of Disposition: 11:26
[2023-08-12] MEDS: ONDANSETRON 4 MG/2 ML VIAL IVP STA (06:39)
[2023-08-12] MEDS: FAMOTIDINE 20 MG/2 ML VIAL IV STA (06:41)
[2023-08-12] MEDS: SODIUM CHLORIDE 0.9% 1,000 ML IV STA ×2 (06:42→08:29)
--- NOTE | 2023-08-12 07:25 | XR ---
EXAMINATION TYPE: XR chest 2V DATE OF EXAM: 08/12/2023 COMPARISON: 08/05/2019 HISTORY: 67-year-old female with cough TECHNIQUE: PA and lateral views FINDINGS: Heart normal size. Aorta and pulmonary vasculature within normal limits. Mild patchy bibasilar densit y is increasing. No pleural effusion. Mild hyperinflation. IMPRESSION: COPD. Mild increasing patchy bibasilar atelectasis versus early developing infiltrate.
--- NOTE | 2023-08-12 07:26 | XR ---
EXAMINATION TYPE: XR KUB DATE OF EXAM: 08/12/2023 Comparison: None Clinical History: 67-year-old female N/V, abdominal pain Findings: Lung bases are clear. No evidence for free intraperitoneal air. No dilated small bowel or air-fluid l evels. No significant stool burden. No suspicious calcifications are seen. Surgical clips on both hayden es within the pelvis. Impression: No evidence for free air or bowel obstruction. No significant stool burden.
[2023-08-12 07:30] LABS: ALT 188 U/L (4-34); AST 506 U/L (14-36); African American GFR (CKD) >90 (>60 ml/min/1.73 sqM); Albumin 5.2 g/dL (3.5-5.0); Alkaline Phosphatase 112 U/L (38-126); Amylase 80 U/L (30-110); Anion Gap 23 mmol/L; Blood Urea Nitrogen 16 mg/dL (7-17); Calcium 9.8 mg/dL (8.4-10.2); Carbon Dioxide 19 mmol/L (22-30); Chloride 98 mmol/L (98-107); Glucose 144 mg/dL (74-99); Lipase 247 U/L (23-300); Magnesium 1.9 mg/dL (1.6-2.3); Non-African American GFR(CKD) >90 (>60 ml/min/1.73 sqM); Potassium 3.2 mmol/L (3.5-5.1); Sodium 140 mmol/L (137-145); Total Bilirubin 5.8 mg/dL (0.2-1.3); Total Protein 8.2 g/dL (6.3-8.2)
[2023-08-12 08:15] LABS: Anisocytosis Slight; Basophils % (A) 1 %; Eosinophils % (A) 0 %; HCT 46.2 % (34.0-46.0); HGB 16.1 gm/dL (11.4-16.0); Lymphocytes # (A) 0.9 k/uL (1.0-4.8); Lymphocytes % (A) 19 %; MCH 36.2 pg (25.0-35.0); MCHC 34.8 g/dL (31.0-37.0); MCV 103.9 fL (80.0-100.0); Macrocytosis Moderate; Monocytes # (A) 0.3 k/uL (0-1.0); Monocytes % (A) 8 %; Neutrophils # (A) 3.2 k/uL (1.3-7.7); Neutrophils % (A) 71 %; Platelet Count 138 k/uL (150-450); RBC 4.45 m/uL (3.80-5.40); RDW 16.4 % (11.5-15.5); WBC 4.5 k/uL (3.8-10.6)
[2023-08-12] MEDS: PANTOPRAZOLE 40 MG/10 ML VIAL IVP STA (08:29)
--- NOTE | 2023-08-12 08:53 | US ---
EXAMINATION TYPE: US gallbladder DATE OF EXAM: 08/12/2023 COMPARISON: NONE CLINICAL INDICATION: Female, 67 years old with history of N/V, transaminitis; nausea/vomiting. Acid r eflux TECHNIQUE: Multiple sonographic images of the right upper quadrant are obtained. FINDINGS: EXAM MEASUREMENTS: Liver Length: 18.0 cm Gallbladder Wall: 0.2 cm CBD: 0.3 cm Right Kidney: 10.2 x 4.1 x 3.6 cm PATIENT ACCOUNT ANALYST NOTES: Technical limitations due to large amount of overlying bowel gas Pancreas: Obscured by bowel gas Liver: limited evaluation, attenuating, very heterogeneous Gallbladder: no evidence of stones Evidence for sonographic Zhou's sign: no CBD: limited evaluation, appears wnl Right Kidney: 5 mm echogenic focus mid to lower pole. No hydronephrosis. IMPRESSION: 1. Mild hepatomegaly at 18.0 cm with very heterogeneous appearance to the liver. Correlate for underl karen hepatocellular disease. 2. No gallstones or biliary ductal dilatation. 3. Possible nonobstructive 5 mm right renal stone.
[2023-08-12] MEDS: METOCLOPRAMIDE 5 MG/ML 2 ML VIAL IVP STA (08:54)
[2023-08-12 09:08] LABS: Bilirubin, Conjugated 0.9 mg/dL (0.0-0.3); Bilirubin, Delta 1.7 mg/dL (0.0-0.2); Bilirubin,Unconjugated 3.2 mg/dL (0.0-1.1)
[2023-08-12 09:15] LABS: Appearance,Urine Turbid (Clear); Bacteria,Urine Many /hpf; Bilirubin,Urine 1+ (Negative); Blood,Urine Small (Negative); Color,Urine Light Brown; Glucose,Urine (UA) Negative (Negative); Ketones,Urine 2+ (Negative); Leukocyte Esterase,Urine Large (Negative); Mucus,Urine Many /hpf; Nitrite,Urine Negative (Negative); Protein,Urine 2+ (Negative); RBC,Urine 9 /hpf (0-5); Specific Gravity,Urine 1.023 (1.001-1.035); Squamous Epithelial Cell,Urine 10 /hpf (0-4); Urobilinogen,Urine >12.0 mg/dL (<2.0); WBC,Urine >182 /hpf (0-5)
[2023-08-12] MEDS: MAG HYDROX/AL HYDROX/SIMETH 30 ML, HYOSCYAMINE ELIXIR 10 ML, LIDOCAINE VISCOUS 2% 10 ML PO STA (10:12)
[2023-08-12 11:02] LABS: INR 1.3 (<1.2); Partial Thromboplastin Time 26.3 sec (22.0-30.0); Prothrombin Time 13.3 sec (10.0-12.5)
[2023-08-12] MEDS: AZITHROMYCIN 500 MG in SODIUM CHLORIDE 0.9% 250 ML IVPB STA (11:38)
[2023-08-12 13:09] VITALS: BP 106/69; PULSE 90; TEMP 97.8
[2023-08-12 23:28] LABS: Hepatitis A Antibody IgM Nonreactive (Nonreactive); Hepatitis B Core IgM Nonreactive (Nonreactive); Hepatitis B Surface Antigen Nonreactive (Nonreactive); Hepatitis C IgG Antibody Nonreactive (Nonreactive)
== END 2023-08-12 12:44 | disposition home or self-care (01) ==
LOC: EC 06:02
DX: N39.0 Urinary tract infection, site not specified (principal); R00.0 Tachycardia, unspecified; J18.9 Pneumonia, unspecified organism; R74.01 Elevation of levels of liver transaminase levels; Z11.52 Encounter for screening for COVID-19; Z91.041 Radiographic dye allergy status
CPT/HCPCS: 99285; 96365; 96375 ×5; 96361 ×4; 36415; 93005; 80053; 80074; 82150; 82248; 83605; 83690; 83735; 85025; 85610; 85730; 86308; 81001; 87086; 87636; 71046; 74018; 76705; J2765; J2405; J0456; J0696; J3490; C9113; 87077; 87186

== ENCOUNTER 2023-12-21 14:50 | Inpatient (IN) | payer MEDICARE ==
--- NOTE | 2023-12-21 15:06 | ED ---
General Adult HPI <Patrick Luna - Last Filed: 12/21/23 20:41> - General Source: patient, EMS Mode of arrival: EMS <LorenzoJody - Last Filed: 12/27/23 19:00> - General Chief complaint: Syncope Stated complaint: syncope Time Seen by Provider: 12/21/23 14:52 - History of Present Illness Initial comments: Patient is a 67-year-old female past medical history hypothyroidism presenting today for new syncopal episode. Patient states she has had multiple syncopal episodes over the course of the last 2 weeks. They have no prodrome. She denies hitting her head. Denies history of seizures or seizure activity. No tongue biting or urinary incontinence. Today she was at [email or web address] with her mother when her mother states that she was standing at the cart staring off into space and not responding to her. They saw the patient down and patient started to become more alert. Patient recalls episodes. She did not lose consciousness completely. She denies any shortness of breath, chest pain, numbness, weakness, slurred speech, abdominal pain nausea, vomiting. Does states she is had intermittent diarrhea chronically. When she has diarrhea she states that there is gross blood in her stool. Last bout of diarrhea was "a few days ago". Denies alcohol use. Is not on blood thinners. (Jody Bhagat) - Related Data Home Medications Medication Instructions Recorded Confirmed Levothyroxine Sodium [Synthroid] 100 mcg PO DAILY 02/28/17 12/21/23 amLODIPine BESYLATE [Norvasc] 5 mg PO DAILY 02/28/17 12/21/23 Metoprolol Tartrate [Lopressor] 25 mg PO DAILY 03/26/20 12/21/23 ARIPiprazole [Abilify] 10 mg PO DAILY 12/21/23 12/21/23 Escitalopram [Lexapro] 20 mg PO DAILY 12/21/23 12/21/23 Omeprazole 40 mg PO DAILY 12/21/23 12/21/23 Allergies Allergy/AdvReac Type Severity Reaction Status Date / Time Iodinated Contrast Media Allergy Rash/Hives Verified 12/21/23 18:16 [Iodinated Contrast- Oral and IV Dye] Review of Systems ROS Other: All systems not noted in ROS Statement are negative. <Patrick Luna - Last Filed: 12/21/23 20:41> ROS Other: All systems not noted in ROS Statement are negative. <Jody Bhagat - Last Filed: 12/27/23 19:00> ROS Statement: Those systems with pertinent positive or pertinent negative responses have been documented in the HPI. Past Medical History Past Medical History: Hypertension, Thyroid Disorder Additional Past Medical History / Comment(s): Hypothyroid. History of Any Multi-Drug Resistant Organisms: None Reported Past Surgical History: No Surgical Hx Reported Additional Past Surgical History / Comment(s): colonoscopy. BILAT CATARACTS REMOVED Past Anesthesia/Blood Transfusion Reactions: No Reported Reaction Past Psychological History: Anxiety, Depression Smoking Status: Former smoker Past Alcohol Use History: Occasional Past Drug Use History: None Reported - Past Family History Mother Family Medical History: No Reported History Additional Family Medical History / Comment(s): Mother is healthy and is 75yrs old. Father Family Medical History: Cancer Additional Family Medical History / Comment(s): Father is from colon cancer. He at the age of 59 or 60yrs. <Jody Bhagat - Last Filed: 12/27/23 19:00> General Exam <Jody Bhagat - Last Filed: 12/27/23 19:00> - General Exam Comments Initial Comments: PE: CONSTITUTIONAL: no apparent distress, chronically ill-appearing, nontoxic, dish eveled, smell strongly of alcohol SKIN: Warm, dry, no jaundice, hives or petechiae EYES: Pupils are equally round, extraocular movements intact without nystagmus, mildly erythematous conjunctiva, scant yellow discharge bilaterally, mild scleral icterus HENT: Normocephalic, atraumatic, dry mucus membranes, oropharynx clear without exudates, glossitis noted NECK: , Full range of motion, normal appearance PULMONARY: Clear to auscultation without wheezes, rhonchi, or rales, normal excursion, no accessory muscle use and no stridor CARDIOVASCULAR: Regular rate, rhythm, normal S1 and S2. No appreciated murmurs, rubs or gallops. Strong radial pulses with intact distal perfusion. No lower extremity edema GASTROINTESTINAL: Soft, non-tender, non-distended, no palpable masses, no rebound or guarding. No hepatosplenomegaly MUSCULOSKELETAL: Extremities have no gross deformity, no edema, redness, or s welling. NEUROLOGIC:_a/o x 3, GCS 15, normal mentation and speech. Moves all extremities x 4 without motor or sensory deficit PSYCHIATRIC:_normal mood and affect, thought process is clear and linear (Jody Bhagat) Course <Jody Bhagat - Last Filed: 12/27/23 19:00> Vital Signs 12/21/23 12/21/23 12/21/23 14:52 16:07 17:20 Temperature 98.1 F 98.4 F 98.7 F Pulse Rate 102 H 96 99 Pulse Rate [ [employer]itness [employer] ] Respiratory 18 14 20 Rate Blood Pressure 129/87 129/97 122/91 Blood Pressure [Left Arm] O2 Sat by Pulse 100 98 97 Oximetry 12/21/23 12/21/23 12/21/23 18:15 20:01 22:38 Temperature 98.9 F 98.1 F Pulse Rate 105 H 121 H Pulse Rate [ 112 H [employer]itness [employer] Manager ] Respiratory 18 18 28 H Rate Blood Pressure 132/93 142/89 Blood Pressure 127/90 [Left Arm] O2 Sat by Pulse 96 97 97 Oximetry 12/21/23 12/22/23 12/22/23 23:55 01:10 02:17 Temperature Pulse Rate 106 H 105 H 103 H Pulse Rate [ [employer]itness [employer] Manager ] Respiratory 25 H 18 20 Rate Blood Pressure 134/96 126/87 125/96 Blood Pressure [Left Arm] O2 Sat by Pulse 96 97 95 Oximetry 12/22/23 12/22/23 12/22/23 03:26 04:43 05:00 Temperature Pulse Rate 99 105 H 105 H Pulse Rate [ [employer]itness [employer] Manager ] Respiratory 15 14 23 Rate Blood Pressure 137/93 131/89 131/89 Blood Pressure [Left Arm] O2 Sat by Pulse 96 96 96 Oximetry 12/22/23 12/22/23 12/22/23 06:00 07:01 08:00 Temperature 97.5 F L Pulse Rate 100 106 H 99 Pulse Rate [ [employer]itness [employer] Manager ] Respiratory 19 12 18 Rate Blood Pressure 143/100 145/93 137/99 Blood Pressure [Left Arm] O2 Sat by Pulse 96 95 97 Oximetry 12/22/23 12:00 Temperature Pulse Rate 77 Pulse Rate [ [employer]itness [employer] Manager ] Respiratory 17 Rate Blood Pressure 116/88 Blood Pressure [Left Arm] O2 Sat by Pulse 94 L Oximetry - Reevaluation(s) Reevaluation #1: Blood alcohol 189, lactic 9.2, patient can potentially be having alcohol drawl seizures, could be secondary to volume depletion/alcohol intake, awaiting D- dimer prior to ordering additional imaging. 12/21/23 16:25 (Jody Bhagat) Medical Decision Making - Lab Data Result diagrams: 12/21/23 15:07 12/21/23 15:07 <JeremyPatrick B - Last Filed: 12/21/23 20:41> - Lab Data Result diagrams: 12/26/23 08:47 12/27/23 07:00 <Jody Bhagat - Last Filed: 12/27/23 19:00> - Medical Decision Making Was pt. sent in by a medical professional or institution (, PA, RETAIL SERVICE SPECIALIST, urgent care, hospital, or senior living...) When possible be specific @ -No Did you speak to anyone other than the patient for history (EMS, parent, family, police, friend...)? What history was obtained from this source @ -Patient's mother later arrived at bedside and assisted in providing history Did you review nursing and triage notes (agree or disagree)? Why? @ -I reviewed and agree with nursing and triage notes Were old charts reviewed (outside hosp., previous admission, EMS record, old EKG, old radiological studies, urgent care reports/EKG's, senior living records)? Report findings @ -Reviewed discharge summary from 03/28/2020 patient does have a history of hypertension thyroid disorder anxiety, depression and alcohol abuse, presented for alcohol withdrawal symptoms of hallucinations at the time Differential Diagnosis (chest pain, altered mental status, abdominal pain women, abdominal pain men, vaginal bleeding, weakness, fever, dyspnea, syncope, headache, dizziness, GI bleed, back pain, seizure, CVA, palpatations, mental health, musculoskeletal)? @ -Differential Syncope: Valvular disease, hypertrophic cardiomyopathy, pulmonary embolism, tamponade, tachycardia, bradycardia, MT, hypovolemia, hemorrhage, dissection, anemia, intracranial hemorrhage, seizure, hypoglycemia, carbon monoxide poisoning, this is not meant to be an all-inclusive list. EKG interpreted by me (3pts min.). @ -Sinus rhythm, rate 99 bpm, WI interval 160 ms, QRS duration 75 ms, QT/QTc 350/406 ms, normal axis, no ST elevation or depression X-rays interpreted by me (1pt min.). @ -No cardiomegaly or consolidations noted CT interpreted by me (1pt min.). @ -Reviewed CT brain I see no evidence of hemorrhage, mass effect or other acute process U/S interpreted by me (1pt. min.). What meds were considered but not given or refused? Why? @ -None Did you discuss the management of the patient with other professionals (professionals i.e. Dr., PA, RETAIL SERVICE SPECIALIST, lab, RT, psych nurse, social sciences chair, licensed master social worker, teacher, chief executive officer, case finisher)? Give summary @ -No Was smoking cessation discussed for >3mins.? @ -No Was critical care preformed (if so, how long)? @ -No Were there social determinants of health that impacted care today? How? (Homelessness, low income, unemployed, alcoholism, drug addiction, transportation, low edu. Level, literacy, decrease access to med. care, detention, rehab)? @ -Alcoholism Was there de-escalation of care discussed even if they declined (Discuss DNR or withdrawal of care, Hospice)? DNR status @ -No What co-morbidities impacted this encounter? (DM, HTN, Smoking, COPD, CAD, Cancer, CVA, ARF, Chemo, Hep., AIDS, mental health diagnosis, sleep apnea, morbid obesity)? @ -None Was patient admitted / discharged? Hospital course, mention meds given and route, prescriptions, significant lab abnormalities, going to OR and other pertinent info. @ -Hospital course Patient is a 67-year-old female past medical history of hypothyroidism presenting today for near syncopal episode, recent multiple episodes of syncope without prodrome for the last 2 weeks. On assessment patient is disheveled appearing and chronically ill-appearing. Mild scleral icterus present. Small strongly of alcohol however when asked patient denies alcohol use. No focal neurologic deficits on exam. Normal S1-S2 on cardiac exam, 2+ radial pulse soft and nontender abdomen. Differential diagnoses above. Patient later endorsed headache, stating he has been ongoing all day. Patient states she does not usually get headaches. Discussed with patient blood alcohol of 189, patient now endorses daily alcohol use stating that she is trying to cut back drinks half a bottle of wine daily. No history of alcohol drawl seizures, has been admitted in the past for hallucinations due to alcohol withdrawal. Will obtain CT brain due to suspected possible new seizures vs syncope. Hemoglobin within normal limits, 16, does show macrocytosis suspect secondary to chronic alcohol intake, labs otherwise significant for lactic of 9.2 is noted above, suspect 2/2 chronic alcohol abuse and dehydration, as patient afebrile, has soft nontender abdomen, no additional complaints of pain aside from noted h eadache, total bilirubin 3.7, AST/ALT 220/70, D-dimer 0.56. Abdomen is nontender and soft, will order RUQ US to evaluate for signs of obstruction to cause elevated LFTs however suspect this is secondary to chronic alcohol use. Discussed with Dr. Estevez, kindly accepts for admission. Requests neurology consult. Of note, repeat lactic resulted at 10.9. As noted above, suspect 2/2 dehydration, alcohol abuse, malnroushiment however a CT of the abdomen was added to ensure no acute intraabdominal process to cause rise in lactic. Signed out to on coming EM attending, Dr Luna, to monitor for results and intervene if significant findings. Admission orders placed. Undiagnosed new problem with uncertain prognosis? @ -Yes Drug Therapy requiring intensive monitoring for toxicity (Heparin, Nitro, Insulin, Cardizem)? @ -No WeNony procedures done? @ -No DiNosis/symptom? @ -Syncope, alcohol intoxication, elevated LFTs Acute, or Chronic, or Acute on Chronic? @ -Acute Uncomplicated (without systemic symptoms) or Complicated (systemic symptoms)? @ -Complicated Side effects of treatment? @ -No ExNobation, Progression, or Severe Exacerbation? @ -No Poses threat to life or bodily function? How? (Chest pain, USA, MT, pneumonia, PE, COPD, DKA, ARF, appy, cholecystitis, CVA, Diverticulitis, Homicidal, Suicidal, threat to staff... and all critical care pts) @ -Possibly (Jody Bhagat) - Lab Data Lab Results 12/21/23 12/21/23 12/21/23 Range/Units 15:07 15:07 15:07 WBC 3.8 (3.8-10.6) k/uL RBC 4.10 (3.80-5.40) m/uL Hgb 16.0 (11.4-16.0) gm/dL Hct 47.2 H (34.0-46.0) % MCV 115.3 H (80.0-100.0) fL MCH 39.1 H (25.0-35.0) pg MCHC 33.9 (31.0-37.0) g/dL RDW 14.4 (11.5-15.5) % Plt Count 157 (150-450) k/uL MPV 9.1 Neutrophils % 66 % Lymphocytes % 27 % Monocytes % 4 % Eosinophils % 1 % Basophils % 1 % Neutrophils # 2.5 (1.3-7.7) k/uL Lymphocytes # 1.0 (1.0-4.8) k/uL Monocytes # 0.1 (0-1.0) k/uL Eosinophils # 0.0 (0-0.7) k/uL Basophils # 0.0 (0-0.2) k/uL Manual Slide Review Performed Macrocytosis Marked A PT (10.0-12.5) sec INR (<1.2) APTT (22.0-30.0) sec D-Dimer (<0.60) mg/L FEU Sodium 140 (137-145) mmol/L Potassium 3.8 (3.5-5.1) mmol/L Chloride 104 (98-107) mmol/L Carbon Dioxide 15 L (22-30) mmol/L Anion Gap 21 mmol/L BUN 6 L (7-17) mg/dL Creatinine 0.78 (0.52-1.04) mg/dL Est GFR (CKD-EPI)AfAm >90 (>60 ml/min/1.73 sqM) Est GFR (CKD-EPI)NonAf 80 (>60 ml/min/1.73 sqM) Glucose 124 H (74-99) mg/dL POC Glucose (mg/dL) (70-110) mg/dL POC Glu Supervisor Drying ID Lactic Ac Sepsis Rflx Plasma Lactic Acid Ale[place]ander (0.7-2.0) mmol/L Calcium 9.3 (8.4-10.2) mg/dL Phosphorus 3.0 (2.5-4.5) mg/dL Magnesium 2.0 (1.6-2.3) mg/dL Total Bilirubin 3.7 H (0.2-1.3) mg/dL AST 220 H (14-36) U/L ALT 70 H (4-34) U/L Alkaline Phosphatase 139 H (38-126) U/L Troponin I 0.014 (0.000-0.034) ng/mL Total Protein 7.7 (6.3-8.2) g/dL Albumin 4.7 (3.5-5.0) g/dL Lipase (23-300) U/L Urine Color Urine Appearance (Clear) Urine pH (5.0-8.0) Ur Specific [place] (1.001-1.035) Urine Protein (Negative) Urine Glucose (UA) (Negative) Urine Ketones (Negative) Urine Blood (Negative) Urine Nitrite (Negative) Urine Bilirubin (Negative) Urine Urobilinogen (<2.0) mg/dL Ur Leukocyte Esterase (Negative) Urine RBC (0-5) /hpf Urine WBC (0-5) /hpf Ur Squamous Epith Cells (0-4) /hpf Urine Bacteria (None) /hpf Hyaline Casts (0-2) /lpf Urine Mucus (None) /hpf Serum Alcohol 189 mg/dL 12/21/23 12/21/23 12/21/23 Range/Units 15:07 15:07 15:07 WBC (3.8-10.6) k/uL RBC (3.80-5.40) m/uL Hgb (11.4-16.0) gm/dL Hct (34.0-46.0) % MCV (80.0-100.0) fL MCH (25.0-35.0) pg MCHC (31.0-37.0) g/dL RDW (11.5-15.5) % Plt Count (150-450) k/uL MPV Neutrophils % % Lymphocytes % % Monocytes % % Eosinophils % % Basophils % % Neutrophils # (1.3-7.7) k/uL Lymphocytes # (1.0-4.8) k/uL Monocytes # (0-1.0) k/uL Eosinophils # (0-0.7) k/uL Basophils # (0-0.2) k/uL Manual Slide Review Macrocytosis PT (10.0-12.5) sec INR (<1.2) APTT (22.0-30.0) sec D-Dimer (<0.60) mg/L FEU Sodium (137-145) mmol/L Potassium (3.5-5.1) mmol/L Chloride (98-107) mmol/L Carbon Dioxide (22-30) mmol/L Anion Gap mmol/L BUN (7-17) mg/dL Creatinine (0.52-1.04) mg/dL Est GFR (CKD-EPI)AfAm (>60 ml/min/1.73 sqM) Est GFR (CKD-EPI)NonAf (>60 ml/min/1.73 sqM) Glucose (74-99) mg/dL POC Glucose (mg/dL) (70-110) mg/dL POC Glu Supervisor Drying ID Lactic Ac Sepsis Rflx Plasma Lactic Acid Aleksander 9.2 H* (0.7-2.0) mmol/L Calcium (8.4-10.2) mg/dL Phosphorus (2.5-4.5) mg/dL Magnesium (1.6-2.3) mg/dL Total Bilirubin (0.2-1.3) mg/dL AST (14-36) U/L ALT (4-34) U/L Alkaline Phosphatase (38-126) U/L Troponin I (0.000-0.034) ng/mL Total Protein (6.3-8.2) g/dL Albumin (3.5-5.0) g/dL Lipase 237 (23-300) U/L Urine Color Yellow Urine Appearance Cloudy H (Clear) Urine pH 5.5 (5.0-8.0) Ur Specific [place] 1.011 (1.001-1.035) Urine Protein Negative (Negative) Urine Glucose (UA) Negative (Negative) Urine Ketones 1+ H (Negative) Urine Blood Negative (Negative) Urine Nitrite Negative (Negative) Urine Bilirubin Negative (Negative) Urine Urobilinogen 2.0 (<2.0) mg/dL Ur Leukocyte Esterase Large H (Negative) Urine RBC 1 (0-5) /hpf Urine WBC 32 H (0-5) /hpf Ur Squamous Epith Cells 1 (0-4) /hpf Urine Bacteria Many H (None) /hpf Hyaline Casts 9 H (0-2) /lpf Urine Mucus Occasional H (None) /hpf Serum Alcohol mg/dL 12/21/23 12/21/23 12/21/23 Range/Units 15:19 15:42 16:08 WBC (3.8-10.6) k/uL RBC (3.80-5.40) m/uL Hgb (11.4-16.0) gm/dL Hct (34.0-46.0) % MCV (80.0-100.0) fL MCH (25.0-35.0) pg MCHC (31.0-37.0) g/dL RDW (11.5-15.5) % Plt Count (150-450) k/uL MPV Neutrophils % % Lymphocytes % % Monocytes % % Eosinophils % % Basophils % % Neutrophils # (1.3-7.7) k/uL Lymphocytes # (1.0-4.8) k/uL Monocytes # (0-1.0) k/uL Eosinophils # (0-0.7) k/uL Basophils # (0-0.2) k/uL Manual Slide Review Macrocytosis PT 13.5 H (10.0-12.5) sec INR 1.3 H (<1.2) APTT 24.2 (22.0-30.0) sec D-Dimer 0.56 (<0.60) mg/L FEU Sodium (137-145) mmol/L Potassium (3.5-5.1) mmol/L Chloride (98-107) mmol/L Carbon Dioxide (22-30) mmol/L Anion Gap mmol/L BUN (7-17) mg/dL Creatinine (0.52-1.04) mg/dL Est GFR (CKD-EPI)AfAm (>60 ml/min/1.73 sqM) Est GFR (CKD-EPI)NonAf (>60 ml/min/1.73 sqM) Glucose (74-99) mg/dL POC Glucose (mg/dL) 115 H (70-110) mg/dL POC Glu Supervisor Drying ID Madiha Mattson Lactic Ac Sepsis Rflx Y Plasma Lactic Acid [place]ander (0.7-2.0) mmol/L Calcium (8.4-10.2) mg/dL Phosphorus (2.5-4.5) mg/dL Magnesium (1.6-2.3) mg/dL Total Bilirubin (0.2-1.3) mg/dL AST (14-36) U/L ALT (4-34) U/L Alkaline Phosphatase (38-126) U/L Troponin I (0.000-0.034) ng/mL Total Protein (6.3-8.2) g/dL Albumin (3.5-5.0) g/dL Lipase (23-300) U/L Urine Color Urine Appearance (Clear) Urine pH (5.0-8.0) Ur Specific [place] (1.001-1.035) Urine Protein (Negative) Urine Glucose (UA) (Negative) Urine Ketones (Negative) Urine Blood (Negative) Urine Nitrite (Negative) Urine Bilirubin (Negative) Urine Urobilinogen (<2.0) mg/dL Ur Leukocyte Esterase (Negative) Urine RBC (0-5) /hpf Urine WBC (0-5) /hpf Ur Squamous Epith Cells (0-4) /hpf Urine Bacteria (None) /hpf Hyaline Casts (0-2) /lpf Urine Mucus (None) /hpf Serum Alcohol mg/dL Disposition Time of Disposition: 20:40 <Patrick Luna - Last Filed: 12/21/23 20:41> <Jody Bhagat - Last Filed: 12/27/23 19:00> Clinical Impression: Syncope, Alcohol intoxication, Elevated liver enzymes, Alcoholic cirrhosis, Alcoholic ketoacidosis, Dehydration, Lactic acidosis, Alcohol use Disposition: ADMITTED IP TO THIS [facility] Condition: Serious
[2023-12-21] MEDS: SODIUM CHLORIDE 0.9% 1,000 ML IV STA (15:11)
[2023-12-21 15:21] LABS: Glucose,Whole Blood 115 mg/dL (70-110)
--- NOTE | 2023-12-21 15:51 | XR ---
EXAMINATION TYPE: XR chest 2V DATE OF EXAM: 12/21/2023 COMPARISON: 08/12/2023 HISTORY: 67-year-old female with syncope TECHNIQUE: AP and lateral views FINDINGS: The cardiomediastinal silhouette, aorta, and pulmonary vasculature are within normal limits. Strandy atelectasis at the right lower lung. Mild hyperinflation. Otherwise, lungs and pleural spaces are kodi ar. IMPRESSION: Possible underlying COPD. Strandy atelectasis at the right base. Otherwise, no acute process seen.
[2023-12-21 15:59] LABS: ALT 70 U/L (4-34); AST 220 U/L (14-36); African American GFR (CKD) >90 (>60 ml/min/1.73 sqM); Albumin 4.7 g/dL (3.5-5.0); Alkaline Phosphatase 139 U/L (38-126); Anion Gap 21 mmol/L; Blood Urea Nitrogen 6 mg/dL (7-17); Calcium 9.3 mg/dL (8.4-10.2); Carbon Dioxide 15 mmol/L (22-30); Chloride 104 mmol/L (98-107); Glucose 124 mg/dL (74-99); Non-African American GFR(CKD) 80 (>60 ml/min/1.73 sqM); Potassium 3.8 mmol/L (3.5-5.1); Sodium 140 mmol/L (137-145); Total Bilirubin 3.7 mg/dL (0.2-1.3); Total Protein 7.7 g/dL (6.3-8.2)
[2023-12-21 16:08] LABS: Alcohol 189 mg/dL
[2023-12-21] MEDS: ACETAMINOPHEN TAB 500 MG TAB PO STA (16:20)
[2023-12-21 16:27] LABS: Basophils % (A) 1 %; Eosinophils % (A) 1 %; HCT 47.2 % (34.0-46.0); Lymphocytes % (A) 27 %; MCH 39.1 pg (25.0-35.0); MCHC 33.9 g/dL (31.0-37.0); MCV 115.3 fL (80.0-100.0); Macrocytosis Marked; Mean Platelet Volume 9.1; Monocytes # (A) 0.1 k/uL (0-1.0); Monocytes % (A) 4 %; Neutrophils # (A) 2.5 k/uL (1.3-7.7); Neutrophils % (A) 66 %; Platelet Count 157 k/uL (150-450); RDW 14.4 % (11.5-15.5); WBC 3.8 k/uL (3.8-10.6)
[2023-12-21] MEDS: LACTATED RINGERS 1,000 ML BAG IV STA (16:35)
[2023-12-21] MEDS: FOLIC ACID 1 MG TAB PO SCH (16:36)
[2023-12-21] MEDS: THIAMINE 100 MG/ML 2 ML VIAL IM STA (16:37)
[2023-12-21 16:41] LABS: INR 1.3 (<1.2)
[2023-12-21 16:42] LABS: Partial Thromboplastin Time 24.2 sec (22.0-30.0); Prothrombin Time 13.5 sec (10.0-12.5)
--- NOTE | 2023-12-21 17:28 | CT ---
EXAMINATION TYPE: CT brain wo con DATE OF EXAM: 12/21/2023 COMPARISON: 10/05/2018 HISTORY: 67-year-old female possible seizures, unexplained syncope TECHNIQUE: Examination was done in axial plane without intravenous contrast. Coronal and sagittal r econstructions performed. CT DLP: 1082.5 mGycm Automated exposure control for dose reduction was used. FINDINGS: There is no evidence of acute intracranial hemorrhage, acute ischemic changes, mass, mass-effect, or extra-axial fluid collection. There is no effacement of cerebral sulci or basal subarachnoid cister ns. There is no hydrocephalus. There is no midline shift. Velázquez-white matter distinction is preserv ed. Mild to moderate bifrontal cerebral cortical volume loss. Paranasal sinuses and mastoid air cells are pneumatized. Orbits and globes are intact. IMPRESSION: Mild to moderate bifrontal cerebral cortical atrophy. No acute intracranial abnormality seen.
[2023-12-21] MEDS ORDERED: MAG HYDROX/AL HYDROX/SIMETH 30 ML CUP PO PRN (18:03)
[2023-12-21] MEDS ORDERED: CALCIUM CARBONATE 500 MG CHEWABLE PO PRN (18:03)
[2023-12-21] MEDS ORDERED: NALOXONE 0.4 MG/ML 1 ML VIAL IV PRN (18:03)
[2023-12-21 18:15] LABS: Appearance,Urine Cloudy (Clear); Bacteria,Urine Many /hpf; Bilirubin,Urine Negative (Negative); Blood,Urine Negative (Negative); Color,Urine Yellow; Glucose,Urine (UA) Negative (Negative); Hyaline Casts,Urine 9 /lpf (0-2); Ketones,Urine 1+ (Negative); Leukocyte Esterase,Urine Large (Negative); Mucus,Urine Occasional /hpf; Nitrite,Urine Negative (Negative); PH, Urine 5.5 (5.0-8.0); Protein,Urine Negative (Negative); RBC,Urine 1 /hpf (0-5); Specific Gravity,Urine 1.011 (1.001-1.035); Squamous Epithelial Cell,Urine 1 /hpf (0-4); WBC,Urine 32 /hpf (0-5)
--- NOTE | 2023-12-21 18:39 | US ---
EXAMINATION TYPE: US abdomen limited DATE OF EXAM: 12/21/2023 COMPARISON: 08/12/2023 CLINICAL INDICATION: Female, 67 years old with history of elevated LFTs; elevated LFTs. no other symp toms per patient TECHNIQUE: Multiple sonographic images of the right upper quadrant are obtained. FINDINGS: EXAM MEASUREMENTS: Liver Length: 14.7 cm Gallbladder Wall: 0.2 cm CBD: 0.3 cm Right Kidney: 8.9 x 4.1 x 3.9 cm GORE CUTTER NOTES:limited due to overlying bowel and patient inability to hold breath Pancreas: There is a 0.6 x 0.7 x 0.8cm possible avascular hypoechoic area seen within the pancreas n macy. Body/ tail obscured by gas Liver: Heterogeneous and attenuating. Gallbladder: Some layering sludge. No abnormal distention, wall thickening, or surrounding fluid. Evidence for sonographic Zhou's sign: No CBD: wnl as best seen Right Kidney: wnl as best seen IMPRESSION: 1. Exam limitations as above. 2. Moderate to severe hepatic steatosis appropriate clinical management is advised. 3. Prominent layering sludge in the gallbladder. 4. No biliary ductal dilatation.
[2023-12-21] MEDS: IBUPROFEN 400 MG TAB PO STA (19:52)
[2023-12-21] MEDS ORDERED: LORazepam 1 MG TAB PO PRN ×2 (20:42)
[2023-12-21] MEDS ORDERED: LORazepam 0.5 MG TAB PO PRN (20:42)
[2023-12-21] MEDS ORDERED: LORazepam 2 MG/ML INJ IV PRN ×2 (20:42)
[2023-12-21] MEDS: SODIUM CHLORIDE 0.9% 1,000 ML IV ONE (21:17)
[2023-12-21] MEDS: SODIUM CHLORIDE 0.9% 500 ML 500 ML IV ONE (21:17)
[2023-12-21] MEDS: SODIUM CHLORIDE 0.9% 1,000 ML IV SCH (21:33)
[2023-12-21] MEDS: FAMOTIDINE 20 MG TAB PO SCH (21:55)
[2023-12-21] MEDS: traMADol 50 MG TAB PO PRN (21:55)
[2023-12-21] MEDS: DEXTROSE 5%-LACTATED RINGERS 1,000 ML IV SCH (21:55)
--- NOTE | 2023-12-21 22:02 | CT ---
EXAMINATION TYPE: CT abdomen pelvis wo con DATE OF EXAM: 12/21/2023 COMPARISON: 08/05/2019 HISTORY: 67-year-old female elevated lactic acid, chronic diarrhea, abdominal pain CT DLP: 425.7 mGycm. Automated exposure control for dose reduction was used. TECHNIQUE: Contiguous axial scanning of the abdomen and pelvis without IV contrast. Coronal and sagit rachel reconstructions performed. FINDINGS: Heart normal size without pericardial effusion. Strandy atelectasis in the lower lungs. Unchanged 5 m m right middle lobe pulmonary nodule. No pleural effusion. There is a small hiatal hernia. Severely diminished attenuation of the hepatic parenchyma. Possible subtle contour nodularity. Small gallstones in a nondistended gallbladder. Noncontrast appearance of the adrenal glands, spleen with anterior splenule, and pancreas show no mindy ss abnormality. 5 mm nonobstructive right renal stone. Bilateral extrarenal pelves. No dilated small bowel, free fluid, or free air. No mesenteric or retroperitoneal lymphadenopathy. Mild atherosclerotic calcifications infrarenal abdominal aorta without aneurysm. There is no pericolonic inflammatory change or significant stool burden. Bladder distended. Uterus is anteverted bilateral tubal ligation clips. Both ovaries are visualized. No abnormal fluid collection in the pelvis or pelvic lymphadenopathy. Bones: Mild degenerative change in both hips. Moderate degenerative disc disease mid to lower lumbar spine along with hypertrophic facet arthropathy especially toward the right. IMPRESSION: 1. Very severe hepatic steatosis versus hepatitis. Unable to exclude early cirrhosis given slightly l obulated contour. Recommend GI referral. 2. Cholelithiasis and small hiatal hernia. 3. A 5 mm nonobstructive right renal stone.
[2023-12-21] MEDS: LORazepam 1 MG TAB PO PRN (23:07)
[2023-12-22] MEDS: LEVOTHYROXINE 100 MCG TAB PO SCH (06:26)
[2023-12-22] MEDS: amLODIPine 5 MG TAB PO SCH (08:48)
[2023-12-22] MEDS: ESCITALOPRAM 20 MG TAB PO SCH (08:48)
[2023-12-22] MEDS: PANTOPRAZOLE 40 MG TABLET PO SCH (08:48)
[2023-12-22] MEDS: METOPROLOL TARTRATE 25 MG TAB PO SCH (08:49)
[2023-12-22] MEDS: ARIPiprazole 10 MG TAB PO SCH (09:43)
[2023-12-22] MEDS: ONDANSETRON 4 MG/2 ML VIAL IVP PRN (10:34)
[2023-12-22] MEDS: LORazepam 1 MG TAB PO PRN (10:48)
--- NOTE | 2023-12-22 11:18 | P.HPIM ---
History of Present Illness H&P Date: 12/22/23 Chief Complaint: Near syncope This is a 67-year-old female PMH of major depression, anxiety, alcohol abuse, HTN and multiple other medical issues presented to the ER with near syncope.patient reports she was standing at the checkout at [facility] had not been feeling well, collapsed without syncope .patient recalls the entire incident, denies weakness or legs buckling. denies seizure activity, denies loss of urine or bowel control, no tongue biting .denies nausea or vomiting, frequently has diarrhea -nonbloody.denies hitting her head. reports she last drink half a bottle of wine in the evening before .serum alcohol 189, MCV 115.3 ,T. bili 3.7, AST 220, ALT 70, alk phos 139, INR 1.3, hemoglobin 16, platelets 157. UA reporting many bacteria, lactic acid 9.2, 10.9, 10.4 currently 5 with IV fluid hydration.glucose 124, electrolytes and renal function stable. Troponin negat jeff x 1. Denies chest pain, palpitations or shortness of breath. Imaging unavailable at this time. Review of Systems ROS Other: All systems not noted in ROS Statement are negative. ROS Statement: Those systems with pertinent positive or pertinent negative responses have been documented in the HPI. Past Medical History Past Medical History: Hypertension, Thyroid Disorder Additional Past Medical History / Comment(s): Hypothyroid. History of Any Multi-Drug Resistant Organisms: None Reported Past Surgical History: No Surgical Hx Reported Additional Past Surgical History / Comment(s): colonoscopy. BILAT CATARACTS REMOVED Past Anesthesia/Blood Transfusion Reactions: No Reported Reaction Past Psychological History: Anxiety, Depression Smoking Status: Former smoker Past Alcohol Use History: Occasional Past Drug Use History: None Reported - Past Family History Mother Family Medical History: No Reported History Additional Family Medical History / Comment(s): Mother is healthy and is 75yrs old. Father Family Medical History: Cancer Additional Family Medical History / Comment(s): Father is from colon cancer. He at the age of 59 or 60yrs. Medications and Allergies Home Medications Medication Instructions Recorded Confirmed Type Levothyroxine Sodium [Synthroid] 100 mcg PO DAILY 02/28/17 12/21/23 History amLODIPine BESYLATE [Norvasc] 5 mg PO DAILY 02/28/17 12/21/23 History Metoprolol Tartrate [Lopressor] 25 mg PO DAILY 03/26/20 12/21/23 History ARIPiprazole [Abilify] 10 mg PO DAILY 12/21/23 12/21/23 History Escitalopram [Lexapro] 20 mg PO DAILY 12/21/23 12/21/23 History Omeprazole 40 mg PO DAILY 12/21/23 12/21/23 History Allergies Allergy/AdvReac Type Severity Reaction Status Date / Time Iodinated Contrast Media Allergy Rash/Hives Verified 12/21/23 18:16 [Iodinated Contrast- Oral and IV Dye] Physical Exam Vitals: Vital Signs Temp Pulse Pulse Resp BP BP Pulse Ox 12/22/23 08:00 97.5 F L 99 18 137/99 97 12/22/23 07:01 106 H 12 145/93 95 12/22/23 06:00 100 19 143/100 96 12/22/23 05:00 105 H 23 131/89 96 12/22/23 04:43 105 H 14 131/89 96 12/22/23 03:26 99 15 137/93 96 12/22/23 02:17 103 H 20 125/96 95 12/22/23 01:10 105 H 18 126/87 97 12/21/23 23:55 106 H 25 H 134/96 96 12/21/23 22:38 121 H 28 H 142/89 97 12/21/23 20:01 98.1 F 112 H 18 127/90 97 12/21/23 18:15 98.9 F 105 H 18 132/93 96 12/21/23 17:20 98.7 F 99 20 122/91 97 12/21/23 16:07 98.4 F 96 14 129/97 98 12/21/23 14:52 98.1 F 102 H 18 129/87 100 Intake and Output 12/21/23 12/22/23 12/22/23 22:59 06:59 14:59 Other: Weight 68.039 kg General: well nourished, well developed, NAD. Vitals reviewed Eyes: PERRL, EOMI, conjunctiva normal HENT: normocephalic, mucus membranes moist Neck: supple, no JVD Lungs: normal respiratory effort, no wheezes or rales CV: Regular rate and rhythm, no murmur. Peripheral pulses 2+ Abdomen: soft, nondistended, no organomegaly Lymph: no cervical or axillary LAD Skin: warm and dry. Neuro: A&Ox3, anxious mood and depressed affect.fine tremors Results CBC & Chem 7: 12/21/23 15:07 12/21/23 15:07 Labs: Abnormal Lab Results - Last 24 Hours (Table) 12/21/23 12/21/23 12/21/23 Range/Units 15:07 15:07 15:07 Hct 47.2 H (34.0-46.0) % MCV 115.3 H (80.0-100.0) fL MCH 39.1 H (25.0-35.0) pg Macrocytosis Marked A PT (10.0-12.5) sec INR (<1.2) Carbon Dioxide 15 L (22-30) mmol/L BUN 6 L (7-17) mg/dL Glucose 124 H (74-99) mg/dL POC Glucose (mg/dL) (70-110) mg/dL Plasma Lactic Acid Aleksander (0.7-2.0) mmol/L Total Bilirubin 3.7 H (0.2-1.3) mg/dL AST 220 H (14-36) U/L ALT 70 H (4-34) U/L Alkaline Phosphatase 139 H (38-126) U/L Urine Appearance Cloudy H (Clear) Urine Ketones 1+ H (Negative) Ur Leukocyte Esterase Large H (Negative) Urine WBC 32 H (0-5) /hpf Urine Bacteria Many H (None) /hpf Hyaline Casts 9 H (0-2) /lpf Urine Mucus Occasional H (None) /hpf 12/21/23 12/21/23 12/21/23 Range/Units 15:07 15:19 15:42 Hct (34.0-46.0) % MCV (80.0-100.0) fL MCH (25.0-35.0) pg Macrocytosis PT 13.5 H (10.0-12.5) sec INR 1.3 H (<1.2) Carbon Dioxide (22-30) mmol/L BUN (7-17) mg/dL Glucose (74-99) mg/dL POC Glucose (mg/dL) 115 H (70-110) mg/dL Plasma Lactic Acid Aleksander 9.2 H* (0.7-2.0) mmol/L Total Bilirubin (0.2-1.3) mg/dL AST (14-36) U/L ALT (4-34) U/L Alkaline Phosphatase (38-126) U/L Urine Appearance (Clear) Urine Ketones (Negative) Ur Leukocyte Esterase (Negative) Urine WBC (0-5) /hpf Urine Bacteria (None) /hpf Hyaline Casts (0-2) /lpf Urine Mucus (None) /hpf 12/21/23 12/21/23 12/22/23 Range/Units 18:32 22:14 05:25 Hct (34.0-46.0) % MCV (80.0-100.0) fL MCH (25.0-35.0) pg Macrocytosis PT (10.0-12.5) sec INR (<1.2) Carbon Dioxide (22-30) mmol/L BUN (7-17) mg/dL Glucose (74-99) mg/dL POC Glucose (mg/dL) (70-110) mg/dL Plasma Lactic Acid Aleksander 10.9 H* 10.4 H* 5.0 H* (0.7-2.0) mmol/L Total Bilirubin (0.2-1.3) mg/dL AST (14-36) U/L ALT (4-34) U/L Alkaline Phosphatase (38-126) U/L Urine Appearance (Clear) Urine Ketones (Negative) Ur Leukocyte Esterase (Negative) Urine WBC (0-5) /hpf Urine Bacteria (None) /hpf Hyaline Casts (0-2) /lpf Urine Mucus (None) /hpf Thrombosis Risk Factor Assmnt - Choose All That Apply Any of the Below Risk Factors Present?: No Other Risk Factors: Yes Each Risk Factor Represents 2 Points: Age 61-74 years Other congenital or acquired thrombophilia - If yes, enter type in comment: No Thrombosis Risk Factor Assessment Total Risk Factor Score: 2 Thrombosis Risk Factor Assessment Level: Low Risk Assessment and Plan Assessment: Near syncope, alcohol intoxication,DTs. Dehydration Lactic acidosis Alcohol abuse Hyperbilirubinemia, elevated LFTs secondary to the above, suspect alcoholic hepatitis, hepatic steatosis, alcoholic liver disease. Imaging currently unavailable. Anxiety, depression Essential hypertension Hypothyroidism Plan: Continue on current medication resume ,monitoring and symptomatic treatment. CIWA protocol. Maintain IV fluid hydration. PPI in place for GI prophylaxis. alcohol abstinence reinforced. Echo pending. Neurology, cardi ology and general surgery consults in place. Close monitoring of coags and LFTs with repeat labs ordered for a.m. No GI services at this site currently. The impression and plan of care has been dictated as directed. : I performed a history and examination of this patient, discussed the same with the dictator. I agree with the dictator's note ,documented as a scribe. Any additional findings or plans will be noted.
--- NOTE | 2023-12-22 13:07 | P.CNNES ---
History of Present Illness Consult date: 12/22/23 Requesting physician: Jody Bhagat Reason for Consult: questionable seizure vs syncope History of Present Illness: This is a 67 year-old woman with history of heavy alcohol use who presents because of syncopal episode. Patient states yesterday she went to [employer] store at 2pm and she passed out. She does not recall episode. She denies warning prior to episode. She denies urinary or bowel incontinence. She denies history of seizures. She states she drink last night prior. She did acknowledge she drinks heavy and was sober in the past and restarted back up again but recently trying to cut down. She had syncopal episodes in past and was due to decreased consumption of alcohol. Denies any headache, nausea, vomiting, focal weakness. Denies fever. Per ED team it seems she has been having multiple syncopal episodes spells. She went with her mother to [employer] was standing and had staring off episode and not responding to her mother. She went down and patient became more alert. Per ED patient recalls episodes and did not lose consciousness completely. Some of the work-up during this hospital visit consisted of: Plasma lactic acid vein was as high as 10.9 and last one was 5.0 Initial serum glucose 124 AST 220 and ALT 70 Calcium, phosphorous, magnesium and sodium are within normal limits. 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 No acute intracranial abnormality. I personally reviewed and agree with report. Review of Systems The positive and negative as per HPI. Past Medical History Past Medical History: Hypertension, Thyroid Disorder Additional Past Medical History / Comment(s): Hypothyroid. History of Any Multi-Drug Resistant Organisms: None Reported Past Surgical History: No Surgical Hx Reported Additional Past Surgical History / Comment(s): colonoscopy. BILAT CATARACTS REMOVED Past Anesthesia/Blood Transfusion Reactions: No Reported Reaction Past Psychological History: Anxiety, Depression Smoking Status: Former smoker Past Alcohol Use History: Occasional Past Drug Use History: None Reported - Past Family History Mother Family Medical History: No Reported History Additional Family Medical History / Comment(s): Mother is healthy and is 75yrs old. Father Family Medical History: Cancer Additional Family Medical History / Comment(s): Father is from colon cancer. He at the age of 59 or 60yrs. Medications and Allergies Home Medications Medication Instructions Recorded Confirmed Type Levothyroxine Sodium [Synthroid] 100 mcg PO DAILY 02/28/17 12/21/23 History amLODIPine BESYLATE [Norvasc] 5 mg PO DAILY 02/28/17 12/21/23 History Metoprolol Tartrate [Lopressor] 25 mg PO DAILY 03/26/20 12/21/23 History ARIPiprazole [Abilify] 10 mg PO DAILY 12/21/23 12/21/23 History Escitalopram [Lexapro] 20 mg PO DAILY 12/21/23 12/21/23 History Omeprazole 40 mg PO DAILY 12/21/23 12/21/23 History Allergies Allergy/AdvReac Type Severity Reaction Status Date / Time Iodinated Contrast Media Allergy Rash/Hives Verified 12/21/23 18:16 [Iodinated Contrast- Oral and IV Dye] Physical Examination - Vital Signs Vital Signs: Vital Signs Temp Pulse Pulse Resp BP BP Pulse Ox 12/22/23 08:00 97.5 F L 99 18 137/99 97 12/22/23 07:01 106 H 12 145/93 95 12/22/23 06:00 100 19 143/100 96 12/22/23 05:00 105 H 23 131/89 96 12/22/23 04:43 105 H 14 131/89 96 12/22/23 03:26 99 15 137/93 96 12/22/23 02:17 103 H 20 125/96 95 12/22/23 01:10 105 H 18 126/87 97 12/21/23 23:55 106 H 25 H 134/96 96 12/21/23 22:38 121 H 28 H 142/89 97 12/21/23 20:01 98.1 F 112 H 18 127/90 97 12/21/23 18:15 98.9 F 105 H 18 132/93 96 12/21/23 17:20 98.7 F 99 20 122/91 97 12/21/23 16:07 98.4 F 96 14 129/97 98 12/21/23 14:52 98.1 F 102 H 18 129/87 100 Intake and Output 12/21/23 12/22/23 12/22/23 22:59 06:59 14:59 Other: Weight 68.039 kg General: Lying in bed and is not in acute distress. HENT: Supple neck. Has mild erythematous sclera and yellowish discoloration around the eye. Neuro: The patient is awake, alert, oriented to self, place and time. Is following simple commands. No aphasia or neglect. Pupils are round, equal and reactive to light. Pupils are 3mm and reactive to light. Visual ruiz are full to confrontation. EOM intact and no nystamgus. Normal facial sensation. No facial weakness. No dysarthria. Tongue is midline and moves side to side without difficulty. Motor: Strength is 5/5 throughout. No spontaneous movement. Sensation is normal to touch throughout. Cerebellar: Normal finger to nose bilaterally. Reflex: 2+ throughout. Plantars are mute bilaterally. Results - Laboratory Findings CBC and BMP: 12/21/23 15:07 12/21/23 15:07 Abnormal Lab Findings: Abnormal Labs 12/21/23 12/21/23 12/21/23 15:07 15:07 15:07 Hct 47.2 H MCV 115.3 H MCH 39.1 H Macrocytosis Marked A PT INR Carbon Dioxide 15 L BUN 6 L Glucose 124 H POC Glucose (mg/dL) Plasma Lactic Acid Aleksander Total Bilirubin 3.7 H AST 220 H ALT 70 H Alkaline Phosphatase 139 H Urine Appearance Cloudy H Urine Ketones 1+ H Ur Leukocyte Esterase Large H Urine WBC 32 H Urine Bacteria Many H Hyaline Casts 9 H Urine Mucus Occasional H 12/21/23 12/21/23 12/21/23 15:07 15:19 15:42 Hct MCV MCH Macrocytosis PT 13.5 H INR 1.3 H Carbon Dioxide BUN Glucose POC Glucose (mg/dL) 115 H Plasma Lactic Acid Aleksander 9.2 H* Total Bilirubin AST ALT Alkaline Phosphatase Urine Appearance Urine Ketones Ur Leukocyte Esterase Urine WBC Urine Bacteria Hyaline Casts Urine Mucus 12/21/23 12/21/23 12/22/23 18:32 22:14 05:25 Hct MCV MCH Macrocytosis PT INR Carbon Dioxide BUN Glucose POC Glucose (mg/dL) Plasma Lactic Acid Aleksander 10.9 H* 10.4 H* 5.0 H* Total Bilirubin AST ALT Alkaline Phosphatase Urine Appearance Urine Ketones Ur Leukocyte Esterase Urine WBC Urine Bacteria Hyaline Casts Urine Mucus Assessment and Plan Assessment: This is a 67 y/o woman with history of heavy alcohol use who was sober in past and stated drinking back again who yesterday had syncopal episode. Patient was standing and had staring off episode then did not respond to her mother and wend down on floor but notified ED team she recalled the episode. She notified me that she had similar episodes in past when she decreased alcohol consumption. No history of seizures. Alcohol level 189 and probable acute UTI, AST>ALT. Syncopal episode Possibly due to alcohol use. Unsure if she had withdrawal episode event though level is elevated since states had similar episodes in past vs neuropathy vs seizure. If it is a seizure probable provoked Alcohol intoxication (level of 189) Transaminitis due to alcohol use (AST >ALT) Probable acute UTI Macrocytosis: Rule out alcohol use causing vitamin B12/folate deficiency Heavy alcohol use Plan: Routine EEG is ordered by ED attending. I ordered MRI Brain, orthostatic vitals Ordered TSH, ammonia, folate, Vitamin B12, MMA, TSH level I will hold off any antiseizure medication since not felt epileptic seizure at this time. But if continues to have seizure-like activity or work-up reveal concerning for increased seizure then recommend starting on antiseizure medication. I placed patient on thiamine 100mg daily. Is on CIWA protocol and will defer to primary team. Will defer the rest of medical management to primary and other specialist. Per [place] DMV because of syncopal episode, to avoid driving for 6 months until no further episodes, avoid heights, swim unassisted or use heavy machinery. Patient was counseled on alcohol cessation. Will defer the rest of medical management to primary and other specialist. The plan is discussed with patient and her nurse. Dr. Cool will resume neurology service tomorrow A.M. Time with Patient: Greater than 30
[2023-12-22] MEDS: POLYMYXIN B-TRIMETHOPRIM SULF (10,000-1) OPHTH DROPS 10 ML BTL BOTH EYES SCH (13:28)
--- NOTE | 2023-12-22 13:42 | P.GSCN ---
History of Present Illness Consult date: 12/22/23 Reason for Consult: Cholecystitis History of present illness: 67-year-old female presents to the hospital after a possible syncopal episode. Etiology for that is unclear at this time. Patient with heavy alcohol use history. Came in with elevated alcohol levels. Patient is liver enzymes are significantly elevated. Ultrasound was performed showing gallstones without biliary dilation. CAT scan of the abdomen pelvis shows marked hypoattenuation of the liver consistent with active liver disease. Patient's lactic acid was significantly elevated but improving. On presentation and through the night patient denies abdominal pain. No nausea or vomiting. Patient states she was told in the past she may have gallbladder problems. She was also told previously she had liver problems. We were asked to see this patient after ultrasound showed gallstones apparently. GI is not available to evaluate the patient's hepatic dysfunction. Denies rectal bleeding or melena. INR 1.3. Platelets 157. Hemoglobin stable. Review of Systems The patient denies any acute changes in vision or hearing, no dysphagia or odynophagia, no chest pain or shortness of breath, no dysuria or hematuria, no headache, no runny nose, no rectal bleeding or melena, no unexplained weight loss Past Medical History Past Medical History: Hypertension, Thyroid Disorder Additional Past Medical History / Comment(s): Hypothyroid. History of Any Multi-Drug Resistant Organisms: None Reported Past Surgical History: No Surgical Hx Reported Additional Past Surgical History / Comment(s): colonoscopy. BILAT CATARACTS REMOVED Past Anesthesia/Blood Transfusion Reactions: No Reported Reaction Past Psychological History: Anxiety, Depression Smoking Status: Former smoker Past Alcohol Use History: Occasional Past Drug Use History: None Reported - Past Family History Mother Family Medical History: No Reported History Additional Family Medical History / Comment(s): Mother is healthy and is 75yrs old. Father Family Medical History: Cancer Additional Family Medical History / Comment(s): Father is from colon cancer. He at the age of 59 or 60yrs. Medications and Allergies Home Medications Medication Instructions Recorded Confirmed Type Levothyroxine Sodium [Synthroid] 100 mcg PO DAILY 02/28/17 12/21/23 History amLODIPine BESYLATE [Norvasc] 5 mg PO DAILY 02/28/17 12/21/23 History Metoprolol Tartrate [Lopressor] 25 mg PO DAILY 03/26/20 12/21/23 History ARIPiprazole [Abilify] 10 mg PO DAILY 12/21/23 12/21/23 History Escitalopram [Lexapro] 20 mg PO DAILY 12/21/23 12/21/23 History Omeprazole 40 mg PO DAILY 12/21/23 12/21/23 History Allergies Allergy/AdvReac Type Severity Reaction Status Date / Time Iodinated Contrast Media Allergy Rash/Hives Verified 12/21/23 18:16 [Iodinated Contrast- Oral and IV Dye] Surgical - Exam Vital Signs Temp Pulse Resp BP Pulse Ox 98.1 F 102 H 18 129/87 100 12/21/23 14:52 12/21/23 14:52 12/21/23 14:52 12/21/23 14:52 12/21/23 14:52 Physical exam: General: Well-developed, well-nourished HEENT: Normocephalic, sclerae nonicteric Abdomen: Nontender, nondistended Extremities: No edema Neuro: Alert and oriented Results - Labs 12/21/23 15:07 12/21/23 15:07 Abnormal Lab Results - Last 24 Hours (Table) 12/21/23 12/21/23 12/21/23 Range/Units 15:07 15:07 15:07 Hct 47.2 H (34.0-46.0) % MCV 115.3 H (80.0-100.0) fL MCH 39.1 H (25.0-35.0) pg Macrocytosis Marked A PT (10.0-12.5) sec INR (<1.2) Carbon Dioxide 15 L (22-30) mmol/L BUN 6 L (7-17) mg/dL Glucose 124 H (74-99) mg/dL POC Glucose (mg/dL) (70-110) mg/dL Plasma Lactic Acid Aleksander (0.7-2.0) mmol/L Total Bilirubin 3.7 H (0.2-1.3) mg/dL AST 220 H (14-36) U/L ALT 70 H (4-34) U/L Alkaline Phosphatase 139 H (38-126) U/L Urine Appearance Cloudy H (Clear) Urine Ketones 1+ H (Negative) Ur Leukocyte Esterase Large H (Negative) Urine WBC 32 H (0-5) /hpf Urine Bacteria Many H (None) /hpf Hyaline Casts 9 H (0-2) /lpf Urine Mucus Occasional H (None) /hpf 12/21/23 12/21/23 12/21/23 Range/Units 15:07 15:19 15:42 Hct (34.0-46.0) % MCV (80.0-100.0) fL MCH (25.0-35.0) pg Macrocytosis PT 13.5 H (10.0-12.5) sec INR 1.3 H (<1.2) Carbon Dioxide (22-30) mmol/L BUN (7-17) mg/dL Glucose (74-99) mg/dL POC Glucose (mg/dL) 115 H (70-110) mg/dL Plasma Lactic Acid Aleksander 9.2 H* (0.7-2.0) mmol/L Total Bilirubin (0.2-1.3) mg/dL AST (14-36) U/L ALT (4-34) U/L Alkaline Phosphatase (38-126) U/L Urine Appearance (Clear) Urine Ketones (Negative) Ur Leukocyte Esterase (Negative) Urine WBC (0-5) /hpf Urine Bacteria (None) /hpf Hyaline Casts (0-2) /lpf Urine Mucus (None) /hpf 12/21/23 12/21/23 12/22/23 Range/Units 18:32 22:14 05:25 Hct (34.0-46.0) % MCV (80.0-100.0) fL MCH (25.0-35.0) pg Macrocytosis PT (10.0-12.5) sec INR (<1.2) Carbon Dioxide (22-30) mmol/L BUN (7-17) mg/dL Glucose (74-99) mg/dL POC Glucose (mg/dL) (70-110) mg/dL Plasma Lactic Acid Aleksander 10.9 H* 10.4 H* 5.0 H* (0.7-2.0) mmol/L Total Bilirubin (0.2-1.3) mg/dL AST (14-36) U/L ALT (4-34) U/L Alkaline Phosphatase (38-126) U/L Urine Appearance (Clear) Urine Ketones (Negative) Ur Leukocyte Esterase (Negative) Urine WBC (0-5) /hpf Urine Bacteria (None) /hpf Hyaline Casts (0-2) /lpf Urine Mucus (None) /hpf Diabetes panel 12/21/23 Range/Units 15:07 Sodium 140 (137-145) mmol/L Potassium 3.8 (3.5-5.1) mmol/L Chloride 104 (98-107) mmol/L Carbon Dioxide 15 L (22-30) mmol/L BUN 6 L (7-17) mg/dL Creatinine 0.78 (0.52-1.04) mg/dL Glucose 124 H (74-99) mg/dL Calcium 9.3 (8.4-10.2) mg/dL AST 220 H (14-36) U/L ALT 70 H (4-34) U/L Alkaline Phosphatase 139 H (38-126) U/L Total Protein 7.7 (6.3-8.2) g/dL Albumin 4.7 (3.5-5.0) g/dL Calcium panel 12/21/23 Range/Units 15:07 Calcium 9.3 (8.4-10.2) mg/dL Phosphorus 3.0 (2.5-4.5) mg/dL Albumin 4.7 (3.5-5.0) g/dL Pituitary panel 12/21/23 Range/Units 15:07 Sodium 140 (137-145) mmol/L Potassium 3.8 (3.5-5.1) mmol/L Chloride 104 (98-107) mmol/L Carbon Dioxide 15 L (22-30) mmol/L BUN 6 L (7-17) mg/dL Creatinine 0.78 (0.52-1.04) mg/dL Glucose 124 H (74-99) mg/dL Calcium 9.3 (8.4-10.2) mg/dL Adrenal panel 12/21/23 Range/Units 15:07 Sodium 140 (137-145) mmol/L Potassium 3.8 (3.5-5.1) mmol/L Chloride 104 (98-107) mmol/L Carbon Dioxide 15 L (22-30) mmol/L BUN 6 L (7-17) mg/dL Creatinine 0.78 (0.52-1.04) mg/dL Glucose 124 H (74-99) mg/dL Calcium 9.3 (8.4-10.2) mg/dL Total Bilirubin 3.7 H (0.2-1.3) mg/dL AST 220 H (14-36) U/L ALT 70 H (4-34) U/L Alkaline Phosphatase 139 H (38-126) U/L Total Protein 7.7 (6.3-8.2) g/dL Albumin 4.7 (3.5-5.0) g/dL Assessment and Plan (1) Cholelithiasis Narrative/Plan: 67-year-old female with history of cholelithiasis. Do not suspect active cholecystitis currently. Patient's liver enzymes related to underlying hepatocellular disease likely alcohol induced. Agree with plans for GI consult when available. No surgical plans at this time. Continue regular diet. Current Visit: Yes Status: Acute Code(s): K80.20 - CALCULUS OF GALLBLADDER W/O CHOLECYSTITIS W/O OBSTRUCTION SNOMED Code(s): 169238824
[2023-12-22] MEDS: THIAMINE 100 MG TAB PO SCH (14:50)
--- NOTE | 2023-12-22 15:13 | P.CRDCN ---
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 She has a past medical history of gastroesophageal reflux disease, hypertension, hypothyroidism, depression, alcohol use. We have been asked to evaluate the patient for syncope. Patient states that she was at [employer] shopping and all the send she was dizzy and then passed out. She states before that she had gone back to bed as she was not feeling well. She states that she had some vomiting. The ER record states she had diarrhea which she denies. Patient is seen today in the emergency center waiting for a bed on the cardiac stepdown unit. Patient denies having any chest pain. No lightheadedness or dizziness at this time. Blood pressure 137/99, heart rate 99, pulse ox 97% on room air. EKG: Sinus rhythm with no acute ST-T wave changes. CT of the brain revealed chronic changes Chest x-ray: Atelectasis Abdominal ultrasound moderate to severe hepatic steatosis, sludge in the gallbladder. CT of the abdomen pelvis revealed hepatic steatosis versus hepatitis. Unable to exclude early cirrhosis. Cholelithiasis and small hiatal hernia. Nonobstructive right renal stone. Laboratory studies: D-dimer 0.56. Lactic acid initially 10.9. Creatinine 0.78. WBC 3.8, hemoglobin 16, platelet count 157. Home cardiac medications: Amlodipine 5 mg daily, Lopressor 25 mg daily, also on levothyroxine 100 mcg daily Review Of Systems: At the time of my exam: CONSTITUTIONAL: Denies fever or chills. HEENT: Denies blurred vision, vision changes, or eye pain. Denies hemoptysis CARDIOVASCULAR: Denies chest pain. Denies orthopnea. Denies PND. Denies palpitations RESPIRATORY: Denies shortness of breath. GASTROINTESTINAL: Denies abdominal pain. Denies nausea or vomiting. HEMATOLOGIC: Denies bleeding disorders. GENITOURINARY: Denies any blood in urine. SKIN: Denies puritis. Denies rash. Physical examination: Gen: This is a 67-year-old female in no acute distress VS: reviewed HEENT: Head is atraumatic, normocephalic. Pupils equal, round. Sclerae is anicteric. NECK: Supple. No JVD. LUNGS: Clear to auscultation. No wheezes or rhonchi. No intercostal retractions. HEART: Regular rate and rhythm. No murmur. ABDOMEN: Soft No tenderness. EXTREMITIES: No pedal edema. No calf tenderness. NEUROLOGICAL: Patient is awake, alert and oriented x3. Assessment: Syncopal episode most likely secondary to alcohol intoxication rule out cardiac causes Alcohol intoxication GERD Hypertension Hypothyroidism Plan: Resume patient's home cardiac medications Continue telemetry monitoring Obtain 2-D echocardiogram and Doppler study to assess cardiac structure and function If echocardiogram is unremarkable, patient would be cleared for discharge and follow-up outpatient for stress testing Further recommendations to follow based upon clinical course Thank you kindly for this consultation. Nurse practitioner note has been reviewed, I agree with documented findings and plan of care. Patient was seen and examined. Past Medical History Past Medical History: Hypertension, Thyroid Disorder Additional Past Medical History / Comment(s): Hypothyroid. History of Any Multi-Drug Resistant Organisms: None Reported Past Surgical History: No Surgical Hx Reported Additional Past Surgical History / Comment(s): colonoscopy. BILAT CATARACTS REMOVED Past Anesthesia/Blood Transfusion Reactions: No Reported Reaction Past Psychological History: Anxiety, Depression Smoking Status: Former smoker Past Alcohol Use History: Occasional Past Drug Use History: None Reported - Past Family History Mother Family Medical History: No Reported History Additional Family Medical History / Comment(s): Mother is healthy and is 75yrs old. Father Family Medical History: Cancer Additional Family Medical History / Comment(s): Father is from colon cancer. He at the age of 59 or 60yrs. Medications and Allergies Home Medications Medication Instructions Recorded Confirmed Type Levothyroxine Sodium [Synthroid] 100 mcg PO DAILY 02/28/17 12/21/23 History amLODIPine BESYLATE [Norvasc] 5 mg PO DAILY 02/28/17 12/21/23 History Metoprolol Tartrate [Lopressor] 25 mg PO DAILY 03/26/20 12/21/23 History ARIPiprazole [Abilify] 10 mg PO DAILY 12/21/23 12/21/23 History Escitalopram [Lexapro] 20 mg PO DAILY 12/21/23 12/21/23 History Omeprazole 40 mg PO DAILY 12/21/23 12/21/23 History Allergies Allergy/AdvReac Type Severity Reaction Status Date / Time Iodinated Contrast Media Allergy Rash/Hives Verified 12/21/23 18:16 [Iodinated Contrast- Oral and IV Dye] Physical Exam Vitals: Vital Signs Temp Pulse Pulse Resp BP BP Pulse Ox 12/22/23 08:00 97.5 F L 99 18 137/99 97 12/22/23 07:01 106 H 12 145/93 95 12/22/23 06:00 100 19 143/100 96 12/22/23 05:00 105 H 23 131/89 96 12/22/23 04:43 105 H 14 131/89 96 12/22/23 03:26 99 15 137/93 96 12/22/23 02:17 103 H 20 125/96 95 12/22/23 01:10 105 H 18 126/87 97 12/21/23 23:55 106 H 25 H 134/96 96 12/21/23 22:38 121 H 28 H 142/89 97 12/21/23 20:01 98.1 F 112 H 18 127/90 97 12/21/23 18:15 98.9 F 105 H 18 132/93 96 12/21/23 17:20 98.7 F 99 20 122/91 97 12/21/23 16:07 98.4 F 96 14 129/97 98 12/21/23 14:52 98.1 F 102 H 18 129/87 100 Intake and Output 12/21/23 12/22/23 12/22/23 22:59 06:59 14:59 Other: Weight 68.039 kg Results 12/21/23 15:07 12/21/23 15:07 Cardiac Enzymes 12/21/23 12/21/23 Range/Units 15:07 15:07 AST 220 H (14-36) U/L Troponin I 0.014 (0.000-0.034) ng/mL Coagulation 12/21/23 Range/Units 15:42 PT 13.5 H (10.0-12.5) sec APTT 24.2 (22.0-30.0) sec CBC 12/21/23 Range/Units 15:07 WBC 3.8 (3.8-10.6) k/uL RBC 4.10 (3.80-5.40) m/uL Hgb 16.0 (11.4-16.0) gm/dL Hct 47.2 H (34.0-46.0) % Plt Count 157 (150-450) k/uL Comprehensive Metabolic Panel 12/21/23 Range/Units 15:07 Sodium 140 (137-145) mmol/L Potassium 3.8 (3.5-5.1) mmol/L Chloride 104 (98-107) mmol/L Carbon Dioxide 15 L (22-30) mmol/L BUN 6 L (7-17) mg/dL Creatinine 0.78 (0.52-1.04) mg/dL Glucose 124 H (74-99) mg/dL Calcium 9.3 (8.4-10.2) mg/dL AST 220 H (14-36) U/L ALT 70 H (4-34) U/L Alkaline Phosphatase 139 H (38-126) U/L Total Protein 7.7 (6.3-8.2) g/dL Albumin 4.7 (3.5-5.0) g/dL Current Medications Generic Name Dose Route Start Last Admin Trade Name Freq PRN Reason Stop Dose Admin Al Hydroxide/Mg Hydroxide 15 ml 12/21/23 18:03 Mag Hydrox/Al Hydrox/Simeth 30 Ml Cup PO Q6HR PRN Indigestion Amlodipine Besylate 5 mg 12/22/23 09:00 12/22/23 08:48 Amlodipine 5 Mg Tab PO 5 mg DAILY CAROL ANN Administration Aripiprazole 10 mg 12/22/23 09:00 Aripiprazole 10 Mg Tab PO DAILY CAROL ANN Calcium Carbonate/Glycine 1,000 mg 12/21/23 18:03 Calcium Carbonate 500 Mg Chewable PO Q4HR PRN Dyspepsia Escitalopram Oxalate 20 mg 12/22/23 09:00 12/22/23 08:48 Escitalopram 20 Mg Tab PO 20 mg DAILY CAROL ANN Administration Famotidine 20 mg 12/21/23 21:00 12/22/23 08:49 Famotidine 20 Mg Tab PO 20 mg BID CAROL ANN Administration Folic Acid 1 mg 12/21/23 16:30 12/22/23 08:48 Folic Acid 1 Mg Tab PO 1 mg DAILY CAROL ANN Administration Dextrose/Lactated Ringer's 1,000 mls @ 100 mls/hr 12/21/23 17:30 12/22/23 02:33 Dextrose 5%-Lr Iv Soln IV Not Given .Q10H CAROL ANN Ceftriaxone Sodium 2 gm/ 50 mls @ 100 mls/hr 12/22/23 09:00 12/22/23 08:49 Sodium Chloride IVPB 100 mls/hr Q24HR CAROL ANN Administration Protocol Levothyroxine Sodium 100 mcg 12/22/23 06:30 12/22/23 06:26 Levothyroxine 100 Mcg Tab PO 100 mcg 0630 CAROL ANN Administration Lorazepam 2 mg 12/21/23 20:42 Lorazepam 1 Mg Tab PO Q3HR PRN Ciwa 8 To 9 Lorazepam 2 mg 12/21/23 20:42 Lorazepam 1 Mg Tab PO Q2HR PRN Ciwa 10 or greater Lorazepam 1 mg 12/21/23 20:42 12/22/23 04:04 Lorazepam 1 Mg Tab PO 1 mg Q4HR PRN Administration Ciwa 6 To 7 Lorazepam 0.5 mg 12/21/23 20:42 Lorazepam 0.5 Mg Tab PO Q4HR PRN Ciwa 4 To 5 Lorazepam 2 mg 12/21/23 20:42 Lorazepam 2 Mg/Ml Inj IV 12/23/23 20:42 Q10M PRN CIWA 16 or higher Lorazepam 1 mg 12/21/23 20:42 Lorazepam 2 Mg/Ml Inj IV Q2HR PRN CIWA 8 or 9 Lorazepam 1 mg 12/21/23 20:42 Lorazepam 2 Mg/Ml Inj IV Q1HR PRN CIWA 10 to 15 Lorazepam 1 mg 12/21/23 20:42 Lorazepam 1 Mg Tab PO Q1HR PRN Alcohol Withdrawal Metoprolol Tartrate 25 mg 12/22/23 09:00 12/22/23 08:49 Metoprolol Tartrate 25 Mg Tab PO 25 mg DAILY CAROL ANN Administration Naloxone HCl 0.2 mg 12/21/23 18:03 Naloxone 0.4 Mg/Ml 1 Ml Vial IV Q2M PRN Opioid Reversal Ondansetron HCl 4 mg 12/21/23 18:03 Ondansetron 4 Mg/2 Ml Vial IVP Q8HR PRN Nausea And Vomiting Pantoprazole Sodium 40 mg 12/22/23 07:30 12/22/23 08:48 Pantoprazole 40 Mg Tablet PO 40 mg 0730 CAROL ANN Administration Tramadol HCl 50 mg 12/21/23 18:03 12/21/23 21:55 Tramadol 50 Mg Tab PO 50 mg Q6H PRN Administration Moderate Pain (Scale 4 to 6) Intake and Output 12/21/23 12/22/23 12/22/23 22:59 06:59 14:59 Other: Weight 68.039 kg 12/21/23 15:07 12/21/23 15:07
[2023-12-22 16:10] LABS: T4, Free (Free Thyroxine) 0.08 ng/dL (0.78-2.19)
--- NOTE | 2023-12-22 21:06 | EEG ---
ELECTROENCEPHALOGRAM REPORT CLINICAL HISTORY: This is a 67-year-old woman with history of alcohol use, who presents because of a syncopal episode. The video EEG is obtained to evaluate for seizure epileptiform activity. RELEVANT MEDICATION: Ativan. EEG TYPE: This is a routine 21-channel EEG with video using the 10/20 electrode placement system. DESCRIPTION: Wakefulness is only obtained. During awake state, the posterior-dominant rhythm consists of [id number] voltage of 10 hertz activity that is well modulated, and well sustained. There is no physiological stage 2 sleep architecture. There is no focal slowing. There is moderate amount of diffuse myogenic artifact, predominantly over the right hemisphere. Interictal and ictal is none. ACTIVATION PROCEDURE: Photic stimulation did not evoke a posterior driving response. There is no abnormality during the photic stimulation. Hyperventilation is not performed. CLINICAL INTERPRETATION: This is a normal routine EEG. There is no focal slowing, epileptiform discharge, or seizure on the EEG. A normal routine EEG does not rule out underlying epilepsy. Clinical correlation is recommended. MMNATASHA / RAYO: [id number] / REJI
[2023-12-22] MEDS: LORazepam 2 MG/ML INJ IV PRN (22:36)
[2023-12-23 03:22] LABS: Basophils % (A) 0 %; Eosinophils # (A) 0.1 k/uL (0-0.7); Eosinophils % (A) 2 %; HCT 41.3 % (34.0-46.0); HGB 14.2 gm/dL (11.4-16.0); Lymphocytes # (A) 1.2 k/uL (1.0-4.8); Lymphocytes % (A) 23 %; MCH 38.8 pg (25.0-35.0); MCHC 34.5 g/dL (31.0-37.0); Macrocytosis Marked; Mean Platelet Volume 8.3; Monocytes # (A) 0.2 k/uL (0-1.0); Monocytes % (A) 3 %; Neutrophils # (A) 3.6 k/uL (1.3-7.7); Neutrophils % (A) 69 %; Platelet Count 115 k/uL (150-450); RBC 3.67 m/uL (3.80-5.40); RDW 14.1 % (11.5-15.5); WBC 5.2 k/uL (3.8-10.6)
[2023-12-23 03:24] LABS: MCV 112.5 fL (80.0-100.0)
--- NOTE | 2023-12-23 08:50 | P.PN ---
Subjective Progress Note Date: 12/23/23 Patient stable. She has no complaints of pain. On exam vital signs appear stable. Abdomen soft. Patient will continue medical workup of syncope. Objective - Vital Signs Vital signs: Vital Signs Temp 97.3 F L 12/23/23 04:00 Pulse 79 12/23/23 04:00 Resp 16 12/23/23 04:00 BP 110/74 12/23/23 04:00 Pulse Ox 95 12/23/23 04:00 FiO2 Intake & Output 12/22/23 12/23/23 12/23/23 18:59 06:59 18:59 Intake Total 840 Balance 840 Weight 87.5 kg Intake: Intake, IV Titration 600 Amount Dextrose 5%-Lactated 600 Ringers 1,000 ml @ 100 mls/hr IV .Q10H CAROL ANN Rx#: [id number] Oral 240 Other: Voiding Method Bedside Commode Diaper Incontinent # Voids 2 - Labs CBC & Chem 7: 12/23/23 03:03 12/21/23 15:07 Labs: Abnormal Lab Results - Last 24 Hours (Table) 12/22/23 12/22/23 12/22/23 Range/Units 13:59 13:59 13:59 RBC (3.80-5.40) m/uL MCV (80.0-100.0) fL MCH (25.0-35.0) pg Plt Count (150-450) k/uL Macrocytosis Plasma Lactic Acid Aleksander 3.3 H* (0.7-2.0) mmol/L Ammonia 40 H (<30) umol/L TSH 82.200 H (0.465-4.680) mIU/L Free T4 0.08 L (0.78-2.19) ng/dL 12/22/23 12/22/23 12/23/23 Range/Units 18:01 21:31 03:03 RBC 3.67 L (3.80-5.40) m/uL MCV 112.5 H (80.0-100.0) fL MCH 38.8 H (25.0-35.0) pg Plt Count 115 L (150-450) k/uL Macrocytosis Marked A Plasma Lactic Acid Aleksander 2.4 H* 2.4 H* (0.7-2.0) mmol/L Ammonia (<30) umol/L TSH (0.465-4.680) mIU/L Free T4 (0.78-2.19) ng/dL 12/23/23 Range/Units 03:03 RBC (3.80-5.40) m/uL MCV (80.0-100.0) fL MCH (25.0-35.0) pg Plt Count (150-450) k/uL Macrocytosis Plasma Lactic Acid Aleksander 2.7 H* (0.7-2.0) mmol/L Ammonia (<30) umol/L TSH (0.465-4.680) mIU/L Free T4 (0.78-2.19) ng/dL Microbiology - Last 24 Hours (Table) 12/21/23 21:37 Blood Culture - Preliminary Blood
[2023-12-23 08:51] LABS: ALT 50 U/L (4-34); African American GFR (CKD) >90 (>60 ml/min/1.73 sqM); Albumin 3.9 g/dL (3.5-5.0); Anion Gap 11 mmol/L; Blood Urea Nitrogen 2 mg/dL (7-17); Calcium 8.2 mg/dL (8.4-10.2); Carbon Dioxide 21 mmol/L (22-30); Chloride 102 mmol/L (98-107); Glucose 137 mg/dL (74-99); Non-African American GFR(CKD) >90 (>60 ml/min/1.73 sqM); Sodium 134 mmol/L (137-145); Total Bilirubin 4.2 mg/dL (0.2-1.3); Total Protein 6.6 g/dL (6.3-8.2)
[2023-12-23 09:06] LABS: AST 102 U/L (14-36); Alkaline Phosphatase 90 U/L (38-126); Potassium 3.1 mmol/L (3.5-5.1)
--- NOTE | 2023-12-23 11:20 | P.PN ---
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 She has a past medical history of gastroesophageal reflux disease, hypertension, hypothyroidism, depression, alcohol use. We have been asked to evaluate the patient for syncope. Patient states that she was at [employer] shopping and all the send she was dizzy and then passed out. She states before that she had gone back to bed as she was not feeling well. She states that she had some vomiting. The ER record states she had diarrhea which she denies. Patient is seen today in the emergency center waiting for a bed on the cardiac stepdown unit. Patient denies having any chest pain. No lightheadedness or dizziness at this time. Blood pressure 137/99, heart rate 99, pulse ox 97% on room air. EKG: Sinus rhythm with no acute ST-T wave changes. CT of the brain revealed chronic changes Chest x-ray: Atelectasis Abdominal ultrasound moderate to severe hepatic steatosis, sludge in the gallbladder. CT of the abdomen pelvis revealed hepatic steatosis versus hepatitis. Unable to exclude early cirrhosis. Cholelithiasis and small hiatal hernia. Nonobstructive right renal stone. Laboratory studies: D-dimer 0.56. Lactic acid initially 10.9. Creatinine 0.78. WBC 3.8, hemoglobin 16, platelet count 157. Home cardiac medications: Amlodipine 5 mg daily, Lopressor 25 mg daily, also on levothyroxine 100 mcg daily 12/22 Patient states she is tired and not sleeping. She states she is having dizziness and states that it is related to balance. TSH 82. Daughter is at bedside. It appears that she may not be taking her medications. Echocardiogram is pending. Physical examination: Gen: This is a 67-year-old female in no acute distress VS: reviewed HEENT: Head is atraumatic, normocephalic. Pupils equal, round. Sclerae is anicteric. NECK: Supple. No JVD. LUNGS: Clear to auscultation. No wheezes or rhonchi. No intercostal retractions. HEART: Regular rate and rhythm. No murmur. ABDOMEN: Soft No tenderness. EXTREMITIES: No pedal edema. No calf tenderness. NEUROLOGICAL: Patient is awake, alert and oriented x3. Assessment: Syncopal episode most likely secondary to alcohol intoxication rule out cardiac causes Alcohol intoxication Lactic acidosis GERD Hypertension Hypothyroidism Plan: Continue patient's home cardiac medications Continue telemetry monitoring Obtain orthostatic vital signs Obtain 2-D echocardiogram and Doppler study to assess cardiac structure and function Consider event monitor at the time of discharge If orthostatic vital signs are abnormal, consider discontinuing amlodipine Further recommendations to follow based upon clinical course Nurse practitioner note has been reviewed, I agree with documented findings and plan of care. Patient was seen and examined. Objective - Vital Signs Vital signs: Vital Signs Temp 97.3 F L 12/23/23 04:00 Pulse 79 12/23/23 04:00 Resp 16 12/23/23 04:00 BP 110/74 12/23/23 04:00 Pulse Ox 95 12/23/23 04:00 FiO2 Intake & Output 12/22/23 12/23/23 12/23/23 18:59 06:59 18:59 Intake Total 840 Balance 840 Weight 87.5 kg Intake: Intake, IV Titration 600 Amount Dextrose 5%-Lactated 600 Ringers 1,000 ml @ 100 mls/hr IV .Q10H [facility] Rx#: [id number] Oral 240 Other: Voiding Method Bedside Commode Diaper Incontinent # Voids 2 - Labs CBC & Chem 7: 12/23/23 03:03 12/23/23 07:48 Labs: Abnormal Lab Results - Last 24 Hours (Table) 12/22/23 12/22/23 12/22/23 Range/Units 13:59 13:59 13:59 RBC (3.80-5.40) m/uL MCV (80.0-100.0) fL MCH (25.0-35.0) pg Plt Count (150-450) k/uL Macrocytosis Sodium (137-145) mmol/L Potassium (3.5-5.1) mmol/L Carbon Dioxide (22-30) mmol/L BUN (7-17) mg/dL Creatinine (0.52-1.04) mg/dL Glucose (74-99) mg/dL Plasma Lactic Acid Aleksander 3.3 H* (0.7-2.0) mmol/L Calcium (8.4-10.2) mg/dL Total Bilirubin (0.2-1.3) mg/dL AST (14-36) U/L ALT (4-34) U/L Ammonia 40 H (<30) umol/L TSH 82.200 H (0.465-4.680) mIU/L Free T4 0.08 L (0.78-2.19) ng/dL 12/22/23 12/22/23 12/23/23 Range/Units 18:01 21:31 03:03 RBC 3.67 L (3.80-5.40) m/uL MCV 112.5 H (80.0-100.0) fL MCH 38.8 H (25.0-35.0) pg Plt Count 115 L (150-450) k/uL Macrocytosis Marked A Sodium (137-145) mmol/L Potassium (3.5-5.1) mmol/L Carbon Dioxide (22-30) mmol/L BUN (7-17) mg/dL Creatinine (0.52-1.04) mg/dL Glucose (74-99) mg/dL Plasma Lactic Acid Aleksander 2.4 H* 2.4 H* (0.7-2.0) mmol/L Calcium (8.4-10.2) mg/dL Total Bilirubin (0.2-1.3) mg/dL AST (14-36) U/L ALT (4-34) U/L Ammonia (<30) umol/L TSH (0.465-4.680) mIU/L Free T4 (0.78-2.19) ng/dL 12/23/23 12/23/23 12/23/23 Range/Units 03:03 07:48 07:48 RBC (3.80-5.40) m/uL MCV (80.0-100.0) fL MCH (25.0-35.0) pg Plt Count (150-450) k/uL Macrocytosis Sodium 134 L (137-145) mmol/L Potassium 3.1 L (3.5-5.1) mmol/L Carbon Dioxide 21 L (22-30) mmol/L BUN 2 L (7-17) mg/dL Creatinine 0.36 L (0.52-1.04) mg/dL Glucose 137 H (74-99) mg/dL Plasma Lactic Acid Aleksander 2.7 H* 3.2 H* (0.7-2.0) mmol/L Calcium 8.2 L (8.4-10.2) mg/dL Total Bilirubin 4.2 H (0.2-1.3) mg/dL AST 102 H (14-36) U/L ALT 50 H (4-34) U/L Ammonia (<30) umol/L TSH (0.465-4.680) mIU/L Free T4 (0.78-2.19) ng/dL Microbiology - Last 24 Hours (Table) 12/21/23 21:37 Blood Culture - Preliminary Blood
--- NOTE | 2023-12-23 14:00 | CA ---
Transthoracic Echo Report Name: Elaine Collins Age: 67 Gender: F : 1955 Exam Date: 12/23/2023 11:30 Exam Location: [facility] Ht (in): 65 Wt (lb): 150 Ordering Physician: Kiki Samano Attending/Referring Phys: [id number], Jazmy[facility]/Pre Vocational Counselor Orin Alfred RDCS Procedure CPT: Indications: LVF Cardiac Hx: Technical Quality: Fair Contrast 1: Total Dose (mL): Contrast 2: Total Dose (mL): MEASUREMENTS (Male / Female) Normal Values 2D ECHO LV Diastolic Diameter PLAX 3.9 cm 4.2 - 5.9 / 3.9 - 5.3 cm LV Systolic Diameter PLAX 2.0 cm IVS Diastolic Thickness 1.2 cm 0.6 - 1.0 / 0.6 - 0.9 cm LVPW Diastolic Thickness 1.1 cm 0.6 - 1.0 / 0.6 - 0.9 cm LV Relative Wall Thickness 0.6 RV Internal Dim ED PLAX 2.3 cm LA Volume 31.3 cm??? 18 - 58 / 22 - 52 cm??? LA Volume Index 17.6 cm???/m??? 16 - 28 cm???/m??? M-MODE Aortic Root Diameter MM 2.4 cm LA Systolic Diameter MM 3.2 cm LA Ao Ratio MM 1.4 AV Cusp Separation MM 1.5 cm DOPPLER AV Peak Velocity 92.6 cm/s AV Peak Gradient 3.4 mmHg AV Mean Velocity 61.3 cm/s AV Mean Gradient 1.7 mmHg AV Velocity Time Integral 20.1 cm LVOT Peak Velocity 81.1 cm/s LVOT Peak Gradient 2.6 mmHg LVOT Velocity Time Integral 19.0 cm MV Area PHT 3.8 cm??? Mitral E Point Velocity 75.8 cm/s Mitral A Point Velocity 54.7 cm/s Mitral E to A Ratio 1.4 MV Deceleration Time 198.2 ms MV E' Velocity 4.8 cm/s Mitral E to MV E' Ratio 15.8 TR Peak Velocity 177.9 cm/s TR Peak Gradient 12.7 mmHg Right Ventricular Systolic Press 17.7 mmHg FINDINGS Left Ventricle Mildly increased left ventricular wall thickness. Left ventricular cavity size normal. Normal left ventricular systolic function with no obvious regional wall motion abnormalities. Left ventricular ejection fraction is estimated at 55-60 %. Grade 1 diastolic dysfunction. Right Ventricle Normal right ventricular size and function. Right ventricular systolic pressure within normal limits. Right Atrium Normal right atrial size. Left Atrium Normal left atrial size. Mitral Valve Structurally normal mitral valve. No mitral stenosis. Mitral valve thickened. Mild mitral annular calcification. Moderate mitral regurgitation. Centrally directed mitral regurgitation jet. Aortic Valve Trileaflet aortic valve. No aortic stenosis. Aortic valve sclerosis. Trace aortic regurgitation. Tricuspid Valve Structurally normal tricuspid valve. Mild tricuspid regurgitation. Pulmonic Valve Structurally normal pulmonic valve. Trace pulmonic regurgitation. Pericardium No pericardial effusion. Prominent epicardial fat. Aorta Normal size aortic root and proximal ascending aorta. CONCLUSIONS Left ventricular ejection fraction 55-60% Mildly increased left ventricular wall thickness Mild mitral and or calcification Moderate mitral regurgitation Mild tricuspid regurgitation Previewed by: Dr. Thomas Blanco DO (Electronically Signed) Final Date: 23 December 2023 14:00
[2023-12-23] MEDS: POTASSIUM CHLORIDE ER 20 MEQ TAB.ER PO STA (15:42)
--- NOTE | 2023-12-23 15:58 | P.PN ---
Subjective Progress Note Date: 12/23/23 Interval History: This is a 67-year-old female PMH of major depression, anxiety, alcohol abuse, HTN and multiple other medical issues presented to the ER with near syncope.patient reports she was standing at the checkout at [employer] had not been feeling well, collapsed without syncope .patient recalls the entire incident, denies weakness or legs buckling. denies seizure activity, denies loss of urine or bowel control, no tongue biting .denies nausea or vomiting, frequently has diarrhea -nonbloody.denies hitting her head. reports she last drink half a bottle of wine in the evening before .serum alcohol 189, MCV 115.3 ,T. bili 3.7, AST 220, ALT 70, alk phos 139, INR 1.3, hemoglobin 16, platelets 157. UA reporting many bacteria, lactic acid 9.2, 10.9, 10.4 currently 5 with IV fluid hydration.glucose 124, electrolytes and renal function stable. Troponin negative x 1. Denies chest pain, palpitations or shortness of breath. 8/31patient was seen and examined today. Patient A and O x 2, family at [facility]. Vitals unremarkable, on room air. Labs reviewedWBC is 5.1, hemoglobin 14.0, platelets 115, marked microcytosis. BMP showed sodium 134 potassium 3.1 CO2 21 creatinine 0.36 lactate 3.2, came down to 2.9. Total bilirubin 4.2, AST 102 ALT 50 trending down normal alkaline phosphatase. TSH yesterday was 82.22, free T40.08. Will continue Synthroid Neurology, cardiology and general surgery consulted. MRI head and echocardiogram pending. Assessment and plan: Near syncope: Alcohol intoxication, high risk of withdrawal Dehydration Lactic acidosis Alcohol use disorder Elevated LFTs, hyperbilirubinemia Depression/anxiety Thrombocytopenia: Continue CIWA protocol, IV fluids, thiamine, folic acid, multivitamin Monitor lactic acid. Counseling to quit alcohol Echocardiogramnormal EF, grade 1 diastolic dysfunction, no RWMA MRI pending Neurology, cardiology and general surgery consulted Monitor CMP Hypothyroidism: TSH more than 82, low free T4 Concern for compliance Synthroid 100 mcg DVT prophylaxis: SCD PHYSICAL EXAMINATION: GENERAL: The patient is A&O x2, NAD HEENT: EOMI, Sclerae anicteric, Moist Mucous membranes Neck: Supple, Non tender, No JVD CARDIOVASCULAR: S1, S2 present. No murmurs, rubs, or gallops. PULMONARY: Equal breath souds B/L, No wheezing, No crackles. ABDOMEN: Soft, nontender, nondistended, normoactive bowel sounds. No guarding or rebound tenderness. MUSCULOSKELETAL: No edema, No cyanosis. No clubbing. Normal ROM. Intact peripheral pulses. Skin; Warm. No rash. REVIEW OF SYSTEMS: Limited CONSTITUTIONAL: No fever or chills. CARDIOVASCULAR: No chest pain, palpitations or syncope. PULMONARY: No shortness of breath, no cough, sore throat. GASTROINTESTINAL: No nausea, vomiting, diarrhea, abdominal pain. : No Dysuria, urgency, frequency. Extremities: No edema. NEUROLOGICAL: No headaches, no weakness, or numbness Dictation was produced using [employer] dictation software. please excuse any grammatical, word or spelling errors. Objective - Vital Signs Vital signs: Vital Signs Temp 98.4 F 12/23/23 11:45 Pulse 75 12/23/23 14:00 Resp 17 12/23/23 14:00 BP 129/76 12/23/23 11:45 Pulse Ox 95 12/23/23 11:45 FiO2 Intake & Output 12/22/23 12/23/23 12/23/23 18:59 06:59 18:59 Intake Total 840 Balance 840 Weight 87.5 kg Intake: Intake, IV Titration 600 Amount Dextrose 5%-Lactated 600 Ringers 1,000 ml @ 100 mls/hr IV .Q10H CAROL ANN Rx#: [id number] Oral 240 Other: Voiding Method Bedside Commode Bedside Commode Diaper Diaper Incontinent Incontinent # Voids 2 0 - Labs CBC & Chem 7: 12/23/23 03:03 12/23/23 07:48 Labs: Abnormal Lab Results - Last 24 Hours (Table) 12/22/23 12/22/23 12/22/23 Range/Units 13:59 18:01 21:31 RBC (3.80-5.40) m/uL MCV (80.0-100.0) fL MCH (25.0-35.0) pg Plt Count (150-450) k/uL Macrocytosis Sodium (137-145) mmol/L Potassium (3.5-5.1) mmol/L Carbon Dioxide (22-30) mmol/L BUN (7-17) mg/dL Creatinine (0.52-1.04) mg/dL Glucose (74-99) mg/dL Plasma Lactic Acid Aleksander 2.4 H* 2.4 H* (0.7-2.0) mmol/L Calcium (8.4-10.2) mg/dL Total Bilirubin (0.2-1.3) mg/dL AST (14-36) U/L ALT (4-34) U/L Free T4 0.08 L (0.78-2.19) ng/dL 12/23/23 12/23/23 12/23/23 Range/Units 03:03 03:03 07:48 RBC 3.67 L (3.80-5.40) m/uL MCV 112.5 H (80.0-100.0) fL MCH 38.8 H (25.0-35.0) pg Plt Count 115 L (150-450) k/uL Macrocytosis Marked A Sodium 134 L (137-145) mmol/L Potassium 3.1 L (3.5-5.1) mmol/L Carbon Dioxide 21 L (22-30) mmol/L BUN 2 L (7-17) mg/dL Creatinine 0.36 L (0.52-1.04) mg/dL Glucose 137 H (74-99) mg/dL Plasma Lactic Acid Aleksander 2.7 H* (0.7-2.0) mmol/L Calcium 8.2 L (8.4-10.2) mg/dL Total Bilirubin 4.2 H (0.2-1.3) mg/dL AST 102 H (14-36) U/L ALT 50 H (4-34) U/L Free T4 (0.78-2.19) ng/dL 12/23/23 12/23/23 Range/Units 07:48 12:03 RBC (3.80-5.40) m/uL MCV (80.0-100.0) fL MCH (25.0-35.0) pg Plt Count (150-450) k/uL Macrocytosis Sodium (137-145) mmol/L Potassium (3.5-5.1) mmol/L Carbon Dioxide (22-30) mmol/L BUN (7-17) mg/dL Creatinine (0.52-1.04) mg/dL Glucose (74-99) mg/dL Plasma Lactic Acid Aleksander 3.2 H* 2.9 H* (0.7-2.0) mmol/L Calcium (8.4-10.2) mg/dL Total Bilirubin (0.2-1.3) mg/dL AST (14-36) U/L ALT (4-34) U/L Free T4 (0.78-2.19) ng/dL Microbiology - Last 24 Hours (Table) 12/21/23 21:37 Blood Culture - Preliminary Blood
[2023-12-24 08:36] LABS: ALT 45 U/L (4-34); AST 100 U/L (14-36); African American GFR (CKD) >90 (>60 ml/min/1.73 sqM); Alkaline Phosphatase 102 U/L (38-126); Anion Gap 10 mmol/L; Blood Urea Nitrogen <2 mg/dL (7-17); Calcium 8.7 mg/dL (8.4-10.2); Carbon Dioxide 22 mmol/L (22-30); Chloride 99 mmol/L (98-107); Glucose 136 mg/dL (74-99); Magnesium 1.4 mg/dL (1.6-2.3); Non-African American GFR(CKD) >90 (>60 ml/min/1.73 sqM); Potassium 3.3 mmol/L (3.5-5.1); Sodium 131 mmol/L (137-145); Total Protein 6.8 g/dL (6.3-8.2)
--- NOTE | 2023-12-24 08:37 | P.PN ---
Subjective Progress Note Date: 12/24/23 Patient remained stable. She denies any abdominal pain. No surgical inventions planned. Objective - Vital Signs Vital signs: Vital Signs Temp 98.2 F 12/24/23 04:00 Pulse 81 12/24/23 04:00 Resp 16 12/24/23 04:00 BP 136/84 12/24/23 04:00 Pulse Ox 95 12/24/23 04:00 FiO2 Intake & Output 12/23/23 12/24/23 12/24/23 18:59 06:59 18:59 Intake Total 118 2400 Output Total 500 Balance -382 2400 Weight 84.5 kg Intake: Intake, IV Titration 2400 Amount Dextrose 5%-Lactated 2400 Ringers 1,000 ml @ 100 mls/hr IV .Q10H CAROL ANN Rx#: [id number] Oral 118 Output: Urine 500 Other: Voiding Method Bedside Commode Bedside Commode Diaper Diaper Incontinent Incontinent # Voids 0 3 - Labs CBC & Chem 7: 12/23/23 03:03 12/23/23 07:48 Labs: Abnormal Lab Results - Last 24 Hours (Table) 12/23/23 12/23/23 12/23/23 Range/Units 07:48 07:48 12:03 Sodium 134 L (137-145) mmol/L Potassium 3.1 L (3.5-5.1) mmol/L Carbon Dioxide 21 L (22-30) mmol/L BUN 2 L (7-17) mg/dL Creatinine 0.36 L (0.52-1.04) mg/dL Glucose 137 H (74-99) mg/dL Plasma Lactic Acid Aleksander 3.2 H* 2.9 H* (0.7-2.0) mmol/L Calcium 8.2 L (8.4-10.2) mg/dL Total Bilirubin 4.2 H (0.2-1.3) mg/dL AST 102 H (14-36) U/L ALT 50 H (4-34) U/L Microbiology - Last 24 Hours (Table) 12/21/23 21:37 Blood Culture - Preliminary Blood
[2023-12-24 08:51] LABS: Basophils % (A) 1 %; Eosinophils # (A) 0.1 k/uL (0-0.7); Eosinophils % (A) 1 %; HCT 44.2 % (34.0-46.0); HGB 15.5 gm/dL (11.4-16.0); Lymphocytes # (A) 1.3 k/uL (1.0-4.8); Lymphocytes % (A) 27 %; MCH 39.1 pg (25.0-35.0); MCV 111.7 fL (80.0-100.0); Mean Platelet Volume 8.6; Monocytes # (A) 0.3 k/uL (0-1.0); Monocytes % (A) 5 %; Neutrophils # (A) 3.1 k/uL (1.3-7.7); Neutrophils % (A) 64 %; Platelet Count 120 k/uL (150-450); RBC 3.96 m/uL (3.80-5.40); RDW 13.3 % (11.5-15.5); WBC 4.8 k/uL (3.8-10.6)
[2023-12-24 08:53] LABS: Macrocytosis Marked
--- NOTE | 2023-12-24 10:02 | P.PN ---
Subjective Progress Note Date: 12/23/23 Patient was initially seen by Dr. Teofilo Ventura. Please refer to his note for details. Patient is a 67-year-old female with alcohol use, had syncopal episode. Patient's blood alcohol level was 189 on arrival. Routine EEG is normal. MRI of the brain was ordered by Dr. Fagan along with orthostatics. Patient was seen for a follow-up. Patient admits to drinking alcohol. She feels better. She has little headache. Patient is still slightly confused. Some of the work-up during this hospital visit consisted of: Plasma lactic acid vein was as high as 10.9 and last one was 5.0 Initial serum glucose 124 AST 220 and ALT 70 Calcium, phosphorous, magnesium and sodium are within normal limits. 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 No acute intracranial abnormality. I personally reviewed and agree with report. Objective - Vital Signs Vital signs: Vital Signs Temp 98.4 F 12/23/23 11:45 Pulse 75 12/23/23 11:45 Resp 17 12/23/23 11:45 BP 129/76 12/23/23 11:45 Pulse Ox 95 12/23/23 11:45 FiO2 Intake & Output 12/22/23 12/23/23 12/23/23 18:59 06:59 18:59 Intake Total 840 Balance 840 Weight 87.5 kg Intake: Intake, IV Titration 600 Amount Dextrose 5%-Lactated 600 Ringers 1,000 ml @ 100 mls/hr IV .Q10H CAROL ANN Rx#: [id number] Oral 240 Other: Voiding Method Bedside Commode Bedside Commode Diaper Diaper Incontinent Incontinent # Voids 2 - Exam Patient is alert and awake in no distress. Patient believes that she is in [facility] in [facility]. Patient states current date is 12/16/1922. Speech and language functions are normal. Pupils are equal, round and reacting. Visual ruiz are full, face is symmetric. Muscle strength appears normal. - Labs CBC & Chem 7: 12/24/23 07:36 12/24/23 07:36 Labs: Abnormal Lab Results - Last 24 Hours (Table) 12/22/23 12/22/23 12/22/23 Range/Units 13:59 13:59 13:59 RBC (3.80-5.40) m/uL MCV (80.0-100.0) fL MCH (25.0-35.0) pg Plt Count (150-450) k/uL Macrocytosis Sodium (137-145) mmol/L Potassium (3.5-5.1) mmol/L Carbon Dioxide (22-30) mmol/L BUN (7-17) mg/dL Creatinine (0.52-1.04) mg/dL Glucose (74-99) mg/dL Plasma Lactic Acid Aleksander 3.3 H* (0.7-2.0) mmol/L Calcium (8.4-10.2) mg/dL Total Bilirubin (0.2-1.3) mg/dL AST (14-36) U/L ALT (4-34) U/L Ammonia 40 H (<30) umol/L TSH 82.200 H (0.465-4.680) mIU/L Free T4 0.08 L (0.78-2.19) ng/dL 12/22/23 12/22/23 12/23/23 Range/Units 18:01 21:31 03:03 RBC 3.67 L (3.80-5.40) m/uL MCV 112.5 H (80.0-100.0) fL MCH 38.8 H (25.0-35.0) pg Plt Count 115 L (150-450) k/uL Macrocytosis Marked A Sodium (137-145) mmol/L Potassium (3.5-5.1) mmol/L Carbon Dioxide (22-30) mmol/L BUN (7-17) mg/dL Creatinine (0.52-1.04) mg/dL Glucose (74-99) mg/dL Plasma Lactic Acid Aleksander 2.4 H* 2.4 H* (0.7-2.0) mmol/L Calcium (8.4-10.2) mg/dL Total Bilirubin (0.2-1.3) mg/dL AST (14-36) U/L ALT (4-34) U/L Ammonia (<30) umol/L TSH (0.465-4.680) mIU/L Free T4 (0.78-2.19) ng/dL 12/23/23 12/23/23 12/23/23 Range/Units 03:03 07:48 07:48 RBC (3.80-5.40) m/uL MCV (80.0-100.0) fL MCH (25.0-35.0) pg Plt Count (150-450) k/uL Macrocytosis Sodium 134 L (137-145) mmol/L Potassium 3.1 L (3.5-5.1) mmol/L Carbon Dioxide 21 L (22-30) mmol/L BUN 2 L (7-17) mg/dL Creatinine 0.36 L (0.52-1.04) mg/dL Glucose 137 H (74-99) mg/dL Plasma Lactic Acid Aleksander 2.7 H* 3.2 H* (0.7-2.0) mmol/L Calcium 8.2 L (8.4-10.2) mg/dL Total Bilirubin 4.2 H (0.2-1.3) mg/dL AST 102 H (14-36) U/L ALT 50 H (4-34) U/L Ammonia (<30) umol/L TSH (0.465-4.680) mIU/L Free T4 (0.78-2.19) ng/dL 12/23/23 Range/Units 12:03 RBC (3.80-5.40) m/uL MCV (80.0-100.0) fL MCH (25.0-35.0) pg Plt Count (150-450) k/uL Macrocytosis Sodium (137-145) mmol/L Potassium (3.5-5.1) mmol/L Carbon Dioxide (22-30) mmol/L BUN (7-17) mg/dL Creatinine (0.52-1.04) mg/dL Glucose (74-99) mg/dL Plasma Lactic Acid Aleksander 2.9 H* (0.7-2.0) mmol/L Calcium (8.4-10.2) mg/dL Total Bilirubin (0.2-1.3) mg/dL AST (14-36) U/L ALT (4-34) U/L Ammonia (<30) umol/L TSH (0.465-4.680) mIU/L Free T4 (0.78-2.19) ng/dL Microbiology - Last 24 Hours (Table) 12/21/23 21:37 Blood Culture - Preliminary Blood Assessment and Plan Assessment: Patient is a 67 y/o woman with history of heavy alcohol use who was sober in past and stated drinking back again who yesterday had syncopal episode. Patient was standing and had staring off episode then did not respond to her mother and wend down on floor but notified ED team she recalled the episode. She notified me that she had similar episodes in past when she decreased alcohol consumption. No history of seizures. Alcohol level 189 and probable acute UTI, AST>ALT. Syncopal episode Possibly due to alcohol use. Unsure if she had withdrawal episode event though level is elevated since states had similar episodes in past vs neuropathy vs seizure. If it is a seizure probable provoked Alcohol intoxication (level of 189) Hypothyroidism, significant Probable Hepatic encephalopathy Transaminitis due to alcohol use (AST >ALT) Hyponatremia, hypokalemia Elevated lactate Probable acute UTI, patient on ceftriaxone. Macrocytosis: Rule out alcohol use causing vitamin B12/folate deficiency Heavy alcohol use Plan: EEG was reported as normal. No focal slowing or epileptiform discharges were se en. MRI of the brain is pending. 2D echo revealed mildly increased left ventricular wall thickness. No obvious regional wall motion abnormalities. LVEF 55 to 60%. Normal left atrial size. Moderate MR. Centrally directed mitral regurgitation jet. Mildly increased left ventricular wall thickness. Cardiology on board. We will defer to cardiology to address MR. Orthostatic vitals were checked, supine blood pressure 132/78, sitting 133/94 and standing 112/77. Orthostatics are slightly positive. Cardiology on board. B12 809, folate 9.4, TSH 82.2, free T4 0.08. Ammonia is elevated 40. Consider starting lactulose. MMA level pending. Patient possibly has hepatic encephalopathy. We will repeat ammonia level. Dr. Ventura has recommended to hold off any antiseizure medication since not felt epileptic seizure at this time. Continue thiamine 100mg daily. Continue folic acid as well. Is on CIWA protocol and will defer to primary team. Will defer the rest of medical management to primary and other specialist. Per [place] DMV because of syncopal episode, to avoid driving for 6 months until no further episodes, avoid heights, swim unassisted or use heavy machinery. Patient was counseled on alcohol cessation. Will defer the rest of medical management to primary and other specialist.
--- NOTE | 2023-12-24 10:59 | P.PN ---
Subjective Progress Note Date: 12/24/23 Reason for Consult (text): syncope History of present illness: This is a 67-year-old female with no previous cardiac history and does not follow with a [employer]. She has a past medical history of gastroesophageal reflux disease, hypertension, hypothyroidism, depression, alcohol use. We have been asked to evaluate the patient for syncope. Patient states that she was at [employer] shopping and all the send she was dizzy and then passed out. She states before that she had gone back to bed as she was not feeling well. She states that she had some vomiting. The ER record states she had diarrhea which she denies. Patient is seen today in the emergency center waiting for a bed on the cardiac stepdown unit. Patient denies having any chest pain. No lightheadedness or dizziness at this time. Blood pressure 137/99, heart rate 99, pulse ox 97% on room air. EKG: Sinus rhythm with no acute ST-T wave changes. CT of the brain revealed chronic changes Chest x-ray: Atelectasis Abdominal ultrasound moderate to severe hepatic steatosis, sludge in the gallbladder. CT of the abdomen pelvis revealed hepatic steatosis versus hepatitis. Unable to exclude early cirrhosis. Cholelithiasis and small hiatal hernia. Nonobstructive right renal stone. Laboratory studies: D-dimer 0.56. Lactic acid initially 10.9. Creatinine 0.78. WBC 3.8, hemoglobin 16, platelet count 157. Home cardiac medications: Amlodipine 5 mg daily, Lopressor 25 mg daily, also on levothyroxine 100 mcg daily 12/22 Patient states she is tired and not sleeping. She states she is having dizziness and states that it is related to balance. TSH 82. Daughter is at bedside. It appears that she may not be taking her medications. Echocardiogram is pending. 12/23 Orthostatic vital signs were positive yesterday afternoon. Echocardiogram reveals EF of 55 to 60%, mildly increased left ventricular wall thickness, mild mitral calcification, moderate mitral regurgitation, mild tricuspid regurgitation. Reviewed results with the patient. She denies having any chest pain or shortness of breath. Physical examination: Gen: This is a 67-year-old female in no acute distress VS: reviewed HEENT: Head is atraumatic, normocephalic. Pupils equal, round. Sclerae is anicteric. NECK: Supple. No JVD. LUNGS: Clear to auscultation. No wheezes or rhonchi. No intercostal retractions. HEART: Regular rate and rhythm. No murmur. ABDOMEN: Soft No tenderness. EXTREMITIES: No pedal edema. No calf tenderness. NEUROLOGICAL: Patient is awake, alert and oriented x3. Assessment: Syncopal episode most likely secondary to alcohol intoxication rule out cardiac causes Orthostatic hypotension Alcohol intoxication Lactic acidosis GERD Hypertension Hypothyroidism Plan: Continue patient's home cardiac medications Discontinue amlodipine and will allow mild permissive hypertension Continue telemetry monitoring Consider event monitor at the time of discharge Further recommendations to follow based upon clinical course Nurse practitioner note has been reviewed, I agree with documented findings and plan of care. Patient was seen and examined. Objective - Vital Signs Vital signs: Vital Signs Temp 97.5 F L 12/24/23 08:00 Pulse 89 12/24/23 08:00 Resp 17 12/24/23 08:00 BP 125/66 12/24/23 08:00 Pulse Ox 95 12/24/23 08:00 FiO2 Intake & Output 12/23/23 12/24/23 12/24/23 18:59 06:59 18:59 Intake Total 118 2400 Output Total 500 500 Balance -382 2400 -500 Weight 84.5 kg Intake: Intake, IV Titration 2400 Amount Dextrose 5%-Lactated 2400 Ringers 1,000 ml @ 100 mls/hr IV .Q10H CAROL ANN Rx#: [id number] Oral 118 Output: Urine 500 500 Other: Voiding Method Bedside Commode Bedside Commode Diaper Diaper Incontinent Incontinent # Voids 0 3 - Labs CBC & Chem 7: 12/24/23 07:36 12/24/23 07:36 Labs: Abnormal Lab Results - Last 24 Hours (Table) 12/23/23 12/24/23 12/24/23 Range/Units 12:03 07:36 07:36 MCV 111.7 H (80.0-100.0) fL MCH 39.1 H (25.0-35.0) pg Plt Count 120 L (150-450) k/uL Macrocytosis Marked A Sodium 131 L (137-145) mmol/L Potassium 3.3 L (3.5-5.1) mmol/L BUN <2 L (7-17) mg/dL Creatinine 0.32 L (0.52-1.04) mg/dL Glucose 136 H (74-99) mg/dL Plasma Lactic Acid Aleksander 2.9 H* (0.7-2.0) mmol/L Magnesium 1.4 L (1.6-2.3) mg/dL Total Bilirubin 4.0 H (0.2-1.3) mg/dL AST 100 H (14-36) U/L ALT 45 H (4-34) U/L Microbiology - Last 24 Hours (Table) 12/21/23 21:37 Blood Culture - Preliminary Blood
--- NOTE | 2023-12-24 15:06 | P.PN ---
Subjective Progress Note Date: 12/24/23 Interval History: This is a 67-year-old female PMH of major depression, anxiety, alcohol abuse, HTN and multiple other medical issues presented to the ER with near syncope.patient reports she was standing at the checkout at [facility] had not been feeling well, collapsed without syncope .patient recalls the entire incident, denies weakness or legs buckling. denies seizure activity, denies loss of urine or bowel control, no tongue biting .denies nausea or vomiting, frequently has diarrhea -nonbloody.denies hitting her head. reports she last drink half a bottle of wine in the evening before .serum alcohol 189, MCV 115.3 ,T. bili 3.7, AST 220, ALT 70, alk phos 139, INR 1.3, hemoglobin 16, platelets 157. UA reporting many bacteria, lactic acid 9.2, 10.9, 10.4 currently 5 with IV fluid hydration.glucose 124, electrolytes and renal function stable. Troponin negative x 1. Denies chest pain, palpitations or shortness of breath. atient was seen and examined today. Patient A and O x 2, [facility] Vitals unremarkable, on room air. Labs reviewedWBC is 5.1, hemoglobin 14.0, platelets 115, marked microcytosis. BMP showed sodium 134 potassium 3.1 CO2 21 creatinine 0.36 lactate 3.2, came down to 2.9. Total bilirubin 4.2, AST 102 ALT 50 trending down normal alkaline phosphatase. TSH yesterday was 82.22, free T40.08. Will continue Synthroid Neurology, cardiology and general surgery consulted. MRI head pending. atient was seen and examined today. Patient is alert oriented x 2, family at bedside. Able to tell name date of , unable to remember current year. Vitals are unremarkable. CBC showed WBCs 4.8 hemoglobin 15.5 platelets 120. Sodium 131, potassium 3.3, creatinine 0.32. Magnesium 1.4. AST and ALT coming down. Bilirubin slightly better. Assessment and plan: Near syncope: Alcohol intoxication, high risk of withdrawal Dehydration Lactic acidosis Alcohol use disorder Elevated LFTs, hyperbilirubinemia Depression/anxiety Thrombocytopenia: Continue CIWA protocol, IV fluids, thiamine, folic acid, multivitamin Monitor lactic acid. Counseling to quit alcohol Echocardiogramnormal EF, grade 1 diastolic dysfunction, no RWMA Neurology, cardiology and general surgery consulted Per general surgery no surgical indications. Monitor CMP MRI head pending. Hypothyroidism: TSH more than 82, low free T4 Concern for compliance Synthroid 100 mcg DVT prophylaxis: SCD PHYSICAL EXAMINATION: GENERAL: The patient is A&O x2, NAD HEENT: EOMI, Sclerae anicteric, Moist Mucous membranes Neck: Supple, Non tender, No JVD CARDIOVASCULAR: S1, S2 present. No murmurs, rubs, or gallops. PULMONARY: Equal breath souds B/L, No wheezing, No crackles. ABDOMEN: Soft, nontender, nondistended, normoactive bowel sounds. No guarding or rebound tenderness. MUSCULOSKELETAL: No edema, No cyanosis. No clubbing. Normal ROM. Intact peripheral pulses. Skin; Warm. No rash. REVIEW OF SYSTEMS: Limited CONSTITUTIONAL: No fever or chills. CARDIOVASCULAR: No chest pain, palpitations or syncope. PULMONARY: No shortness of breath, no cough, sore throat. GASTROINTESTINAL: No nausea, vomiting, diarrhea, abdominal pain. : No Dysuria, urgency, frequency. Extremities: No edema. NEUROLOGICAL: No headaches, no weakness, or numbness Dictation was produced using [employer] dictation software. please excuse any grammatical, word or spelling errors. Objective - Vital Signs Vital signs: Vital Signs Temp 97.5 F L 12/24/23 12:00 Pulse 72 12/24/23 14:00 Resp 17 12/24/23 14:00 BP 127/74 12/24/23 12:00 Pulse Ox 96 12/24/23 12:00 FiO2 Intake & Output 12/23/23 12/24/23 12/24/23 18:59 06:59 18:59 Intake Total 118 2400 Output Total 500 500 Balance -382 2400 -500 Weight 84.5 kg Intake: Intake, IV Titration 2400 Amount Dextrose 5%-Lactated 2400 Ringers 1,000 ml @ 100 mls/hr IV .Q10H CAROL ANN Rx#: [id number] Oral 118 Output: Urine 500 500 Other: Voiding Method Bedside Commode Bedside Commode Bedside Commode Diaper Diaper Diaper Incontinent Incontinent Incontinent CAPD # Voids 0 3 - Labs CBC & Chem 7: 12/24/23 07:36 12/24/23 07:36 Labs: Abnormal Lab Results - Last 24 Hours (Table) 12/24/23 12/24/23 Range/Units 07:36 07:36 MCV 111.7 H (80.0-100.0) fL MCH 39.1 H (25.0-35.0) pg Plt Count 120 L (150-450) k/uL Macrocytosis Marked A Sodium 131 L (137-145) mmol/L Potassium 3.3 L (3.5-5.1) mmol/L BUN <2 L (7-17) mg/dL Creatinine 0.32 L (0.52-1.04) mg/dL Glucose 136 H (74-99) mg/dL Magnesium 1.4 L (1.6-2.3) mg/dL Total Bilirubin 4.0 H (0.2-1.3) mg/dL AST 100 H (14-36) U/L ALT 45 H (4-34) U/L Microbiology - Last 24 Hours (Table) 12/21/23 21:37 Blood Culture - Preliminary Blood
[2023-12-24] MEDS ORDERED: Potassium Replacement Protocol 1 EACH MISC MISCELLANE PRN (17:23)
[2023-12-24] MEDS: POTASSIUM CHLORIDE ER 20 MEQ TAB.ER PO SCH (17:59)
[2023-12-24] MEDS: LACTULOSE 20 GM/30 ML CUP PO SCH (17:59)
[2023-12-25 08:09] LABS: Basophils % (A) 1 %; Eosinophils # (A) 0.1 k/uL (0-0.7); Eosinophils % (A) 3 %; HCT 39.7 % (34.0-46.0); HGB 14.1 gm/dL (11.4-16.0); Lymphocytes # (A) 1.2 k/uL (1.0-4.8); Lymphocytes % (A) 24 %; MCH 39.1 pg (25.0-35.0); MCHC 35.4 g/dL (31.0-37.0); MCV 110.5 fL (80.0-100.0); Macrocytosis Marked; Mean Platelet Volume 7.6; Monocytes # (A) 0.2 k/uL (0-1.0); Monocytes % (A) 4 %; Neutrophils # (A) 3.2 k/uL (1.3-7.7); Neutrophils % (A) 67 %; Platelet Count 151 k/uL (150-450); RBC 3.59 m/uL (3.80-5.40); RDW 13.6 % (11.5-15.5); WBC 4.8 k/uL (3.8-10.6)
--- NOTE | 2023-12-25 08:37 | P.PN ---
Subjective Progress Note Date: 12/25/23 Patient was stable. She has no complaints of abdominal pain. She will continue receive supportive care. No surgical management plan. Objective - Vital Signs Vital signs: Vital Signs Temp 97.7 F 12/25/23 04:00 Pulse 91 12/25/23 05:45 Resp 17 12/25/23 04:00 BP 106/73 12/25/23 05:45 Pulse Ox 94 L 12/25/23 04:00 FiO2 Intake & Output 12/24/23 12/25/23 12/25/23 18:59 06:59 18:59 Output Total 1000 400 Balance -1000 -400 Output: Urine 1000 400 Other: Voiding Method Bedside Commode Diaper Diaper External Catheter Incontinent CAPD # Voids 1 - Labs CBC & Chem 7: 12/25/23 07:51 12/24/23 07:36 Labs: Abnormal Lab Results - Last 24 Hours (Table) 12/24/23 12/24/23 12/24/23 Range/Units 07:36 07:36 14:50 RBC (3.80-5.40) m/uL MCV 111.7 H (80.0-100.0) fL MCH 39.1 H (25.0-35.0) pg Plt Count 120 L (150-450) k/uL Macrocytosis Marked A Sodium 131 L (137-145) mmol/L Potassium 3.3 L (3.5-5.1) mmol/L BUN <2 L (7-17) mg/dL Creatinine 0.32 L (0.52-1.04) mg/dL Glucose 136 H (74-99) mg/dL Magnesium 1.4 L (1.6-2.3) mg/dL Total Bilirubin 4.0 H (0.2-1.3) mg/dL AST 100 H (14-36) U/L ALT 45 H (4-34) U/L Ammonia 63 H (<30) umol/L 12/25/23 12/25/23 Range/Units 07:51 07:51 RBC 3.59 L (3.80-5.40) m/uL MCV 110.5 H (80.0-100.0) fL MCH 39.1 H (25.0-35.0) pg Plt Count (150-450) k/uL Macrocytosis Marked A Sodium (137-145) mmol/L Potassium (3.5-5.1) mmol/L BUN (7-17) mg/dL Creatinine (0.52-1.04) mg/dL Glucose (74-99) mg/dL Magnesium (1.6-2.3) mg/dL Total Bilirubin (0.2-1.3) mg/dL AST (14-36) U/L ALT (4-34) U/L Ammonia 42 H (<30) umol/L Microbiology - Last 24 Hours (Table) 12/21/23 21:37 Blood Culture - Preliminary Blood
[2023-12-25 08:49] LABS: ALT 44 U/L (4-34); AST 104 U/L (14-36); African American GFR (CKD) >90 (>60 ml/min/1.73 sqM); Albumin 3.5 g/dL (3.5-5.0); Alkaline Phosphatase 82 U/L (38-126); Anion Gap 6 mmol/L; Blood Urea Nitrogen <2 mg/dL (7-17); Calcium 8.3 mg/dL (8.4-10.2); Carbon Dioxide 24 mmol/L (22-30); Chloride 100 mmol/L (98-107); Glucose 128 mg/dL (74-99); Non-African American GFR(CKD) >90 (>60 ml/min/1.73 sqM); Sodium 130 mmol/L (137-145); Total Bilirubin 3.6 mg/dL (0.2-1.3); Total Protein 6.1 g/dL (6.3-8.2)
[2023-12-25 09:06] LABS: Potassium 2.7 mmol/L (3.5-5.1)
[2023-12-25] MEDS ORDERED: Potassium Replacement Protocol 1 EACH MISC MISCELLANE PRN (09:15)
[2023-12-25] MEDS: POTASSIUM CHLORIDE 10 MEQ in WATER FOR INJECTION 1 100ML.BAG IVPB SCH (10:19)
--- NOTE | 2023-12-25 12:11 | P.PN ---
Subjective Progress Note Date: 12/24/23 12/24/2023: Patient was seen for a follow-up. Patient continues to be confused, encephalopathic. Patient states she feels very tired. Offers no other complaints. No headache. 12/23/2023: Patient was initially seen by Dr. Teofilo Ventura. Please refer to his note for details. Patient is a 67-year-old female with alcohol use, had syncopal episode. Patient's blood alcohol level was 189 on arrival. Routine EEG is normal. MRI of the brain was ordered by Dr. Fagan along with ortho statics. Patient was seen for a follow-up. Patient admits to drinking alcohol. She feels better. She has little headache. Patient is still slightly confused. Some of the work-up during this hospital visit consisted of: Plasma lactic acid vein was as high as 10.9 and last one was 5.0 Initial serum glucose 124 AST 220 and ALT 70 Calcium, phosphorous, magnesium and sodium are within normal limits. 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 No acute intracranial abnormality. I personally reviewed and agree with report. Objective - Vital Signs Vital signs: Vital Signs Temp 97.5 F L 12/24/23 15:55 Pulse 67 12/24/23 15:55 Resp 17 12/24/23 15:55 BP 137/79 12/24/23 15:55 Pulse Ox 95 12/24/23 15:55 FiO2 Intake & Output 12/23/23 12/24/23 12/24/23 18:59 06:59 18:59 Intake Total 118 2400 Output Total 500 500 Balance -382 2400 -500 Weight 84.5 kg Intake: Intake, IV Titration 2400 Amount Dextrose 5%-Lactated 2400 Ringers 1,000 ml @ 100 mls/hr IV .Q10H CAROL ANN Rx#: [id number] Oral 118 Output: Urine 500 500 Other: Voiding Method Bedside Commode Bedside Commode Bedside Commode Diaper Diaper Diaper Incontinent Incontinent Incontinent CAPD # Voids 0 3 - Exam Patient is alert and awake in no distress. Patient believes it is the month of January and the year is . She states that she currently is in [place] in [place]. Speech and language functions are normal. Patient is mild to moderately encephalopathic. Pupils are equal, round and reacting. Visual ruiz are full, face is symmetric. Muscle strength appears normal. - Labs CBC & Chem 7: 12/25/23 07:51 12/25/23 07:51 Labs: Abnormal Lab Results - Last 24 Hours (Table) 12/24/23 12/24/23 12/24/23 Range/Units 07:36 07:36 14:50 MCV 111.7 H (80.0-100.0) fL MCH 39.1 H (25.0-35.0) pg Plt Count 120 L (150-450) k/uL Macrocytosis Marked A Sodium 131 L (137-145) mmol/L Potassium 3.3 L (3.5-5.1) mmol/L BUN <2 L (7-17) mg/dL Creatinine 0.32 L (0.52-1.04) mg/dL Glucose 136 H (74-99) mg/dL Magnesium 1.4 L (1.6-2.3) mg/dL Total Bilirubin 4.0 H (0.2-1.3) mg/dL AST 100 H (14-36) U/L ALT 45 H (4-34) U/L Ammonia 63 H (<30) umol/L Microbiology - Last 24 Hours (Table) 12/21/23 21:37 Blood Culture - Preliminary Blood Assessment and Plan Assessment: * Altered mental status, likely due to hepatic encephalopathy. * Syncopal episode Possibly due to alcohol use. Unsure if she had withdrawal episode event though level is elevated since states had similar episodes in past vs neuropathy vs seizure. If it is a seizure probable provoked * Alcohol intoxication (level of 189) * Hypothyroidism, significant * Transaminitis due to alcohol use (AST >ALT) * Hyponatremia, hypokalemia * Elevated lactate * Probable acute UTI, patient on ceftriaxone. * Macrocytosis: Rule out alcohol use causing vitamin B12/folate deficiency * Heavy alcohol use Plan: Patient's repeat ammonia level is 63, suggestive of hepatic encephalopathy. Previous ammonia level was 40 on 12/22/2023. Suggest starting lactulose. Discu ssed with patient's nurse to discuss with PCP. EEG was reported as normal. No focal slowing or epileptiform discharges were seen. MRI of the brain is pending. 2D echo revealed mildly increased left ventricular wall thickness. No obvious regional wall motion abnormalities. LVEF 55 to 60%. Normal left atrial size. Moderate MR. Centrally directed mitral regurgitation jet. Mildly increased left ventricular wall thickness. Cardiology on board. We will defer to cardiology to address MR. Orthostatic vitals were checked, supine blood pressure 132/78, sitting 133/94 and standing 112/77. Orthostatics are slightly positive. Cardiology on board. B12 809, folate 9.4, TSH 82.2, free T4 0.08. Ammonia is elevated 40. Patient has significantly abnormal thyroid functions. We will defer to IM to address thyroid functions. Dr. Ventura has recommended to hold off any antiseizure medication since not felt epileptic seizure at this time. Continue thiamine 100mg daily. Continue folic acid as well. Is on CIAZ protocol and will defer to primary team. Will defer the rest of medical management to primary and other specialist. Per [place] DMV because of syncopal episode, to avoid driving for 6 months until no further episodes, avoid heights, swim unassisted or use heavy machinery. Patient was counseled on alcohol cessation. Will defer the rest of medical management to primary and other specialist.
--- NOTE | 2023-12-25 13:43 | P.PN ---
Subjective Progress Note Date: 12/25/23 History of present illness: This is a 67-year-old female with no previous cardiac history and does not follow with a we[employer] wire [employer]. She has a past medical history of gastroesophageal reflux disease, hypertension, hypothyroidism, depression, alcohol use. We have been asked to evaluate the patient for syncope. Patient states that she was at [employer] shopping and all the send she was dizzy and then passed out. She states before that she had gone back to bed as she was not feeling well. She states that she had some vomiting. The ER record states she had diarrhea which she denies. Patient denies having any chest pain. No lightheadedness or dizziness at this time. Blood pressure 137/99, heart rate 99, pulse ox 97% on room air. EKG: Sinus rhythm with no acute ST-T wave changes. CT of the brain revealed chronic changes Chest x-ray: Atelectasis Abdominal ultrasound moderate to severe hepatic steatosis, sludge in the gallbladder. CT of the abdomen pelvis revealed hepatic steatosis versus hepatitis. Unable to exclude early cirrhosis. Cholelithiasis and small hiatal hernia. Nonobstructive right renal stone. Laboratory studies: D-dimer 0.56. Lactic acid initially 10.9. Creatinine 0.78. WBC 3.8, hemoglobin 16, platelet count 157. Home cardiac medications: Amlodipine 5 mg daily, Lopressor 25 mg daily, also on levothyroxine 100 mcg daily 12/22 Patient states she is tired and not sleeping. She states she is having dizziness and states that it is related to balance. TSH 82. Daughter is at bedside. It appears that she may not be taking her medications. Echocardiogram is pending. 12/23 Orthostatic vital signs were positive yesterday afternoon. Echocardiogram reveals EF of 55 to 60%, mildly increased left ventricular wall thickness, mild mitral calcification, moderate mitral regurgitation, mild tricuspid regurgitation. Reviewed results with the patient. She denies having any chest pain or shortness of breath. 12/24 Patient is seen and examined out of bed in chair. She still has occasional lightheadedness with standing. Denies any chest pain or shortness of breath. Physical examination: Gen: This is a 67-year-old female in no acute distress VS: reviewed HEENT: Head is atraumatic, normocephalic. Pupils equal, round. Sclerae is anicteric. NECK: Supple. No JVD. LUNGS: Clear to auscultation. No wheezes or rhonchi. No intercostal retractions. HEART: Regular rate and rhythm. No murmur. ABDOMEN: Soft No tenderness. EXTREMITIES: No pedal edema. No calf tenderness. NEUROLOGICAL: Patient is awake, alert and oriented x3. Assessment: Syncopal episode most likely secondary to alcohol intoxication rule out cardiac causes Orthostatic hypotension Alcohol intoxication Lactic acidosis GERD Hypertension Hypothyroidism Plan: Continue patient's home cardiac medications Continue telemetry monitoring Consider event monitor x1 week at the time of discharge or in outpatient setting Okay to discharge home from a cardiology standpoint. Follow-up in office in 1-2 weeks. Nurse practitioner note has been reviewed, I agree with documented findings and plan of care. Patient was seen and examined. Objective - Vital Signs Vital signs: Vital Signs Temp 97.7 F 12/25/23 12:13 Pulse 82 12/25/23 12:13 Resp 16 12/25/23 12:13 BP 114/77 12/25/23 12:13 Pulse Ox 95 12/25/23 12:13 FiO2 Intake & Output 12/24/23 12/25/23 12/25/23 18:59 06:59 18:59 Output Total 1000 400 200 Balance -1000 -400 -200 Output: Urine 1000 400 200 Other: Voiding Method Bedside Commode Diaper Diaper Diaper External Catheter External Catheter Incontinent CAPD # Voids 1 - Labs CBC & Chem 7: 12/25/23 07:51 12/25/23 07:51 Labs: Abnormal Lab Results - Last 24 Hours (Table) 12/24/23 12/25/23 12/25/23 Range/Units 14:50 07:51 07:51 RBC 3.59 L (3.80-5.40) m/uL MCV 110.5 H (80.0-100.0) fL MCH 39.1 H (25.0-35.0) pg Macrocytosis Marked A Sodium 130 L (137-145) mmol/L Potassium 2.7 L* (3.5-5.1) mmol/L BUN <2 L (7-17) mg/dL Creatinine 0.31 L (0.52-1.04) mg/dL Glucose 128 H (74-99) mg/dL Calcium 8.3 L (8.4-10.2) mg/dL Total Bilirubin 3.6 H (0.2-1.3) mg/dL AST 104 H (14-36) U/L ALT 44 H (4-34) U/L Ammonia 63 H (<30) umol/L Total Protein 6.1 L (6.3-8.2) g/dL 12/25/23 Range/Units 07:51 RBC (3.80-5.40) m/uL MCV (80.0-100.0) fL MCH (25.0-35.0) pg Macrocytosis Sodium (137-145) mmol/L Potassium (3.5-5.1) mmol/L BUN (7-17) mg/dL Creatinine (0.52-1.04) mg/dL Glucose (74-99) mg/dL Calcium (8.4-10.2) mg/dL Total Bilirubin (0.2-1.3) mg/dL AST (14-36) U/L ALT (4-34) U/L Ammonia 42 H (<30) umol/L Total Protein (6.3-8.2) g/dL Microbiology - Last 24 Hours (Table) 12/21/23 21:37 Blood Culture - Preliminary Blood
--- NOTE | 2023-12-25 16:33 | P.PN ---
Subjective Progress Note Date: 12/25/23 Interval History: This is a 67-year-old female PMH of major depression, anxiety, alcohol abuse, HTN and multiple other medical issues presented to the ER with near syncope.patient reports she was standing at the checkout at [facility] had not been feeling well, collapsed without syncope .patient recalls the entire incident, denies weakness or legs buckling. denies seizure activity, denies loss of urine or bowel control, no tongue biting .denies nausea or vomiting, frequently has diarrhea -nonbloody.denies hitting her head. reports she last drink half a bottle of wine in the evening before .serum alcohol 189, MCV 115.3 ,T. bili 3.7, AST 220, ALT 70, alk phos 139, INR 1.3, hemoglobin 16, platelets 157. UA reporting many bacteria, lactic acid 9.2, 10.9, 10.4 currently 5 with IV fluid hydration.glucose 124, electrolytes and renal function stable. Troponin negative x 1. Denies chest pain, palpitations or shortness of breath. atient was seen and examined today. Patient A and O x 2, family at [facility]. Vitals unremarkable, on room air. Labs reviewedWBC is 5.1, hemoglobin 14.0, platelets 115, marked microcytosis. BMP showed sodium 134 potassium 3.1 CO2 21 creatinine 0.36 lactate 3.2, came down to 2.9. Total bilirubin 4.2, AST 102 ALT 50 trending down normal alkaline phosphatase. TSH yesterday was 82.22, free T40.08. Will continue Synthroid Neurology, cardiology and general surgery consulted. MRI head pending. atient was seen and examined today. Patient is alert oriented x 2, family at bedside. Able to tell name date of , unable to remember current year. Vitals are unremarkable. CBC showed WBCs 4.8 hemoglobin 15.5 platelets 120. Sodium 131, potassium 3.3, creatinine 0.32. Magnesium 1.4. AST and ALT coming down. Bilirubin slightly better. 12/24--was seen and examined today. Alert and oriented x 2. Able to tell date of , remember place, unable to remember current year, persistently says 2024 since last 3 days. Vitals are stable. CBC showed normal WBCs hemoglobin and platelets. Sodium 130, potassium 2.7, creatinine 0.31. AST and ALT seen, bilirubin trending down. Ammonia is better 42. Assessment and plan: Near syncope: Alcohol intoxication, high risk of withdrawal Dehydration Lactic acidosis Alcohol use disorder Elevated LFTs, hyperbilirubinemia Depression/anxiety Thrombocytopenia: Hyperammonemia: Continue CIWA protocol, IV fluids, thiamine, folic acid, multivitamin Monitor lactic acid. Counseling to quit alcohol Echocardiogramnormal EF, grade 1 diastolic dysfunction, no RWMA Neurology, cardiology and general surgery consulted Per general surgery no surgical indications. Monitor CMP Lactulose for high ammonia MRI head pending. Hypokalemia: Replace, monitor. Hypothyroidism: TSH more than 82, low free T4 Concern for compliance Synthroid 100 mcg DVT prophylaxis: SCD PHYSICAL EXAMINATION: GENERAL: The patient is A&O x2, NAD HEENT: EOMI, Sclerae anicteric, Moist Mucous membranes Neck: Supple, Non tender, No JVD CARDIOVASCULAR: S1, S2 present. No murmurs, rubs, or gallops. PULMONARY: Equal breath souds B/L, No wheezing, No crackles. ABDOMEN: Soft, nontender, nondistended, normoactive bowel sounds. No guarding or rebound tenderness. MUSCULOSKELETAL: No edema, No cyanosis. No clubbing. Normal ROM. Intact peripheral pulses. Skin; Warm. No rash. REVIEW OF SYSTEMS: Limited CONSTITUTIONAL: No fever or chills. CARDIOVASCULAR: No chest pain, palpitations or syncope. PULMONARY: No shortness of breath, no cough, sore throat. GASTROINTESTINAL: No nausea, vomiting, diarrhea, abdominal pain. : No Dysuria, urgency, frequency. Extremities: No edema. NEUROLOGICAL: No headaches, no weakness, or numbness Dictation was produced using [employer] dictation software. please excuse any grammatical, word or spelling errors. Objective - Vital Signs Vital signs: Vital Signs Temp 97.7 F 12/25/23 12:13 Pulse 82 12/25/23 12:13 Resp 16 12/25/23 12:13 BP 114/77 12/25/23 12:13 Pulse Ox 95 12/25/23 12:13 FiO2 Intake & Output 12/24/23 12/25/23 12/25/23 18:59 06:59 18:59 Output Total 1000 400 200 Balance -1000 -400 -200 Output: Urine 1000 400 200 Other: Voiding Method Bedside Commode Diaper Diaper Diaper External Catheter External Catheter Incontinent CAPD # Voids 1 - Labs CBC & Chem 7: 12/25/23 07:51 12/25/23 07:51 Labs: Abnormal Lab Results - Last 24 Hours (Table) 12/25/23 12/25/23 12/25/23 Range/Units 07:51 07:51 07:51 RBC 3.59 L (3.80-5.40) m/uL MCV 110.5 H (80.0-100.0) fL MCH 39.1 H (25.0-35.0) pg Macrocytosis Marked A Sodium 130 L (137-145) mmol/L Potassium 2.7 L* (3.5-5.1) mmol/L BUN <2 L (7-17) mg/dL Creatinine 0.31 L (0.52-1.04) mg/dL Glucose 128 H (74-99) mg/dL Calcium 8.3 L (8.4-10.2) mg/dL Total Bilirubin 3.6 H (0.2-1.3) mg/dL AST 104 H (14-36) U/L ALT 44 H (4-34) U/L Ammonia 42 H (<30) umol/L Total Protein 6.1 L (6.3-8.2) g/dL Microbiology - Last 24 Hours (Table) 12/21/23 21:37 Blood Culture - Preliminary Blood
[2023-12-26 09:10] LABS: Basophils % (A) 0 %; Eosinophils # (A) 0.1 k/uL (0-0.7); Eosinophils % (A) 2 %; HCT 42.6 % (34.0-46.0); HGB 14.7 gm/dL (11.4-16.0); Lymphocytes # (A) 0.7 k/uL (1.0-4.8); Lymphocytes % (A) 11 %; MCH 38.2 pg (25.0-35.0); MCHC 34.5 g/dL (31.0-37.0); MCV 110.9 fL (80.0-100.0); Macrocytosis Marked; Mean Platelet Volume 8.3; Monocytes # (A) 0.2 k/uL (0-1.0); Monocytes % (A) 3 %; Neutrophils # (A) 5.3 k/uL (1.3-7.7); Neutrophils % (A) 83 %; Platelet Count 129 k/uL (150-450); RBC 3.84 m/uL (3.80-5.40); RDW 13.8 % (11.5-15.5); WBC 6.4 k/uL (3.8-10.6)
[2023-12-26 09:24] LABS: ALT 43 U/L (4-34); AST 83 U/L (14-36); African American GFR (CKD) >90 (>60 ml/min/1.73 sqM); Albumin 3.7 g/dL (3.5-5.0); Alkaline Phosphatase 82 U/L (38-126); Anion Gap 8 mmol/L; Blood Urea Nitrogen <2 mg/dL (7-17); Calcium 8.2 mg/dL (8.4-10.2); Carbon Dioxide 21 mmol/L (22-30); Chloride 98 mmol/L (98-107); Glucose 136 mg/dL (74-99); Magnesium 1.3 mg/dL (1.6-2.3); Non-African American GFR(CKD) >90 (>60 ml/min/1.73 sqM); Potassium 3.6 mmol/L (3.5-5.1); Sodium 127 mmol/L (137-145); Total Bilirubin 4.1 mg/dL (0.2-1.3); Total Protein 6.4 g/dL (6.3-8.2)
--- NOTE | 2023-12-26 10:29 | P.PN ---
Subjective Progress Note Date: 12/25/23 12/25/2023: Patient was seen for a follow-up. Patient is much more alert and awake. Patient denies any headache or dizziness. Her orientation as level of alertness has improved. Please refer to examination below. 12/24/2023: Patient was seen for a follow-up. Patient continues to be confused, encephalopathic. Patient states she feels very tired. Offers no other complaints. No headache. 12/23/2023: Patient was initially seen by Dr. Teofilo Ventura. Please refer to his note for details. Patient is a 67-year-old female with alcohol use, had syncopal episode. Patient's blood alcohol level was 189 on arrival. Routine EEG is normal. MRI of the brain was ordered by Dr. Fagan along with orthostatics. Patient was seen for a follow-up. Patient admits to drinking alcohol. She feels better. She has little headache. Patient is still slightly confused. Some of the work-up during this hospital visit consisted of: Plasma lactic acid vein was as high as 10.9 and last one was 5.0 Initial serum glucose 124 AST 220 and ALT 70 Calcium, phosphorous, magnesium and sodium are within normal limits. 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 No acute intracranial abnormality. I personally reviewed and agree with report. Objective - Vital Signs Vital signs: Vital Signs Temp 97.8 F 12/25/23 16:00 Pulse 68 12/25/23 16:00 Resp 17 12/25/23 16:00 BP 127/81 12/25/23 16:00 Pulse Ox 97 12/25/23 16:00 FiO2 Intake & Output 12/24/23 12/25/23 12/25/23 18:59 06:59 18:59 Intake Total 950 Output Total 1000 400 200 Balance -1000 -400 750 Intake: Intake, IV Titration 950 Amount Dextrose 5%-Lactated 500 Ringers 1,000 ml @ 100 mls/hr IV .Q10H CAROL ANN Rx#: [id number] Potassium Chloride 10 meq 400 In Water For Injection 1 100ml.bag @ 100 mls/hr IVPB Q1HR CAROL ANN Rx#: [id number] cefTRIAXone 2 gm In 50 Sodium Chloride 0.9% 50 ml @ 100 mls/hr IVPB Q24HR CAROL ANN Rx#:[id number] Output: Urine 1000 400 200 Other: Voiding Method Bedside Commode Diaper Diaper Diaper External Catheter External Catheter Incontinent CAPD # Voids 1 - Exam Patient is alert and awake in no distress. Patient states it is the month of November and the year is . On prompting, she did say it is . She knows that she is in [facility] in [place]. She knows name of the current president Mr. Kline. Speech and language functions are normal. Patient is mildly encephalopathic. Pupils are equal, round and reacting. Visual ruiz are full, face is symmetric. Muscle strength is normal in the upper extremities. No ataxia. No asterixis. - Labs CBC & Chem 7: 12/26/23 08:47 12/26/23 08:47 Labs: Abnormal Lab Results - Last 24 Hours (Table) 12/25/23 12/25/23 12/25/23 Range/Units 07:51 07:51 07:51 RBC 3.59 L (3.80-5.40) m/uL MCV 110.5 H (80.0-100.0) fL MCH 39.1 H (25.0-35.0) pg Macrocytosis Marked A Sodium 130 L (137-145) mmol/L Potassium 2.7 L* (3.5-5.1) mmol/L BUN <2 L (7-17) mg/dL Creatinine 0.31 L (0.52-1.04) mg/dL Glucose 128 H (74-99) mg/dL Calcium 8.3 L (8.4-10.2) mg/dL Total Bilirubin 3.6 H (0.2-1.3) mg/dL AST 104 H (14-36) U/L ALT 44 H (4-34) U/L Ammonia 42 H (<30) umol/L Total Protein 6.1 L (6.3-8.2) g/dL Microbiology - Last 24 Hours (Table) 12/21/23 21:37 Blood Culture - Preliminary Blood Assessment and Plan Assessment: * Altered mental status, likely due to hepatic encephalopathy. * Syncopal episode Possibly due to alcohol use. Unsure if she had withdrawal episode event though level is elevated since states had similar episodes in past vs neuropathy vs seizure. If it is a seizure probable provoked * Alcohol intoxication (level of 189) * Hypothyroidism, significant * Transaminitis due to alcohol use (AST >ALT) * Hyponatremia, hypokalemia * Elevated lactate * Probable acute UTI, patient on ceftriaxone. * Macrocytosis: Rule out alcohol use causing vitamin B12/folate deficiency * Heavy alcohol use Plan: Patient's encephalopathy has improved. She has been started on lactulose for probable hepatic encephalopathy. Her repeat ammonia level has improved 42. Continue lactulose. EEG was reported as normal. No focal slowing or epileptiform discharges were seen. MRI of the brain is pending. 2D echo revealed mildly increased left ventricular wall thickness. No obvious regional wall motion abnormalities. LVEF 55 to 60%. Normal left atrial size. Moderate MR. Centrally directed mitral regurgitation jet. Mildly increased left ventricular wall thickness. Cardiology on board. We will defer to cardiology to address MR. Orthostatic vitals rechecked were normal (previously positive). Supine blood pressure 106/73, sitting 104/71 and standing 105/72. Pulse were 80, 91 and 103 respectively. Cardiology on board. B12 809, folate 9.4, TSH 82.2, free T4 0.08. Ammonia is elevated 40. Patient has significantly abnormal thyroid functions. We will defer to IM to address thyroid functions. Dr. Ventura has recommended to hold off any antiseizure medication since not felt epileptic seizure at this time. Continue thiamine 100mg daily. Continue folic acid as well. Is on CIWA protocol and will defer to primary team. Will defer the rest of medical management to primary and other specialist. Per [place] DMV because of syncopal episode, to avoid driving for 6 months until no further episodes, avoid heights, swim unassisted or use heavy machinery. Patient was counseled on alcohol cessation.
--- NOTE | 2023-12-26 12:54 | P.PN ---
Subjective Progress Note Date: 12/26/23 Principal diagnosis: Cholelithiasis Patient seems to be doing better. No further syncopal episodes. Having an MRI of the brain today. Daughter present at bedside. Denies abdominal pain. Tolerating diet. She has not had a bowel movement since admission. Labs still show elevated liver enzymes consistent with her underlying liver disease. Objective - Vital Signs Vital signs: Vital Signs Temp 97.5 F L 12/26/23 08:00 Pulse 89 12/26/23 12:00 Resp 16 12/26/23 12:00 BP 132/84 12/26/23 12:00 Pulse Ox 97 12/26/23 12:00 FiO2 Intake & Output 12/25/23 12/26/23 12/26/23 18:59 06:59 18:59 Intake Total 950 120 Output Total 200 200 Balance 750 -200 120 Weight 41.5 kg Intake: Intake, IV Titration 950 Amount Dextrose 5%-Lactated 500 Ringers 1,000 ml @ 150 mls/hr IV .Q6H40M [facility] Rx# :[id number] Potassium Chloride 10 meq 400 In Water For Injection 1 100ml.bag @ 100 mls/hr IVPB Q1HR [facility] Rx#: [id number] cefTRIAXone 2 gm In 50 Sodium Chloride 0.9% 50 ml @ 100 mls/hr IVPB Q24HR [facility] Rx#:[id number] Oral 120 Output: Urine 200 200 Other: Voiding Method Diaper Diaper Diaper External Catheter External Catheter External Catheter # Voids 2 # Bowel Movements 1 1 - Exam Abdomen: Soft, nontender, nondistended - Labs CBC & Chem 7: 12/26/23 08:47 12/26/23 08:47 Labs: Abnormal Lab Results - Last 24 Hours (Table) 12/26/23 12/26/23 12/26/23 Range/Units 08:39 08:47 08:47 MCV 110.9 H (80.0-100.0) fL MCH 38.2 H (25.0-35.0) pg Plt Count 129 L (150-450) k/uL Lymphocytes # 0.7 L (1.0-4.8) k/uL Macrocytosis Marked A Sodium 127 L (137-145) mmol/L Carbon Dioxide 21 L (22-30) mmol/L BUN <2 L (7-17) mg/dL Creatinine 0.33 L (0.52-1.04) mg/dL Glucose 136 H (74-99) mg/dL Calcium 8.2 L (8.4-10.2) mg/dL Magnesium 1.3 L (1.6-2.3) mg/dL Total Bilirubin 4.1 H (0.2-1.3) mg/dL AST 83 H (14-36) U/L ALT 43 H (4-34) U/L Ammonia 47 H (<30) umol/L Assessment and Plan (1) Cholelithiasis Narrative/Plan: 68-year-old female with gallstones. Patient with history of significant liver disease related to alcohol use. No plans for cholecystectomy at this time. Will sign off. Please call if needed. Current Visit: Yes Status: Acute Code(s): K80.20 - CALCULUS OF GALLBLADDER W/O CHOLECYSTITIS W/O OBSTRUCTION SNOMED Code(s): 861407973
--- NOTE | 2023-12-26 13:09 | P.PN ---
Subjective HISTORY OF PRESENT ILLNESS: This is a 67-year-old female with no previous cardiac history and does not follow with a industrial designer. She has a past medical history of gastroesophageal reflux disease, hypertension, hypothyroidism, depression, alcohol use. We have been asked to evaluate the patient for syncope. Patient states that she was at [employer] shopping and all the send she was dizzy and then passed out. She states before that she had gone back to bed as she was not feeling well. She states that she had some vomiting. The ER record states she had diarrhea which she denies. Patient denies having any chest pain. No lightheadedness or dizziness at this time. Blood pressure 137/99, heart rate 99, pulse ox 97% on room air. EKG: Sinus rhythm with no acute ST-T wave changes. CT of the brain revealed chronic changes Chest x-ray: Atelectasis Abdominal ultrasound moderate to severe hepatic steatosis, sludge in the gallbladder. CT of the abdomen pelvis revealed hepatic steatosis versus hepatitis. Unable to exclude early cirrhosis. Cholelithiasis and small hiatal hernia. Nonobstructive right renal stone. Laboratory studies: D-dimer 0.56. Lactic acid initially 10.9. Creatinine 0.78. WBC 3.8, hemoglobin 16, platelet count 157. Home cardiac medications: Amlodipine 5 mg daily, Lopressor 25 mg daily, also on levothyroxine 100 mcg daily 12/22 Patient states she is tired and not sleeping. She states she is having dizziness and states that it is related to balance. TSH 82. Daughter is at bedside. It appears that she may not be taking her medications. Echocardiogram is pending. 12/23 Orthostatic vital signs were positive yesterday afternoon. Echocardiogram reveals EF of 55 to 60%, mildly increased left ventricular wall thickness, mild mitral calcification, moderate mitral regurgitation, mild tricuspid regurgitation. Reviewed results with the patient. She denies having any chest pain or shortness of breath. 12/24 Patient is seen and examined out of bed in chair. She still has occasional lightheadedness with standing. Denies any chest pain or shortness of breath. 12/26/2023 Patient examined this morning at the bedside. Patient denies chest pain or pressure. Denies shortness of breath. Vital signs are stable. PHYSICAL EXAM: VITAL SIGNS: Reviewed. GENERAL: Well-developed in no acute distress. NECK: Supple. No JVD or thyromegaly LUNGS: Respirations even and unlabored. Lungs essentially clear to auscultation bilaterally. HEART: Regular rate and rhythm. S1 and S2 heard. EXTREMITIES: Normal range of motion. No clubbing or cyanosis. Peripheral pulses intact. No lower extremity edema ASSESSMENT: Syncopal episode most likely secondary to alcohol intoxication Orthostatic hypotension Alcohol intoxication Lactic acidosis GERD Hypertension Hypothyroidism PLAN: Continue current cardiac medications Will consider event monitor on an outpatient basis No further inpatient recommendations from a cardiac standpoint We will sign off. Please reconsult if needed. Nurse practitioner note has been reviewed by physician. Signing provider agrees with the documented findings, assessment, and plan of care documented by COOPER HELPER as a scribe. Objective - Vital Signs Vital signs: Vital Signs Temp 97.5 F L 12/26/23 08:00 Pulse 89 12/26/23 12:00 Resp 16 12/26/23 12:00 BP 132/84 12/26/23 12:00 Pulse Ox 97 12/26/23 12:00 FiO2 Intake & Output 12/25/23 12/26/23 12/26/23 18:59 06:59 18:59 Intake Total 950 120 Output Total 200 200 Balance 750 -200 120 Weight 41.5 kg Intake: Intake, IV Titration 950 Amount Dextrose 5%-Lactated 500 Ringers 1,000 ml @ 150 mls/hr IV .Q6H40M [facility] Rx# :[id number] Potassium Chloride 10 meq 400 In Water For Injection 1 100ml.bag @ 100 mls/hr IVPB Q1HR [facility] Rx#: [id number] cefTRIAXone 2 gm In 50 Sodium Chloride 0.9% 50 ml @ 100 mls/hr IVPB Q24HR [facility] Rx#:[id number] Oral 120 Output: Urine 200 200 Other: Voiding Method Diaper Diaper Diaper External Catheter External Catheter External Catheter # Voids 2 # Bowel Movements 1 1 - Labs CBC & Chem 7: 12/26/23 08:47 12/26/23 08:47 Labs: Abnormal Lab Results - Last 24 Hours (Table) 12/26/23 12/26/23 12/26/23 Range/Units 08:39 08:47 08:47 MCV 110.9 H (80.0-100.0) fL MCH 38.2 H (25.0-35.0) pg Plt Count 129 L (150-450) k/uL Lymphocytes # 0.7 L (1.0-4.8) k/uL Macrocytosis Marked A Sodium 127 L (137-145) mmol/L Carbon Dioxide 21 L (22-30) mmol/L BUN <2 L (7-17) mg/dL Creatinine 0.33 L (0.52-1.04) mg/dL Glucose 136 H (74-99) mg/dL Calcium 8.2 L (8.4-10.2) mg/dL Magnesium 1.3 L (1.6-2.3) mg/dL Total Bilirubin 4.1 H (0.2-1.3) mg/dL AST 83 H (14-36) U/L ALT 43 H (4-34) U/L Ammonia 47 H (<30) umol/L
--- NOTE | 2023-12-26 14:27 | P.CN ---
Psychiatric Consult - . Consult date: 12/26/23 Consult:: 12/26/23 14:21 IDENTIFYING DATA: This patient is a 68-year-old female, she is she has 3 kids, she is retired she lives alone in a house. REASON FOR REFERRAL: Psychiatry was consulted for "capacity evaluation" HISTORY OF PRESENT ILLNESS: The patient presented to the hospital initially on 12/20 after a syncopal episode, apparently this is occurred multiple times in the past 2 weeks. Patient apparently was at [id number] when this happened. Patient's blood alcohol is 189. She was intoxicated as she admitted. Her liver function tests were elevated, patient has been followed by surgery as patient has cirrhosis and apparently gallstones. Patient was seen today and agreeable to speak to proposal lead writer, she states that she has been "drinking too much". Claims that she has also been passing out. She states that she has been drinking wine fairly consistently however does not know how much she drinks per day. Claims that she has been taking her psychiatric meds for her depression and anxiety. She does not know why she takes the Abilify. Claims that she is not having any withdrawal symptoms at this time, denies any tremors denies any history of seizures or DTs. States that her sleep is fair, appetite has been minimal today. She does claim that she does have issues with cravings at times from alcohol, she states that her daughter is looking into rehab for her to go which she is okay with. She is on board with the treatment that she is receiving at the hospital here. At this time patient denies any suicidal or homical ideations, intent or plan. Patient denies any auditory, visual hallucinations and denies any paranoia or delusions. Patients admits to using alcohol as noted above, states that she has been drinking for the past 7 years or so since her . Claims that she has never gone to rehab in the past, denies any other recreational drug use. PAST PSYCHIATRIC HISTORY: Patient has a a history of alcohol use, depression and anxiety. Patient is currently on Abilify and Lexapro. Patient denies any previous psychiatric hospitalizations. Patient denies any psychiatric outpatient follow-up. Patient denies any history of suicide attempts in the past. PAST MEDICAL HISTORY: Past Medical History: Hypertension, Thyroid Disorder Additional Past Medical History / Comment(s): Hypothyroid. History of Any Multi-Drug Resistant Organisms: None Reported Past Surgical History: No Surgical Hx Reported Additional Past Surgical History / Comment(s): colonoscopy. BILAT CATARACTS REMOVED Past Anesthesia/Blood Transfusion Reactions: No Reported Reaction Past Psychological History: Anxiety, Depression Smoking Status: Former smoker Past Alcohol Use History: Occasional Past Drug Use History: None Reported ALLERGIES: as per EMR. CHEMICAL DEPENDENCY HISTORY: as per HPI. FAMILY PSYCHIATRIC/SUBSTANCE USE HISTORY: Denies SOCIAL HISTORY: Patient was born and raised in [place]. 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 Claims that she is currently retired she lives alone in a house. She is , she has 3 kids. She states that she does not have any legal history. MENTAL STATUS EXAM: General Appearance: Patient appears to be short in stature, stated age is alert, pleasant, and times to be cooperative. Patient appears to have fair hygiene and grooming wearing hospital gown with fair eye contact. Behavior: Patient is calmly lying in bed without any agitated behavior. Attempts to cooperate Speech: Patient's speech is fluent and nonpressured. Soft tone Mood/Affect: Patient reports their mood is "okay now", affect is congruent Suicidality/Homicidality: Patient denies having any suicidal or homicidal ideation intent or plan. Perceptions: Patient denies any visual hallucinations and denies any auditory hallucinations Though content/process: There is no evidence of any delusional thought content and thought process is linear and goal-directed. Memory and concentration: AOX3, grossly intact for the purposes of this session. Can spell "WORLD" backwards Judgment and insight: fair IMPRESSIONS: Depressive disorder unspecified Anxiety disorder unspecified Alcohol use disorder severe, currently in withdrawal PLAN: -At this time patient DOES NOT meet criteria for inpatient psychiatric admission. -Patient DOES have general decision making capacity at this time and is able to reason through and communicate/appreciate the risks, benefits and alternatives to treatment. -Would recommend the following medication changes/additions: Continue with Lexapro and Abilify as prescribed. Patient is agreeable to try acamprosate 333 mg 3 times daily and increase to 666 mg 3 times daily starting tomorrow -CIWA protocol with PRN Ativan for alcohol withdrawal. Continue to monitor vital signs. -appliance worker to provide patient with outpatient mental health/psychiatry resources for appropriate follow up upon discharge -[facility] spoke with patient about substance abuse and the harmful effects on medical and mental health, patient verbally understood and agreed. -appliance worker to provide patient substance use treatment resources including AA/NA meetings in the community. -appliance worker to provide patient with access line number to call for inpatient substance rehab -Communicated plan to patient's nurse -Psychiatry will sign off at this time -Please contact with any questions.
--- NOTE | 2023-12-26 15:09 | P.PN ---
Subjective Progress Note Date: 12/26/23 H&P Date: 12/22/23 Chief Complaint: Near syncope This is a 67-year-old female PMH of major depression, anxiety, alcohol abuse, HTN and multiple other medical issues presented to the ER with near syncope.patient reports she was standing at the checkout at [facility] had not been feeling well, collapsed without syncope .patient recalls the entire incident, denies weakness or legs buckling. denies seizure activity, denies loss of urine or bowel control, no tongue biting .denies nausea or vomiting, frequently has diarrhea -nonbloody.denies hitting her head. reports she last drink half a bottle of wine in the evening before .serum alcohol 189, MCV 115.3 ,T. bili 3.7, AST 220, ALT 70, alk phos 139, INR 1.3, hemoglobin 16, platelets 157. UA reporting many bacteria, lactic acid 9.2, 10.9, 10.4 currently 5 with IV fluid hydration.glucose 124, electrolytes and renal function stable. Troponin negative x 1. Denies chest pain, palpitations or shortness of breath. Imaging unavailable at this time. 12/26/2023 maintained on lactulose 3 times daily, ammonia currently 47, T. bili 4.1, AST 83, ALT 43 alk phos 82. Sitting up in chair, isolated low blood pressure of 76/48, beta-amol currently on hold, IV fluids increased. Denies chest pain, palpitations or shortness of breath. Denies nausea or vomiting. Continues on CIWA protocol, CIWA score 4. EF 55 to 60%, moderate mitral regurgitation. Objective - Vital Signs Vital signs: Vital Signs Temp 97.5 F L 12/26/23 08:00 Pulse 89 12/26/23 12:00 Resp 16 12/26/23 12:00 BP 132/84 12/26/23 12:00 Pulse Ox 97 12/26/23 12:00 FiO2 Intake & Output 12/25/23 12/26/23 12/26/23 18:59 06:59 18:59 Intake Total 950 120 Output Total 200 200 Balance 750 -200 120 Weight 41.5 kg Intake: Intake, IV Titration 950 Amount Dextrose 5%-Lactated 500 Ringers 1,000 ml @ 150 mls/hr IV .Q6H40M [facility] Rx# :[id number] Potassium Chloride 10 meq 400 In Water For Injection 1 100ml.bag @ 100 mls/hr IVPB Q1HR [facility] Rx#: [id number] cefTRIAXone 2 gm In 50 Sodium Chloride 0.9% 50 ml @ 100 mls/hr IVPB Q24HR [facility] Rx#:[id number] Oral 120 Output: Urine 200 200 Other: Voiding Method Diaper Diaper Diaper External Catheter External Catheter External Catheter # Voids 2 # Bowel Movements 1 1 - Exam General: Alert and oriented x 3, sitting up in chair, NAD. Vitals reviewed Eyes: PERRL, EOMI, conjunctiva normal HENT: normocephalic, mucus membranes moist Neck: supple, no JVD Lungs: Unlabored, equal air entry, normal respiratory effort, no wheezes or rales CV: Regular rate and rhythm, no murmur. Peripheral pulses 2+ Abdomen: soft, nondistended, no organomegaly Lymph: no cervical or axillary LAD Skin: warm and dry. Neuro: A&Ox3, anxious mood and depressed affect.fine tremors - Labs CBC & Chem 7: 12/26/23 08:47 12/26/23 08:47 Labs: Abnormal Lab Results - Last 24 Hours (Table) 12/26/23 12/26/23 12/26/23 Range/Units 08:39 08:47 08:47 MCV 110.9 H (80.0-100.0) fL MCH 38.2 H (25.0-35.0) pg Plt Count 129 L (150-450) k/uL Lymphocytes # 0.7 L (1.0-4.8) k/uL Macrocytosis Marked A Sodium 127 L (137-145) mmol/L Carbon Dioxide 21 L (22-30) mmol/L BUN <2 L (7-17) mg/dL Creatinine 0.33 L (0.52-1.04) mg/dL Glucose 136 H (74-99) mg/dL Calcium 8.2 L (8.4-10.2) mg/dL Magnesium 1.3 L (1.6-2.3) mg/dL Total Bilirubin 4.1 H (0.2-1.3) mg/dL AST 83 H (14-36) U/L ALT 43 H (4-34) U/L Ammonia 47 H (<30) umol/L Assessment and Plan Assessment: Near syncope, alcohol intoxication,DTs. Hepatic encephalopathy Dehydration Lactic acidosis Alcohol abuse Hyperbilirubinemia, elevated LFTs secondary to the above, related to alcoholic cirrhosis, hepatitis, hepatic steatosis, alcoholic liver disease. Orthostatic hypotension, resolved Cholelithiasis, nonacute as per general surgery evaluation. Conjunctivitis, Polytrim ordered. Alcohol use disorder Anxiety, depression Essential hypertension Hypothyroidism, severe, TSH 82.2, free T40.08, suspect secondary to patient not absorbing with alcoholism. Increase to 175mcg daily with repeat level outpatient in clinic. Plan: Continue on current medication resume ,monitoring and symptomatic treatment. CIWA protocol. alcohol abstinence reinforced. Psychiatry consult in place, recommendations pending. Cardiology and general surgery signing off. No event monitor recommended per cardiology. Discharge planning in progress for tomorrow. Recommending patient follow-up with GI outpatient related to LFTs, underlying hepatocellular disease ,as there is no inpatient GI available this week. The impression and plan of care has been dictated as directed. : I performed a history and examination of this patient, discussed the same with the dictator. I agree with the dictator's note ,documented as a scribe. Any additional findings or plans will be noted.
--- NOTE | 2023-12-26 16:36 | MR ---
EXAMINATION TYPE: MR brain wo/w con DATE OF EXAM: 12/26/2023 3:49 PM CLINICAL INDICATION: Female, 68 years old with history of syncopal; COMPARISON: 12/21/2023 TECHNIQUE: Multi planar, multi sequence imaging was performed through the brain including: T1, T2, In version recovery, susceptibility weighted imaging and gradient echo imaging and Diffusion weighted im aging. The patient was then given intravenous contrast and multi planar, T1 fat-saturation images wer e obtained. IV Contrast: 4 cc Gadavist FINDINGS: The leroy-white junctions, ventricular system, basal cisterns appear unremarkable. Diffusion-weighted imaging shows no evidence of restricted diffusion to suggest acute/subacute infarct. Intracranial ar terial flow voids are maintained. Midline structures show no abnormality. Scattered foci of high T2 s ignal intensity are seen within the periventricular white matter. The susceptibility weighted images do not reveal any evidence for micro-hemorrhage. After administration of gadolinium, no abnormal enha ncement is seen. The bone marrow signal is within normal limits. Paranasal sinuses and mastoid air cells: No significant paranasal sinus disease. Visualized orbits: Orbital contents are intact. There is moderate stenosis of the spinal canal at C3-C4 section axial imaging due to disc osteophyte complex. IMPRESSION: 1. No evidence of intracranial mass, acute/subacute infarct, or abnormal enhancement. 2. Nonspecific white matter changes, likely related to small vessel ischemic disease. 3. Moderate C3-C4 spinal canal stenosis
[2023-12-26] MEDS: bisacodyL 10 MG SUPP RECTAL SCH (16:38)
[2023-12-26] MEDS: POTASSIUM CHLORIDE ER 20 MEQ TAB.ER PO STA (16:39)
[2023-12-26] MEDS: MAGNESIUM SULFATE-D5W PMX 1 GM in DEXTROSE/WATER 1 100ML.BAG IVPB SCH (16:40)
[2023-12-26] MEDS: SODIUM CHLORIDE 0.9% 1,000 ML IV SCH (16:41)
[2023-12-26] MEDS: ACAMPROSATE CALCIUM 333 MG TABLET.DR PO SCH (17:47)
[2023-12-27] MEDS: LEVOTHYROXINE 75 MCG TAB PO SCH (06:17)
[2023-12-27 08:33] LABS: ALT 38 U/L (4-34); AST 67 U/L (14-36); African American GFR (CKD) >90 (>60 ml/min/1.73 sqM); Albumin 3.3 g/dL (3.5-5.0); Alkaline Phosphatase 75 U/L (38-126); Anion Gap 7 mmol/L; Blood Urea Nitrogen <2 mg/dL (7-17); Calcium 8.4 mg/dL (8.4-10.2); Carbon Dioxide 24 mmol/L (22-30); Chloride 97 mmol/L (98-107); Glucose 98 mg/dL (74-99); Magnesium 1.9 mg/dL (1.6-2.3); Non-African American GFR(CKD) >90 (>60 ml/min/1.73 sqM); Potassium 3.3 mmol/L (3.5-5.1); Sodium 128 mmol/L (137-145); Total Bilirubin 4.3 mg/dL (0.2-1.3); Total Protein 5.7 g/dL (6.3-8.2)
[2023-12-27] MEDS: POTASSIUM CHLORIDE ER 20 MEQ TAB.ER PO STA (09:50)
--- NOTE | 2023-12-27 12:39 | P.PN ---
Subjective Progress Note Date: 12/26/23 12/26/2023: Patient was seen for a follow-up. Patient is much more alert and awake. Patient's son was also present today. Per son, patient is not eating as well. Mentation however has much improved. 12/25/2023: Patient was seen for a follow-up. Patient is much more alert and aw edwina. Patient denies any headache or dizziness. Her orientation as level of alertness has improved. Please refer to examination below. 12/24/2023: Patient was seen for a follow-up. Patient continues to be confused, encephalopathic. Patient states she feels very tired. Offers no other complaints. No headache. 12/23/2023: Patient was initially seen by Dr. Teofilo Ventura. Please refer to his note for details. Patient is a 67-year-old female with alcohol use, had syncopal episode. Patient's blood alcohol level was 189 on arrival. Routine EEG is normal. MRI of the brain was ordered by Dr. Fagan along with orthostatics. Patient was seen for a follow-up. Patient admits to drinking alcohol. She feels better. She has little headache. Patient is still slightly confused. Some of the work-up during this hospital visit consisted of: Plasma lactic acid vein was as high as 10.9 and last one was 5.0 Initial serum glucose 124 AST 220 and ALT 70 Calcium, phosphorous, magnesium and sodium are within normal limits. 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 No acute intracranial abnormality. I personally reviewed and agree with report. Objective - Vital Signs Vital signs: Vital Signs Temp 97.5 F L 12/26/23 08:00 Pulse 89 12/26/23 16:00 Resp 16 12/26/23 16:00 BP 121/80 12/26/23 16:00 Pulse Ox 99 12/26/23 16:00 FiO2 Intake & Output 12/26/23 12/26/23 12/27/23 06:59 18:59 06:59 Intake Total 1520 Output Total 200 Balance -200 1520 Weight 41.5 kg Intake: Intake, IV Titration 1400 Amount Dextrose 5%-Lactated 1200 Ringers 1,000 ml @ 150 mls/hr IV .Q6H40M [facility] Rx# :[id number] Magnesium Sulfate-D5w Pmx 100 1 gm In Dextrose/Water 1 100ml.bag @ 100 mls/hr IVPB Q1H [facility] Rx#: [id number] cefTRIAXone 2 gm In 100 Sodium Chloride 0.9% 50 ml @ 100 mls/hr IVPB Q24HR [facility] Rx#:[id number] Oral 120 Output: Urine 200 Other: Voiding Method Diaper Diaper External Catheter External Catheter # Voids 2 # Bowel Movements 1 1 - Exam Patient is alert and awake in no distress. Patient states it is January 2024. Then she said it was November. And after prompting, she was able to tell it is 12/26/2021, her birthday. She knows that she is in [facility] imported on [place] and name of the current president Mr. Kline. Speech and language functions are normal. Patient has mild tremors of outstretched hands. Pupils are equal, round and reacting. Visual ruiz are full, face is symmetric. Muscle strength is normal in the upper extremities. No ataxia. No asterixis. - Labs CBC & Chem 7: 12/26/23 08:47 12/27/23 07:00 Labs: Abnormal Lab Results - Last 24 Hours (Table) 12/26/23 12/26/23 12/26/23 Range/Units 08:39 08:47 08:47 MCV 110.9 H (80.0-100.0) fL MCH 38.2 H (25.0-35.0) pg Plt Count 129 L (150-450) k/uL Lymphocytes # 0.7 L (1.0-4.8) k/uL Macrocytosis Marked A Sodium 127 L (137-145) mmol/L Carbon Dioxide 21 L (22-30) mmol/L BUN <2 L (7-17) mg/dL Creatinine 0.33 L (0.52-1.04) mg/dL Glucose 136 H (74-99) mg/dL Calcium 8.2 L (8.4-10.2) mg/dL Magnesium 1.3 L (1.6-2.3) mg/dL Total Bilirubin 4.1 H (0.2-1.3) mg/dL AST 83 H (14-36) U/L ALT 43 H (4-34) U/L Ammonia 47 H (<30) umol/L Assessment and Plan Assessment: * Altered mental status, likely due to hepatic encephalopathy. * Syncopal episode Possibly due to alcohol use. Unsure if she had withdrawal episode event though level is elevated since states had similar episodes in past vs neuropathy vs seizure. If it is a seizure probable provoked * Alcohol intoxication (level of 189) * Hypothyroidism, significant * Transaminitis due to alcohol use (AST >ALT) * Hyponatremia, hypokalemia * Elevated lactate * Probable acute UTI, patient on ceftriaxone. * Macrocytosis: Rule out alcohol use causing vitamin B12/folate deficiency * Heavy alcohol use Plan: Patient's encephalopathy has improved. She has been started on lactulose for probable hepatic encephalopathy. Her repeat ammonia level has improved 47. Continue lactulose. EEG was reported as normal. No focal slowing or epileptiform discharges were seen. MRI of the brain revealed no evidence of intracranial mass, acute/subacute infarct or abnormal enhancement. Nonspecific white matter changes, likely related to small vessel ischemic disease. Moderate C3-C4 spinal canal stenosis. I personally reviewed MRI, agree with the findings. On my review, there is mild to moderate C3-4 spinal canal stenosis seen on sagittal views. 2D echo revealed mildly increased left ventricular wall thickness. No obvious regional wall motion abnormalities. LVEF 55 to 60%. Normal left atrial size. Moderate MR. Centrally directed mitral regurgitation jet. Mildly increased left ventricular wall thickness. Cardiology on board. We will defer to cardiology to address MR. Orthostatic vitals rechecked were normal (previously positive). Supine blood pr essure 106/73, sitting 104/71 and standing 105/72. Pulse were 80, 91 and 103 respectively. Cardiology on board. B12 809, folate 9.4, TSH 82.2, free T4 0.08. Patient has significantly abnormal thyroid functions. We will defer to IM to address thyroid functions. Dr. Ventura has recommended to hold off any antiseizure medication since not felt epileptic seizure at this time. Continue thiamine 100mg daily. Continue folic acid as well. Is on CIPA protocol and will defer to primary team. Will defer the rest of medical management to primary and other specialist. Per [place] DMV because of syncopal episode, to avoid driving for 6 months until no f urther episodes, avoid heights, swim unassisted or use heavy machinery. Patient was counseled on alcohol cessation. Neurologically clear.
--- NOTE | 2023-12-27 15:10 | P.PN ---
Subjective Progress Note Date: 12/27/23 H&P Date: 12/22/23 Chief Complaint: Near syncope This is a 67-year-old female PMH of major depression, anxiety, alcohol abuse, HTN and multiple other medical issues presented to the ER with near syncope.patient reports she was standing at the checkout at [facility] had not been feeling well, collapsed without syncope .patient recalls the entire incident, denies weakness or legs buckling. denies seizure activity, denies loss of urine or bowel control, no tongue biting .denies nausea or vomiting, frequently has diarrhea -nonbloody.denies hitting her head. reports she last drink half a bottle of wine in the evening before .serum alcohol 189, MCV 115.3 ,T. bili 3.7, AST 220, ALT 70, alk phos 139, INR 1.3, hemoglobin 16, platelets 157. UA reporting many bacteria, lactic acid 9.2, 10.9, 10.4 currently 5 with IV fluid hydration.glucose 124, electrolytes and renal function stable. Troponin negative x 1. Denies chest pain, palpitations or shortness of breath. Imaging unavailable at this time. 12/26/2023 maintained on lactulose 3 times daily, ammonia currently 47, T. bili 4.1, AST 83, ALT 43 alk phos 82. Sitting up in chair, isolated low blood pressure of 76/48, beta-amol currently on hold, IV fluids increased. Denies chest pain, palpitations or shortness of breath. Denies nausea or vomiting. Continues on CIWA protocol, CIWA score 4. EF 55 to 60%, moderate mitral regurgitation. 12/27/2023 IV fluids adjusted yesterday from D5 LR to saline, sodium increased to 128. Brain MRI reported no evidence of intracranial mass acute/subacute infarct or abnormal enhancement, nonspecific white matter changes likely small vessel ischemic disease, moderate C3-C4 spinal canal stenosis. Maintained on lactulose. sensorium significantly improved. CIWA score 2. T. bili 4.3, AST decreased to 67, ALT decreased to 38, alk phos 75, ammonia level pending. Objective - Vital Signs Vital signs: Vital Signs Temp 97.7 F 12/27/23 12:00 Pulse 81 12/27/23 12:00 Resp 18 12/27/23 13:29 BP 108/73 12/27/23 12:00 Pulse Ox 95 12/27/23 12:00 FiO2 Intake & Output 12/26/23 12/27/23 12/27/23 18:59 06:59 18:59 Intake Total 1520 Balance 1520 Weight 41.5 kg Intake: Intake, IV Titration 1400 Amount Dextrose 5%-Lactated 1200 Ringers 1,000 ml @ 150 mls/hr IV .Q6H40M [facility] Rx# :[id number] Magnesium Sulfate-D5w Pmx 100 1 gm In Dextrose/Water 1 100ml.bag @ 100 mls/hr IVPB Q1H [facility] Rx#: [id number] cefTRIAXone 2 gm In 100 Sodium Chloride 0.9% 50 ml @ 100 mls/hr IVPB Q24HR [facility] Rx#:[id number] Oral 120 Other: Voiding Method Diaper Diaper External Catheter External Catheter # Voids 2 1 # Bowel Movements 1 1 1 - Exam General: Alert and oriented x 3, sitting up in chair, NAD. Vitals reviewed Eyes: PERRL, EOMI, mild crusty eyelids, conjunctiva normal HENT: normocephalic, mucus membranes moist Neck: supple, no JVD Lungs: Unlabored, equal air entry, normal respiratory effort, no wheezes or rales CV: Regular rate and rhythm, no murmur. Peripheral pulses 2+ Abdomen: soft, nondistended, no organomegaly Lymph: no cervical or axillary LAD Skin: warm and dry. Neuro: A&Ox3, anxious mood and depressed affect.fine tremors - Labs CBC & Chem 7: 12/26/23 08:47 12/27/23 07:00 Labs: Abnormal Lab Results - Last 24 Hours (Table) 12/27/23 12/27/23 Range/Units 07:00 11:49 Sodium 128 L (137-145) mmol/L Potassium 3.3 L (3.5-5.1) mmol/L Chloride 97 L (98-107) mmol/L BUN <2 L (7-17) mg/dL Creatinine 0.36 L (0.52-1.04) mg/dL Total Bilirubin 4.3 H (0.2-1.3) mg/dL AST 67 H (14-36) U/L ALT 38 H (4-34) U/L Ammonia 32 H (<30) umol/L Total Protein 5.7 L (6.3-8.2) g/dL Albumin 3.3 L (3.5-5.0) g/dL Microbiology - Last 24 Hours (Table) 12/21/23 21:37 Blood Culture - Final Blood Assessment and Plan Assessment: Near syncope, alcohol intoxication,DTs. Hepatic encephalopathy Dehydration Hyponatremia secondary to the above Lactic acidosis Alcohol abuse Hyperbilirubinemia, elevated LFTs secondary to the above, related to alcoholic cirrhosis, hepatitis, hepatic steatosis, alcoholic liver disease. Orthostatic hypotension, resolved Cholelithiasis, nonacute as per general surgery evaluation. Conjunctivitis, allergic Alcohol use disorder Anxiety, depression Essential hypertension Hypothyroidism, severe, TSH 82.2, free T40.08, suspect secondary to patient not absorbing with alcoholism. Increase to 175mcg daily with repeat level outpatient in clinic. Moderate C3-C4 spinal canal stenosis Plan: Continue on current medication resume ,monitoring and symptomatic treatment. Maintain IV fluids 0.9 normal saline. Close monitoring of electrolytes, LFTs with repeat labs ordered for tomorrow. OBRA completed. Sharmaine sanchez planning in progress for tomorrow for subacute rehab pending continued improvement in sodium. alcohol abstinence reinforced. Psychiatry consult in place, recommendations pending. Cardiology, general surgery and neurology has cleared patient. No event monitor recommended per cardiology. Recommending patient follow-up with GI outpatient related to LFTs, underlying hepatocellular disease ,as there is no inpatient GI available this week. The impression and plan of care has been dictated as directed. : I performed a history and examination of this patient, discussed the same with the dictator. I agree with the dictator's note ,documented as a scribe. Any additional findings or plans will be noted.
[2023-12-27] MEDS: ACAMPROSATE CALCIUM 333 MG TABLET.DR PO SCH (17:18)
[2023-12-28 07:19] LABS: ALT 37 U/L (4-34); African American GFR (CKD) >90 (>60 ml/min/1.73 sqM); Anion Gap 7 mmol/L; Blood Urea Nitrogen 4 mg/dL (7-17); Calcium 8.2 mg/dL (8.4-10.2); Carbon Dioxide 21 mmol/L (22-30); Chloride 104 mmol/L (98-107); Glucose 97 mg/dL (74-99); Non-African American GFR(CKD) >90 (>60 ml/min/1.73 sqM); Sodium 132 mmol/L (137-145); Total Bilirubin 3.8 mg/dL (0.2-1.3); Total Protein 5.5 g/dL (6.3-8.2)
[2023-12-28 07:25] LABS: AST 73 U/L (14-36); Alkaline Phosphatase 81 U/L (38-126); Potassium 3.6 mmol/L (3.5-5.1)
[2023-12-28 08:41] VITALS: RESP 18; TEMP 97.5
--- NOTE | 2023-12-28 09:14 | P.PN ---
Subjective Progress Note Date: 12/27/23 12/27/2023: Patient was seen for a follow-up. Patient is laying in the bed. She appears slightly encephalopathic today. She is however alert and awake. Patient admits of a mild headache. States yesterday was worse than today. No dizziness. 12/26/2023: Patient was seen for a follow-up. Patient is much more alert and awake. Patient's son was also present today. Per son, patient is not eating as well. Mentation however has much improved. 12/25/2023: Patient was seen for a follow-up. Patient is much more alert and awake. Patient denies any headache or dizziness. Her orientation as level of alertness has improved. Please refer to examination below. 12/24/2023: Patient was seen for a follow-up. Patient continues to be confused, encephalopathic. Patient states she feels very tired. Offers no other complaints. No headache. 12/23/2023: Patient was initially seen by Dr. Teofilo Ventura. Please refer to his note for details. Patient is a 67-year-old female with alcohol use, had syncopal episode. Patient's blood alcohol level was 189 on arrival. Routine EEG is normal. MRI of the brain was ordered by Dr. Fagan along with orthostatics. Patient was seen for a follow-up. Patient admits to drinking alcohol. She feels better. She has little headache. Patient is still slightly confused. Some of the work-up during this hospital visit consisted of: Plasma lactic acid vein was as high as 10.9 and last one was 5.0 Initial serum glucose 124 AST 220 and ALT 70 Calcium, phosphorous, magnesium and sodium are within normal limits. 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 No acute intracranial abnormality. I personally reviewed and agree with report. Objective - Vital Signs Vital signs: Vital Signs Temp 97.7 F 12/27/23 12:00 Pulse 81 12/27/23 12:00 Resp 18 12/27/23 13:29 BP 108/73 12/27/23 12:00 Pulse Ox 95 12/27/23 12:00 FiO2 Intake & Output 12/26/23 12/27/23 12/27/23 18:59 06:59 18:59 Intake Total 1520 Balance 1520 Weight 41.5 kg Intake: Intake, IV Titration 1400 Amount Dextrose 5%-Lactated 1200 Ringers 1,000 ml @ 150 mls/hr IV .Q6H40M [facility] Rx# :[id number] Magnesium Sulfate-D5w Pmx 100 1 gm In Dextrose/Water 1 100ml.bag @ 100 mls/hr IVPB Q1H [facility] Rx#: [id number] cefTRIAXone 2 gm In 100 Sodium Chloride 0.9% 50 ml @ 100 mls/hr IVPB Q24HR [facility] Rx#:[id number] Oral 120 Other: Voiding Method Diaper Diaper External Catheter External Catheter # Voids 2 1 # Bowel Movements 1 1 1 - Exam Patient is alert and awake in no distress. Patient states it is December and the year is and that she is in [facility] in [facility] and name of the current president Mr. Kline. Speech is slightly slurred. And language functions are normal. She has some crusting over her eyelashes. However the conjunctive appears clear. Patient has mild tremors of outstretched hands. Pupils are equal, round and reacting. Visual ruiz are full, face is symmetric. Muscle strength is normal in the upper extremities. No ataxia. No asterixis. - Labs CBC & Chem 7: 12/26/23 08:47 12/28/23 06:22 Labs: Abnormal Lab Results - Last 24 Hours (Table) 12/27/23 12/27/23 Range/Units 07:00 11:49 Sodium 128 L (137-145) mmol/L Potassium 3.3 L (3.5-5.1) mmol/L Chloride 97 L (98-107) mmol/L BUN <2 L (7-17) mg/dL Creatinine 0.36 L (0.52-1.04) mg/dL Total Bilirubin 4.3 H (0.2-1.3) mg/dL AST 67 H (14-36) U/L ALT 38 H (4-34) U/L Ammonia 32 H (<30) umol/L Total Protein 5.7 L (6.3-8.2) g/dL Albumin 3.3 L (3.5-5.0) g/dL Microbiology - Last 24 Hours (Table) 12/21/23 21:37 Blood Culture - Final Blood Assessment and Plan Assessment: * Altered mental status, likely due to hepatic encephalopathy. * Syncopal episode Possibly due to alcohol use. Unsure if she had withdrawal episode event though level is elevated since states had similar episodes in past vs neuropathy vs seizure. If it is a seizure probable provoked * Alcohol intoxication (level of 189) * Hypothyroidism, significant * Transaminitis due to alcohol use (AST >ALT), improving * Hyponatremia (persisting), hypokalemia * Elevated lactate * Probable acute UTI, patient on ceftriaxone. * Macrocytosis: Rule out alcohol use causing vitamin B12/folate deficiency * Heavy alcohol use Plan: Patient's encephalopathy has improved. She has been started on lactulose for pr obable hepatic encephalopathy. Her repeat ammonia level has improved 32. Continue lactulose. Patient again appears slightly encephalopathic EEG was reported as normal. No focal slowing or epileptiform discharges were seen. MRI of the brain revealed no evidence of intracranial mass, acute/subacute infarct or abnormal enhancement. Nonspecific white matter changes, likely related to small vessel ischemic disease. Moderate C3-C4 spinal canal stenosis. I personally reviewed MRI, agree with the findings. On my review, there is mild to moderate C3-4 spinal canal stenosis seen on sagittal views. 2D echo revealed mildly increased left ventricular wall thickness. No obvious regional wall motion abnormalities. LVEF 55 to 60%. Normal left atrial size. Moderate MR. Centrally directed mitral regurgitation jet. Mildly increased left ventricular wall thickness. Cardiology on board. We will defer to cardiology to address MR. Orthostatic vitals rechecked were normal (previously positive). Supine blood pressure 106/73, sitting 104/71 and standing 105/72. Pulse were 80, 91 and 103 respectively. Cardiology on board. B12 809, folate 9.4, TSH 82.2, free T4 0.08. Patient has significantly abnormal thyroid functions. We will defer to IM to address thyroid functions. Dr. Ventura has recommended to hold off any antiseizure medication since not felt epileptic seizure at this time. Continue thiamine 100mg daily. Continue folic acid as well. Is on CIWA protocol and will defer to primary team. Will defer the rest of medical management to primary and other specialist. Per [place] DMV because of syncopal episode, to avoid driving for 6 months until no further episodes, avoid heights, swim unassisted or use heavy machinery. Patient was counseled on alcohol cessation.
--- NOTE | 2023-12-28 11:08 | P.DS ---
Providers Date of admission: 12/21/23 18:06 Expected date of discharge: 12/28/23 Attending physician: Jorge Alberto Syed MD Consults: 12/21/23 18:03 Consult Physician Routine Consulting Provider: Teofilo Ventura Consult Reason/Comments: Question seizure vs syncope Do you want consulting provider notified?: Yes, Notify in am 12/25/23 18:24 Consult Physician Routine Consulting Provider: Tyler Thompson Consult Reason/Comments: capacity evaluation Do you want consulting provider notified?: Already Contacted Primary care physician: Verena Syed [facility] Course: Final Diagnoses: Near syncope, alcohol intoxication,DTs. Per neurology Hepatic encephalopathy, ammonia level decreased to 32 Dehydration Hyponatremia secondary to the above, sodium currently 132 Lactic acidosis, resolved Alcohol abuse, alcohol level on admission 189 Hyperbilirubinemia, elevated LFTs secondary to the above, related to alcoholic cirrhosis, hepatitis, hepatic steatosis, alcoholic liver disease. Orthostatic hypotension, resolved Cholelithiasis, nonacute as per general surgery evaluation. Conjunctivitis, allergic Anxiety, depression Essential hypertension Hypothyroidism, severe, TSH 82.2, free T40.08, suspect secondary to patient not absorbing with alcoholism. Increased to 175mcg daily with repeat level outpatient in clinic in 2 to 3 weeks. Moderate C3-C4 spinal canal stenosis Severe protein calorie malnutrition, BMI 15 Hospital course:This is a 67-year-old female PMH of major depression, anxiety, alcohol abuse, HTN and multiple other medical issues presented to the ER with near syncope.patient reports she was standing at the checkout at [facility] had not been feeling well, collapsed without syncope .patient recalls the entire incident, denies weakness or legs buckling. denies seizure activity, denies loss of urine or bowel control, no tongue biting .denies nausea or vomiting, frequently has diarrhea -nonbloody.denies hitting her head. reports she last drink half a bottle of wine in the evening before .serum alcohol 189, MCV 115.3 ,T. bili 3.7, AST 220, ALT 70, alk phos 139, INR 1.3, hemoglobin 16, platelets 157. UA reporting many bacteria, lactic acid 9.2, 10.9, 10.4 currently 5 with IV fluid hydration.glucose 124, electrolytes and renal function stable. Troponin negative x 1. Denies chest pain, palpitations or shortness of breath. Imaging unavailable at this time. 12/26/2023 maintained on lactulose 3 times daily, ammonia currently 47, T. bili 4.1, AST 83, ALT 43 alk phos 82. Sitting up in chair, isolated low blood pressure of 76/48, beta-amol currently on hold, IV fluids increased. Denies chest pain, palpitations or shortness of breath. Denies nausea or vomiting. Continues on CIWA protocol, CIWA score 4. EF 55 to 60%, moderate mitral regurgitation. 12/27/2023 IV fluids adjusted yesterday from D5 LR to saline, sodium increased to 128. Brain MRI reported no evidence of intracranial mass acute/subacute infarct or abnormal enhancement, nonspecific white matter changes likely small vessel ischemic disease, moderate C3-C4 spinal canal stenosis. Maintained on lactulose. sensorium significantly improved. CIWA score 2. T. bili 4.3, AST decreased to 67, ALT decreased to 38, alk phos 75, ammonia level pending. Evaluated by psychiatry recommending patient continue on Lexapro,Abilify and is initiated acamprosate @ 333 mg 3 times daily,increased to 666 mg 3 times daily starting today. Outpatient mental health/psychiatry follow-up is recommended.cleared by psychiatry for discharge. CT head is reported mild to moderate bifronal cerebral cortical atrophy. No acute intracranial abnormality. EEG reported normal with no focal slowing or elliptic form discharges seen. Per [place] DMV because of syncopal episode, to avoid driving for 6 months until no further episodes, avoid heights, swim unassisted or use heavy machinery. Patient was counseled on alcohol cessation. Patient's oral intake remains poor, protein shakes between meals and at at bedtime and will require continued encouragement. Averaging 2-3 bowel movements daily on lactulose. Denies chest pain, palpitations or shortness of breath. Denies pain or abdominal pain. Son and daughter updated at bedside. Significant clinical improvement. Patient will be discharged to [facility] subacute rehab today in a stable condition with guarded prognosis. The impression and plan of care has been dictated as directed. : I performed a history and examination of this patient, discussed the same with the dictator. I agree with the dictator's note ,documented as a scribe. Any additional findings or plans will be noted. Patient Condition at Discharge: Stable Plan - Discharge Summary Discharge Rx Participant: Yes New Discharge Prescriptions: New Acamprosate Calcium [Campral] 666 mg PO TID tab Lactulose [Cephulac] 20 gm PO TID ml bisacodyL [Dulcolax] 10 mg RECTAL DAILY PRN suppositor Folic Acid 1 mg PO DAILY tab Polymyxin B-Trimeth Sulf Ophth [Polytrim Opthalmic] 2 drops BOTH EYES Q6HR ml Pantoprazole [Protonix] 40 mg PO 0730 tab Calcium Carbonate [Tums] 1,000 mg PO Q4HR PRN tab PRN Reason: Dyspepsia Levothyroxine Sodium [Synthroid] 100 mcg PO 0630 tab Levothyroxine Sodium [Synthroid] 75 mcg PO DAILY@0630 tab Thiamine [Vitamin B-1] 100 mg PO DAILY tab Ondansetron Odt [Zofran Odt] 4 mg PO Q8HR PRN #21 tab PRN Reason: Nausea Continue Metoprolol Tartrate [Lopressor] 25 mg PO DAILY ARIPiprazole [Abilify] 10 mg PO DAILY Escitalopram [Lexapro] 20 mg PO DAILY Discontinued amLODIPine BESYLATE [Norvasc] 5 mg PO DAILY Levothyroxine Sodium [Synthroid] 100 mcg PO DAILY Omeprazole 40 mg PO DAILY Discharge Medication List Metoprolol Tartrate [Lopressor] 25 mg PO DAILY 03/26/20 [History] ARIPiprazole [Abilify] 10 mg PO DAILY 12/21/23 [History] Escitalopram [Lexapro] 20 mg PO DAILY 12/21/23 [History] Acamprosate Calcium [Campral] 666 mg PO TID tab 12/28/23 [Rx] Calcium Carbonate [Tums] 1,000 mg PO Q4HR PRN tab 12/28/23 [Rx] Folic Acid 1 mg PO DAILY tab 12/28/23 [Rx] Lactulose [Cephulac] 20 gm PO TID ml 12/28/23 [Rx] Levothyroxine Sodium [Synthroid] 75 mcg PO DAILY@0630 tab 12/28/23 [Rx] Levothyroxine Sodium [Synthroid] 100 mcg PO 0630 tab 12/28/23 [Rx] Ondansetron Odt [Zofran Odt] 4 mg PO Q8HR PRN #21 tab 12/28/23 [Rx] Pantoprazole [Protonix] 40 mg PO 0730 tab 12/28/23 [Rx] Polymyxin B-Trimeth Sulf Ophth [Polytrim Opthalmic] 2 drops BOTH EYES Q6HR ml 12/28/23 [Rx] Thiamine [Vitamin B-1] 100 mg PO DAILY tab 12/28/23 [Rx] bisacodyL [Dulcolax] 10 mg RECTAL DAILY PRN suppositor 12/28/23 [Rx] Follow up Appointment(s)/Referral(s): Jorge Alberto Syed MD [STAFF PHYSICIAN] - 1 Week (after dc from [facility]) Activity/Diet/Wound Care/Special Instructions: Marco PAZ CBC,BMP in 3 days Repeat TSH/Free T4 in 2 to 3 weeks [place] Protein Shakes TID between meals and hs Discharge/Stand Alone Forms: AA Meetings Dist & 24 - [facility]
[2023-12-28 12:54] VITALS: BP 128/83; PULSE 61
[2023-12-28 13:40] VITALS: BMI 24.8
--- NOTE | 2023-12-28 16:18 | P.PN ---
Subjective Progress Note Date: 12/28/23 12/28/2023: Patient was seen for follow-up. Patient's son was also present today. Patient's son states that patient's 10 years ago. Since then she became depressed. She then started drinking alcohol, not eating. In the last few years she has declined significantly. He is not sure of exactly how much patient drinks, as she has mentioned different statement to different people. He believes that she does drink at least 2 large cups of wine daily. Patient also takes care of her mother who is in her 80s. 12/27/2023: Patient was seen for a follow-up. Patient is laying in the bed. She appears slightly encephalopathic today. She is however alert and awake. Patient admits of a mild headache. States yesterday was worse than today. No dizziness. 12/26/2023: Patient was seen for a follow-up. Patient is much more alert and aw edwina. Patient's son was also present today. Per son, patient is not eating as well. Mentation however has much improved. 12/25/2023: Patient was seen for a follow-up. Patient is much more alert and awake. Patient denies any headache or dizziness. Her orientation as level of alertness has improved. Please refer to examination below. 12/24/2023: Patient was seen for a follow-up. Patient continues to be confused, encephalopathic. Patient states she feels very tired. Offers no other complaints. No headache. 12/23/2023: Patient was initially seen by Dr. Teofilo Ventura. Please refer to his note for details. Patient is a 67-year-old female with alcohol use, had syncopal episode. Patient's blood alcohol level was 189 on arrival. Routine EEG is normal. MRI of the brain was ordered by Dr. Fagan along with kolby rodriguez. Patient was seen for a follow-up. Patient admits to drinking alcohol. She feels better. She has little headache. Patient is still slightly confused. Some of the work-up during this hospital visit consisted of: Plasma lactic acid vein was as high as 10.9 and last one was 5.0 Initial serum glucose 124 AST 220 and ALT 70 Calcium, phosphorous, magnesium and sodium are within normal limits. 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 No acute intracranial abnormality. I personally reviewed and agree with report. Objective - Vital Signs Vital signs: Vital Signs Temp 97.5 F L 12/28/23 08:00 Pulse 61 12/28/23 12:00 Resp 18 12/28/23 14:00 BP 128/83 12/28/23 12:00 Pulse Ox 97 12/28/23 12:00 FiO2 Intake & Output 12/27/23 12/28/23 12/28/23 18:59 06:59 18:59 Output Total 300 Balance -300 Weight 41.5 kg 67.8 kg 67.8 kg Output: Urine 300 Other: Voiding Method Diaper External Catheter # Voids 2 # Bowel Movements 1 - Exam Patient is asleep at this time. Did not wake her up. Examination as of yesterday revealed patient is alert and awake in no distress. Patient states it is December and the year is and that she is in [facility] in [facility] and name of the current president Mr. Kline. Speech is slightly slurred. And language functions are normal. She has some crusting over her eyelashes. However the conjunctive appears clear. Patient has mild tremors of outstretched hands. Pupils are equal, round and reacting. Visual ruiz are full, face is symmetric. Muscle strength is normal in the upper extremities. No ataxia. No asterixis. - Labs CBC & Chem 7: 12/26/23 08:47 12/28/23 06:22 Labs: Abnormal Lab Results - Last 24 Hours (Table) 12/28/23 Range/Units 06:22 Sodium 132 L (137-145) mmol/L Carbon Dioxide 21 L (22-30) mmol/L BUN 4 L (7-17) mg/dL Creatinine 0.34 L (0.52-1.04) mg/dL Calcium 8.2 L (8.4-10.2) mg/dL Total Bilirubin 3.8 H (0.2-1.3) mg/dL AST 73 H (14-36) U/L ALT 37 H (4-34) U/L Total Protein 5.5 L (6.3-8.2) g/dL Albumin 3.0 L (3.5-5.0) g/dL Assessment and Plan Assessment: * Altered mental status, likely due to hepatic encephalopathy. * Syncopal episode Possibly due to alcohol use. Unsure if she had withdrawal episode event though level is elevated since states had similar episodes in past vs neuropathy vs seizure. If it is a seizure probable provoked * Alcohol intoxication (level of 189) * Hypothyroidism, significant * Transaminitis due to alcohol use (AST >ALT), improving * Hyponatremia (improving, most recent 132), hypokalemia, resolved * Elevated lactate * Probable acute UTI, patient on ceftriaxone. * Macrocytosis: Probable due to alcoholism. * Heavy alcohol use Plan: Patient's encephalopathy has improved. She has been started on lactulose for probable hepatic encephalopathy. Her repeat ammonia level has improved 32. Continue lactulose. EEG was reported as normal. No focal slowing or epileptiform discharges were seen. MRI of the brain revealed no evidence of intracranial mass, acute/subacute infarct or abnormal enhancement. Nonspecific white matter changes, likely re lated to small vessel ischemic disease. Moderate C3-C4 spinal canal stenosis. I personally reviewed MRI, agree with the findings. On my review, there is mild to moderate C3-4 spinal canal stenosis seen on sagittal views. 2D echo revealed mildly increased left ventricular wall thickness. No obvious regional wall motion abnormalities. LVEF 55 to 60%. Normal left atrial size. Moderate MR. Centrally directed mitral regurgitation jet. Mildly increased left ventricular wall thickness. Cardiology on board. We will defer to cardiology to address MR. Orthostatic vitals rechecked were normal (previously positive). Supine blood pressure 106/73, sitting 104/71 and standing 105/72. Pulse were 80, 91 and 103 respectively. Cardiology on board. B12 809, folate 9.4, TSH 82.2, free T4 0.08. Patient has significantly abnormal thyroid functions. We will defer to IM to address thyroid functions. Dr. Ventura has recommended to hold off any antiseizure medication since not felt epileptic seizure at this time. Continue thiamine 100mg daily. Continue folic acid as well. Will defer the rest of medical management to primary and other specialist. Per [place] DMV because of syncopal episode, to avoid driving for 6 months until no further episodes, avoid heights, swim unassisted or use heavy machinery. Patient was counseled on alcohol cessation. Neurologically clear for discharge to rehab facility. Patient's son was mentioned to have patient follow-up with neurologist after her acute condition has stabilized, to rule out underlying cognitive impairment/dementia. She may benefit from cognitive enhancing medications.
== END 2023-12-28 17:01 | DRG 643 ==
LOC: EC 14:50 → 3SCARD 18:06 → 3NCARDOBS 12-22 14:52 → 3SCARD 12-22 15:20
PROVIDERS: ADMIT Family Medicine; ATTEND Family Medicine
PROC: HZ2ZZZZ Detoxification Services for Substance Abuse Treatment (ICD-10-PCS; 2023-12-21)
PROC: 4A10X4Z Monitoring of Central Nervous Electrical Activity, External Approach (ICD-10-PCS; principal; 2023-12-22)
PROC: 05HC33Z Insertion of Infusion Device into Left Basilic Vein, Percutaneous Approach (ICD-10-PCS; 2023-12-27 12:10)
DX: E03.9 Hypothyroidism, unspecified (principal); E43 Unspecified severe protein-calorie malnutrition; E87.1 Hypo-osmolality and hyponatremia; E87.29 Other acidosis; K80.10 Calculus of gallbladder with chronic cholecystitis without obstruction; N39.0 Urinary tract infection, site not specified; Z68.1 Body mass index [BMI] 19.9 or less, adult; F10.221 Alcohol dependence with intoxication delirium; K70.30 Alcoholic cirrhosis of liver without ascites; K76.82 Hepatic encephalopathy; E87.6 Hypokalemia; E86.0 Dehydration; K76.0 Fatty (change of) liver, not elsewhere classified; Y90.5 Blood alcohol level of 100-119 mg/100 ml; Z91.041 Radiographic dye allergy status; D69.6 Thrombocytopenia, unspecified; D75.89 Other specified diseases of blood and blood-forming organs; F41.9 Anxiety disorder, unspecified; F32.A Depression, unspecified; M48.02 Spinal stenosis, cervical region; I10 Essential (primary) hypertension; I34.0 Nonrheumatic mitral (valve) insufficiency; I95.1 Orthostatic hypotension; K21.9 Gastro-esophageal reflux disease without esophagitis; K44.9 Diaphragmatic hernia without obstruction or gangrene; K75.9 Inflammatory liver disease, unspecified; N20.0 Calculus of kidney; Y90.6 Blood alcohol level of 120-199 mg/100 ml; Z79.890 Hormone replacement therapy; Z79.899 Other long term (current) drug therapy; Z87.891 Personal history of nicotine dependence; Z98.42 Cataract extraction status, left eye; Z98.41 Cataract extraction status, right eye
CPT/HCPCS: 36410; 36415; 70450; 70553; 71046; 74176; 76705; 76937; 80053; 80320; 81001; 82140; 82607; 82746; 83605; 83690; 83735; 83921; 84100; 84439; 84443; 84484; 85025; 85379; 85610; 85730; 87040; 93005; 93306; 95816; 96361; 96365; 96375; 99285

== ENCOUNTER 2023-12-30 14:35 | Inpatient (IN) | payer MEDICARE ==
--- NOTE | 2023-12-30 15:10 | ED ---
General Adult HPI - General Chief complaint: Abdominal Pain Stated complaint: abd pain Time Seen by Provider: 12/30/23 14:45 Source: patient, EMS, RN notes reviewed, old records reviewed Mode of arrival: EMS Limitations: no limitations - History of Present Illness Initial comments: 68 female presenting with abdominal pain and distention. Patient has history of cirrhosis from alcohol abuse. Patient reports generalized pain. No fever. No chills. She states she had diarrhea today. Patient is slow to respond and does have history of hepatic encephalopathy. She is currently on lactulose according to the medical record. From the long term. - Related Data Home Medications Medication Instructions Recorded Confirmed Metoprolol Tartrate [Lopressor] 25 mg PO DAILY@0803/26/20 12/30/23 ARIPiprazole [Abilify] 10 mg PO DAILY@79912/21/23 12/30/23 Escitalopram [Lexapro] 20 mg PO DAILY@79912/21/23 12/30/23 Acamprosate Calcium [Campral] 666 mg PO TID@08,,12/30/23 12/30/23 Ensure Enlive 237 ml PO BID@0800,1700 12/30/23 12/30/23 Folic Acid 1 mg PO DAILY@79912/30/23 12/30/23 LORazepam [Ativan] 0.5 mg PO Q6H PRN 12/30/23 12/30/23 Lactulose [Cephulac] 20 gm PO TID@08,12,12/30/23 12/30/23 Levothyroxine Sodium [Synthroid] 75 mcg PO DAILY@59912/30/23 12/30/23 Levothyroxine Sodium [Synthroid] 100 mcg PO DAILY@59912/30/23 12/30/23 Magnesium Hydroxide [Milk of 7,200 mg PO DAILY PRN 12/30/23 12/30/23 Magnesia Concentrate] Na Phos,M-B/Na Phos,Di-Ba [Fleet 133 ml RECTAL DAILY PRN 12/30/23 12/30/23 Adult] Pantoprazole [Protonix] 40 mg PO DAILY@69912/30/23 12/30/23 Polymyxin B-Trimeth Sulf Ophth 2 drops BOTH EYES QID@00,06,12,18 12/30/23 12/30/23 [Polytrim Opthalmic] Thiamine [Vitamin B-1] 100 mg PO DAILY@0800 12/30/23 12/30/23 bisacodyL [Dulcolax] 10 mg RECTAL DAILY PRN 12/30/23 12/30/23 Previous Rx's Medication Instructions Recorded Calcium Carbonate [Tums] 1,000 mg PO Q4HR PRN tab 12/28/23 Ondansetron Odt [Zofran Odt] 4 mg PO Q8HR PRN #21 tab 12/28/23 Allergies Allergy/AdvReac Type Severity Reaction Status Date / Time Iodinated Contrast Media Allergy Rash/Hives Verified 12/30/23 16:04 [Iodinated Contrast- Oral and IV Dye] Review of Systems ROS Statement: Those systems with pertinent positive or pertinent negative responses have been documented in the HPI. ROS Other: All systems not noted in ROS Statement are negative. Past Medical History Past Medical History: Hypertension, Thyroid Disorder Additional Past Medical History / Comment(s): hypothyroid. BILAT CATARACTS, alcoholic cirrhosis, hepatic encephalopathy History of Any Multi-Drug Resistant Organisms: None Reported Past Surgical History: No Surgical Hx Reported Additional Past Surgical History / Comment(s): colonoscopy,BILAT CATARACTS REMOVED Past Anesthesia/Blood Transfusion Reactions: No Reported Reaction Past Psychological History: Anxiety, Depression Smoking Status: Former smoker Past Alcohol Use History: Occasional Past Drug Use History: None Reported - Past Family History Mother Family Medical History: No Reported History Additional Family Medical History / Comment(s): Mother is healthy and is 75yrs old. Father Family Medical History: Cancer Additional Family Medical History / Comment(s): Father is from colon cancer. He at the age of 59 or 60yrs. General Exam Limitations: no limitations General appearance: lethargic, in distress Head exam: Present: atraumatic, normocephalic Eye exam: Present: normal appearance, PERRL ENT exam: Present: mucous membranes dry Respiratory exam: Present: normal lung sounds bilaterally. Absent: respiratory distress Cardiovascular Exam: Present: regular rate, normal rhythm GI/Abdominal exam: Present: distended, tenderness Neurological exam: Present: alert (To respond) Skin exam: Present: pallor Course Vital Signs 12/30/23 12/30/23 12/30/23 14:42 16:30 17:26 Temperature 97.0 F L Pulse Rate 66 70 77 Respiratory 16 25 H 20 Rate Blood Pressure 98/57 110/79 94/47 O2 Sat by Pulse 93 L Oximetry 12/30/23 18:30 Temperature Pulse Rate 67 Respiratory 21 Rate Blood Pressure 103/72 O2 Sat by Pulse 99 Oximetry Medical Decision Making - Medical Decision Making Was pt. sent in by a medical professional or institution (, [facility], WINDING RACK OPERATOR, urgent care, hospital, or long term...) When possible be specific @ -No Did you speak to anyone other than the patient for history (EMS, parent, family, police, friend...)? What history was obtained from this source @ -No Did you review nursing and triage notes (agree or disagree)? Why? @ -I reviewed and agree with nursing and triage notes Were old charts reviewed (outside hosp., previous admission, EMS record, old EKG, old radiological studies, urgent care reports/EKG's, long term records)? Report findings @ -No old charts were reviewed Differential Abdominal Pain Men: Appendicitis, cholecystitis, diverticulosis, ischemic bowel, pancreatitis, hepatitis, UTI, gastroenteritis, AAA, incarcerated hernia, bowel obstruction, constipation, inflammatory bowel, hepatitis, peptic ulcer disease, splenic infarction, perforated viscus, testicular torsion, this is not meant to be an al l-inclusive list EKG interpreted by me (3pts min.). @ -Sinus rhythm, low voltage rate of 66, MS interval 167, QRS duration 82, QTc 412, no ST segment elevation. X-rays interpreted by me (1pt min.). @ -None done CT interpreted by me (1pt min.). @ -None done U/S interpreted by me (1pt. min.). @ -None done What testing was considered but not performed or refused? (CT, X-rays, U/S, labs)? Why? @ -None What meds were considered but not given or refused? Why? @ -None Did you discuss the management of the patient with other professionals (professionals i.e. , [facility], WINDING RACK OPERATOR, lab, RT, psych nurse, hospital social worker, executive assistant to president, teacher, mounted police officer, case managers)? Give summary @ -Discussed with Dr. Doshi, due to the fact that the patient had been seen by Dr. Abernathy and Dr. Covington within the past week who defers to the on-call surgeon Dr. Kendrick. Dr. Kendrick is able to evaluate the patient the emergency department and at this time the patient will be kept comfortable, medical management only, no surgical intervention and the patient is a DNR Was smoking cessation discussed for >3mins.? @ -No Was critical care preformed (if so, how long)? @ yes, 35 min Were there social determinants of health that impacted care today? How? (Homelessness, low income, unemployed, alcoholism, drug addiction, transportation, low edu. Level, literacy, decrease access to med. care, penitentiary, rehab)? @ -No Was there de-escalation of care discussed even if they declined (Discuss DNR or withdrawal of care, Hospice)? DNR status @ -DNR What co-morbidities impacted this encounter? (DM, HTN, Smoking, COPD, CAD, Cancer, CVA, ARF, Chemo, Hep., AIDS, mental health diagnosis, sleep apnea, morbid obesity)? @ -Liver Failure Was patient admitted / discharged? Hospital course, mention meds given and route, prescriptions, significant lab abnormalities, going to OR and other pertinent info. @ -[68 female presenting with abdominal pain and distention. Patient is very distended with generalized abdominal tenderness. Workup is initiated in the emergency department including laboratory testing, and CT of the abdomen. CT shows bowel obstruction with pneumatosis and intraperitoneal free air. I discussed case initially with Dr. Doshi who does defer to on-call surgeon Dr. Kendrick. Multiple discussions with the family and the patient regarding the goals of care ultimately leads to decision to make the patient DNR and provide comfort care and medical management at this time. She will be continued on IV fluids and IV antibiotics, NG tube was placed in the emergency department. Pain medication is available for the patient. Admitted with a guarded prognosis. Undiagnosed new problem with uncertain prognosis? @ -No Drug Therapy requiring intensive monitoring for toxicity (Heparin, Nitro, Insulin, Cardizem)? @ -No Were any procedures done? @ -No Diagnosis/symptom? @ -Bowel obstruction, sepsis, liver failure Acute, or Chronic, or Acute on Chronic? @ -Acute Uncomplicated (without systemic symptoms) or Complicated (systemic symptoms)? @ -Default Side effects of treatment? @ -No Exacerbation, Progression, or Severe Exacerbation? @ -No Poses a threat to life or bodily function? How? (Chest pain, [place], [place], pneumonia, PE, COPD, DKA, ARF, appy, cholecystitis, CVA, Diverticulitis, Homicidal, S uicidal, threat to staff... and all critical care pts) @ -[Yes, sepsis, bowel obstruction, bowel ischemia - Lab Data Result diagrams: 12/30/23 15:16 12/30/23 15:16 Lab Results 12/30/23 12/30/23 12/30/23 Range/Units 15:15 15:16 15:16 WBC 3.5 L (3.8-10.6) k/uL RBC 3.82 (3.80-5.40) m/uL Hgb 14.7 (11.4-16.0) gm/dL Hct 42.9 (34.0-46.0) % MCV 112.4 H (80.0-100.0) fL MCH 38.6 H (25.0-35.0) pg MCHC 34.3 (31.0-37.0) g/dL RDW 13.8 (11.5-15.5) % Plt Count 277 D (150-450) k/uL MPV 8.4 Neutrophils % 69 % Lymphocytes % 19 % Monocytes % 9 % Eosinophils % 0 % Basophils % 1 % Neutrophils # 2.4 (1.3-7.7) k/uL Lymphocytes # 0.7 L (1.0-4.8) k/uL Monocytes # 0.3 (0-1.0) k/uL Eosinophils # 0.0 (0-0.7) k/uL Basophils # 0.0 (0-0.2) k/uL Macrocytosis Marked A PT 14.7 H (10.0-12.5) sec INR 1.4 H (<1.2) APTT 38.0 H (22.0-30.0) sec Sodium (137-145) mmol/L Potassium (3.5-5.1) mmol/L Chloride (98-107) mmol/L Carbon Dioxide (22-30) mmol/L Anion Gap mmol/L BUN (7-17) mg/dL Creatinine (0.52-1.04) mg/dL Est GFR (CKD-EPI)AfAm (>60 ml/min/1.73 sqM) Est GFR (CKD-EPI)NonAf (>60 ml/min/1.73 sqM) Glucose (74-99) mg/dL Lactic Ac Sepsis Rflx Plasma Lactic Acid [place] (0.7-2.0) mmol/L Calcium (8.4-10.2) mg/dL Total Bilirubin (0.2-1.3) mg/dL AST (14-36) U/L ALT (4-34) U/L Alkaline Phosphatase (38-126) U/L Ammonia (<30) umol/L Total Protein (6.3-8.2) g/dL Albumin (3.5-5.0) g/dL Amylase (30-110) U/L Lipase (23-300) U/L Blood Type Blood Type Confirm B Positive Blood Type Recheck Bld Type Recheck Status Antibody Screen Spec Expiration Date 12/30/23 12/30/23 12/30/23 Range/Units 15:16 15:16 15:20 WBC (3.8-10.6) k/uL RBC (3.80-5.40) m/uL Hgb (11.4-16.0) gm/dL Hct (34.0-46.0) % MCV (80.0-100.0) fL MCH (25.0-35.0) pg MCHC (31.0-37.0) g/dL RDW (11.5-15.5) % Plt Count (150-450) k/uL MPV Neutrophils % % Lymphocytes % % Monocytes % % Eosinophils % % Basophils % % Neutrophils # (1.3-7.7) k/uL Lymphocytes # (1.0-4.8) k/uL Monocytes # (0-1.0) k/uL Eosinophils # (0-0.7) k/uL Basophils # (0-0.2) k/uL Macrocytosis PT (10.0-12.5) sec INR (<1.2) APTT (22.0-30.0) sec Sodium 135 L (137-145) mmol/L Potassium 3.3 L (3.5-5.1) mmol/L Chloride 99 (98-107) mmol/L Carbon Dioxide 20 L (22-30) mmol/L Anion Gap 16 mmol/L BUN 17 (7-17) mg/dL Creatinine 0.78 (0.52-1.04) mg/dL Est GFR (CKD-EPI)AfAm >90 (>60 ml/min/1.73 sqM) Est GFR (CKD-EPI)NonAf 80 (>60 ml/min/1.73 sqM) Glucose 135 H (74-99) mg/dL Lactic Ac Sepsis Rflx Plasma Lactic Acid [place]ks[place] 5.3 H* (0.7-2.0) mmol/L Calcium 9.4 (8.4-10.2) mg/dL Total Bilirubin 3.5 H (0.2-1.3) mg/dL AST 65 H (14-36) U/L ALT 37 H (4-34) U/L Alkaline Phosphatase 71 (38-126) U/L Ammonia <9 (<30) umol/L Total Protein 5.3 L (6.3-8.2) g/dL Albumin 3.1 L (3.5-5.0) g/dL Amylase <30 L (30-110) U/L Lipase 51 (23-300) U/L Blood Type B Positive Blood Type Confirm Blood Type Recheck No Previous Record Bld Type Recheck Status CABO Indicated Antibody Screen NEGATIVE Spec Expiration Date 01/02/2024 - 231912/30/23 12/30/23 Range/Units 15:56 18:19 WBC (3.8-10.6) k/uL RBC (3.80-5.40) m/uL Hgb (11.4-16.0) gm/dL Hct (34.0-46.0) % MCV (80.0-100.0) fL MCH (25.0-35.0) pg MCHC (31.0-37.0) g/dL RDW (11.5-15.5) % Plt Count (150-450) k/uL MPV Neutrophils % % Lymphocytes % % Monocytes % % Eosinophils % % Basophils % % Neutrophils # (1.3-7.7) k/uL Lymphocytes # (1.0-4.8) k/uL Monocytes # (0-1.0) k/uL Eosinophils # (0-0.7) k/uL Basophils # (0-0.2) k/uL Macrocytosis PT (10.0-12.5) sec INR (<1.2) APTT (22.0-30.0) sec Sodium (137-145) mmol/L Potassium (3.5-5.1) mmol/L Chloride (98-107) mmol/L Carbon Dioxide (22-30) mmol/L Anion Gap mmol/L BUN (7-17) mg/dL Creatinine (0.52-1.04) mg/dL Est GFR (CKD-EPI)AfAm (>60 ml/min/1.73 sqM) Est GFR (CKD-EPI)NonAf (>60 ml/min/1.73 sqM) Glucose (74-99) mg/dL Lactic Ac Sepsis Rflx Y Plasma Lactic Acid Aleks[place] 4.0 H* (0.7-2.0) mmol/L Calcium (8.4-10.2) mg/dL Total Bilirubin (0.2-1.3) mg/dL AST (14-36) U/L ALT (4-34) U/L Alkaline Phosphatase (38-126) U/L Ammonia (<30) umol/L Total Protein (6.3-8.2) g/dL Albumin (3.5-5.0) g/dL Amylase (30-110) U/L Lipase (23-300) U/L Blood Type Blood Type Confirm Blood Type Recheck Bld Type Recheck Status Antibody Screen Spec Expiration Date Critical Care Time Critical Care Time: Yes Total Critical Care Time: 35 Disposition Clinical Impression: Small bowel obstruction, Sepsis, Liver failure Disposition: ADMITTED IP TO THIS [facility] Condition: Serious Is patient prescribed a controlled substance at d/c from ED?: No Referrals: Zi Gibson MD [Primary Care Provider] - 1-2 days Time of Disposition: 19:17
[2023-12-30] MEDS: SODIUM CHLORIDE 0.9% 500 ML 500 ML IV STA (15:27)
[2023-12-30 15:47] LABS: ALT 37 U/L (4-34); AST 65 U/L (14-36); African American GFR (CKD) >90 (>60 ml/min/1.73 sqM); Albumin 3.1 g/dL (3.5-5.0); Alkaline Phosphatase 71 U/L (38-126); Amylase <30 U/L (30-110); Anion Gap 16 mmol/L; Blood Urea Nitrogen 17 mg/dL (7-17); Calcium 9.4 mg/dL (8.4-10.2); Carbon Dioxide 20 mmol/L (22-30); Chloride 99 mmol/L (98-107); Glucose 135 mg/dL (74-99); Lipase 51 U/L (23-300); Non-African American GFR(CKD) 80 (>60 ml/min/1.73 sqM); Potassium 3.3 mmol/L (3.5-5.1); Sodium 135 mmol/L (137-145); Total Bilirubin 3.5 mg/dL (0.2-1.3); Total Protein 5.3 g/dL (6.3-8.2)
[2023-12-30 15:51] LABS: INR 1.4 (<1.2); Prothrombin Time 14.7 sec (10.0-12.5)
[2023-12-30 15:56] LABS: Lactic Acid, Venous 5.3 mmol/L (0.7-2.0)
--- NOTE | 2023-12-30 16:07 | CT ---
EXAMINATION TYPE: CT abdomen pelvis wo con DATE OF EXAM: 12/30/2023 HISTORY: abdominal pain, distention CT DLP: 669.2 mGycm. Automated Exposure Control for Dose Reduction was Utilized. TECHNIQUE: CT scan of the abdomen and pelvis is performed without oral or IV contrast. COMPARISON: 12/21/2023 FINDINGS: Within the limitations of a non-contrast study, the following observations are made. The lungs are clear. The gallbladder is not identified. There is no biliary ductal dilatation. There is no organomegaly of the liver, pancreas, spleen or adrenal glands. There is marked fatty infi ltration of the liver. There is a 5 mm nonobstructing right renal calculus. There is no hydronephrosis. The caliber of the abdominal aorta is normal and there is no retroperitoneal adenopathy or hemorrhage . Small bowel loops and stomach are markedly dilated and there is diffuse pneumatosis intestinalis of t he small bowel and within the stomach. There are multiple droplets of free intraperitoneal air scatte red throughout the mesentery primarily in the upper abdomen. There is no definite evidence of portal venous gas. There is mild free intraperitoneal fluid within the cul-de-sac of the pelvis There is no pelvic mass, free fluid, abscess or adenopathy.. The osseous structures and soft tissues are unremarkable. IMPRESSION: Severe dilatation of the stomach and small bowel is severe pneumatosis intestinalis with free intrape ritoneal air. Differential diagnosis includes acute bowel ischemia or severe infectious process and i s potentially a medical emergency. Clinical correlation is recommended.
[2023-12-30 16:17] LABS: Basophils % (A) 1 %; Eosinophils % (A) 0 %; HCT 42.9 % (34.0-46.0); HGB 14.7 gm/dL (11.4-16.0); Lymphocytes # (A) 0.7 k/uL (1.0-4.8); Lymphocytes % (A) 19 %; MCH 38.6 pg (25.0-35.0); MCHC 34.3 g/dL (31.0-37.0); MCV 112.4 fL (80.0-100.0); Macrocytosis Marked; Mean Platelet Volume 8.4; Monocytes # (A) 0.3 k/uL (0-1.0); Monocytes % (A) 9 %; Neutrophils # (A) 2.4 k/uL (1.3-7.7); Neutrophils % (A) 69 %; RBC 3.82 m/uL (3.80-5.40); RDW 13.8 % (11.5-15.5); WBC 3.5 k/uL (3.8-10.6)
[2023-12-30 16:22] LABS: Platelet Count 277 k/uL (150-450)
[2023-12-30] MEDS: ONDANSETRON 4 MG/2 ML VIAL IVP STA (17:33)
[2023-12-30] MEDS: SODIUM CHLORIDE 0.9% 1,000 ML IV SCH (17:34)
[2023-12-30] MEDS: PIPERACILLIN-TAZOBACTAM 3.375 GM in SODIUM CHLORIDE 0.9% 100 ML IVPB SCH (17:38)
[2023-12-30] MEDS: SODIUM CHLORIDE 0.9% 500 ML 500 ML IV ONE (18:13)
[2023-12-30] MEDS: fentaNYL (PF) 50 MCG/ML 2 ML AMP IVP STA (18:14)
[2023-12-30] MEDS ORDERED: ONDANSETRON 4 MG/2 ML VIAL IVP PRN (19:12)
[2023-12-30] MEDS ORDERED: NALOXONE 0.4 MG/ML 1 ML VIAL IV PRN (19:12)
--- NOTE | 2023-12-30 19:42 | P.CON ---
Consult Note - . Consult date: 12/30/23 Assessment/Plan:: 68 female presented to [facility] ED with abdominal pain and distention. Patient has history of cirrhosis from alcohol abuse. Patient reports generalized pain. No fever. No chills. She states she had diarrhea today. Patient is slow to re spond and does have history of hepatic encephalopathy. She is currently on lactulose according to the medical record. From the retirement. CT-AP shows pneumoperitoneum and pneumaotosis concerning for perforated and/or ischemic bowel. Review of Systems ROS Statement: Those systems with pertinent positive or pertinent negative responses have been documented in the HPI. ROS Other: All systems not noted in ROS Statement are negative. Past Medical History Past Medical History: Hypertension, Thyroid Disorder Additional Past Medical History / Comment(s): hypothyroid. BILAT CATARACTS, alcoholic cirrhosis, hepatic encephalopathy History of Any Multi-Drug Resistant Organisms: None Reported Past Surgical History: No Surgical Hx Reported Additional Past Surgical History / Comment(s): colonoscopy,BILAT CATARACTS REMOVED Past Anesthesia/Blood Transfusion Reactions: No Reported Reaction Past Psychological History: Anxiety, Depression Smoking Status: Former smoker Past Alcohol Use History: Occasional Past Drug Use History: None Reported - Past Family History Mother Family Medical History: No Reported History Additional Family Medical History / Comment(s): Mother is healthy and is 75yrs old. Father Family Medical History: Cancer Additional Family Medical History / Comment(s): Father is from colon cancer. He at the age of 59 or 60yrs. General Exam Limitations: no limitations General appearance: lethargic, in distress Head exam: Present: atraumatic, normocephalic Eye exam: Present: normal appearance, PERRL ENT exam: Present: mucous membranes dry Respiratory exam: Present: normal lung sounds bilaterally. Absent: respiratory distress Cardiovascular Exam: Present: regular rate, normal rhythm GI/Abdominal exam: Present: distended, tenderness Neurological exam: Present: alert (To respond) Skin exam: Present: pallor 68 year old female with pneumoperitoneum and pneumatosis concerning for perforated/ischemic bowel -Lengthy discussion had with patient and family about surgical intervention. It was explained to patient and patient's family that without surgery she will likely pass away. Patient and family state that they do not want any surgical intervention. Patient would like to change her code status to No Code. Patient states she would just like to be made comfortable. Nurse was present for full conversation with patient and family -Recommend starting antibiotics -Admit to Medicine and Comfort Care Kunal Kendrick DO [facility] [phone]
[2023-12-30] MEDS: HYDROmorphone 0.5 MG/0.5 ML SYRINGE IVP PRN (20:38)
--- NOTE | 2023-12-30 22:28 | XR ---
EXAM: XR chest 1V portable CLINICAL INDICATION:Female, 68 years old with history of NG placement; [facility] COMPARISON: 12/21/2023 chest x-ray. 12/30/2023 CT abdomen pelvis TECHNIQUE: Chest single view. FINDINGS: Lines/tubes/devices: NG tube extends into the left upper quadrant, curving over the stomach with its tip overlying the fundus. Cardiomediastinum: Cardiac silhouette appears mildly enlarged. Unremarkable mediastinal silhouette. Vasculature: No increased pulmonary vasculature. Lungs/pleura: Lung volumes are significantly diminished compared to previous, with crowding of the bronchovascular markings and asymmetric prominence of the right hilum along with linear and bandlike opacity in the r ight midlung zone most suggestive of atelectasis. Small pleural effusions not excluded. The right hem idiaphragm is mildly elevated. No pneumothorax visible. Bones/soft tissues: Bony thorax appears grossly intact as seen. Regional soft tissues about the chest appear unremarkable . Other: Gaseous distention of the visualized stomach and upper abdominal bowel loops, appears slightly decreased from the earlier same day CT. Pneumatosis intestinalis and pneumoperitoneum were better se en on CT. IMPRESSION: 1. NG tube extends into the left upper quadrant, curving over the stomach with its tip overlying the fundus. 2. Gaseous distention of the visualized stomach and upper abdominal bowel loops, appears slightly de creased from the earlier same day CT. Pneumatosis intestinalis and pneumoperitoneum were better seen on CT. 3. Significantly diminished lung volumes, with asymmetric elevation of the right hemidiaphragm, match[id number]she[place]ish band ding of the bronchovascular markings, and bandlike atelectasis in the mid right lung zone. Right matteo r opacity could also relate to this. Superimposed infection or aspiration cannot be excluded.
[2023-12-30] MEDS: SODIUM CHLORIDE 0.9% 1,000 ML IV ONE (23:58)
[2023-12-31] MEDS: SODIUM CHLORIDE 0.9% 1,000 ML IV SCH (01:05)
--- NOTE | 2023-12-31 06:57 | P.PN ---
Progress Note - Text Progress Note Date: 12/31/23 ALVARO. Resting Comfortable VSS General-NAD Abdomen-soft, diffuse TTP, distended, +RT 68 year old female with pneumoperitoneum and pneumatosis concerning for perforated/ischemic bowel -Lengthy discussion had with patient and family about surgical intervention. It was explained to patient and patient's family that without surgery she will likely pass away. Patient and family state that they do not want any surgical intervention. Patient would like to change her code status to No Code. Patient states she would just like to be made comfortable. Nurse was present for full conversation with patient and family -Recommend antibiotics -Medicine Management and Comfort Care Kunal Kendrick DO [facility] [phone]
[2023-12-31] MEDS: PANTOPRAZOLE 40 MG/10 ML VIAL IV SCH (08:43)
[2023-12-31 08:55] VITALS: BP 83/67; PULSE 76; RESP 10; TEMP 96.1
[2023-12-31 10:00] LABS: NT-Pro-B-Type Natriuretic Pept 3166 pg/mL (0-125)
[2023-12-31 10:41] LABS: BUN/Creat Ratio 17.42 Ratio (12.00-20.00); Blood Urea Nitrogen 20.9 mg/dL (9.0-27.0); Calcium 7.9 mg/dL (8.7-10.3); Carbon Dioxide 18.3 mmol/L (21.6-31.8); Chloride 107 mmol/L (96-109); Glucose 95 mg/dL (70-110); Potassium 3.6 mmol/L (3.5-5.5); Sodium 140 mmol/L (135-145)
[2023-12-31 11:04] LABS: Basophils # (M) 0 X 10*3/uL (0.00-0.10); Crenated RBC 2+; Eosinophils # (M) 0 X 10*3/uL (0.04-0.35); HCT 42.9 % (37.2-46.3); HGB 14.4 g/dL (12.0-15.0); Lymphocytes # (M) 0.45 X 10*3/uL (0.90-5.00); MCH 38.8 pg (27.0-32.0); MCHC 33.6 g/dL (32.0-37.0); MCV 115.6 FL (80.0-97.0); Mean Platelet Volume 10.6 FL (9.5-12.2); Metamyelocytes % 8 % (0-0); Myelocytes % 4 % (0-0); NRBC Per 100 WBC 0.06 X 10*3/uL (0.00-0.01); Neutrophils # (M) 8.36 X 10*3/uL (1.80-7.70); Neutrophils % (M) 75 %; Platelet Count 196 X 10*3/uL (140-440); RBC 3.71 X 10*6/uL (4.10-5.20); RDW 14.3 % (11.5-14.5); WBC 11.14 X 10*3/uL (4.50-10.00)
--- NOTE | 2023-12-31 21:56 | P.HPIM ---
History of Present Illness H&P Date: 12/31/23 Chief Complaint: Abdominal pain Patient is a 68-year-old female with a past medical history of hypertension, hypothyroidism, alcoholic liver cirrhosis and history of hepatic encephalopathy, anxiety/depression and prior history of smoking. Patient does drink 2 glasses of wine a day last drink was on 12/20/2023. Patient presents to ER with complaints of abdominal pain and distention. Abdominal pain is mainly generalized. No fever no chills. Patient is also had diarrhea. Patient does state lactulose at home. Patient was sent to ER from [facility]. On admission blood pressure 98/57 pulse is 66 respiration 16 pulse ox 93% on room air. Laboratory data showed WBC 3.5 hemoglobin 14.7 and platelets 277, sodium 135, potassium 3.3 chloride 99 bicarb is 20 BUN 17 and creatinine 0.78 and blood sugar 135 lactic acid 5.3 on admission total bili 3.5 AST 65 ALT 37 alk phos [address] of the abdomen pelvis showed severe dilation of the stomach and small bowel is severe pneumatosis intestinalis with free intraperitoneal air. Differential diagnosis include acute bowel ischemia or severe infectious process and is potentially a medical emergency. Clinical correlation is recommended. Chest x-ray showed NG tube extending to the left upper quadrant curving over the stomach and its tip overlying the fundus. Gaseous distention of the visualized stomach and upper abdominal loops appears slightly decreased from the LDL same- day CT. Pneumatosis intestinalis and pneumoperitoneum were better seen on the CT. Significantly diminished lung volumes with asymmetric elevation of the right hemidiaphragm, crowding of the bronchovascular markings, and bandlike atelectasis in the midlung zone. Right hilar opacity could also relate to this. Superimposed infection or aspiration cannot be excluded. Review of Systems ROS unobtainable: due to mental status Past Medical History Past Medical History: Hypertension, Thyroid Disorder Additional Past Medical History / Comment(s): hypothyroid. BILAT CATARACTS, alcoholic cirrhosis, hepatic encephalopathy History of Any Multi-Drug Resistant Organisms: None Reported Past Surgical History: No Surgical Hx Reported Additional Past Surgical History / Comment(s): colonoscopy,BILAT CATARACTS REMOVED Past Anesthesia/Blood Transfusion Reactions: No Reported Reaction Past Psychological History: Anxiety, Depression Additional Psychological History / Comment(s): Pt states she is on a RX for depression and that it works well for her. She lives alone and is independent. Smoking Status: Former smoker Past Alcohol Use History: Occasional Additional Past Alcohol Use History / Comment(s): Pt states she drinks 2 glasses of wine a day. last drink 12/20/23. QUIT SMOKING 25 YEARS AGO Past Drug Use History: None Reported - Past Family History Mother Family Medical History: No Reported History Additional Family Medical History / Comment(s): Mother is healthy and is 75yrs old. Father Family Medical History: Cancer Additional Family Medical History / Comment(s): Father is from colon cancer. He at the age of 59 or 60yrs. Medications and Allergies Home Medications Medication Instructions Recorded Confirmed Type Metoprolol Tartrate [Lopressor] 25 mg PO DAILY@0800 03/26/20 12/31/23 History ARIPiprazole [Abilify] 10 mg PO DAILY@79912/21/23 12/31/23 History Escitalopram [Lexapro] 20 mg PO DAILY@79912/21/23 12/31/23 History Calcium Carbonate [Tums] 1,000 mg PO Q4HR PRN tab 12/28/23 12/31/23 Rx Ondansetron Odt [Zofran Odt] 4 mg PO Q8HR PRN #21 tab 12/28/23 12/31/23 Rx Acamprosate Calcium [Campral] 666 mg PO TID@,,12/30/23 12/31/23 History Ensure Enlive 237 ml PO BID@0800,1700 12/30/23 12/31/23 History Folic Acid 1 mg PO DAILY@79912/30/23 12/31/23 History LORazepam [Ativan] 0.5 mg PO Q6H PRN 12/30/23 12/31/23 History Lactulose [Cephulac] 20 gm PO TID@,,12/30/23 12/31/23 History Levothyroxine Sodium [Synthroid] 75 mcg PO DAILY@59912/30/23 12/31/23 History Levothyroxine Sodium [Synthroid] 100 mcg PO DAILY@59912/30/23 12/31/23 History Magnesium Hydroxide [Milk of 7,200 mg PO DAILY PRN 12/30/23 12/31/23 History Magnesia Concentrate] Na Phos,M-B/Na Phos,Di-Ba [Fleet 133 ml RECTAL DAILY PRN 12/30/23 12/31/23 History Adult] Pantoprazole [Protonix] 40 mg PO DAILY@0712/30/23 12/31/23 History Polymyxin B-Trimeth Sulf Ophth 2 drops BOTH EYES QID@00,06,12,18 12/30/23 12/31/23 History [Polytrim Opthalmic] Thiamine [Vitamin B-1] 100 mg PO DAILY@0800 12/30/23 12/31/23 History bisacodyL [Dulcolax] 10 mg RECTAL DAILY PRN 12/30/23 12/31/23 History Allergies Allergy/AdvReac Type Severity Reaction Status Date / Time Iodinated Contrast Media Allergy Rash/Hives Verified 12/30/23 16:04 [Iodinated Contrast- Oral and IV Dye] Physical Exam Vitals: Vital Signs Temp Pulse Pulse Resp BP BP BP 12/31/23 09:00 10 L 12/31/23 07:43 96.1 F L 76 10 L 83/67 12/31/23 04:28 12 12/31/23 01:17 16 12/31/23 01:05 74 16 118/81 12/30/23 22:58 16 12/30/23 21:04 75 16 106/75 12/30/23 20:00 71 16 106/68 12/30/23 19:30 74 19 103/70 12/30/23 19:00 71 21 107/70 12/30/23 18:30 67 21 103/72 12/30/23 17:26 77 20 94/47 12/30/23 16:30 70 25 H 110/79 12/30/23 14:42 97.0 F L 66 16 98/57 Pulse Ox 12/31/23 09:00 12/31/23 07:43 90 L 12/31/23 04:28 12/31/23 01:17 12/31/23 01:05 95 12/30/23 22:58 12/30/23 21:04 89 L 12/30/23 20:00 94 L 12/30/23 19:30 92 L 12/30/23 19:00 91 L 12/30/23 18:30 99 12/30/23 17:26 12/30/23 16:30 12/30/23 14:42 93 L Intake and Output 12/30/23 12/31/23 12/31/23 22:59 06:59 14:59 Output Total 200 Balance -200 Output: Gastric Drainage 200 Other: # Bowel Movements 1 Weight 58.967 kg PHYSICAL EXAMINATION: Patient is obtunded. Awake alert and oriented x 0 HEENT: Normocephalic. Neck is supple. Pupils reactive. Nostrils clear. Oral cavity is moist. Neck reveals no JVD, carotid bruits, or thyromegaly. CHEST EXAMINATION: Trachea is central. Symmetrical expansion. Bibasilar diminished sounds. Scattered coarse sounds. CARDIAC: Normal S1, S2 with no gallops. No murmurs ABDOMEN: Soft. Bowel sounds diminished. Abdomen is distended. Mild to moderate tenderness. No guarding or rigidity. No abdominal bruits. Extremities: reveal no edema. No clubbing or cyanosis Neurologically awake, alert, oriented x 0 obtunded. No gross FND Skin: No rash or skin lesions. Psychiatric: Could not be assessed at this time Musculoskeletal: No joint swelling or deformity. Normal range of motion. Results CBC & Chem 7: 12/31/23 06:02 12/31/23 06:02 Labs: Abnormal Lab Results - Last 24 Hours (Table) 12/30/23 12/30/23 12/30/23 Range/Units 15:16 15:16 15:16 WBC 3.5 L (3.8-10.6) k/uL RBC (4.10-5.20) X 10*6/uL MCV 112.4 H (80.0-100.0) fL MCH 38.6 H (25.0-35.0) pg Neutrophils # (Manual) (1.80-7.70) X 10*3/uL Lymphocytes # 0.7 L (1.0-4.8) k/uL Lymphocytes # (Manual) (0.90-5.00) X 10*3/uL Eosinophils # (Manual) (0.04-0.35) X 10*3/uL NRBC/100 WBC Diff (0.00-0.01) X 10*3/uL Macrocytosis Marked A Crenated Cell PT 14.7 H (10.0-12.5) sec INR 1.4 H (<1.2) APTT 38.0 H (22.0-30.0) sec Sodium 135 L (137-145) mmol/L Potassium 3.3 L (3.5-5.1) mmol/L Carbon Dioxide 20 L (22-30) mmol/L Anion Gap (4.00-12.00) mmol/L Est GFR (CKD-EPI) (>=60) Glucose 135 H (74-99) mg/dL Plasma Lactic Acid [place] (0.7-2.0) mmol/L Calcium (8.7-10.3) mg/dL Total Bilirubin 3.5 H (0.2-1.3) mg/dL AST 65 H (14-36) U/L ALT 37 H (4-34) U/L NT-Pro-B Natriuret Pep (0-125) pg/mL Total Protein 5.3 L (6.3-8.2) g/dL Albumin 3.1 L (3.5-5.0) g/dL Amylase <30 L (30-110) U/L 12/30/23 12/30/23 12/30/23 Range/Units 15:16 18:19 21:31 WBC (3.8-10.6) k/uL RBC (4.10-5.20) X 10*6/uL MCV (80.0-100.0) fL MCH (25.0-35.0) pg Neutrophils # (Manual) (1.80-7.70) X 10*3/uL Lymphocytes # (1.0-4.8) k/uL Lymphocytes # (Manual) (0.90-5.00) X 10*3/uL Eosinophils # (Manual) (0.04-0.35) X 10*3/uL NRBC/100 WBC Diff (0.00-0.01) X 10*3/uL Macrocytosis Crenated Cell PT (10.0-12.5) sec INR (<1.2) APTT (22.0-30.0) sec Sodium (137-145) mmol/L Potassium (3.5-5.1) mmol/L Carbon Dioxide (22-30) mmol/L Anion Gap (4.00-12.00) mmol/L Est GFR (CKD-EPI) (>=60) Glucose (74-99) mg/dL Plasma Lactic Acid [place] 5.3 H* 4.0 H* 4.1 H* (0.7-2.0) mmol/L Calcium (8.7-10.3) mg/dL Total Bilirubin (0.2-1.3) mg/dL AST (14-36) U/L ALT (4-34) U/L NT-Pro-B Natriuret Pep (0-125) pg/mL Total Protein (6.3-8.2) g/dL Albumin (3.5-5.0) g/dL Amylase (30-110) U/L 12/31/23 12/31/23 12/31/23 Range/Units 06:02 06:02 06:02 WBC 11.14 H (3.8-10.6) k/uL RBC 3.71 L (4.10-5.20) X 10*6/uL MCV 115.6 H (80.0-100.0) fL MCH 38.8 H (25.0-35.0) pg Neutrophils # (Manual) 8.36 H (1.80-7.70) X 10*3/uL Lymphocytes # (1.0-4.8) k/uL Lymphocytes # (Manual) 0.45 L (0.90-5.00) X 10*3/uL Eosinophils # (Manual) 0 L (0.04-0.35) X 10*3/uL NRBC/100 WBC Diff 0.06 H (0.00-0.01) X 10*3/uL Macrocytosis Crenated Cell 2+ A PT (10.0-12.5) sec INR (<1.2) APTT (22.0-30.0) sec Sodium (137-145) mmol/L Potassium (3.5-5.1) mmol/L Carbon Dioxide 18.3 L (22-30) mmol/L Anion Gap 14.70 H (4.00-12.00) mmol/L Est GFR (CKD-EPI) 50 L (>=60) Glucose (74-99) mg/dL Plasma Lactic Acid [place] 3.4 H* (0.7-2.0) mmol/L Calcium 7.9 L (8.7-10.3) mg/dL Total Bilirubin (0.2-1.3) mg/dL AST (14-36) U/L ALT (4-34) U/L NT-Pro-B Natriuret Pep 3166 H (0-125) pg/mL Total Protein (6.3-8.2) g/dL Albumin (3.5-5.0) g/dL Amylase (30-110) U/L 12/31/23 Range/Units 09:49 WBC (3.8-10.6) k/uL RBC (4.10-5.20) X 10*6/uL MCV (80.0-100.0) fL MCH (25.0-35.0) pg Neutrophils # (Manual) (1.80-7.70) X 10*3/uL Lymphocytes # (1.0-4.8) k/uL Lymphocytes # (Manual) (0.90-5.00) X 10*3/uL Eosinophils # (Manual) (0.04-0.35) X 10*3/uL NRBC/100 WBC Diff (0.00-0.01) X 10*3/uL Macrocytosis Crenated Cell PT (10.0-12.5) sec INR (<1.2) APTT (22.0-30.0) sec Sodium (137-145) mmol/L Potassium (3.5-5.1) mmol/L Carbon Dioxide (22-30) mmol/L Anion Gap (4.00-12.00) mmol/L Est GFR (CKD-EPI) (>=60) Glucose (74-99) mg/dL Plasma Lactic Acid [place] 4.3 H* (0.7-2.0) mmol/L Calcium (8.7-10.3) mg/dL Total Bilirubin (0.2-1.3) mg/dL AST (14-36) U/L ALT (4-34) U/L NT-Pro-B Natriuret Pep (0-125) pg/mL Total Protein (6.3-8.2) g/dL Albumin (3.5-5.0) g/dL Amylase (30-110) U/L Thrombosis Risk Factor Assmnt - DVT/VTE Prophylaxis DVT/VTE Prophylaxis: Mechanical Prophylaxis ordered - Choose All That Apply Any of the Below Risk Factors Present?: No Other Risk Factors: Yes Each Risk Factor Represents 2 Points: Age 61-74 years, Patient confined to bed Other congenital or acquired thrombophilia - If yes, enter type in comment: No Thrombosis Risk Factor Assessment Total Risk Factor Score: 4 Thrombosis Risk Factor Assessment Level: Moderate Risk Assessment and Plan Assessment: Pneumoperitoneum and pneumatosis intestinalis concerning for perforated/ischemic bowel. Alcoholic liver cirrhosis and history of hepatic encephalopathy Severe lactic acidosis 5.3 Hypokalemia Hypervolemic hyponatremia Hyperbilirubinemia and elevated liver enzymes Acute metabolic encephalopathy Hypothyroidism Hypertension Anxiety/depression Severe alcohol abuse Prior history of smoking Hypertension GI prophylaxis Plan: Patient will be continued on IV hydration with normal saline. Started on antibiotic in the form of Zosyn. Patient was seen by general surgery and recommends surgical intervention due to bowel ischemia and pneumoperitoneum. Family does not want any surgical procedures and would like to go for palliative care. Hospice service will be consulted and started on comfort care measures. Prognosis poor at this time. Time with Patient: Greater than 30
== END 2023-12-31 14:08 | disposition hospice, inpatient (51) | DRG 393 ==
LOC: EC 14:35 → 4SSUR 19:12
PROVIDERS: ADMIT Hospitalist; ATTEND Hospitalist
DX: K63.89 Other specified diseases of intestine (principal); G93.41 Metabolic encephalopathy; K63.1 Perforation of intestine (nontraumatic); E87.1 Hypo-osmolality and hyponatremia; Z66 Do not resuscitate; Z51.5 Encounter for palliative care; E03.9 Hypothyroidism, unspecified; E87.70 Fluid overload, unspecified; F10.10 Alcohol abuse, uncomplicated; F41.9 Anxiety disorder, unspecified; K70.30 Alcoholic cirrhosis of liver without ascites; F32.A Depression, unspecified; Z87.891 Personal history of nicotine dependence; Z79.890 Hormone replacement therapy; Z79.899 Other long term (current) drug therapy
CPT/HCPCS: 36415; 71045; 74176; 80048; 80053; 82140; 82150; 83605; 83690; 83880; 85025; 85610; 85730; 86850; 86900; 86901; 87040; 93005; 96361; 96365; 96366; 96375; 99291

== ENCOUNTER 2023-12-31 14:28 | Inpatient (IN) | payer MEDICAID ==
[2023-12-31] MEDS ORDERED: ACETAMINOPHEN SUPPOSITORY 650 MG SUPP RECTAL PRN (15:06)
[2023-12-31] MEDS ORDERED: ONDANSETRON 4 MG/2 ML VIAL IVP PRN (15:06)
[2023-12-31] MEDS ORDERED: HALOPERIDOL LACTATE 5 MG/ML 1 ML VIAL IM PRN (15:06)
[2023-12-31] MEDS ORDERED: polyethylene glycoL 3350 17 GM POWD.PACK PO PRN (15:06)
[2023-12-31] MEDS ORDERED: ATROPINE OPHTH SOLN 1% 5ML BTL SUBLINGUAL PRN (15:06)
[2023-12-31 15:14] VITALS: BP 70/61; PULSE 84; TEMP 96.7
[2023-12-31] MEDS: MORPHINE SULFATE 4 MG/ML SYRINGE IV SCH (16:54)
[2024-01-01] MEDS: GLYCOPYRROLATE 0.2 MG/ML 2 ML VIAL IVP PRN (00:56)
[2024-01-01] MEDS: LORazepam 2 MG/ML INJ IV PRN (01:28)
[2024-01-01 01:34] VITALS: RESP 9
[2024-01-01] MEDS: MORPHINE SULFATE 2 MG/ML SYRINGE IV PRN (07:51)
--- NOTE | 2024-01-01 10:35 | P.PN ---
Progress Note - Text Progress Note Date: 01/01/24 Patient is actively passing with family at bedside. Support given.
== END 2024-01-01 10:04 | disposition expired | DRG 951 ==
LOC: 4SSUR 14:28
PROVIDERS: ADMIT Family Medicine; ATTEND Family Medicine
DX: Z51.5 Encounter for palliative care (principal)